=== PATIENT | male | born 1945 | race Caucasian/White ===

== ENCOUNTER → 2023-07-19 09:00 | Outpatient (CLI) | payer MEDICARE, SELFPAY ==
[2023-07-19 21:21] LABS: Alanine Aminotransferase 25 U/L (12-78); Albumin Level 3.9 g/dl (3.5-5.0); Albumin/Globulin Ratio 1.6 (1.1-1.8); Alkaline Phosphatase 101 U/L (38-126); Anion Gap 9.8 mEq/L (5-15); Aspartate Amino Transferase 43 U/L (17-59); Bilirubin,Total 0.5 mg/dl (0.2-1.3); Blood Urea Nitrogen 11 mg/dl (9-20); Calcium 9.1 mg/dl (8.4-10.2); Carbon Dioxide 30 mmol/L (22.0-30.0); Chloride 100 mmol/L (98-107); Chol/HDL Ratio 1.6 (1-3.5); Cholesterol 148 mg/dl (140-200); Estimated Glomerular Filt Rate 94 ml/min (>60); GFR (African American) 114 ML/MIN (>60); Globulin 2.5 g/dL (1.3-3.2); Glucose 100 mg/dl (74-100); HDL Cholesterol 90 mg/dl (40-60); Potassium 3.8 mmoL/L (3.5-5.1); Sodium 136 mmol/L (136-145); Total Protein,Serum 6.4 g/dl (6.3-8.2); Triglycerides 67 mg/dl (30-150); VLDL Cholesterol 13 mg/dL (0-40)
[2023-07-19 21:34] LABS: 25-OH Vitamin D, Total 55.3 ng/mL (30-100)
[2023-07-19 21:35] LABS: Basophils % 0.7 % (0.1-2.0); Eosinophils # 0.2 K/mm3 (0.0-0.4); Eosinophils % 3.3 % (0.1-12.0); Hematocrit 40.5 % (42.0-52.0); Hemoglobin 13.6 g/dL (14.1-18.0); Lymphocytes # 1.6 K/mm3 (0.7-4.5); Lymphocytes % 26.8 % (10-50); Mean Corpuscular HGB Conc 33.6 g/dL (31.8-35.4); Mean Corpuscular Hemoglobin 32.8 pg (27.0-31.2); Mean Corpuscular Volume 97.8 fl (80-94); Mean Platelet Volume 9.4 fl (7.4-10.4); Monocytes # 0.5 K/mm3 (0.1-1.0); Monocytes % 8.4 % (1.7-9.3); Neutrophils # 3.7 K/mm3 (1.8-7.8); Neutrophils % 60.8 % (37.0-80.0); Platelet Count 256 K/mm3 (142-424); Red Blood Count 4.14 M/mm3 (4.60-6.20)
[2023-07-19 21:40] LABS: Direct LDL Cholesterol 54.68 mg/dL (100-129)
[2023-07-19 21:54] LABS: Prostate Specific Ag Screen 2.3 ng/ml (0.0-4.0); Thyroid Stimulating Hormone 0.37 uIU/mL (0.465-4.68)
[2023-07-19 22:06] LABS: Hemoglobin A1C 5.2 % (4.0-6.0)
[2023-07-19 22:41] LABS: Microalbumin/Creatinine Ratio 12.4
[2023-07-19 22:42] LABS: Creatinine,Urine Random 108 mg/dL (Not Estab.)
== END ==
LOC: LAB.DROPOF 07-20 10:51
PROVIDERS: PCP Internal Medicine; Visit Provider Internal Medicine
DX: I10 Essential (primary) hypertension (principal); M96.1 Postlaminectomy syndrome, not elsewhere classified; R01.1 Cardiac murmur, unspecified; K59.00 Constipation, unspecified; M17.0 Bilateral primary osteoarthritis of knee; R09.81 Nasal congestion; J30.89 Other allergic rhinitis; Z79.899 Other long term (current) drug therapy; Z72.0 Tobacco use; Z12.5 Encounter for screening for malignant neoplasm of prostate; E66.9 Obesity, unspecified; Z68.30 Body mass index [BMI] 30.0-30.9, adult
CPT/HCPCS: 80053; 80061; 82043; 82306; 82570; 83036; 84443; 85025; G0103

== ENCOUNTER → 2023-08-10 08:13 | Outpatient (CLI) | payer MEDICARE, SELFPAY ==
[2023-08-10 20:20] LABS: Iron 109 ug/dL (49-181)
[2023-08-10 20:49] LABS: T4 (Thyroxine) 9.5 ug/dl (5.53-11.0)
[2023-08-12 08:17] LABS: Triiodothyronine (T3) Total 125 ng/dL (71-180)
[2023-08-12 09:12] LABS: Transferrin 270 mg/dL (177-329)
== END ==
PROVIDERS: PCP Internal Medicine; Visit Provider Internal Medicine
DX: D64.9 Anemia, unspecified (principal); E07.9 Disorder of thyroid, unspecified
CPT/HCPCS: 83540; 84436; 84439; 84466; 84480

== ENCOUNTER 2023-09-23 10:30 | Outpatient (CLI) | payer MEDICARE, SELFPAY ==
[2023-09-23 21:21] LABS: Amphetamine/Metha Screen,Urine Negative ng/ml (<1000)
[2023-09-23 22:57] LABS: Barbiturates Screen,Urine Negative ng/ml (<200); Benzodiazepines Screen,Urine Negative ng/ml (<200); Cannabinoid Screen,Urine Negative ng/ml (<50); Cocaine Screen,Urine Negative ng/ml (<300); Methadone Screen,Urine Negative ng/ml (<300); Opiate Screen,Urine Positive ng/ml (<300); Phencyclidine Screen,Urine Negative ng/ml (<25)
== END 2023-09-23 23:59 ==
PROVIDERS: PCP Nurse Practitioner Family; Visit Provider Nurse Practitioner Family
DX: Z79.899 Other long term (current) drug therapy (principal)
CPT/HCPCS: 80307

== ENCOUNTER 2023-10-28 19:24 | Outpatient (CLI) | payer MEDICARE, SELFPAY ==
[2023-10-28 18:55] LABS: Basophils % 0.2 % (0.1-2.0); Eosinophils # 0.3 K/mm3 (0.0-0.4); Eosinophils % 4.1 % (0.1-12.0); Hematocrit 44.2 % (42.0-52.0); Hemoglobin 14.8 g/dL (14.1-18.0); Lymphocytes # 2.1 K/mm3 (0.7-4.5); Lymphocytes % 33.8 % (10-50); Mean Corpuscular HGB Conc 33.4 g/dL (31.8-35.4); Mean Corpuscular Hemoglobin 32.8 pg (27.0-31.2); Mean Corpuscular Volume 98.1 fl (80-94); Mean Platelet Volume 9.8 fl (7.4-10.4); Monocytes # 0.6 K/mm3 (0.1-1.0); Monocytes % 9.2 % (1.7-9.3); Neutrophils # 3.2 K/mm3 (1.8-7.8); Neutrophils % 52.7 % (37.0-80.0); Platelet Count 268 K/mm3 (142-424); Red Cell Distribution Width 13.6 % (11.5-17.5); White Blood Count 6.1 K/mm3 (4.8-10.8)
[2023-10-28 19:38] LABS: Thyroid Stimulating Hormone 0.43 uIU/mL (0.465-4.68)
[2023-10-28 19:42] LABS: Ferritin 42.5 ng/ml (17.9-464)
== END 2023-10-28 23:59 ==
LOC: LAB.DROPOF 19:26
PROVIDERS: PCP Internal Medicine; Visit Provider Internal Medicine
DX: E05.90 Thyrotoxicosis, unspecified without thyrotoxic crisis or storm (principal); R53.83 Other fatigue; D64.9 Anemia, unspecified
CPT/HCPCS: 82728; 84443; 85025

== ENCOUNTER 2024-03-20 11:00 | Outpatient (CLI) | payer MEDICARE, SELFPAY ==
[2024-03-20 20:32] LABS: Alanine Aminotransferase 30 U/L (12-78); Albumin Level 4.4 g/dl (3.5-5.0); Albumin/Globulin Ratio 1.7 (1.1-1.8); Alkaline Phosphatase 93 U/L (38-126); Anion Gap 11.6 mEq/L (5-15); Aspartate Amino Transferase 53 U/L (17-59); Bilirubin,Total 0.7 mg/dl (0.2-1.3); Blood Urea Nitrogen 8 mg/dl (9-20); Calcium 9.6 mg/dl (8.4-10.2); Carbon Dioxide 35 mmol/L (22.0-30.0); Chloride 97 mmol/L (98-107); Estimated Glomerular Filt Rate 110 ml/min (>60); GFR (African American) 133 ML/MIN (>60); Globulin 2.6 g/dL (1.3-3.2); Glucose 100 mg/dl (74-100); Potassium 3.6 mmoL/L (3.5-5.1); Sodium 140 mmol/L (136-145)
[2024-03-20 21:03] LABS: Thyroid Stimulating Hormone 0.56 uIU/mL (0.465-4.68)
== END 2024-03-20 23:59 | disposition home or self-care (01) ==
LOC: LAB.DROPOF 03-21 11:00
PROVIDERS: PCP Internal Medicine; Visit Provider Internal Medicine
DX: I10 Essential (primary) hypertension (principal)
CPT/HCPCS: 80053; 84443

== ENCOUNTER 2024-05-18 14:05 | Outpatient (CLI) | payer MEDICARE, SELFPAY ==
[2024-05-18 20:14] LABS: Creatinine,Urine Random 30 mg/dL (Not Estab.)
== END 2024-05-18 23:59 | disposition home or self-care (01) ==
LOC: LAB.DROPOF 05-19 11:15
PROVIDERS: PCP Internal Medicine; Visit Provider Internal Medicine
DX: R73.03 Prediabetes (principal)
CPT/HCPCS: 82043; 82570

== ENCOUNTER 2024-09-05 14:40 | Outpatient (CLI) | payer MEDICARE, SELFPAY | END 2024-09-05 23:59 | disposition home or self-care (01) | LOC: LAB.DROPOF 09-06 10:55 | PROVIDERS: PCP Internal Medicine; Visit Provider Internal Medicine | DX: Z12.5 Encounter for screening for malignant neoplasm of prostate (principal) | CPT/HCPCS: G0103 ==

== ENCOUNTER 2024-11-02 12:21 | Outpatient (CLI) | payer MEDICARE, SELFPAY ==
[2024-11-01 19:29] LABS: Microalbumin/Creatinine Ratio 219.6
[2024-11-01 19:31] LABS: Creatinine,Urine Random 26 mg/dL (Not Estab.)
== END 2024-11-02 23:59 | disposition home or self-care (01) ==
LOC: LAB.DROPOF 12:22
PROVIDERS: PCP Internal Medicine; Visit Provider Internal Medicine
DX: R80.9 Proteinuria, unspecified (principal)
CPT/HCPCS: 82043; 82570

== ENCOUNTER 2025-04-05 13:30 | Outpatient (CLI) | payer MEDICARE, SELFPAY ==
--- OUTSIDE RECORDS SUMMARY | 2025-02-14 10:45 | XMS_ITS | Encounter Summary ---
Author [place] [address] Care Team Providers Care Consulting Technical Manager Name Role Phone Zenaida Cruz Ud, MD Unavailable [phone] Dillon Cadena APRN Primary Care Provider [phone] Reason for Referral * Ultrasound (Routine) - Pending Review Specialty Diagnoses / Procedures Referred By Ernie lou Referred To Contact Radiology Diagnoses Mass of muscle of right upper extremity Procedures US UPPER EXTREMITY NONVASCULAR LIMITED Dillon Cadena APRN [address] [place] [address] Phone: tel: fax: Referral ID Status Reason Start Date Expiration Date V isits Requested Visits Authorized [id number] Pending Review 02/14/2025 02/14/2026 1 1 Reason for Visit * Reason Comments Congestion x4 days Fatigue x4 days Encounter Details Date Type Department Care Team (Late st Contact Info) Description 02/14/2025 10:45 AM EDT Office Visit [facility] [address] [place] [address] Dillon Cadena APRN [address] [place] [address] Acute bacterial sinusitis (Primary Dx); B12 deficiency; Mass of muscle of right upper extremity Social History Tobacco Use Types Packs/Day Years Used Date Smoking Tobacco: Never Smokeless Tobacco: Current Chew Tobacco Cessation:Ready to Q uit: No Alcohol Use Standard Drinks/Week Comments No 0 (1 standard drink = 0.6 oz pur e alcohol) PHQ-2 Answer Date Recorded PHQ-2 Total Score 0 12/11/2024 Sex and Gender Information Value Date Recorded Sex Assigned at Not on file Legal Sex Male 11:16 PM EDT Gender Identity Not on file Sexual Orientation Not on file documented as of this encounter Last Filed Vital Signs Vital Sign Reading Time Taken Comments Blood Pressure 136/74 02/14/2025 10:45 AM EDT Pulse - - Temperature 36.5 C (97.7 F) 02/14/2025 10:45 AM EDT Respiratory Rate - - Oxygen Saturation - - Inhaled Oxygen Concentration - - Weight 87.1 kg (192 lb 2 oz) 02/14/2025 10:45 AM EDT Height 165.1 cm (5' 5 ) 02/14/2025 10:45 AM EDT Body Mass Index 31.97 02/14/2025 10:45 AM EDT documented in this encounter Functional Status * Is the person deaf or does he/she have serious difficulty hearing? Answer Date of Assessment Author No 12/11/2024 11:23 AM EDT Pam Eng MA * Is the person blind or does he/she have serious difficulty seeing even when wearing glasses? Answer Date of Assessment Author No 12/11/2024 11:23 AM RANDIT Pam Eng MA * Does this person have serious difficulty walking or climbing stairs? Answer Date of Assessment Author No 12/11/2024 11:23 AM RANDIT Pam Eng MA * Does this person have difficulty dressing or bathing? Answer Date of Assessment Author No 12/11/2024 11:23 AM RANDIT Pam Eng MA * Because of a physical, mental or emotional condition, does this person have difficulty doing errands alone such as visiting a doctor's office or shopping? Answer Date of Assessment Author No 12/11/2024 11:23 AM Pam Jackson MA documented as of this encounter Mental Status * Because of a physical, mental or emotional condition, does this person have serious difficulty concentrating, remembering or making decisions? Answer Entry Date Author No 12/11/2024 11:23 AM Pam Jackson MA documented in this encounter Ordered Prescriptions Prescription Sig Dispense Quantity Refills Last Filled Start Date End Date amoxicillin (AMOXIL) 875 mg Oral TabletIndications: Acute bacterial sinusitis Take 1 Tablet by mouth 2 times daily for 7 days. 14 Tablet 02/14/2025 5 predniSONE (DELTASONE) 20 mg Oral TabletIndications: Acute bacterial sinusitis Take 2 Tablets by mouth daily for 5 days. 10 Tablet 02/14/2025 5 documented in this encounter Progress Notes * Dillon Cadena APRN - 02/14/2025 10:45 AM EDT Vitals: 02/14/25 1045 BP: (!) 136/74 BP Location: Left arm Patient Position: Sitting Temp: 97.7 ??F (36.5 ??C) TempSrc: Forehead Weight: 192 lb 2 oz (87.1 kg) Height: 5' 5 (1.651 m) Body mass index is 31.97 kg/m??. SUBJECTIVE: Chief Complaint Patient presents with Congestion x4 days Fatigue x4 days HPI: Congestion This is a new problem. The current episode started in the past 7 days. The problem has been unchanged. The problem occurs constantly. The cough is Non- productive. Associated symptoms include ear congestion, ear pain, nasal congestion, postnasal drip and rhinorrhea. Nothing aggravates the symptoms. He has tried OTC cough suppressant for the symptoms. The treatment provided mild relief. Fatigue This is a new problem. The current episode started in the past 7 days. The problem has been unchanged. Associated symptoms include congestion and fatigue. Nothing aggravates the symptoms. He has tried nothing for the symptoms. The treatment provided no relief. Presents with congestion, rhinorrhea, otalgia, sinus pressure/pain for the last several days. Also with right arm mass that has increased in size over the last several months. Review of Systems Constitutional: Positive for fatigue. HENT: Positive for congestion, ear pain, postnasal drip and rhinorrhea. OBJECTIVE: Physical Exam Constitutional: General: He is not in acute distress. Appearance: He is well-developed. He is not diaphoretic. HENT: Head: Normocephalic and atraumatic. Right Ear: External ear normal. Tympanic membrane is not injected or erythematous. Left Ear: External ear normal. Tympanic membrane is not injected or erythematous. Nose: Rhinorrhea present. Right Sinus: No maxillary sinus tenderness or frontal sinus tenderness. Left Sinus: No maxillary sinus tenderness or frontal sinus tenderness. Mouth/Throat: Pharynx: Posterior oropharyngeal erythema present. No oropharyngeal exudate. Tonsils: No tonsillar abscesses. Eyes: General: Right eye: No discharge. Left eye: No discharge. Neck: Vascular: No JVD. Cardiovascular: Rate and Rhythm: Normal rate and regular rhythm. Heart sounds: Normal heart sounds. No murmur heard. Pulmonary: Effort: Pulmonary effort is normal. No respiratory distress. Breath sounds: Normal breath sounds. No wheezing or rales. Musculoskeletal: General: Normal range of motion. Right upper arm: Deformity present. Cervical back: Normal range of motion and neck supple. Skin: General: Skin is warm and dry. Findings: No rash. Neurological: Mental Status: He is alert and oriented to person, place, and time. Psychiatric: Behavior: Behavior normal. Thought Content: Thought content normal. Judgment: Judgment normal. Assessment & Plan Acute bacterial sinusitis Orders: predniSONE (DELTASONE) 20 mg Oral Tablet; Take 2 Tablets by mouth daily for 5 days. amoxicillin (AMOXIL) 875 mg Oral Tablet; Take 1 Tablet by mouth 2 times daily for 7 days. B12 deficiency Orders: cyanocobalamin injection 1,000 mcg Mass of muscle of right upper extremity Orders: US UPPER EXTREMITY NONVASCULAR LIMITED; Future documented in this encounter Plan of Treatment Upcoming Encounters Date Type Department Care Team (Late st Contact Info) Description 07/16/2025 9:20 AM EDT Office Visit [facility] [address] [address] Raul Saucedo MD [address] [place] [address] [address] [facility] [address] documented as of this encounter Goals Goal Patient Goal Type Associated Problems Recent Progress Patient-Stated? Author Blood Pressure < 140/90 Blood Pressure 116/70(2024 8:59 AM EDT) No David aCdena MD Maintain a healthy diet, exercise regularly and maintain an ideal body weight General No Estrella Tariq Nesha HUEY Stay Tobacco Free Lifestyle No Estrella TariqHUEY documented as of this encounter Results * US UPPER EXTREMITY NONVASCULAR LIMITED (03/02/2025 4:25 PM EDT) Anatomical Region Laterality Modality Arm Ultrasound 03/02/2025 4:25 PM EDT Impressions 03/02/2025 5:13 PM EDT Lobulated mass in the right upper arm deep to the muscular fascia measuring 5.8 x 2.5 x 3.7 centimeters has sonographic characteristics of a lipoma. If the patient does not opt for resection, this can be observed clinically and repeat imaging can be performed in the future if there is continued growth and/or worsening pain. - Note: Radiology results need to be interpreted within a comprehensive clinical context. If you have questions about the radiology report, please contact the office of the ordering clinician. Narrative 03/02/2025 5:13 PM EDT US UPPER EXTREMITY NONVASCULAR LIMITED, 03/02/2025 4:25 PM CLINICAL HISTORY: M62.89-Other specified disorders of [id number]. COMPARISON: None PROCEDURE COMMENTS: Routine sonographic evaluation of the region of interest with branch service representative images sent to PACS along with cone classifier tender notes. FINDINGS: Targeted ultrasound performed in the right upper arm in the area of palpable abnormality. In this location, there is a lobulated mass deep to the muscular fascia which has well-defined margins measuring 5.8 x 2.5 x 3.7 cm. This is isoechoic to the subcutaneous fat and has uniform echogenicity. No other mass or fluid collection in this location. Procedure Note Ronit Johnson MD - 03/02/2025 US UPPER EXTREMITY NONVASCULAR LIMITED, 03/02/2025 4:25 PM CLINICAL HISTORY: M62.89-Other specified disorders of [id number]-CM. COMPARISON: None PROCEDURE COMMENTS: Routine sonographic evaluation of the region ofinterest with branch service representative images sent to PACS along with cone classifier tender notes. FINDINGS: Targeted ultrasound performed in the right upper arm in the area ofpalpable abnormality. In this location, there is a lobulated mass deep to themuscular fascia which has well-defined margins measuring 5.8 x 2.5 x 3.7 cm. Thisis isoechoic to the subcutaneous fat and has uniform echogenicity. No othermass or fluid collection in this location. IMPRESSION: Lobulated mass in the right upper arm deep to the muscular fasciameasuring 5.8 x 2.5 x 3.7 centimeters has sonographic characteristics of a lipoma. Ifthe patient does not opt for resection, this can be observed clinically andrepeat imaging can be performed in the future if there is continued growthand/or worsening pain. - Note: Radiology results need to be interpreted within a comprehensiveclinical context. If you have questions about the radiology report, please contactthe office of the ordering clinician. Dillon Cadena APRN [facility] US ORDERABLES Final Resu lt documented in this encounter Visit Diagnoses Diagnosis Acute bacterial sinusitis- Primary Acute sinusitis, unspecified B12 deficiency Other B-complex deficiencies Mass of muscle of right upper extremity Mass of muscle of right upper extremity documented in this encounter Administered Medications Inactive Administered Medications - up to 1 most recent administrations Medication Order MAR Action Action Date Dose Rate Site cyanocobalamin injection 1,000 mcg 1,000 mcg, Intramuscular, ONCE, 1 dose, On Wed02/14/25 at 1115, Dx: 1. B12 deficiencyIndications:B12 deficiency Given 02/14/2025 11:45 AM EDT 1,000 mcg Left Deltoid documented in this encounter Discontinued Medications Medication Sig Discontinue Reason Start Date End Da te chlorhexidine (HIBICLENS) 4 % Top Liquid Apply topically as needed for Wound Care. Cancelled by Midlevel 02/14/2025 gabapentin (NEURONTIN) 100 mg Oral CapsuleIndications:Hist ory of degenerative disc disease TAKE 1 CAPSULE BY MOUTH 4 TIMES DAILY Cancelled by Midlevel 05/02/2018 02/14/2025 meloxicam (MOBIC) 7.5 mg Oral TabletIndications:Numbn ess and tingling of both legs below knees,DDD (degenerative disc disease), lumbar Take 1 Tablet by mouth daily. Cancelled by Midlevel 11/12/2021 02/14/2025 documented as of this encounter Additional Health Concerns Assessment Noted Time A fall risk assessment has been complete d for the patient 04/26/2024 2:47 PM EDT documented as of this encounter Care Teams Consulting Technical Manager Relationship Specialty Start Date End Date Dillon Cadena APRN [address] [place] [address] PCP - General Nurse Practitioner 08/31/23 Zenaida Cruz Ud, MD [address] [place] [address] Internal Medicine-Nephrology 04/06/16 documented as of this encounter
--- OUTSIDE RECORDS SUMMARY | 2025-02-23 09:00 | XMS_ITS | Encounter Summary ---
Author Organization [place] [address] Care Team Providers Care Roof Cement And Paint Maker Helper Name Role Phone Zenaida Cruz Ud, MD Unavailable [phone] Dillon Cadena APRN Primary Care Provider [phone] Reason for Referral * Consultation (Emergency) - Authorization Not Needed Specialty Diagnoses / Procedures Referred By Ernie t Referred To Contact Diagnoses Left eye injury, initial encounter Kassie Beasley MD [address] [place] [address] Phone: tel: fax: Ingrid Calvert, OD [address] [place] [address] Phone: tel: fax: Referral ID Status Reason Start Date Expiration Date Visits Requested Visits Authorized [id number] Authorization Not Needed Specialty Services Required 02/23/2025 02/23/2026 99 99 Reason for Visit * Reason Comments Fatigue Weakness Cough Congestion Encounter Details Date Type Department Care Team (Late st Contact Info) Description 02/23/2025 9:00 AM EDT Office Visit [facility] [address] [place] [address] Kassie Beasley MD [address] [place] [address] Left eye injury, initial encounter (Primary Dx); Costochondritis; PUD (peptic ulcer disease) Social History Tobacco Use Types Packs/Day Years Used Date Smoking Tobacco: Never Smokeless Tobacco: Current Chew Tobacco Cessation:Ready to Q uit: Not Asked; Counseling Given: Not Answered Alcohol Use Standard Drinks/Week Comments No 0 [...] Sign Reading Time Taken Comments Blood Pressure 98/56 02/23/2025 8:44 AM EDT Pulse - - Temperature 36.8 C (98.2 F) 02/23/2025 8:44 AM EDT Respiratory Rate - - Oxygen Saturation - - Inhaled Oxygen Concentration - - Weight 86.2 kg (190 lb) 02/23/2025 8:44 AM EDT Height 165.1 cm (5' 5 ) 02/23/2025 8:44 AM EDT Body Mass Index 31.62 02/23/2025 8:44 AM EDT documented in this encounter Functional Status * Is the person deaf or does he/she have serious difficulty hearing? Answer Date of Assessment Author No 12/11/2024 11:23 AM EDT Pam Eng MA * Is the person blind or does he/she have serious difficulty seeing even when wearing glasses? Answer Date of Assessment Author No 12/11/2024 11:23 AM EDT Pam Eng MA * Does this person have serious difficulty walking or climbing stairs? Answer Date of Assessment Author No 12/11/2024 11:23 AM EDT Pam Eng MA * Does this person have difficulty dressing or bathing? Answer Date of Assessment Author No 12/11/2024 11:23 AM EDT Pam Eng MA * Because of a physical, mental or emotional condition, does this person have difficulty doing errands alone such as visiting a doctor's office or shopping? Answer Date of Assessment Author No 12/11/2024 11:23 AM EDT Pam Eng MA documented as of this encounter Mental Status * Because of a physical, mental or emotional condition, does this person have serious difficulty concentrating, remembering or making decisions? Answer Entry Date Author No 12/11/2024 11:23 AM EDT Pam Eng MA documented in this encounter Ordered Prescriptions Prescription Sig Dispense Quantity Refills Last Filled Start Date End Date pantoprazole (PROTONIX) 40 mg Oral Tablet, Delayed Release (E.C.)Indications: PUD (peptic ulcer disease) Take 1 Tablet by mouth daily. 90 Tablet 3 02/23/2025 azithromycin (ZITHROMAX) 250 mg Oral TabletIndications: Costochondritis Take 2 tablets (500 mg) on Day 1, followed by 1 tablet (250 mg) once daily on Days 2 through 5. 6 Tablet 02/23/2025 documented in this encounter Progress Notes * Kassie Beasley MD - 02/23/2025 9:00 AM EDT Assessment & Plan 1. Costochondritis. - Reports chest tenderness and soreness, consistent with costochondritis. - Physical exam reveals tenderness in the ribs. - Discussed that this condition can occur after a cold. - An injection will be administered to alleviate chest tenderness. A new antibiotic prescription will be sent to the pharmacy. 2. Eye injury. - Reports a foreign body sensation in the left eye since yesterday. - Examination revealed a possible ulcer lateral to the iris. - Discussed the need for urgent evaluation by an scruff worker. - An urgent referral to an scruff worker will be arranged for further evaluation and management. 3. Low blood pressure. - Blood pressure reading is 98/56, which is below the normal range. - Advised to hold off on taking amlodipine 5 mg today and for the next couple of days while feelingunwell. - Discussed the importance of monitoring blood pressure and symptoms. 4. Dehydration. - Appears slightly dehydrated despite efforts to maintain hydration. - Physical exam suggests dehydration. - Advised to continue drinking plenty of water. - Discussed the importance of maintaining adequate hydration. 5. Medication management. - Out of Prilosec 40 mg. - Discussed the need for a refill. - A refill will be sent to the pharmacy. Dx/Orders: Diagnoses and all orders for this visit: Left eye injury, initial encounter - AMB REFERRAL TO OPTOMETRY Costochondritis - azithromycin (ZITHROMAX) 250 mg Oral Tablet; Take 2 tablets (500 mg) on Day 1, followed by 1 tablet (250 mg) once daily on Days 2 through 5. Dispense: 6 Tablet; Refill: 0 - methylPREDNISolone acetate (DEPO-Medrol) injection 120 mg PUD (peptic ulcer disease) - pantoprazole (PROTONIX) 40 mg Oral Tablet, Delayed Release (E.C.); Take 1 Tablet by mouth daily. Dispense: 90 Tablet; Refill: 3 No follow-ups on file. Subjective Chente He is a 79 y.o. male Chief Complaint Patient presents with Fatigue Weakness Cough Congestion Fatigue This is a recurrent problem. The current episode started 1 to 4 weeks ago. The problem occurs constantly. The problem has been unchanged. Associated symptoms include arthralgias, coughing and fatigue. Cough This is a recurrent problem. The current episode started 1 to 4 weeks ago. The problem has been unchanged. The problem occurs constantly. Congestion This is a recurrent problem. The current episode started 1 to 4 weeks ago. The problem has been unchanged. The problem occurs constantly. History of Present Illness The patient presents for evaluation of chest pain, eye injury, and low blood pressure. She reports experiencing chest discomfort, which she describes as soreness. This discomfort has been present since her last visit to Dr. Almonte. She also mentions persistent aching and bone pain, along with back pain that started a few weeks ago. Despite taking the prescribed medications, amoxicillin and prednisone, she has not observed any improvement in her symptoms. She reports recent physical activity, specifically mowing the yard two days prior. She was informed that her blood pressure was low. She maintains adequate hydration but acknowledgesa decrease in her appetite. She takes her blood pressure medication at night. Additionally, she reports an incident where a foreign object entered her eye while she was lying onthe couch yesterday. She is uncertain about the nature of the object but believes it may have caused a scratch. She describes a sensation of something still being present in her eye, which is causingdiscomfort. She also notes a discoloration in her eye, which she attributes to the incident. The pain is localized within the eye. She also reports experiencing dry mouth, which she attributes to her blood pressure medication. She is out of her Prilosec 40 mg. Review of Systems Constitutional: Positive for fatigue. HENT: Negative. Respiratory: Positive for cough. Cardiovascular: Negative. Gastrointestinal: Negative. Genitourinary: Negative. Musculoskeletal: Positive for arthralgias. Psychiatric/Behavioral: Negative. Objective Blood pressure 98/56, temperature 98.2 ??F (36.8 ??C), height 5' 5 (1.651 m), weight 190 lb (86.2 kg). Body mass index is 31.62 kg/m??. Physical Exam Ears: Bubbles present behind the ears Eyes: Discoloration on the left eye, possibly an ulcer Respiratory: Clear to auscultation, no wheezing, rales or rhonchi Other: Tenderness in the chest, likely costochondritis Physical Exam Vitals and nursing note reviewed. HENT: Head: Normocephalic. Comments: ttp bilateral maxillary sinus. Cobblestoning of oropharynx Right Ear: Tympanic membrane normal. Left Ear: Tympanic membrane normal. Cardiovascular: Rate and Rhythm: Normal rate. Pulmonary: Effort: Pulmonary effort is normal. Breath sounds: No wheezing. Abdominal: Palpations: Abdomen is soft. Musculoskeletal: General: Tenderness present. Neurological: General: No focal deficit present. Mental Status: He is alert. Results The provider educated the patient (or legal claims representative) on the use of the ambient listening artificial intelligence tool, [employer]acanda. They were informed that this AI tool processes the conversation to generate a clinical note with the expected benefit of improved accuracy while achieving an improved encounter experience for the patient and provider.?The provider explained that the medical information captured by the AI tool including, but not limited to, diagnoses and treatment plan would be protected in accordance with applicable privacy laws and that all diagnoses and treatment decisions would be made by the provider. The provider explained that the note generated will be reviewed bythe provider for accuracy to minimize potential errors.? The patient was given an opportunity to ask questions and opt out of proceeding with the use of the AI tool. After being informed of such information, the patient (or legal claims representative), and each individual in attendance with the patient, verbally consented to the use of the AI tool. documented in this encounter Plan of Treatment Upcoming Encounters Date Type Department Care Team (Late st Contact Info) Description 07/16/2025 9:20 AM EDT Office Visit [facility] [address] [place] [address] Raul Saucedo MD [facility] [place] [address] Scheduled Referrals Name Type Priority Associated Diagnoses Orde r Schedule AMB REFERRAL TO OPTOMETRY Outpatient Referral STAT Left eye injury, initial encounter Ordered: 02/23/2025 documented as of this encounter Goals Goal Patient Goal Type Associated Problems Recent Progress Patient-Stated? Author Blood Pressure < 140/90 Blood Pressure 116/70(2024 8:59 AM EDT) No David Cadena MD Maintain a healthy diet, exercise regularly and maintain an ideal body weight General No Estrella Tariq RMA Stay Tobacco Free Lifestyle No Estrella Tariq RMA documented as of this encounter Visit Diagnoses Diagnosis Left eye injury, initial encounter- Primary Costochondritis Tietze's disease PUD (peptic ulcer disease) Peptic ulcer, unspecified site, unspecified as acute or chronic, without mention of hemorrhage, perforation, or obstruction documented in this encounter Administered Medications Inactive Administered Medications - up to 1 most recent administrations Medication Order MAR Action Action Date Dose Rate Site methylPREDNISolone acetate (DEPO-Medrol) injection 120 mg 120 mg, Intramuscular, ONCE, 1 dose, On Wed02/23/25 at 0930, Dx: 1. CostochondritisIndicati ons:Costochondritis Given 02/23/2025 9:37 AM EDT 120 mg Right Upper Outer Quadrant documented in this encounter Discontinued Medications Medication Sig Discontinue Reason Start Date End Da te pantoprazole (PROTONIX) 40 mg Oral Tablet, Delayed Release (E.C.)Indications:PUD (peptic ulcer disease) Take 1 Tablet by mouth daily. Reorder 04/26/2024 02/23/2025 documented as of this encounter Additional Health Concerns Assessment Noted Time A fall risk assessment has been complete d for the patient 04/26/2024 2:47 PM EDT documented as of this encounter Care Teams Roof Cement And Paint Maker Helper Relationship Specialty Start Date End Date Dillon Cadena APRN [address] [place] [address] PCP - General Nurse Practitioner 08/31/23 Zenaida Cruz Ud, MD [address] [place] [address] Internal Medicine-Nephrology 04/06/16 documented as of this encounter
--- OUTSIDE RECORDS SUMMARY | 2025-03-02 10:15 | XMS_ITS | Encounter Summary ---
Author [place] [address] Care Team Providers Care Slat Basket Maker Machine Name Role Phone Zenaida Cruz Ud, MD Unavailable [phone] Dillon Cadena APRN Primary Care Provider [phone] Reason for Visit * Reason Comments Fatigue Encounter Details Date Type Department Care Team (Late Contact Info) Description 03/02/2025 10:15 AM EDT Office Visit [facility] [address] [place] [phone] Dillon Cadena APRN [address] [place] [address] Malaise and fatigue (Primary Dx); Spinal enthesopathy, cervicothoracic region; Peripheral neuropathy, idiopathic; Anemia, unspecified type; B12 deficiency; Screening for diabetes mellitus (DM); Vitamin D deficiency; Therapeutic drug monitoring Social History Tobacco Use Types Packs/Day Years Used Date Smoking Tobacco: Never Passive Smoke Exposure: Never Smokeless Tobacco: Current Chew Alcohol Use Standard Drinks/Week Comments No 0 (1 standard drink = 0.6 oz pur e alcohol) PHQ-2 Answer Date Recorded PHQ-2 Total Score 0 12/11/2024 Sexually Active Control Partners Comments Not Currently Female Sex and Gender Information Value Date Recorded Sex Assigned at Not on file Legal Sex Male 11:16 PM EDT Gender Identity Not on file Sexual Orientation Not on file documented as of this encounter Last Filed Vital Signs Vital Sign Reading Time Taken Comments Blood Pressure 112/64 03/02/2025 10:26 AM EDT Pulse - - Temperature 36.9 C (98.4 F) 03/02/2025 10:26 AM EDT Respiratory Rate - - Oxygen Saturation - - Inhaled Oxygen Concentration - - Weight 84.8 kg (187 lb) 03/02/2025 10:26 AM EDT Height 165.1 cm (5' 5 ) 03/02/2025 10:26 AM EDT Body Mass Index 31.12 03/02/2025 10:26 AM EDT documented in this encounter Functional [...] Assessment Author No 12/11/2024 11:23 AM EDT Pma Eng MA * Because of a physical, [...] Refills Last Filled Start Date End Date gabapentin (NEURONTIN) 600 mg Oral TabletIndications:Spi nal enthesopathy, cervicothoracic region,Peripheral neuropathy, idiopathic Take 1 Tablet by mouth 4 times daily. 120 Tablet 2 03/02/2025 documented in this encounter Progress Notes * Dillon Cadena APRN - 03/02/2025 10:15 AM EDTAssociated Problem(s): Spinal enthesopathy, cervicothoracic region Orders: gabapentin (NEURONTIN) 600 mg Oral Tablet; Take 1 Tablet by mouth 4 times daily. * Dillon Cadena APRN - 03/02/2025 10:15 AM EDT Vitals: 03/02/25 1026 BP: 112/64 Temp: 98.4 ??F (36.9 ??C) TempSrc: Temporal Weight: 187 lb (84.8 kg) Height: 5' 5 (1.651 m) Body mass index is 31.12 kg/m??. SUBJECTIVE: Chief Complaint Patient presents with Fatigue HPI: Fatigue This is a recurrent problem. The current episode started 1 to 4 weeks ago (1 month). The problem occurs constantly. The problem has been gradually worsening. Associated symptoms include congestion, fatigue, neck pain and weakness. Pertinent negatives include no sore throat. He has tried rest and sleep (antibiotics, oral steroid) for the symptoms. The treatment provided no relief. Presents with increased fatigue over the last month. Denies changes in diet, sleep. Controlled Substance Prescribing Management: As part of today's visit Chente is also being followed for controlled substance management for Degenerative Disc Disease and Peripheral Neuropathy. Detailsof the progress of the monitored condition are noted in that section of the HPI. The controlled substance flow sheet has been reviewed. Has been taking gabapentin 600 mg 4 times daily with improvement. History of chronic neck pain and neuropathy. Review of Systems Constitutional: Positive for fatigue. HENT: Positive for congestion. Negative for sore throat. Musculoskeletal: Positive for neck pain. Neurological: Positive for weakness. OBJECTIVE: Physical Exam Constitutional: General: He is not in acute distress. Appearance: He is well-developed. He is not diaphoretic. HENT: Head: Normocephalic and atraumatic. Eyes: General: Right eye: No discharge. Left eye: No discharge. Cardiovascular: Rate and Rhythm: Normal rate and regular rhythm. Heart sounds: Normal heart sounds. No murmur heard. Pulmonary: Effort: Pulmonary effort is normal. No respiratory distress. Breath sounds: Normal breath sounds. No wheezing or rales. Musculoskeletal: General: Normal range of motion. Cervical back: Normal range of motion and neck supple. Skin: General: Skin is warm and dry. Findings: No rash. Neurological: Mental Status: He is alert and oriented to person, place, and time. Psychiatric: Behavior: Behavior normal. Thought Content: Thought content normal. Judgment: Judgment normal. Assessment & Plan Malaise and fatigue Orders: CBC; Future THYROID STIMULATING HORMONE; Future Spinal enthesopathy, cervicothoracic region Orders: gabapentin (NEURONTIN) 600 mg Oral Tablet; Take 1 Tablet by mouth 4 times daily. Peripheral neuropathy, idiopathic Orders: gabapentin (NEURONTIN) 600 mg Oral Tablet; Take 1 Tablet by mouth 4 times daily. Anemia, unspecified type Orders: CBC; Future B12 deficiency Orders: VITAMIN B12/ FOLIC ACID; Future Screening for diabetes mellitus (DM) Orders: HEMOGLOBIN A1C; Future Vitamin D deficiency Orders: VITAMIN D 25 HYDROXY; Future Therapeutic drug monitoring Orders: COMPLIANCE PANEL, URINE; Future documented in this encounter Plan of Treatment Upcoming Encounters Date Type Department Care Team (Late st Contact Info) Description 07/16/2025 9:20 AM EDT Office Visit [facility] [address] [phone] Raul Saucedo MD [address] [place] [address] [place] [address] documented as of this encounter Goals Goal Patient Goal Type Associated Problems Recent Progress Patient-Stated? Author Blood Pressure < 140/90 Blood Pressure 116/70(2024 8:59 AM EDT) No David Cadena MD Maintain a healthy diet, exercise regularly and maintain an ideal body weight General No Estrella Tariq RMA Stay Tobacco Free Lifestyle No Estrella Tariq RMA documented as of this encounter Procedures Procedure Name Priority Date/Time Associated Diagnosis Comments COMPLIANCE PANEL, URINE Routine 03/02/2025 11:00 AM EDT Therapeutic drug monitoring VITAMIN B12/ FOLIC ACID Routine 03/02/2025 11:00 AM EDT B12 deficiency CBC Routine 03/02/2025 11:00 AM EDT Malaise and fatigue Anemia, unspecified type VITAMIN D 25 HYDROXY Routine 03/02/2025 11:00 AM EDT Vitamin D deficiency THYROID STIMULATING HORMONE Routine 03/02/2025 11:00 AM EDT Malaise and fatigue IRON LEVEL Routine 03/02/2025 11:00 AM EDT Anemia, unspecified type HEMOGLOBIN A1C Routine 03/02/2025 11:00 AM EDT Screening for diabetes mellitus (DM) documented in this encounter Results * IRON LEVEL (03/02/2025 11:00 AM EDT) Iron 141 50 - 170 mcg/dL 03/03/2025 7:46 PM EDT [facility] Blood VENOUS BLOOD / Unknown Venipuncture / Unknown 03/02/2025 11:00 AM EDT 03/02/2025 11:00 AM EDT us Dillon Cadena WEB CONTENT WRITER CHEMISTRY ORDERABLES Final R esult [facility] [address] [place] [address] , [place] [address] * (ABNORMAL) COMPLIANCE PANEL, URINE (03/02/2025 11:00 AM EDT) Medications Expected Gabapentin Percocet(TM) (oxycodone) 03/04/2025 9:05 AM EDT [facility] Barbiturates Absent Cutoff 200 ng/mL 03/04/2025 9:05 AM EDT [facility] THC <10 Cutoff 10 ng/mL ng/mL 03/04/2025 9:05 AM EDT [facility] [employer] Comment:5-norigtd-iibgrygzkz cannabinol; does not distinguish between prescribed and illicit forms THC Glucuronide <10 Cutoff 10 ng/mL ng/mL 03/04/2025 9:05 AM EDT [facility] Comment:Metabolite of THC Amphetamine <50 Cutoff 50 ng/mL ng/mL 03/04/2025 9:05 AM EDT [facility] Comment:e.g., Adderall, Vyva nse, Dexedrine, Obetrol MDA <50 Cutoff 50 ng/mL ng/mL 03/04/2025 9:05 AM EDT [facility] Comment:Metabolite of MDMA, and MDEA MDEA <50 Cutoff 50 ng/mL ng/mL 03/04/2025 9:05 AM EDT [facility] Comment:e.g., Eileen MDMA <50 Cutoff 50 ng/mL ng/mL 03/04/2025 9:05 AM EDT [facility] Comment:e.g., Ecstasy, Tracy Methamphetamine <50 Cutoff 50 ng/mL ng/mL 03/04/2025 9:05 AM EDT [facility] Comment:d- and l- isomers ar e not distinguished by this test; may reflect Srikanth's inhaler, Desoxyn, Selegiline, or illicit source Phentermine <50 Cutoff 50 ng/mL ng/mL 03/04/2025 9:05 AM EDT [facility] Comment:e.g., Adipex, Lomair a, Ionamin,Fastin,Zantryl Gabapentin >2,000(H) Cutoff 50 ng/mL ng/mL 03/04/2025 9:05 AM EDT [facility] Comment:e.g, Neurontin Pregabalin <50 Cutoff 50 ng/mL ng/mL 03/04/2025 9:05 AM EDT [facility] Comment:Lyrica Alprazolam <8 Cutoff 8 ng/mL ng/mL 03/04/2025 9:05 AM EDT [facility] Comment:e.g, Xanax, Niravam alpha-Hydroxyalprazolam <25 Cutoff 25 ng/mL ng/mL 03/04/2025 9:05 AM EDT [facility] Comment:Metabolite of Alpraz olam Clonazepam <10 Cutoff 10 ng/mL ng/mL 03/04/2025 9:05 AM EDT [facility] Comment:e.g., Klonopin, Clon opin 7-Aminoclonazepam <25 Cutoff 25 ng/mL ng/mL 03/04/2025 9:05 AM EDT [facility] Comment:Metabolite of Clonaz epam Diazepam <10 Cutoff 10 ng/mL ng/mL 03/04/2025 9:05 AM EDT [facility] Comment:e.g, Valium, Diastat Nordiazepam <25 Cutoff 25 ng/mL ng/mL 03/04/2025 9:05 AM EDT [facility] Comment:Metabolite of Chlord iazepoxide(Librium), Clorazepate(Tranxene), Diazepam, Halazepam, (Alapryl), Prazepam(Centrax) Flunitrazepam <50 Cutoff 50 ng/mL ng/mL 03/04/2025 9:05 AM EDT [facility] Comment:e.g.,Rohypnol, Narco zep 7-Aminoflunitrazepam <50 Cutoff 50 ng/mL ng/mL 03/04/2025 9:05 AM EDT [facility] Comment:Metabolite of Flunit razepam Flurazepam <50 Cutoff 50 ng/mL ng/mL 03/04/2025 9:05 AM EDT [facility] Comment:e.g., Dalmane Hydroxyethylflurazepam <50 Cutoff 50 ng/mL ng/mL 03/04/2025 9:05 AM EDT [facility] Comment:Metabolite of Fluraz epam Lorazepam <50 Cutoff 50 ng/mL ng/mL 03/04/2025 9:05 AM EDT [facility] Comment:e.g., Ativan Lorazepam Glucuronide <50 Cutoff 50 ng/mL ng/mL 03/04/2025 9:05 AM EDT [facility] Comment:Metabolite of Loraze lennie Midazolam <50 Cutoff 50 ng/mL ng/mL 03/04/2025 9:05 AM EDT [facility] Comment:e.g., Versed alpha-hydroxymidazolam <50 Cutoff 50 ng/mL ng/mL 03/04/2025 9:05 AM EDT [facility] Comment:Metabolite of Versed Oxazepam <50 Cutoff 50 ng/mL ng/mL 03/04/2025 9:05 AM EDT [facility] Comment:e.g., Serax; also Me tabolite of Temazepam, and Nordiazepam Oxazepam Glucuronide <50 Cutoff 50 ng/mL ng/mL 03/04/2025 9:05 AM EDT [facility] Comment:Metabolite of Oxazep am Temazepam <50 Cutoff 50 ng/mL ng/mL 03/04/2025 9:05 AM EDT [facility] Comment:e.g., Restoril; also Metabolite of Diazepam Temazepam Glucuronide <50 Cutoff 50 ng/mL ng/mL 03/04/2025 9:05 AM EDT [facility] Comment:Metabolite of Temaze lennie and Diazepam Triazolam <50 Cutoff 50 ng/mL ng/mL 03/04/2025 9:05 AM EDT [facility] Comment:e.g., Halcion alpha-hydroxytriazolam <50 Cutoff 50 ng/mL ng/mL 03/04/2025 9:05 AM EDT [facility] Comment:Metabolite of Triazo herrera Buprenorphine <5 Cutoff 5 ng/mL ng/mL 03/04/2025 9:05 AM EDT [facility] Comment:e.g., Suboxone, Subu sandrita,Sublocade, Buprenex Buprenorphine Glucuronide <10 Cutoff 10 ng/mL ng/mL 03/04/2025 9:05 AM EDT [facility] Comment:Buprenorphine Metabo lite Norbuprenorphine <5 Cutoff 5 ng/mL ng/mL 03/04/2025 9:05 AM EDT [facility] Comment:Buprenorphine Metabo lite Norbuprenorphine Glucuronide <10 Cutoff 10 ng/mL ng/mL 03/04/2025 9:05 AM EDT [facility] Comment:Buprenorphine Metabo lite Benzoylecgonine <50 Cutoff 50 ng/mL ng/mL 03/04/2025 9:05 AM EDT [facility] Comment:Cocaine Metabolite Fentanyl <1 Cutoff 1 ng/mL ng/mL 03/04/2025 9:05 AM EDT [facility] Comment:e.g.,Duragesic, Oral et, Actiq, Sublimaze, Innovar, Lazanda Norfentanyl <1 Cutoff 1 ng/mL ng/mL 03/04/2025 9:05 AM EDT [facility] Comment:Metabolite of Fentan yl 6-Monoacetylmorphine (6MAM) <10 Cutoff 10 ng/mL ng/mL 03/04/2025 9:05 AM EDT [facility] Comment:Metabolite of Heroin ; Morphine is expected Methadone <50 Cutoff 50 ng/mL ng/mL 03/04/2025 9:05 AM EDT [facility] Comment:e.g., Dolophine, Met hadose, Amidone EDDP <50 Cutoff 50 ng/mL ng/mL 03/04/2025 9:05 AM EDT [facility] Comment:Methadone Metabolite Carisoprodol <100 Cutoff 100 ng/mL ng/mL 03/04/2025 9:05 AM EDT [facility] Comment:e.g., Soma Meprobamate <100 Cutoff 100 ng/mL ng/mL 03/04/2025 9:05 AM EDT [facility] Comment:e.g., [place], Equa nil, Micrainin, Equagesic; Metabolite of Carisoprodol Codeine <50 Cutoff 50 ng/mL ng/mL 03/04/2025 9:05 AM EDT [facility] Comment:e.g., Acetaminophen w/Codeine, Tylenol3 w/ Codeine Codeine Glucuronide <50 Cutoff 50 ng/mL ng/mL 03/04/2025 9:05 AM EDT [facility] Comment:Metabolite of Codein e Meperidine <50 Cutoff 50 ng/mL ng/mL 03/04/2025 9:05 AM EDT [facility] Comment:e.g., Demerol, Pethi dine Normeperidine <50 Cutoff 50 ng/mL ng/mL 03/04/2025 9:05 AM EDT [facility] Comment:Metabolite of Meperi dine Morphine <50 Cutoff 50 ng/mL ng/mL 03/04/2025 9:05 AM EDT [facility] Comment:e.g., MS Contin, Yaa anol; Metabolite of Codeine and Heroin; may reflect poppy seed ingestion Wdmtamhh-5-Bhxqndkzzkd <25 Cutoff 25 ng/mL ng/mL 03/04/2025 9:05 AM EDT [facility] Comment:Metabolite of Morphi ne. Rpfpszvi-9-Eiyvivqewwa <25 Cutoff 25 ng/mL ng/mL 03/04/2025 9:05 AM EDT [facility] Comment:Metabolite of Morphi ne. Naloxone <25 Cutoff 25 ng/mL ng/mL 03/04/2025 9:05 AM EDT [facility] Comment:e.g., Narcan, Evzio Hydrocodone <50 Cutoff 50 ng/mL ng/mL 03/04/2025 9:05 AM EDT [facility] Comment:e.g., Lorcet, Lortab , Vicodin, Beckley; Minor Metabolite of Codeine Dihydrocodeine <50 Cutoff 50 ng/mL ng/mL 03/04/2025 9:05 AM EDT [facility] Comment:e.g., Didrate, Parzo ne, Parlor, Synalgos; Metabolite of Hydrocodone Norhydrocodone <50 Cutoff 50 ng/mL ng/mL 03/04/2025 9:05 AM EDT [facility] Comment:Metabolite of Hydroc odone Hydromorphone <50 Cutoff 50 ng/mL ng/mL 03/04/2025 9:05 AM EDT [facility] Comment:e.g., Dilaudid; also Metabolite of Hydrocodone and Minor Metabolite of Morphine Hydromorphone Glucuronide <50 Cutoff 50 ng/mL ng/mL 03/04/2025 9:05 AM EDT [facility] Comment:Metabolite of Hydrom orphone Oxycodone >2,000(H) Cutoff 50 ng/mL ng/mL 03/04/2025 9:05 AM EDT [facility] Comment:e.g., Oxycontin, Per cocet, Endocet, Percodan, Roxicet Noroxycodone >2,000(H) Cutoff 50 ng/mL ng/mL 03/04/2025 9:05 AM EDT [facility] Comment:Metabolite of Oxycod one Oxymorphone <50 Cutoff 50 ng/mL ng/mL 03/04/2025 9:05 AM EDT [facility] Comment:e.g., Opana; Metabol ite of Oxycodone Oxymorphone Glucuronide >2,000(H) Cutoff 50 ng/mL ng/mL 03/04/2025 9:05 AM EDT [facility] Comment:Metabolite of Oxycod one Noroxymorphone 331(H) Cutoff 50 ng/mL ng/mL 03/04/2025 9:05 AM EDT [facility] Comment:Metabolite of Oxycod one, and Oxymorphone, Noroxycodone Metabolite Tramadol <50 Cutoff 50 ng/mL ng/mL 03/04/2025 9:05 AM EDT [facility] Comment:e.g., Ultram, ConZip Y-Xjoqdviku-fcl-Tramadol <50 Cutoff 50 ng/mL ng/mL 03/04/2025 9:05 AM EDT [facility] Comment:Metabolite of Tramad ol Tapentadol <50 Cutoff 50 ng/mL ng/mL 03/04/2025 9:05 AM EDT [facility] Comment:Nucynta Tapentadol-Glucuronide <50 Cutoff 50 ng/mL ng/mL 03/04/2025 9:05 AM EDT [facility] Comment:Metabolite of Tapent adol Urine Creatinine 72.7 mg/dL 03/04/20 9:05 AM EDT [facility] Comment: Greater than 20: Consistent with valid sample Greater than 2 but less than 20: Possible dilution Less than 2: Questionable valid sample Urine STRUCTURE OF URINARY TRACT PROPER / Unknown 03/02/2025 11:00 AM EDT 03/02/2025 11:00 AM EDT Narrative [facility] - 03/04/2025 9:05 AM EDT The absence of expected drug(s), and/or drug metabolite(s), may indicate non-compliance, diluted or adulterated urine, poor drug absorption, concentration of drug below the cut-off, timing of specimen collection relative to administration of drug, or limitations of testing. Specimens are held for 7 days. This test was developed, and its performance characteristics determined by [facility] ([facility] It has not been cleared or approved by the FDA. This test is used for clinical purposes. It should not be regarded as investigational or for research. [facility] is certified under the Clinical Laboratory Improvement Amendments (CLIA) as qualified to perform high complexity clinical laboratory testing. Dillon Cadena APRN URINE ORDERABLES Final Resul t Performing Organization Address [facility] de Phone Number [facility] [employer] [address] , [place] [address] [facility] [address] [place], [place] [id number] * HEMOGLOBIN A1C (03/02/2025 11:00 AM EDT) Hgb A1C 5.5 4.2 - 5.6 % 03/02/2025 3:52 PM EDT [facility] [employer] [facility] Est. Avg Glucose 111 mg/dL 03/02/2025 3:52 PM EDT [facility] [employer] [facility] Blood VENOUS BLOOD / Unknown Venipuncture / Unknown 03/02/2025 11:00 AM EDT 03/02/2025 11:00 AM EDT Narrative [facility] [employer] [facility] - 03/02/2025 3:52 PM EDT REFERENCE RANGE: Normal: 4.0-5.6% Pre-diabetes: 5.7-6.4% Provisional diagnosis of diabetes: >6.4% Hgb F>10% and anything which shortens red cell survival, such as hemolytic anemia, or unstable hemoglobin variants such as HbSS, HbSC, or HbCC, will lower the HbA1c value associated with a given level of glycemic control. Dillon Cadena APRN CHEMISTRY ORDERABLES Final R esult Performing Organization Address [facility] Co de Phone Number [facility] [employer] [address] , [place] [address] * THYROID STIMULATING HORMONE (03/02/2025 11:00 AM EDT) TSH 0.496 0.270 - 4.200 mcIU/mL 03/02/2025 4:09 PM EDT [facility] [employer] Blood VENOUS BLOOD / Unknown Venipuncture / Unknown 03/02/2025 11:00 AM EDT 03/02/2025 11:00 AM EDT Narrative [facility] - 03/02/2025 4:09 PM EDT Ingestion of jefferson doses of biotin (>5 mg/day) taken within 8 hours of drawing blood sample can interfere with this immunoassay test. us Dillon Bartolo Cadena WEB CONTENT WRITER CHEMISTRY ORDERABLES Final R esult [facility] [address] [facility] , [place] [address] * (ABNORMAL) CBC (03/02/2025 11:00 AM EDT) WBC 7.9 3.7 - 10.3 x10(3)/mcL 03/02/2025 3:29 PM EDT [facility] RBC 4.17(L) 4.60 - 6.10 x10(6)/mcL 03/02/2025 3:29 PM EDT [facility] Hgb 13.4(L) 13.7 - 17.5 g/dL 03/02/2025 3:29 PM EDT [facility] Hct 40.9 40.0 - 51.0 % 03/02/2025 3:29 PM EDT [facility] MCV 98.1 80.0 - 100.0 fL 03/02/2025 3:29 PM EDT [facility] MCH 32.1 26.0 - 34.0 pg 03/02/2025 3:29 PM EDT [facility] MCHC 32.8 30.7 - 35.5 g/dL 03/02/2025 3:29 PM EDT [facility] RDW 13.2 <=14.9 % 03/02/2025 3:29 PM EDT [facility] Platelet 256 155 - 369 x10(3)/mcL 03/02/2025 3:29 PM EDT [facility] MPV 10.6 8.8 - 12.5 fL 03/02/2025 3:29 PM EDT [facility] Blood VENOUS BLOOD / Unknown Venipuncture / Unknown 03/02/2025 11:00 AM EDT 03/02/2025 11:00 AM EDT us Dillon Cadena WEB CONTENT WRITER HEMATOLOGY ORDERABLES Final Result Performing Organization Address City/[facility]/ZIP Co de Phone Number [facility] [employer] [facility] [address] [facility] , [place] [address] * VITAMIN B12/ FOLIC ACID (03/02/2025 11:00 AM EDT) Pathologist [facility] Vitamin B12 884 232 - 1,245 pg/mL 03/02/2025 3:49 PM EDT [facility] [employer] [employer] Folate >16.00 >=4.50 ng/mL 03/02/2025 3:49 PM EDT [facility] [employer] Blood VENOUS BLOOD / Unknown Venipuncture / Unknown 03/02/2025 11:00 AM EDT 03/02/2025 11:00 AM EDT Narrative [facility] [employer] - 03/02/2025 3:49 PM EDT Ingestion of jefferson doses of biotin (>5 mg/day) taken within 8 hours of drawing blood sample can interfere with this immunoassay test. us Dillon Cadena APRN CHEMISTRY ORDERABLES Final R esult Performing Organization Address City/[facility] Co de Phone Number [facility] [employer] [facility] [address] [facility] , [place] [address] * VITAMIN D 25 HYDROXY (03/02/2025 11:00 AM EDT) Pathologist [facility] Vit D 25 OH 42.9 30.0 - 150.0 ng/mL 03/02/2025 3:49 PM EDT [facility] [employer] Comment: Preferred: >= 30 ng/mL Insufficient: 21-29 ng/mL Deficient <= 20 ng/mL Possible Toxicity: >150 ng/mL Samples should not be taken from patients receiving therapy with high biotin doses (i.e. > 5 mg/day) until at least 8 hours following the last biotin administration. Blood VENOUS BLOOD / Unknown Venipuncture / Unknown 03/02/2025 11:00 AM EDT 03/02/2025 11:00 AM EDT Dillon Cadena APRN CHEMISTRY ORDERABLES Final R esult [employer] [address] [facility] , [place] [address] documented in this encounter Visit Diagnoses Diagnosis Malaise and fatigue- Primary Other malaise and fatigue Spinal enthesopathy, cervicothoracic region Peripheral neuropathy, idiopathic Unspecified hereditary and idiopathic peripheral neuropathy Anemia, unspecified type B12 deficiency Other B-complex deficiencies Screening for diabetes mellitus (DM) Screening for diabetes mellitus Vitamin D deficiency Unspecified vitamin D deficiency Therapeutic drug monitoring Encounter for therapeutic drug monitoring documented in this encounter Discontinued Medications Medication Sig Discontinue Reason Start Date End Da te azithromycin (ZITHROMAX) 250 mg Oral TabletIndications:Cost ochondritis Take 2 tablets (500 mg) on Day 1, followed by 1 tablet (250 mg) once daily on Days 2 through 5. DELETE-Therapy completed 02/23/2025 03/02/2025 gabapentin (NEURONTIN) 600 mg Oral Tablet Take 600 mg by mouth daily. Reorder 08/14/2023 03/02/2025 montelukast (SINGULAIR) 10 mg Oral TabletIndications:Acut e bacterial sinusitis Take 1 Tab by mouth nightly. Cancelled by Midlevel 06/07/2017 03/02/2025 loratadine (CLARITIN) 10 mg Oral Tablet Take 10 mg by mouth daily. Cancelled by Midlevel 03/02/2025 documented as of this encounter Historical Medications * This list may reflect changes made after this encounter. erythromycin (ROMYCIN) Opht Ointment APPLY 1/2 INCH STRIP INSIDE LOWER LEFT LID NEEDED FOR 2-3 DAYS THEN USE NIGHTLY FOR 10 DAYS 02/23/2025 added in this encounter Additional Health Concerns Assessment Noted Time A fall risk assessment has been complete d for the patient 04/26/2024 2:47 PM EDT documented as of this encounter Care Teams Slat Basket Maker Machine Relationship Specialty Start Date End Date Dillon Cadena APRN [address] [place] [id number] PCP - General Nurse Practitioner 08/31/23 Zenaida Cruz Ud, MD [address] [place] [address] Internal Medicine-Nephrology 04/06/16 documented as of this encounter
--- OUTSIDE RECORDS SUMMARY | 2025-03-02 15:18 | XMS_ITS | Encounter Summary ---
Author Organization [place] [address] Care Team Providers Care Steam Hammer Operator Name Role Phone Zenaida Cruz Ud, MD Unavailable [phone] Dillon Cadena APRN Primary Care Provider [phone] Reason for Referral * Ultrasound (Routine) - Pending Review Specialty Diagnoses / Procedures Referred By Ernie lou Referred To Contact Radiology Diagnoses Mass of muscle of right upper extremity Procedures US UPPER EXTREMITY NONVASCULAR LIMITED Dillon Cadena APRN [address] [place] [address] Phone: tel: fax: Referral ID Status Reason Start Date Expiration Date V isits Requested Visits Authorized [id number] Pending Review 02/14/2025 02/14/2026 1 1 Reason for Visit * Ultrasound (Routine) - Pending Review Specialty Diagnoses / Procedures Referred By Ernie lou Referred To Contact Radiology Diagnoses Mass of muscle of right upper extremity Procedures US UPPER EXTREMITY NONVASCULAR LIMITED Dillon Cadena APRN [address] [place] [address] Phone: tel: fax: Referral ID Status Reason Start Date Expiration Date V isits Requested Visits Authorized [id number] Pending Review 02/14/2025 02/14/2026 1 1 Encounter Details Date Type Department Care Team (Becca Contact Info) Description 03/02/2025 3:18 PM EDT - 03/02/2025 11:59 PM EDT Hospital Encounter [facility] Ultrasound [address] [place], [place] [id number] Dillon Cadena, COOK LARDER [address] [place], [place] [id number] Mass of muscle of right upper extremity Discharge Disposition: Home or Self Care Social History Tobacco Use Types Packs/Day Years [...] on file documented as of this encounter Functional Status * Is the person deaf or does he/she have serious difficulty hearing? Answer Date of Assessment Author No 12/11/2024 11:23 AM Pam Jackson MA * Is the person blind or does he/she have serious difficulty seeing even when wearing glasses? Answer Date of Assessment Author No 12/11/2024 11:23 AM Pam Jackson MA * Does this person have serious difficulty walking or climbing stairs? Answer Date of Assessment Author No 12/11/2024 11:23 AM Pam Jackson MA * Does this person have difficulty dressing or bathing? Answer Date of Assessment Author No 12/11/2024 11:23 AM Pam Jackson MA * Because of a physical, mental [...] Pam Jackson MA documented in this encounter Medications at Time of Discharge amitriptyline (ELAVIL) 25 mg Oral TabletIndications:In somnia, persistent TAKE 1 TABLET EVERY NIGHT 30 Tablet 02/15/2025 amLODIPine (NORVASC) 5 mg Oral TabletIndications:Co ronary artery disease involving [place] coronary artery of [place] heart without angina pectoris TAKE 1 TABLET BY MOUTH ONCE DAILY 90 Tab 1 05/09/2018 aspirin 81 mg Oral Tablet, Chewable Take by mouth daily. atorvastatin (LIPITOR) 10 mg Oral TabletIndications:Co ronary artery disease involving [place] coronary artery of [place] heart without angina pectoris TAKE ONE TABLET BY MOUTH NIGHTLY 90 Tab 2 08/09/2018 azelastine (ASTELIN) 137 mcg (0.1 %) Nasl Aerosol, SprayIndications:All ergic rhinitis USE TWO SPRAY(S) IN EACH NOSTRIL TWICE DAILY DIRECTED 30 mL 3 01/26/2018 busPIRone (BUSPAR) 10 mg Oral Tablet Take by mouth as needed. cetirizine (ZYRTEC) 10 mg Oral TabletIndications:Se asonal allergies Take 1 Tablet by mouth daily. 30 Tablet 2 06/01/2023 cholecalciferol, vitamin D3, 25 mcg (1,000 unit) Oral Tablet Take 1 Tablet by mouth 2 times daily. ciclopirox (LOPROX) 0.77 % Top Cream Apply topically 2 times daily. desvenlafaxine succinate (PRISTIQ) 50 mg Oral Tablet Sustained Release 24 hr Take 50 mg by mouth daily. 07/10/2024 doxazosin (CARDURA) 8 mg Oral Tablet Take 8 mg by mouth daily. erythromycin (ROMYCIN) Opht Ointment APPLY 1/2 INCH STRIP INSIDE LOWER LEFT LID NEEDED FOR 2-3 DAYS THEN USE NIGHTLY FOR 10 DAYS 02/23/2025 Fish Oil-DHA-EPA 1,200-144-216 mg Cap Take by mouth daily. fluticasone (FLONASE) 50 mcg/actuation Nasl [place], Suspension by Nasal route daily. fUROsemide (LASIX) 40 mg Oral TabletIndications:Co ronary artery disease involving [place] coronary artery of [place] heart without angina pectoris Take 1 Tab by mouth daily as needed. 30 Tab 3 06/07/2017 gabapentin (NEURONTIN) 600 mg Oral TabletIndications:Sp inal enthesopathy, cervicothoracic region,Peripheral neuropathy, idiopathic Take 1 Tablet by mouth 4 times daily. 120 Tablet 2 03/02/2025 GLUCOSAMINE/MSM/NINA DROIT SULF (GLUCOSAMINE [id number] ORAL) Take by mouth. MAGIC MOUTHWASH (LIDO/DIPHEN/NYSTAT) ORAL COMPOUNDIndications: Glossitis 5 ml swish and swallow qid PRN 450 mL 05/29/2020 meclizine (ANTIVERT) 12.5 mg Oral Tablet 01/11/2024 MULTIVITAMIN W-MINERALS/LUTEIN (CENTRUM SILVER ORAL) Take by mouth daily. oxyCODONE-acetaminop hen (PERCOCET) 7.5-325 mg Oral Tablet Take 1 Tablet by mouth every 4 hours as needed for Acute Pain (R52). 07/12/2024 pantoprazole (PROTONIX) 40 mg Oral Tablet, Delayed Release (E.C.)Indications:PU D (peptic ulcer disease) Take 1 Tablet by mouth daily. 90 Tablet 3 02/23/2025 Polyethylene Glycol 3350 Misc Powder by [facility].(Non-Drug ; Combo Route) route. triamcinolone acetonide (KENALOG) 0.1 % [place] Paste Take by mouth 4 times daily. urea (CARMOL) 20 % Top CreamIndications:Pru ritus Apply to affected area 75 g 1 06/02/2016 hydrOXYzine (ATARAX) 25 mg Oral TabletIndications:GA D (generalized anxiety disorder) Take 1 Tablet by mouth 3 times daily as needed. 90 Tablet 2 12/29/2024 documented as of this encounter Discharge Disposition Disposition Code Departure Means Destination Home or Self Care documented in this encounter Plan of Treatment Upcoming Encounters Date Type Department Care Team (Late st Contact Info) Description 07/16/2025 9:20 AM EDT Office Visit [facility] [address] [address] Raul Saucedo MD [address] [place] [address] [place] [address] documented as of this encounter Goals [...] Procedure Name Priority Date/Time Associated Diagnosis Comments US UPPER EXTREMITY NONVASCULAR LIMITED Routine 03/02/2025 4:25 PM EDT Mass of muscle of right upper extremity documented in this encounter Results * US UPPER EXTREMITY [...] PM CLINICAL HISTORY: M62.89-Other specified disorders of ovxrug-PWM-62-CM. COMPARISON: None PROCEDURE COMMENTS: Routine sonographic evaluation of the region of interest with personal service representative images sent to PACS along with horticulture/floriculture teacher notes. FINDINGS: Targeted ultrasound performed in the [...] PM CLINICAL HISTORY: M62.89-Other specified disorders of yxyduo-GNV-33-CM. COMPARISON: None PROCEDURE COMMENTS: Routine sonographic evaluation of the region ofinterest with personal service representative images sent to PACS along with horticulture/floriculture teacher notes. FINDINGS: Targeted ultrasound performed in the [...] please contactthe office of the ordering clinician. us Dillon Cadena APRN IMG US ORDERABLES Final Resu lt documented in this encounter Visit Diagnoses Diagnosis Mass of muscle of right upper extremity documented in this encounter Additional Health Concerns Assessment Noted Time A fall risk assessment has been complete d for the patient 04/26/2024 2:47 PM EDT documented as of this encounter Care Teams Steam Hammer Operator Relationship Specialty Start Date End Date Dillon Cadena APRN [address] [place] [address] PCP - General Nurse Practitioner 08/31/23 Zenaida Cruz Ud, MD [address] [place] [address] Internal Medicine-Nephrology 04/06/16 documented as of this encounter
--- OUTSIDE RECORDS SUMMARY | 2025-03-22 09:10 | XMS_ITS | Encounter Summary ---
Author Organization [place] [place] [address] Care Team Providers Care Talent Assistant Name Role Phone Zenaida Cruz Ud, MD Unavailable [phone] Dillon Cadena APRN Primary Care Provider [phone] Reason for Visit * Reason Comments New Patient growth on right arm; has been there for a couple years or longer Encounter Details Date Type Department Care Team (Late st Contact Info) Description 03/22/2025 9:10 AM EDT Office Visit [facility] [address] [address] Skylar Kasper MD [address] [place], [place] [id number] Arm mass, right (Primary Dx) Social History Tobacco Use Types Packs/Day Years Used Date Smoking Tobacco: Never Passive Smoke Exposure: Never Smokeless Tobacco: Current Chew Tobacco Cessation:Ready [...] Sign Reading Time Taken Comments Blood Pressure 116/70 03/22/2025 8:59 AM EDT Pulse 59 03/22/2025 8:59 AM EDT Temperature - - Respiratory Rate 18 03/22/2025 8:59 AM EDT Oxygen Saturation 98% 03/22/2025 8:59 AM EDT Inhaled Oxygen Concentration - - Weight 84.8 kg (187 lb) 03/22/2025 8:59 AM EDT Height 165.1 cm (5' 5 ) 03/22/2025 8:59 AM EDT Body Mass Index 31.12 03/22/2025 8:59 AM EDT documented in this encounter Functional [...] Pam Eng MA documented in this encounter Progress Notes * Skylar Kasper MD - 03/22/2025 9:10 AM EDTAssociated Problem(s): Arm mass, right * Skylar Kasper MD - 03/22/2025 9:10 AM EDT Subjective: Patient ID: [id number] He is a 79 y.o. male. Chief Complaint Patient presents with New Patient growth on right arm; has been there for a couple years or longer HPI Patients past medical, family and social histories were reviewed and updated. There were no changesexcept as noted. Asked to see this patient in consultation per Dillon Cadena APRN. 79-year-old male with right arm mass. Present for an unknown period of time. Unsure if trauma to the area. No constitutional symptoms. Allergies Allergen Reactions Adhesive Tape-Silicones Other (See Comments) Severe skin irritation Ciprofloxacin Hydrochlorothiazide Other (See Comments) hyponatremia Sulfa (Sulfonamide Antibiotics) Latex Rash Current Outpatient Medications: amitriptyline (ELAVIL) 25 mg Oral Tablet, TAKE 1 TABLET EVERY NIGHT, Disp: 30 Tablet, Rfl: 0 amLODIPine (NORVASC) 5 mg Oral Tablet, TAKE 1 TABLET BY MOUTH ONCE DAILY, Disp: 90 Tab, Rfl: 1 aspirin 81 mg Oral Tablet, Chewable, Take by mouth daily., Disp: , Rfl: atorvastatin (LIPITOR) 10 mg Oral Tablet, TAKE ONE TABLET BY MOUTH NIGHTLY, Disp: 90 Tab, Rfl: 2 azelastine (ASTELIN) 137 mcg (0.1 %) Nasl Aerosol, Eure, USE TWO SPRAY(S) IN EACH NOSTRIL TWICE DAILY DIRECTED, Disp: 30 mL, Rfl: 3 busPIRone (BUSPAR) 10 mg Oral Tablet, Take by mouth as needed., Disp: , Rfl: cetirizine (ZYRTEC) 10 mg Oral Tablet, Take 1 Tablet by mouth daily., Disp: 30 Tablet, Rfl: 2 cholecalciferol, vitamin D3, 25 mcg (1,000 unit) Oral Tablet, Take 1 Tablet by mouth 2 times daily., Disp: , Rfl: ciclopirox (LOPROX) 0.77 % Top Cream, Apply topically 2 times daily., Disp: , Rfl: desvenlafaxine succinate (PRISTIQ) 50 mg Oral Tablet Sustained Release 24 hr, Take 50 mg by mouth daily., Disp: , Rfl: doxazosin (CARDURA) 8 mg Oral Tablet, Take 8 mg by mouth daily., Disp: , Rfl: erythromycin (ROMYCIN) Opht Ointment, APPLY 1/2 INCH STRIP INSIDE LOWER LEFT LID NEEDED FOR 2-3 DAYS THEN USE NIGHTLY FOR 10 DAYS, Disp: , Rfl: Fish Oil-DHA-EPA 1,200-144-216 mg Cap, Take by mouth daily., Disp: , Rfl: fluticasone (FLONASE) 50 mcg/actuation Nasl Eure, Suspension, by Nasal route daily., Disp: , Rfl: fUROsemide (LASIX) 40 mg Oral Tablet, Take 1 Tab by mouth daily as needed., Disp: 30 Tab, Rfl: 3 gabapentin (NEURONTIN) 600 mg Oral Tablet, Take 1 Tablet by mouth 4 times daily., Disp: 120 Tablet,Rfl: 2 GLUCOSAMINE/MSM/CHONDROIT SULF (GLUCOSAMINE [id number] ORAL), Take by mouth., Disp: , Rfl: hydrOXYzine (ATARAX) 25 mg Oral Tablet, TAKE 1 TABLET THREE TIMES DAILY NEEDED, Disp: 90 Tablet,Rfl: 11 MAGIC MOUTHWASH (LIDO/DIPHEN/NYSTAT) ORAL COMPOUND, 5 ml swish and swallow qid PRN, Disp: 450 mL, Rfl: 0 meclizine (ANTIVERT) 12.5 mg Oral Tablet, , Disp: , Rfl: MULTIVITAMIN W-MINERALS/LUTEIN (CENTRUM SILVER ORAL), Take by mouth daily., Disp: , Rfl: oxyCODONE-acetaminophen (PERCOCET) 7.5-325 mg Oral Tablet, Take 1 Tablet by mouth every 4 hours as needed for Acute Pain (R52)., Disp: , Rfl: pantoprazole (PROTONIX) 40 mg Oral Tablet, Delayed Release (E.C.), Take 1 Tablet by mouth daily., Disp: 90 Tablet, Rfl: 3 Polyethylene Glycol 3350 Misc Powder, by Misc.(Non-Drug; Combo Route) route., Disp: , Rfl: triamcinolone acetonide (KENALOG) 0.1 % [place] Paste, Take by mouth 4 times daily., Disp: , Rfl: urea (CARMOL) 20 % Top Cream, Apply to affected area, Disp: 75 g, Rfl: 1 Patient Active Problem List Diagnosis Depressive disorder, not elsewhere classified Unspecified essential hypertension Hypertrophy of prostate without urinary obstruction and other lower urinary tract symptoms (LUTS) Esophageal reflux CAD (coronary artery disease) DDD (degenerative disc disease) Syncope Coronary artery disease involving [place] coronary artery of [place] heart Orthostatic hypotension Hyponatremia Coronary artery disease involving [place] coronary artery of [place] heart without angina pectoris Vasovagal syncope PUD (peptic ulcer disease) Bleeding ulcer STIVEN (generalized anxiety disorder) Lumbar stenosis Spondylosis Positive urine drug screen Acute bronchitis Allergic rhinitis Anxiety Chronic idiopathic constipation Chronic pain Esophageal stricture Gynecomastia Hypertensive heart disease with heart failure (HCC) Other specified disorders of arteries and arterioles Psoriasis Spinal enthesopathy, cervicothoracic region Tinnitus Atherosclerotic heart disease of [place]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 Coronary atherosclerosis Gastric ulcer Benign essential HTN Social History Socioeconomic History Marital status: Single Spouse name: Not on file Number of children: Not on file Years of education: Not on file Highest education level: Not on file Occupational History Not on file Tobacco Use Smoking status: Never Passive exposure: Never Smokeless tobacco: Current Types: Chew Vaping Use Vaping status: Never Used Substance and Sexual Activity Alcohol use: No Alcohol/week: 0.0 oz Drug use: No Sexual activity: Not Currently Partners: Female Other Topics Concern Not on file Social History Narrative Not on file Social Drivers of Health Financial Resource Strain: Low Risk (07/09/2023) Received from [facility] Overall Financial Resource Strain (CARDIA) Difficulty of Paying Living Expenses: Not hard at all Food Insecurity: No Food Insecurity (07/09/2023) Received from [facility] Hunger Vital Sign Worried About Running Out of Food in the Last Year: Never true Ran Out of Food in the Last Year: Never true Transportation Needs: No Transportation Needs (07/09/2023) Received from [facility] PRAPARE - Transportation Lack of Transportation (Medical): No Lack of Transportation (Non-Medical): No Physical Activity: Inactive (07/09/2023) Received from [facility] Exercise Vital Sign Days of Exercise per Week: 0 days Minutes of Exercise per Session: 0 min Stress: No Stress Concern Present (07/09/2023) Received from [facility] [place] [employer] - Occupational Stress Questionnaire Feeling of Stress : Not at all Social Connections: Moderately Isolated (07/09/2023) Received from [facility] Social Connection and Isolation Panel [NHANES] Frequency of Communication with Friends and Family: More than three times a week Frequency of Social Gatherings with Friends and Family: Once a week Attends Cheondoism Services: Never Active Member of Clubs or Organizations: No Attends Club or Organization Meetings: Never Marital Status: Living with partner Intimate Partner Violence: Not At Risk (07/09/2023) Received from [facility] Humiliation, Afraid, Rape, and Kick questionnaire Fear of Current or Ex-Partner: No Emotionally Abused: No Physically Abused: No Sexually Abused: No Housing Stability: Low Risk (07/09/2023) Received from [facility] Housing Stability Vital Sign Unable to Pay for Housing in the Last Year: No Number of Places Lived in the Last Year: 1 Unstable Housing in the Last Year: No Family History Problem Relation Age of Onset Unknown Mother Other Father brain aneurysm Review of Systems Constitutional: Negative for activity change, appetite change, chills, fatigue and fever. HENT: Negative for congestion and sore throat. Respiratory: Negative for cough, shortness of breath and wheezing. Cardiovascular: Negative for chest pain, palpitations and leg swelling. Gastrointestinal: Negative for abdominal distention, abdominal pain, constipation, diarrhea, nauseaand vomiting. Musculoskeletal: Negative for back pain and neck pain. Neurological: Negative for dizziness and light-headedness. Hematological: Does not bruise/bleed easily. Psychiatric/Behavioral: The patient is not nervous/anxious. Objective: Vitals: 03/22/25 0859 Resp: 18 Weight: 187 lb (84.8 kg) Height: 5' 5 (1.651 m) Body mass index is 31.12 kg/m??. Physical Exam Constitutional: Appearance: He is well-developed. HENT: Head: Normocephalic and atraumatic. Eyes: Conjunctiva/sclera: Conjunctivae normal. Pupils: Pupils are equal, round, and reactive to light. Cardiovascular: Rate and Rhythm: Normal rate and regular rhythm. Pulmonary: Effort: Pulmonary effort is normal. Breath sounds: Normal breath sounds. Abdominal: General: Bowel sounds are normal. Palpations: Abdomen is soft. Musculoskeletal: General: Normal range of motion. Cervical back: Normal range of motion. Comments: Right arm fullness over anterior triceps muscle, no discernible mass Skin: General: Skin is warm and dry. Neurological: Mental Status: He is alert and oriented to person, place, and time. Psychiatric: Behavior: Behavior normal. Thought Content: Thought content normal. Assessment & Plan Arm mass, right Impression: Hypertrophic muscle versus lipoma under muscle Plan: 1. Discussed pathophysiology. Discussed options 2. Hypertrophic muscle could be from overuse. An MRI would be required to examine for deeper lipoma. The patient wishes to hold off on this for now. I feel this is reasonable. I have asked him to contact me again should she experience any change in size or other symptoms. No follow-ups on file. documented in this encounter Plan of Treatment Upcoming Encounters Date Type Department Care Team (Late st Contact Info) Description 07/16/2025 9:20 AM EDT Office Visit [facility] [address] [address] Raul Saucedo MD [address] [place] [address] [place] [address] documented as of this encounter Goals [...] as of this encounter Visit Diagnoses Diagnosis Arm mass, right- Primary documented in this encounter Additional Health Concerns Assessment Noted Time A fall risk assessment has been complete d for the patient 04/26/2024 2:47 PM EDT documented as of this encounter Care Teams Talent Assistant Relationship Specialty Start Date End Date Dillon Cadena APRN [address] [place] [address] PCP - General Nurse Practitioner 08/31/23 Zenaida Cruz Ud, MD [address] [place] [address] Internal Medicine-Nephrology 04/06/16 documented as of this encounter
[2025-04-05 19:49] LABS: Hematocrit 43.4 % (42.0-52.0); Hemoglobin 14.5 g/dL (14.1-18.0); Immature Granulocytes % 0.2 %; Mean Corpuscular HGB Conc 33.4 g/dL (31.8-35.4); Mean Corpuscular Hemoglobin 32.2 pg (27.0-31.2); Mean Corpuscular Volume 96.2 fl (80-94); Nucleated Red Blood Cells % 0 %; Platelet Count 282 K/mm3 (142-424); Red Blood Count 4.51 M/mm3 (4.60-6.20); Red Cell Distribution Width-SD 45.9 fL; White Blood Count 6.4 K/mm3 (4.8-10.8)
[2025-04-05 20:12] LABS: Hemoglobin A1C 6.1 % (4.0-6.0)
[2025-04-05 20:34] LABS: Albumin Level 4.7 g/dl (3.5-5.0); Chloride 91 mmol/L (98-107)
[2025-04-05 20:35] LABS: Potassium 4.4 mmoL/L (3.5-5.1); Sodium 133 mmol/L (136-145)
[2025-04-05 20:37] LABS: Alanine Aminotransferase 31 U/L (12-78); Aspartate Amino Transferase 40 U/L (17-59); Blood Urea Nitrogen 14 mg/dl (9-20); Creatinine,Serum 0.60 mg/dl (0.66-1.25); Estimated Glomerular Filt Rate 131 ml/min (>60); GFR (African American) 158 ML/MIN (>60)
[2025-04-05 20:38] LABS: Albumin/Globulin Ratio 2.1 (1.1-1.8); Alkaline Phosphatase 91 U/L (38-126); Anion Gap 11.4 mEq/L (5-15); Bilirubin,Total 0.6 mg/dl (0.2-1.3); Calcium 9.7 mg/dl (8.4-10.2); Carbon Dioxide 35 mmol/L (22.0-30.0); Globulin 2.2 g/dL (1.3-3.2); Glucose 100 mg/dl (74-100); HDL Cholesterol 108 mg/dl (40-60); Total Protein,Serum 6.9 g/dl (6.3-8.2)
[2025-04-05 20:39] LABS: Cholesterol 161 mg/dl (140-200); Triglycerides 59 mg/dl (30-150)
[2025-04-05 21:10] LABS: Thyroid Stimulating Hormone 0.85 uIU/mL (0.465-4.68)
--- OUTSIDE RECORDS SUMMARY | 2025-04-06 10:08 | XMS_ITS | Clinical Summary ---
Author Organization [facility] Address [address], [address] [place] [address] Care Team Providers Care Lithographic Artist Name Role Phone Kassie Beasley MD Primary Care Provider [phone] Social History Tobacco Use Types Packs/Day Years Used Date Smoking Tobacco: Never Assessed Sex and Gender Information Value Date Recorded Sex Assigned at Not on file Legal Sex Male 10:03 AM EST Gender Identity Not on file Sexual Orientation Not on file Plan of Treatment Not on file Insurance MEDICARE [employer] LIFE [employer]UALTY Care Teams Lithographic Artist Relationship Specialty Start Date End Date Kassie Beasley MD PCP - General Family Medicine 09/16/16
--- OUTSIDE RECORDS SUMMARY | 2025-04-06 10:08 | XMS_ITS | Clinical Summary ---
Author Organization [facility] Address [address] [place] [address] Phone Care Team Providers Care Carpenter Supervisor Name Role Phone Becky CARCAMO, [facility] [phone] Conditions or Problems Problem Name Problem Code Onset Date Status Entry Date Provider Comment Standard Description Annotate OVERWEIGHT 213584310 (SNOMED CT) 03/16 Active 03/16 Aditi Gomez Overweight BODY MASS INDEX 30.0-30.9, ADULT 270965893 (SNOMED CT) 12/15 Active 12/15 Elif Rodriguez MA Finding of body mass index DDD LUMBAR 23360436 (SNOMED CT) 11/16 Active 10/02 Darlene Chettiar 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 910861737 (SNOMED CT) Active 10/02 Darlene Chettiar Kyphosis deformity of spine ARTHRODESIS STATUS 472231055 (SNOMED CT) 10/01 Active 10/01 Macho De La Cruz MD H/O: arthrodesis PSEUDARTHRO SIS M96.0 (ICD-10-CM ) Active Elif Rodriguez MA Pseudarthrosis after fusion or arthrodesis SCOLIOSIS, IDIOPATHIC LUMBAR M41.26 (ICD-10-CM ) Active Elif Rodriguez MA Other idiopathic scoliosis, lumbar region SPINAL STENOSIS, LUMBAR M48.06 (ICD-10-CM ) 10/26 Resolved 10/26 Elif Rodriguez MA Spinal stenosis, lumbar region SPINAL STENOSIS, LUMBAR M48.06 (ICD-10-CM ) 01/02 Resolved 01/02 Elif Rodriguez MA Spinal stenosis, lumbar region THORACIC/CLARISSE MBOSACRAL NEURITIS/RA DICULITIS UNSPEC 724.4 (ICD-9-CM) 01/08 Resolved 01/09 Elif Rodriguez MA Thoracic or lumbosacral neuritis or radiculitis, unspecified FOLLOW-UP EXAMINATION , AFTER SURGERY NEC Z09 (ICD-10-CM ) 11/10 Resolved 11/10 Elif Rodriguez MA Encounter for follow-up examination after completed treatment for conditions other than malignant neoplasm STATUS, ARTHRODESIS Z98.89 (ICD-10-CM ) 12/25 Resolved 12/25 Elifjoaquin Rodriguez MA Other specified postprocedural states SACROILIITI S 26906898 (SNOMED CT) 11/05 Resolved 11/05 Elif Vinsonff DEBBIE Inflammation of sacroiliac joint LUMBAR RADICULOPAT HY 235236120 (SNOMED CT) 11/05 Resolved 11/05 Elif Vinsonff DEBBIE Lumbar radiculopathy SYNOVIAL CYST 670574972 (SNOMED CT) Resolved Elifjoaquin Rodriguez MA Synovial cyst CARDIAC DISEASE I51.9 (ICD-10-CM ) 02/06 Resolved 02/06 Elifjoaquin Rodriguez MA Heart disease, unspecified LUMBAR RADICULOPAT HY 899754317 (SNOMED CT) 02/06 Resolved 02/06 Elif Michael LEWIS Lumbar radiculopathy LUMBAR SPONDYLOSIS W/RADIC, 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 (ICD-10-CM ) 11/18 Active 11/18 Elif Michael DEBBIE Other spondylosis with radiculopathy, lumbar region SACROILIITI S 40230601 (SNOMED CT) 11/06 Active 11/06 Elif Rodriguez MA Inflammation of sacroiliac joint LUMBAR RADICULOPAT HY, L1-L5 M54.16 (ICD-10-CM ) 11/06 Active 11/06 Elif Rodriguez MA Radiculopathy, lumbar region NECK PAIN 94518395 (SNOMED CT) 12/06 Active 12/06 Flaca Taylor MA Neck pain POST-OP STATUS, FUSION SPINE Z98.89 (ICD-10-CM ) 09/27 Active 09/27 Elif Rodriguez MA Other specified postprocedural states LUMBAR RADICULOPAT HY 965035419 (SNOMED CT) 02/06 Removed 02/06 Elif Rodriguez MA Lumbar radiculopathy CARDIAC DISEASE I51.9 (ICD-10-CM ) 02/06 Removed 02/06 Elif Rodriguez MA Heart disease, unspecified SYNOVIAL CYST 122324721 (SNOMED CT) Removed Joshua Devine MD Synovial cyst LUMBAR RADICULOPAT HY 425610400 (SNOMED CT) 11/05 Removed 11/05 Elif Rodriguez MA Lumbar radiculopathy SACROILIITI S 46602413 (SNOMED CT) 11/05 Removed 11/05 Elif Rodriguez MA Inflammation of sacroiliac joint STATUS, ARTHRODESIS Z98.89 (ICD-10-CM ) 12/25 Removed 12/25 Elif Rodriguez MA Other specified postprocedural states FOLLOW-UP EXAMINATION , AFTER SURGERY NEC Z09 (ICD-10-CM ) 11/10 Removed 11/10 Elif Rodriguez MA Encounter for follow-up examination after completed treatment for conditions other than malignant neoplasm THORACIC/CLARISSE MBOSACRAL NEURITIS/RA DICULITIS UNSPEC 724.4 (ICD-9-CM) 01/08 Removed 01/09 Tommy Hoang MD Thoracic or lumbosacral neuritis or radiculitis, unspecified SPINAL STENOSIS, LUMBAR M48.06 (ICD-10-CM ) 01/02 Removed 01/02 Elif Rodriguez MA Spinal stenosis, lumbar region SPINAL STENOSIS, LUMBAR M48.06 (ICD-10-CM ) 10/26 Removed 10/26 Judith Alejandro Spinal stenosis, lumbar region HYPERTENSIO N 74081241 (SNOMED CT) 10/26 Active 10/26 Judith Alejandro Hypertensive disorder FITTING/ADJ USTMENT, DENTAL PROSTHESIS 74889291 (SNOMED CT) 10/26 Active 10/26 Judith Alejandro Fitting of prosthesis HEARING LOSS 39660022 (SNOMED CT) 10/26 Active 10/26 Judith Alejandro Hearing loss Medications Medication Instructions Start Date Stop Date Generic Name NDC Provider DICLOFENAC SODIUM 75 MG TBEC Take 1 tablet bid DICLOFENAC SODIUM 39584268251 Devonte Pena MD NORCO 10-325 MG ORAL TABLET Take 1 tablet bid HYDROCODONE-ACETAMI NOPHEN 07320348985 Devonte Pena MD NORCO 10-325 MG ORAL TABLET Take 1 tablet tid 05/07 HYDROCODONE-ACETAMI NOPHEN 99814073312 Devonte Pena MD RESTORIL 30 MG CAPS 1 qhs TEMAZEPAM 55612393883 Devonte Pena MD NORCO 10-325 MG ORAL TABLET Take 1 tablet qid 03/16 HYDROCODONE-ACETAMI NOPHEN 18881227155 Devonte Pena MD NORCO 5-325 MG ORAL TABLET Take 1 tab q 6 hrs prn pain HYDROCODONE-ACETAMI NOPHEN 40900242173 Devonte Pena MD NORCO 5-325 MG ORAL TABLET Take 1 tab TID HYDROCODONE-ACETAMI NOPHEN 21530735070 Devonte Pena MD NORCO 5-325 MG ORAL TABLET Take 1 tab q 6 hrs prn pain 12/27 HYDROCODONE-ACETAMI NOPHEN 01579790318 Devonte Pena MD PERCOCET 5-325 MG TABS 1 tabs po q 6 h prn OXYCODONE-ACETAMINO PHEN 78516945957 Devonte Pena MD ROBAXIN-750 750 MG ORAL TABLET ONE TABLET PO QID METHOCARBAMOL 68297172266 Devonte Pena MD GABAPENTIN 600 MG TABS Take 1 tablet TID GABAPENTIN 63739328819 Devonte Pena MD PERCOCET 5-325 MG TABS 1-2 tabs po q 4-6 h prn 01/09 OXYCODONE-ACETAMINO PHEN 87560987394 Macho De La Cruz MD CYCLOBENZAPRINE HCL 10 MG TABS 1 po Q8h CYCLOBENZAPRINE HCL 97243720028 Doyle Westbrook MD CENTRUM SILVER TABS Non- MULTIPLE VITAMINS-MINERALS 70535609911 Joshua Devine MD FISH OIL CAPS Non- OMEGA-3 FATTY ACIDS CAPS 20017012337 Joshua Devine MD ASPIRIN 81 MG ORAL TABLET Non- ASPIRIN 51413646140 Joshua Devine MD GABAPENTIN 300 MG CAPS Non- GABAPENTIN 57449943585 Joshua Devine MD ZOLPIDEM TARTRATE 10 MG TABS Non- ZOLPIDEM TARTRATE 12357250493 Joshua Devine MD MELOXICAM 15 MG TABS - MELOXICAM 76866339903 Joshua Devine MD TAMSULOSIN HCL 0.4 MG CAPS - TAMSULOSIN HCL 91416072124 Joshua Devine MD LISINOPRIL-HYDROC HLOROTHIAZIDE 20-25 MG TABS - LISINOPRIL-HYDROCHL OROTHIAZIDE 58135326715 Joshua Devine MD LOVASTATIN 40 MG TABS - LOVASTATIN 92822713649 Joshua Devine MD ALPRAZOLAM 1 MG TABS ALPRAZOLAM 35571974023 Joshua Devine MD HYDROCODONE-ACETA MINOPHEN 10-325 MG TABS - HYDROCODONE-ACETAMI NOPHEN 95228821770 Joshua Devine MD ADULT ASPIRIN EC LOW STRENGTH 81 MG ORAL TABLET DELAYED RELEASE Non-06/28 ASPIRIN 60115962041 Joshua Devine MD CENTRUM SILVER TABS Non-Luis 06/28 MULTIPLE VITAMINS-MINERALS 74548228814 Joshua Devine MD FISH OIL CAPS Non-Luis 06/28 OMEGA-3 FATTY ACIDS CAPS 66798801039 Joshua Devine MD MELOXICAM TABS Non-Luis 06/28 MELOXICAM TABS 77109970874 Joshua Devine MD GABAPENTIN 300 MG TABS TAKE 1 TID 06/28 GABAPENTIN Joshua Devine MD PERCOCET 5-325 MG TABS 1- PO Q 6 hrs prn pain 06/28 OXYCODONE-ACETAMINO PHEN 50011353863 Joshua Devine MD ROBAXIN 500 MG ORAL TABLET 1 tablet QID 06/28 Methocarbamol 85603963470 Joshua Devine MD KEFLEX 500 MG ORAL CAPSULE 1 tab po QID 06/28 CEPHALEXIN 69208391742 Joshua Devine MD PERCOCET 5-325 MG TABS 1-2 tabs po q 4-6 h prn 06/28 OXYCODONE-ACETAMINO PHEN 72176740119 Joshua Devine MD ULTRAM 50 MG ORAL TABLET one tab po bid 06/28 TRAMADOL HCL 89541870776 Joshua Devine MD VICODIN 5-500 MG TABS 1q 6 hr prn pain 06/28 HYDROCODONE-ACETAMI NOPHEN 37356579434 Joshua Devine MD VOLTAREN 75 MG TBEC ONE TABLET PO BID 06/28 DICLOFENAC SODIUM 90259174531 Joshua Devine MD FLOMAX [id number]-BAW Non-Luis 06/28 TAMSULOSIN HCL AT44C-EBL 11970301923 Joshua Devine MD LORAZEPAM TABS Non-Lu[place] 06/28 LORAZEPAM TABS 10129113602 Joshua Devine MD VITAMINS Non-Luis 06/28 VITAMINS Joshua Devine MD NEURONTIN 300 MG CAPS Non-Luis 06/28 GABAPENTIN 89056429360 Joshua Devine MD HYDROCODONE-ACETA MINOPHEN 10-500 MG ORAL TABLET Non-Luis 06/28 HYDROCODONE-ACETAMI NOPHEN 25239934560 Joshua Devine MD OMEGA-3 CF CAPS Non-Luis 06/28 OMEGA-3 FATTY ACIDS CAPS 72977388133 Joshua Devine MD PRILOSEC PACK Non-West 06/28 OMEPRAZOLE MAGNESIUM PACK 29508585710 Joshua Devine MD LOVASTATIN 10 MG TABS Non-Luis 06/28 LOVASTATIN 74579663000 Joshua Devine MD LISINOPRIL 10 MG TABS Non-West 06/28 LISINOPRIL 26379975325 Joshua Devine MD PERCOCET 5-325 MG TABS one po QID 06/28 OXYCODONE-ACETAMINO PHEN 16546220326 Joshua Devine MD AMBIEN 5 MG TABS 1 QHS 06/28 ZOLPIDEM TARTRATE 98474441430 Joshua Devine MD MEDROL 4 MG TBPK Take as directed 06/28 METHYLPREDNISOLONE 34935043490 Joshua Devine MD VOLTAREN 75 MG TBEC 1-2 BID 06/28 DICLOFENAC SODIUM 25150613216 Joshua Devine MD ASPIRIN TABS Non-[place] 06/28 ASPIRIN TABS 76346454573 Joshua Devine MD ZOLOFT TABS [facility] 06/28 SERTRALINE HCL TABS 44219929686 Joshua Devine MD ADULT ASPIRIN EC LOW STRENGTH 81 MG ORAL TABLET DELAYED RELEASE -Luis 06/28 ASPIRIN 33040128627 Elif Rodriguez MA CENTRUM SILVER TABS [facility] 09/29 MULTIPLE VITAMINS-MINERALS 31544314404 Elif Rodriguez MA FISH OIL CAPS -[place] 07/10 OMEGA-3 FATTY ACIDS CAPS 19450260251 Elif Rodriguez MA MELOXICAM TABS Non-Lu[place] 06/28 MELOXICAM TABS 48719175863 Elif Rodriguez MA VICODIN 5-500 MG TABS 1q 6 hr prn pain 06/28 HYDROCODONE-ACETAMI NOPHEN 40490684731 Devonte Pena MD GABAPENTIN 300 MG TABS TAKE 1 TID 06/28 GABAPENTIN Devonte Pena MD PERCOCET 5-325 MG TABS 1- PO Q 6 hrs prn pain 01/09 OXYCODONE-ACETAMINO PHEN 51787807199 Devonte Pena MD ROBAXIN 500 MG ORAL TABLET 1 tablet QID 09/29 Methocarbamol 11085235640 Devonte Pena MD KEFLEX 500 MG ORAL CAPSULE 1 tab po QID 09/29 CEPHALEXIN 74756651057 Becca Abad NP PERCOCET 5-325 MG TABS 1-2 tabs po q 4-6 h prn 01/09 OXYCODONE-ACETAMINO PHEN 36043411922 Macho De La Cruz MD ULTRAM 50 MG ORAL TABLET one tab po bid 06/21 TRAMADOL HCL 09603588216 Devonte Pena MD VICODIN 5-500 MG TABS 1q 4 hr prn pain 03/09 HYDROCODONE-ACETAMI NOPHEN 64628109609 Devonte Pena MD VOLTAREN 75 MG TBEC ONE TABLET PO BID 06/28 DICLOFENAC SODIUM 54552617567 Devonte Pena MD FLOMAX NR43C-[facility] 06/28 TAMSULOSIN HCL XT62C-OBG 37122353904 Elif Rodriguez MA LORAZEPAM TABS [facility] 06/28 LORAZEPAM TABS 58159473794 Elif Rodriguez MA VITAMINS [facility] 06/28 VITAMINS Elif Rodriguez MA NEURONTIN 300 MG CAPS [facility] 06/28 GABAPENTIN 77938340304 Elif Rodriguez MA HYDROCODONE-ACETA MINOPHEN 10-500 MG ORAL TABLET -[place] 06/28 HYDROCODONE-ACETAMI NOPHEN 26366297743 Elif Rodriguez MA OMEGA-3 CF CAPS -[place] 06/28 OMEGA-3 FATTY ACIDS CAPS 60292958495 Elif Rodriguez MA PRILOSEC PACK -[place] 06/28 OMEPRAZOLE MAGNESIUM PACK 17961114844 Elif Rodriguez MA LOVASTATIN 10 MG TABS [facility] 11/27 LOVASTATIN 64808938302 Elif Rodriguez MA LISINOPRIL 10 MG TABS [facility] 06/28 LISINOPRIL 37395596508 Elif Rodriguez MA PERCOCET 5-325 MG TABS one po QID 01/09 OXYCODONE-ACETAMINO PHEN 47240739866 Devonte Pena MD AMBIEN 5 MG TABS 1 QHS 02/11 ZOLPIDEM TARTRATE 60627616771 Devonte Pena MD MEDROL 4 MG TBPK Take as directed 01/17 METHYLPREDNISOLONE 73683914692 Devonte Pena MD VOLTAREN 75 MG TBEC 1-2 BID 06/28 DICLOFENAC SODIUM 65760619064 [facility]IRIN TABS 70843364478 Judith [facility] SERTRALINE HCL TABS 07738878713 Judith Alejandro Medications Administered No information available. Allergies, Adverse Reactions, Alerts Allergy Name Reaction Description Start Date Severity Statu s Provider CIPRO Critical Becca stewart NP SULFA Moderate Elif sorensen MA Results Date Name Value Unit Range Flag Description Lab Report: aPTT MPV 9.1 fL 7.5-11.5 N Platelet leeroy n volume [Entitic volume] in Blood by Salma PLATELET CNT 209 10*3/uL 140-400 N platelet count RDW 15.6 % 11.0-15.0 H Erythrocyte distribution width [Ratio] by Automated count MCHC RBC 32.3 g/dL 32.0-36.0 N mean corpu scular hemoglobin concentration, RBC MCH 28.2 pg 27.0-33.0 N MCH [Entiti c mass] by Automated count MCV 87.3 fL 80.0-100.0 N MCV [Entit ic volume] by Automated count HCT 38.9 % 38.5-50.0 N Hematocrit [Volume Fraction] of Blood by Automated count HGB 12.6 g/dL 13.2-17.1 L Hemoglobin [Mass/volume] in Blood RBC 4.45 10*6/mm3 4.20-5.80 N Erythrocyt es [#/volume] in Blood by Automated count WBC 5.7 10*3/mm3 3.8-10.8 N Leukocytes [#/volume] in Blood by Automated count INR 1.1 0.9-1.1 N INR in Platel et poor plasma by Coagulation assay PT PATIENT 11.8 s 9.4-12.6 N Prothromb in time (PT) PTT PATIENT 38.1 s 23.1-37.6 H PTT pat ient Lab Report: URINALYSIS WBC ESTERASE Negative Negative N leukoc yte (WBC) esterase, urine NITRITE UA Negative Negative N Nitrite Urine UROBILINOGEN <2.0 <2.0 N Urobilin ogen [Presence] in Urine by Test strip PROTEIN, URN Negative Negative N protei n, urine, semiquantitative (dipstick) PH U QN 6.0 5.0-8.0 N ph, urine, quantitative BLOOD UR Negative Negative N BLOOD, URI NE (hematuria) SPEC GR URIN 1.014 1.005-1.035 N Spec ific gravity of Urine by Test strip KETONES UR Negative Negative N KETONES, URINE BILIRUBIN UR Negative Negative N Biliru bin.total [Presence] in Urine by Test strip GLUCOSE, URN Negative Negative N Glucos e [Mass/volume] in Urine by Test strip CLARITY UR Clear Clear N clarity, u rine, point UA COLOR Yellow Yellow,Straw N Color o f Urine Lab Report: ABO GROUP & RH T YPE ANTIBODY SCR Negative antibod y screen, serum RH TYPE Positive Rh antigen ABO BLD GRP A ABO blood group Plan of Care Type Date Detail Pending order X-Ray Scoliosis - Standing Pending order X-Ray Scoliosis - Series Pending order Radiologic exami nation, spine; thoracolumbar, 2 views Pending order X-Ray Lumbar AP- Lat and Flex/Extension Pending order X-Ray Scoliosis - Standing Pending order Radiologic exami nation, spine; thoracolumbar, 2 views Pending Order exclud ed from report: Pending order Radiologic exami nation, spine; thoracolumbar, 2 views Pending order X-Ray Scoliosis - Standing Pending order MRI Lumbar witho ut gadolinium Pending order MRI Lumbar witho ut gadolinium Pending order X-Ray Scoliosis - Standing Pending order SI Joint Injecti on with Provocative Maneuvers Pending order SI Joint Injecti on Pending Order exclud ed from report: Pending order SI Joint Injecti on Pending order Facet Injection Pending order Facet Injection Pending order CT Pelvis; witho ut contrast *SI Protocol* Pending order CT Lumbar withou t contrast Pending order CT Lumbar withou t contrast Pending order CT Pelvis; witho ut contrast *SI Protocol* Pending order X-Ray Lumbar AP & Lateral Pending order X-ray Cervical A P & Lateral Pending order X-Ray Lumbar AP & Lateral Pending order X-Ray Lumbar AP & Lateral Pending order X-Ray Lumbar Fle xion/Extension Pending order MRI Lumbar witho ut gadolinium Pending order CT Lumbar withou t contrast Pending order CT Lumbar withou t contrast Pending order MRI Lumbar witho ut gadolinium Pending order CARINA with Fluoros copy Pending order CARINA with Fluoros copy Pending order CARINA Series = 1.3 Injections Pending order CARINA Series = 1.3 Injections Pending order CARINA Series = 1.3 Injections Pending order CARINA Series = 1.3 Injections Pending order CARINA Series = 1.3 Injections Pending order CARINA Series = 1.3 Injections Pending order X-Ray Lumbar AP & Lateral Pending order X-Ray Lumbar Fle xion/Extension Pending order X-Ray Lumbar AP & Lateral Pending order X-Ray Lumbar Fle xion/Extension Pending order X-Ray Lumbar AP & Lateral Pending order CARINA Series=1.3 I njections Pending order X-Ray Lumbar AP & Lateral Pending order X-Ray Lumbar Fle xion/Extension Pending order MRI Lumbar w/o & w/contrast Pending order MRI Lumbar w/o & w/contrast Pending order X-Ray Lumbar Fle xion/Extension Pending order X-Ray Lumbar AP & Lateral Pending order MRI Lumbar w/o & w/contrast Pending order MRI Lumbar w/o & w/contrast Patient education weight%20manag ement Patient education osteoarthritis Patient education lumbar radicul opathy Procedures Code Procedure Name Date Entry Date [facility]-[id number] Pneumonia Vaccine Previously Received 20 05/01/10 [id number] Pneumonia Vaccine Previously Received 20 06/06/28 [id number] Flu Shot Previously Received 41513 X-Ray Scoliosis - Series 201 03/25/27 [id number] Pneumonia Vaccine Previously Received 20 06/03/27 [facility]-[id number] Medications Documented [id number] Flu Shot Declined 8 32347 X-Ray Lumbar AP-Lat and Flex/Extension 20 05/12/27 19251 Radiologic examinati on, spine; thoracolumbar, 2 views 09166 Radiologic examinati on, spine; thoracolumbar, 2 views 37150 X-Ray Scoliosis - Standing 2 13685 Evaluation - Low 45007 X-Ray Scoliosis - Standing 2 G8979 Mobility: Status at 10th visit or 30 days G8978 Mobility: Current status at time of eval G8539 Patient assessed, Fu nctional deficiencies noted and POC established G8417 BMI above normal, f/u plan documented 201 03/20/12 G8427 Medication Reconciliation Completed CPT-G 8427 G8730 Pain Assessment positive with follow up p miguel 1124F No ACP/POA documented but discussed 07/09 G8427 Medication Reconciliation Completed CPT-G 8427 G8730 Pain Assessment positive with follow up p miguel G8417 BMI above normal, f/u plan documented 201 02/28/20 1036F No tobacco use currently 201 02/28/20 4040F Pneumococcal vaccine received G8482 Flu shot received 1124F No ACP/POA documented but discussed 05/07 G8427 Medication Reconciliation Completed CPT-G 8427 G8730 Pain Assessment positive with follow up p miguel G8417 BMI above normal, f/u plan documented 201 02/25/18 1036F No tobacco use currently 201 02/25/18 4040F Pneumococcal vaccine received G8482 Flu shot received 1124F No ACP/POA documented but discussed 01/01 G8427 Medication Reconciliation Completed CPT-G 8427 G8730 Pain Assessment positive with follow up p miguel G8417 BMI above normal, f/u plan documented 201 02/21/14 1036F No tobacco use currently 201 02/21/14 4040F Pneumococcal vaccine received G8482 Flu shot received 1124F No ACP/POA documented but discussed 11/18 74216 X-Ray Scoliosis - Standing 2 81028 SI Joint Injection 1 G8427 Medication Reconciliation Completed CPT-G 8427 G8730 Pain Assessment positive with follow up p miguel G8417 BMI above normal, f/u plan documented 201 02/20/01 1036F No tobacco use currently 201 02/20/01 4040F Pneumococcal vaccine received G8482 Flu shot received 1123F ACP/POA documented 7 G8427 Medication Reconciliation Completed CPT-G 8427 G8730 Pain Assessment positive with follow up p miguel G8417 BMI above normal, f/u plan documented 201 01/29/17 1036F No tobacco use currently 201 01/29/17 4040F Pneumococcal vaccine received G8482 Flu shot received 3005D0C ACP/POA not documented; no reason. 03/14 [facility]-C-65407 X-Ray Lumbar AP & Lateral 20 04/03/25 G8427 Medication Reconciliation Completed CPT-G 8427 G8730 Pain Assessment positive with follow up p miguel G8417 BMI above normal, f/u plan documented 201 01/23/25 1036F No tobacco use currently 201 01/23/25 3797O0W No pneumococcal vaccine received; no reas on G8483 No flu shot received; allergy etc. 03/14 MC-C-46247 X-ray Cervical AP & Lateral MC-C-08031 X-Ray Lumbar AP & Lateral 20 02/12/18 MC-C-87135 X-Ray Lumbar AP & Lateral 20 03/12/03 MC-C-68531 X-Ray Lumbar Flexion/Extension [id number] Lumbar or Sacral CPT-64592 2 J0702 Betamethasone (Celestone) 6mg [id number] Additional Level, Lumbar or Sacral CPT-64 484 84751 Lumbar or Sacral CPT-31356 2 J1040 Depo Medrol 80MG 77781 Fluroscopic Guidance CPT-27024 G8427 Medication Reconciliation Completed CPT-G 8427 43028 Lumbar or Sacral CPT-20236 2 J1040 Depo Medrol 80MG 60150 Fluroscopic Guidance CPT-04517 MC-C-17650 X-Ray Lumbar AP & Lateral 07/24/07 MC-C-40447 X-Ray Lumbar Flexion/Extension MC-C-35468 X-Ray Lumbar AP & Lateral 07/24/07 MC-C-26727 X-Ray Lumbar Flexion/Extension MC-C-65305 X-Ray Lumbar AP & Lateral 07/01/21 MC-C-48069 CARINA Series=1.3 Injections 20 06/23/15 MC-C-75812 MRI Lumbar w/o & w/contrast MC-C-96158 X-Ray Lumbar AP & Lateral 02/23/04 MC-C-22468 X-Ray Lumbar Flexion/Extension Vital Signs Date Name Value Unit Description BMI (Body Mass Index) 31.45 kg/m2 Bod y Mass Index (Ratio) BP Diastolic 76 mm[Hg] blood pressu re, diastolic BP Systolic 110 mm[Hg] blood pressur e, systolic Heart Rate 72 /min pulse rate Height 69 [in_us] height E&M Weight Measured 213 [lb_av] weight E& M Weight Measured 213 [lb_av] weight E& M Body Temperature 97.9 [degF] temperat ure E&M Immunizations No information available. Advance Directives No information available.
--- OUTSIDE RECORDS SUMMARY | 2025-04-06 10:09 | XMS_ITS | Clinical Summary ---
Author Organization [facility] Address [address] [place], [place] [address] Care Team Providers Care Relief Mate Name Role Phone Kassie Beasley MD Primary Care Provider [phone] Devonte Pena MD Unavailable [phone] Allergies Active Allergy Reactions Criticality Noted Date Comments Adhesive Other (See Comments) 09/05/2014 Causes skin tear Ciprofloxacin 07/09/2010 Tingling sensation Sulfa (Sulfonamide Antibiotics) 07/09/2010 Tingling sensation Medications alprazolam (XANAX) 1 mg PO tablet Take 0.5 mg by mouth 3 times daily as needed. Active atorvastatin (LIPITOR) 10 mg Tablet Take 10 mg by mouth nightly at bedtime. Active senna-docusate (SENOKOT-S) 8.6-50 mg Tablet Take 1 Tab by mouth 2 times daily. 30 Tab 0 4 Active Additional Information Patient taking differently:1 Tablet Oral2 TIMES DAILY PRN, Reported on 09/08/2016 amLODIPine (NORVASC) 5 mg tablet Take 5 mg by mouth nightly at bedtime. Active cetirizine (ZYRTEC) 10 mg Tablet Take 10 mg by mouth daily as needed for Allergies. Active doxazosin (CARDURA) 8 mg tablet Take 8 mg by mouth nightly at bedtime. Active furosemide (LASIX) 20 mg tablet Take 20 mg by mouth daily. Active gabapentin (NEURONTIN) 600 mg tablet Take 300 mg by mouth 3 times daily. Active hydrocortisone (CORTEF) 10 mg tablet Take 20 mg by mouth daily as needed. take if body is stressed Active hydrocortisone (CORTEF) 10 mg tablet Take 10 mg by mouth give at bedtime as needed. take if body is stressed Active metaxalone (SKELAXIN) 800 mg Tablet Take 800 mg by mouth 3 times daily. Active pantoprazole (PROTONIX) 40 mg Tablet, Delayed Release (E.C.) Take 40 mg by mouth 2 times daily. Active tadalafil (CIALIS) 5 mg Tablet Take 5 mg by mouth daily. Active triamcinolone (KENALOG) 0.1 % cream Apply topically 2 times daily as needed. Active amoxicillin (AMOXIL) 875 mg tablet Take 875 mg by mouth 2 times daily. Active fluticasone (FLONASE) 50 mcg/actuation nasal spray Belzon[place] 1 Bel[place] into nose daily. Active methocarbamol (ROBAXIN) 750 mg tablet Take 1-2 Tabs by mouth every 6 hours as needed. 90 Tab 0 7 Active tamsulosin (FLOMAX) 0.4 mg sustained release capsule Take 1 Cap by mouth 2 times daily as needed (Urinary retention). 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 Family History Medical History Relation Name Comments Heart Problems Maternal Grandmother Heart Problems Mother Anesthesia Complications Neg Hx Relation Name Status Comments Maternal Grandmother Mother Social History Tobacco Use Types Packs/Day Years Used Date Smoking Tobacco: Never Smokeless Tobacco: Current Chew Comments:1 twists evry coupl e of days Alcohol Use Standard Drinks/Week Comments Yes 0 (1 standard drink = 0.6 oz pur e alcohol) occ Sex and Gender Information Value Date Recorded Sex Assigned at Not on file Legal Sex Male 3:51 PM EST Gender Identity Not on file Sexual Orientation Not on file Last Filed Vital Signs Vital Sign Reading Time Taken Comments Blood Pressure 144/78 09/23/2016 8:02 AM EST Pulse 91 09/23/2016 11:44 AM EST Temperature 36.8 C (98.3 F) 09/23/2016 8:02 AM EST Respiratory Rate 15 09/23/2016 11:4 4 AM EST Oxygen Saturation 99% 09/23/2016 11: 44 AM EST Inhaled Oxygen Concentration - - Weight 97.5 kg (214 lb 15.2 oz) 09/15/2016 9:49 PM EST Height 165.1 cm (5' 5 ) 09/15/2016 9:49 PM EST Body Mass Index 35.77 09/15/2016 9:49 PM EST Plan of Treatment Not on file Medical Devices Implanted Type Area Electrical Engineering Technician Device Identifier Shelf Expiration Date Model / Serial / Lot Scr Si Polyaxl 9 X 50mm Implanted:Qty: 2 on 09/17/2016 by Devonte Pena MD at [facility] Screw Spine Lumbar * MEDTRONIC [id number] / / Single-Inner Setscr Implanted:Qty: 25 on 09/17/2016 by Devonte Pena MD at [facility] Screw Spine Lumbar * J \T\ Naida DEPUY SPINE [id number] / / Graft Chip Bone Canc 30ml - S1 Implanted:Qty: 1 on 07/18/2010 at [facility] N/A: Spine Lumbar * [employer]OURCE [id number] / / [id number] Graft Chip Bone Canc 30ml - S1 Implanted:Qty: 1 on 07/18/2010 at [facility] N/A: Spine Lumbar * [employer]OURCE [id number] / / [id number] Graft Chip Bone Canc 30ml - S1 Implanted:Qty: 1 on 07/18/2010 at [facility] N/A: Spine Lumbar * [employer]OURCE [id number] / / [id number] Graft Bone Kt Infuse Lg - S1 Implanted:Qty: 1 on 07/18/2010 at [facility] N/A: Spine Lumbar * MEDTRONIC 09/20/2012 [id number] / / [id number] Mis Brody Poly Scw 7x50mm,Ti - S1 Implanted:Qty: 6 on 07/18/2010 at [facility] N/A: Spine Lumbar * DIANE CONTRERAS [id number] / / Mayra Lx Spinal Cage 10mm Implanted:Qty: 2 on 07/18/2010 at [facility] N/A: Spine Lumbar * USE JJ DEPU [id number] / / Viper2 Lordotic Mitchel-70mm - S1 Implanted:Qty: 2 on 07/18/2010 at [facility] N/A: Spine Lumbar * DIANE CONTRERAS [id number] / / Mis Single Inner Setscw - S1 Implanted:Qty: 6 on 07/18/2010 at [facility] N/A: Spine Lumbar * DIANE CONTRERAS [id number] / / Viper2 Lordotic Mitchel-100mm Implanted:Qty: 2 on 09/11/2014 by Devonte Pena MD at [facility] Spine Lumbar * J \T\ J DEPUY SPINE [id number] / / Mis Single Inner Setscw Implanted:Qty: 2 on 09/11/2014 by Devonte Pena MD at [facility] Spine Lumbar * J \T\ J DEPUY SPINE [id number] / / Scr Poly Mis Brody 3s14vebt Implanted:Qty: 2 on 09/11/2014 by Devonte Pena MD at [facility] Spine Lumbar * J \T\ J DEPUY SPINE [id number] / / Graft Putty Bone Dbx 10cc - [id number] Implanted:Qty: 1 on 09/11/2014 by Devonte Pena MD at [facility] Spine Lumbar * MUSCULOSKELETAL TRANSPLAN 02/23/2016 [id number] / [id number] / Bone Cube Cancellous 15ml Implanted:Qty: 1 on 09/11/2014 by Devonte Pena MD at [facility] Spine Lumbar 08/02/2019 CANCUBE 15 SP / / [id number] Concorde Spinal Cage Curv,9mm Implanted:Qty: 1 on 09/11/2014 by Devonte Pena MD at [facility] Spine Lumbar * USE JJ DEPU [id number] / / Graft Putty Bone Dbx 10cc Implanted:Qty: 1 on 09/15/2016 by Devonte Pena MD at [facility] Spine Lumbar * MUSCULOSKELETAL TRANSPLAN 04/22/2018 [id number] / [id number] / Graft Bone Kt Infuse Lg Implanted:Qty: 1 on 09/15/2016 by Devonte Pena MD at [facility] Spine Lumbar * [employer]IC SOFAMOR DANEK 07/20/2017 [id number] / / [id number] Charanjit Casillas Md 14mm 20deg Implanted:Qty: 1 on 09/15/2016 by Devonte Pena MD at [facility] Spine Lumbar * J \T\ J DEPUY [id number] / / Cage [place] Impl Sm 14mm 10deg Implanted:Qty: 1 on 09/15/2016 by Devonte Pena MD at [facility] Spine Lumbar * J \T\ J DEPUY SPINE [id number] / / Scr Si Polyaxl 7 X 50mm Implanted:Qty: 2 on 09/17/2016 by Devonte Pena MD at [facility] Spine Lumbar * J \T\ J DEPUY SPINE [id number] / / Scr Si Polyaxl 6 X 50mm Implanted:Qty: 7 on 09/17/2016 by Devonte Pena MD at [facility] Spine Lumbar * J \T\ J DEPUY SPINE [id number] / / Scr Si Polyaxl 6 X 45mm Implanted:Qty: 1 on 09/17/2016 by Devonte Pena MD at [facility] Spine Lumbar * J \T\ J DEPUY SPINE [id number] / / Graft Bone Posterolateral 5cm Implanted:Qty: 1 on 09/17/2016 by Devonte Pena MD at [facility] Spine Lumbar * [employer]OTECH INC 04/02/2018 [id number] / [id number] / Graft Bone Posterolateral 5cm Implanted:Qty: 1 on 09/17/2016 by Devonte Pena MD at [facility] Spine Lumbar * [employer] 01/01/2018 [id number] / [id number] / Graft Bone Posterolateral 10cm Implanted:Qty: 1 on 09/17/2016 by Devonte Pena MD at [facility] Spine Lumbar * [employer] INC 12/08/2017 [id number] / [id number] / Scr Exp Ti Poly [id number] Implanted:Qty: 2 on 09/17/2016 by Devonte Pena MD at [facility] Spine Lumbar * J \T\ J DEPUY SPINE [id number] / / Mitchel Spinal Hex Ti [id number] Implanted:Qty: 2 on 09/17/2016 by Devonte Pena MD at [facility] Spine Lumbar * J \T\ J DEPUY SPINE [id number] / / 5.5 Ti Opn Iliac Cn 20mm Implanted:Qty: 1 on 09/17/2016 by Devonte Pena MD at [facility] Spine Lumbar * J \T\ J DEPUY SPINE [id number] / / [id number] Med Size A5 Implanted:Qty: 1 on 09/17/2016 by Devonte Pena MD at [facility] Spine Lumbar * J \T\ J DEPUY SPINE [id number] / / Insurance MEDICARE [employer] [facility] MEDICARE Advance Directives For more information, please contact: [phone] Documents on File Type Date Recorded Patient Project Hire Expl anation Advance Directives and Livin g Will 09/15/2016 11:32 AM * Full Code (Latest Code Status on File) Date Activated Date Inactivated Comments 09/15/2016 10:16 PM 09/23/2016 6:25 PM * Full Code Date Activated Date Inactivated Comments 09/11/2014 9:55 PM 09/14/2014 3:50 PM * Full Code Date Activated Date Inactivated Comments 07/18/2010 10:34 PM 07/20/2010 4:30 PM Care Teams Relief Mate Relationship Specialty Start Date End Date Kassie Beasley MD [address] [place] [address] PCP - General Family Medicine 09/07/16 Devonte Pena MD [address] [place] [address]. [address] [place] [address] Neurological Surgery 09/27/22
--- OUTSIDE RECORDS SUMMARY | 2025-04-06 10:10 | XMS_ITS | Encounter Summary ---
Author Organization Healthcare Address [address] [id number] Care Team Providers Care Mail Distribution Clerk Name Role Phone Christi Vasquez MD Primary Care Provider [phone] Emi Ledezma BACKGROUND CHECK COORDINATOR Unavailable Unavailab Catrina Qureshi BACKGROUND CHECK COORDINATOR Unavailable Unavail able Reason for Visit * Reason Comments Med Refill Encounter Details Date Type Department Care Team (Late st Contact Info) Description 10/27/2021 Refill [facility] [address] [place] [address] Christi Vasquez MD [address] [place] [address] Social History Tobacco Use Types Packs/Day Years Used Date Smoking Tobacco: Never Smokeless Tobacco: Current Chew Alcohol Use Standard Drinks/Week Comments No 0 (1 standard drink = 0.6 oz pur e alcohol) PHQ-2 Answer Date Recorded Patient Health Questionnaire-2 Score 0 09/09/2021 Sex and Gender Information Value Date Recorded Sex Assigned at Not on file Legal Sex Male 8:24 PM EDT Gender Identity Not on file Sexual Orientation Not on file documented as of this encounter Miscellaneous Notes * Telephone Encounter - Romelia Brizuela MA - 10/31/2021 10:59 AM EST Left message for patient to return call. documented in this encounter Plan of Treatment Not on file documented as of this encounter Visit Diagnoses Not on filedocumented in this encounter Additional Health Concerns Assessment Noted Time A fall risk assessment has been complete d for the patient 09/09/2021 2:54 PM EST documented as of this encounter Care Teams Mail Distribution Clerk Relationship Specialty Start Date End Date Christi Vasquez MD [address] [place] [address] PCP - General 01/31/21 10/28/23 Emi Ledezma LPN VALUE-BASED TRANSFORMATION PROGRAM Licensed Practical Nurse 07/06/23 3 Catrina Valdovinos LPN VALUE-BASED [place] [address] TCM Nurse 07/09/23 07/09/23 documented as of this encounter
--- OUTSIDE RECORDS SUMMARY | 2025-04-06 10:10 | XMS_ITS | Encounter Summary ---
Author Organization Healthcare Address [address] [id number] Care Team Providers Care Telephone Repairer Name Role Phone Unavailable Primary Care Provider Unavailabl e Reason for Visit * Reason Comments Med Refill Encounter Details Date Type Department Care Team (Late st Contact Info) Description 01/02/2024 Refill [facility] [address] [place] [address] Christi Vasquez MD [address] [place] [address] Benign essential HTN; Chronic pain syndrome Social History Tobacco Use Types Packs/Day Years Used Date Smoking Tobacco: Never Passive Smoke Exposure: Never Smokeless Tobacco: Current Chew Alcohol Use Standard Drinks/Week Comments No 0 (1 standard drink = 0.6 oz pur e alcohol) Humiliation, Afraid, Rape, and Kick questionnair e Answer Date Recorded Within the last year, have y ou been afraid of your partner or ex-partner? No 07/09/2023 Within the last year, have y ou been humiliated or emotionally abused in other ways by your partner or ex-partner? No Within the last year, have y ou been kicked, hit, slapped, or otherwise physically hurt by your partner or ex-partner? No 07/09/2023 Within the last year, have y ou been raped or forced to have any kind of sexual activity by your partner or ex-partner? No 07/09/2023 Social Connection and Isolation Panel Answer Date Recorded In a typical week, how many times do you talk on the phone with family, friends, or neighbors? More than three times a week 07/09/2023 How often do you get togethe r with friends or relatives? Once a week 07/09/2023 How often do you attend chur ch or sabianism services? Never 07/09/2023 Do you belong to any clubs o r organizations such as mormon groups, unions, fraternal or athletic groups, or school groups? No 07/09/2023 How often do you attend meet ings of the clubs or organizations you belong to? Never 07/09/2023 Are you , , di vorced, , never , or living with a partner? Living with partner 07/09/2023 AUDIT-C Answer Date Recorded Q1: How often do you have a drink containing alc ohol? 2-4 times a month 07/09/2023 Q2: How many drinks containi ng alcohol do you have on a typical day when you are drinking? 1 or 2 07/09/2023 Q3: How often do you have si x or more drinks on one occasion? Never 07/09/2023 Overall Financial Resource Strain (CARDIA) Answe r Date Recorded How hard is it for you to pa y for the very basics like food, housing, medical care, and heating? Not hard at all 07/09/2023 PHQ-2 Answer Date Recorded Patient Health Questionnaire-2 Score 1 01/21/2023 [facility] - Occupational Stress Questionnaire Answer Date Recorded Do you feel stress - tense, restless, nervous, or anxious, or unable to sleep at night because your mind is troubled all the time - these days? Not at all 07/09/2023 Exercise Vital Sign Answer Date Recorde d On average, how many days pe r week do you engage in moderate to strenuous exercise (like a brisk walk)? 0 days 07/09/2023 On average, how many minutes do you engage in exercise at this level? 0 min 07/09/2023 Hunger Vital Sign Answer Date Recorded Within the past 12 months, y ou worried that your food would run out before you got the money to buy more. Never true 07/09/20 23 Within the past 12 months, t he food you bought just didn't last and you didn't have money to get more. Never true 07/09/2023 PRAPARE - Transportation Answer Date Re corded In the past 12 months, has l ack of transportation kept you from medical appointments or from getting medications? No 06/21 In the past 12 months, has l ack of transportation kept you from meetings, work, or from getting things needed for daily living? No 07/09/2023 Housing Stability Vital Sign Answer Matty e Recorded In the last 12 months, was t here a time when you were not able to pay the mortgage or rent on time? No 07/09/2023 In the last 12 months, how many places have you lived? 1 07/09/2023 In the last 12 months, was t here a time when you did not have a steady place to sleep or slept in a long-term (including now)? No 07/09/2023 PHQ-2A Answer Date Recorded Patient Health Questionnaire-2 Score 1 01/21/2023 Sex and Gender Information Value Date Recorded Sex Assigned at Not on file Legal Sex Male 8:24 PM EDT Gender Identity Not on file Sexual Orientation Not on file documented as of this encounter Miscellaneous Notes * Telephone Encounter - Husam Pang - 01/04/2024 2:39 PM EDT Pt called back to say disregard since he has a new PCP close to home * Telephone Encounter - Berenice Canada - 01/04/2024 2:20 PM EDT Left message documented in this encounter Plan of Treatment Not on file documented as of this encounter Visit Diagnoses Diagnosis Benign essential HTN Chronic pain syndrome documented in this encounter Additional Health Concerns Assessment Noted Time A fall risk assessment has been complete d for the patient 07/22/2023 1:04 PM EDT A Body Mass Index follow-up plan has been documented for the patient 07/22/2023 1:26 PM EDT documented as of this encounter
--- OUTSIDE RECORDS SUMMARY | 2025-04-06 10:10 | XMS_ITS | Encounter Summary ---
Author Organization Healthcare Address [address] [place] [address] Care Team Providers Care Movie Operator Name Role Phone Unavailable Primary Care Provider Unavailabl e Reason for Visit * Reason Comments Med Refill Encounter Details Date Type Department Care Team (Late st Contact Info) Description 05/17/2024 Refill [facility] [place] [address] Christi Vasquez MD [address] [place] [address] Chronic pain syndrome Social History Tobacco Use [...] often do you attend chur ch or restorationist services? Never 07/09/2023 Do you belong to any clubs o r organizations such as episcopalian groups, unions, fraternal or athletic groups, or [...] [facility] - Occupational Stress Questionnaire Answer Date Recorded [...] place to sleep or slept in a correction (including now)? No 07/09/2023 PHQ-2A Answer Date Recorded Patient Health Questionnaire-2 Score 1 01/21/2023 Sex and Gender Information Value Date Recorded Sex Assigned at Not on file Legal Sex Male 8:24 PM EDT Gender Identity Not on file Sexual Orientation Not on file documented as of this encounter Plan of Treatment Not on file documented as of this encounter Visit Diagnoses Diagnosis Chronic pain syndrome documented in this encounter Additional Health Concerns Assessment Noted Time A fall risk assessment has been complete d for the patient 07/22/2023 1:04 PM EDT A Body Mass Index follow-up plan has been documented for the patient 07/22/2023 1:26 PM EDT documented as of this encounter
--- OUTSIDE RECORDS SUMMARY | 2025-04-06 10:10 | XMS_ITS | Encounter Summary ---
Author Organization [place] [address] Care Team Providers Care Renewable Energy Engineer Name Role Phone Zenaida Cruz Ud, MD Unavailable [phone] Dillon Cadena APRN Primary Care Provider [phone] Reason for Visit * Reason Onset Date Comments Refill 02/20/2025 Gabapentin Encounter Details Date Type Department Care Team (Late Contact Info) Description 02/20/2025 Telephone [facility] [address] [place] [address] Dillon Cadena APRN [address] [place] [address] Refill (Gabapentin ) Social History Tobacco Use Types Packs/Day Years [...] Assessment Author No 12/11/2024 11:23 AM EDT Clay EngDEBBIE balbuena * Does this person have difficulty dressing [...] No 12/11/2024 11:23 AM EDT Pam Eng DEBBIE documented in this encounter Miscellaneous Notes * Telephone Encounter - Bettina Das RMA - 03/05/2025 11:44 AM EDT Spoke with pt and he was informed med was sent at appt. * Telephone Encounter - Tana Cheng - 03/05/2025 10:33 AM EDT Select the most appropriate reason for this telephone message: Follow Up Follow Up Who is Calling:Patient What is the caller following up on (make sure to reference any prior documentation/encounter):Pt called to follow up on refill for gabapentin Further follow-up needed?:Yes Return Method of Communication:Phone call Additional Information:Please advise pt, thank you * Telephone Encounter - Christofer John RMA - 02/27/2025 8:11 AM EDT Left message instructing Pt to schedule an appt to document for gabapentin and sign CS agreement. * Telephone Encounter - Gabino Carrillo DO - 02/26/2025 5:34 PM EDT He will need to complete narcotic agreement * Telephone Encounter - Pam Eng MA - 02/26/2025 1:26 PM EDT Pt was seen on 02/23. He was previously prescribed gabapentin by another DrPatti and is wanting to know if we will refill it since he has now been seen by Dr. Beasley. * Telephone Encounter - Carmen Rodriguez - 02/26/2025 9:30 AM EDT Select the most appropriate reason for this telephone message: Other Who is calling (name & relationship to patient if not the patient): Patient What is needed OR why are they calling: pt was seen on 02/23 he would like to know if this could be called in now Return Method of Communication: Phone Call Additional information:N/A * Telephone Encounter - Dillon Cadena APRN - 02/21/2025 4:38 PM EDT Needs appointment * Telephone Encounter - Christofer John RMA - 02/20/2025 4:57 PM EDT Not prescribed by our office. Please advise. Last seen: 02/14/25 * Telephone Encounter - Neha Hernández - 02/20/2025 11:50 AM EDT Select the most appropriate reason for this telephone message: Medication Refill Who is requesting the refill: Patient Medication(s)Name/Dosage/Frequency: gabapentin (NEURONTIN) 600 mg Oral Tablet -- -- 08/14/2023 -- Sig - Route: Take 600 mg by mouth daily. - Did patient contact the pharmacy first: No How many days left on hand: 3-4 Future appt date w/ prescribing provider: None Pharmacy & Location: [facility] [place] [address] [facility] [phone] Return Method of Communication: Phone Call Additional Information: N/A documented in this encounter Plan of Treatment Upcoming Encounters Date Type Department Care Team (Late st Contact Info) Description 07/16/2025 9:20 AM EDT Office Visit [facility] [address] [address] Raul Saucedo MD [address] [place] [address] [place] [address] documented as of this encounter [...] as of this encounter Visit Diagnoses Diagnosis History of degenerative disc disease- Primary Personal history of other musculoskeletal disorders documented in this encounter Additional Health Concerns Assessment Noted Time A fall risk assessment has been complete d for the patient 04/26/2024 2:47 PM EDT documented as of this encounter Care Teams Renewable Energy Engineer Relationship Specialty Start Date End Date Dillon Cadena APRN [address] [place] [address] PCP - General Nurse Practitioner 08/31/23 Zenaida Cruz Ud, MD [address] [place] [address] Internal Medicine-Nephrology 04/06/16 documented as of this encounter
--- OUTSIDE RECORDS SUMMARY | 2025-04-06 10:10 | XMS_ITS | Encounter Summary ---
Author Organization Healthcare Address [address] [id number] Care Team Providers Care Nuclear Unit Operator Name Role Phone Christi Vasquez MD Primary Care Provider [phone] Emi Ledezma LPN Unavailable Unavailab Catrina Qureshi LPN Unavailable Unavail able Reason for Visit * Reason Onset Date Comments Med Refill Med Refill 02/28/2021 Encounter Details Date Type Department Care Team (Late st Contact Info) Description 02/24/2021 Refill [facility] [address] [place] [address] Christi Vasquez MD [address] [place] [address] Social History Tobacco Use Types Packs/Day Years Used Date Smoking Tobacco: Never Alcohol Use Standard Drinks/Week Comments No 0 (1 standard drink = 0.6 oz pur e alcohol) Sex and Gender Information Value Date Recorded Sex Assigned at Not on file Legal Sex Male 8:24 PM EDT Gender Identity Not on file Sexual Orientation Not on file documented as of this encounter Plan of Treatment Not on file documented as of this encounter Visit Diagnoses Not on filedocumented in this encounter Care Teams Nuclear Unit Operator Relationship Specialty Start Date End Date Christi Vasquez MD [address] [place] [address] PCP - General 01/31/21 10/28/23 Emi Ledezma LPN VALUE-BASED TRANSFORMATION PROGRAM Licensed Practical Nurse 07/06/23 3 Catrina Valdovinos LPN VALUE-BASED TRANSFORMATION PROGRAM [address] Nurse 07/09/23 07/09/23 documented as of this encounter
--- OUTSIDE RECORDS SUMMARY | 2025-04-06 10:11 | XMS_ITS | Encounter Summary ---
Author Organization [place] [address] Care Team Providers Care Showroom Sales Assistant Name Role Phone Zenaida Cruz Ud, MD Unavailable [phone] Dillon Cadena APRN Primary Care Provider [phone] Reason for Visit * Reason Onset Date Comments Results 03/03/2025 US from Follow Up 03/03/2025 calling [employer] about this- Has additional questions Encounter Details Date Type Department Care Team (Late st Contact Info) Description 03/03/2025 Results Follow-Up [facility] [address] [place] [phone] Dillon Cadena APRN [address] [place] [address] UPPER EXTREMITY NONVASCULAR LIMITED Social History Tobacco Use Types Packs/Day Years [...] Entry Date Author No 12/11/2024 11:23 AM RANDIT Pam Eng MA documented in this encounter Miscellaneous Notes * Telephone Encounter - Christofer Gallo MA - 03/05/2025 12:31 PM EDT Select the most appropriate reason for this telephone message: Follow Up Follow Up Who is Calling:Other - Laura, (on ICF) What is the caller following up on (make sure to reference any prior documentation/encounter): calling back to hear these results as well. Aware of PCP interpretation. She is unsure if he wants to proceed with referral, will call back if they want to do this. Wondering what could have caused this to form? Dillon Cadena, PHYSIOLOGY TEACHER 03/03/2025 7:15 PM EDT US shows likely lipoma. Recommend evaluation by general surgery (Dr. Kasper) for possible removal. Further follow-up needed?:Yes- see above Return Method of Communication:Phone call Additional Information:Thank you! * Telephone Encounter - Cherri Gannon MA - 03/05/2025 12:05 PM EDT Select the most appropriate reason for this telephone message: Patient Calling for Results Patient called for results on Imaging US upper extremity Which Provider ordered the test? Dillon Cadena APRN Date of test: 03/02/2025 Advised patient of: abnormal result. Patient Instructions/ Questions: wants to know what caused this? Medications Ordered/Pended (if yes, list medication): No Medications/Orders Needed (if yes, list orders): No Pharmacy Location Verified: No Other: Results given to patient US shows likely lipoma. Recommend evaluation by general surgery (Dr. Kasper) for possible removal. US UPPER EXTREMITY NONVASCULAR LIMITED documented in this encounter Plan of Treatment Upcoming Encounters Date Type Department Care Team (Late st Contact Info) Description 07/16/2025 9:20 AM EDT Office Visit [facility] [address] [phone] Raul Saucedo MD [address] [place] [address] [place] [address] documented as of this encounter [...] documented as of this encounter Care Teams Showroom Sales Assistant Relationship Specialty Start Date End Date Dillon Cadena APRN [address] [place] [address] PCP - General Nurse Practitioner 08/31/23 Zenaida Cruz Ud, MD [address] [place] [address] Internal Medicine-Nephrology 04/06/16 documented as of this encounter
--- OUTSIDE RECORDS SUMMARY | 2025-04-06 10:11 | XMS_ITS | Encounter Summary ---
Author Organization [place] [address] Care Team Providers Care Machine Design Checker Name Role Phone Zenaida Cruz Ud, MD Unavailable [phone] Dillon Cadena APRN Primary Care Provider [phone] Reason for Visit * Reason Onset Date Comments Results 03/03/2025 Labs 03/02/25 Follow Up 03/03/2025 calling [facility] to hear results as well Encounter Details Date Type Department Care Team (Late st Contact Info) Description 03/03/2025 Results Follow-Up [facility] [address] [place] [phone] Dillon Cadena APRN [address] [place] [address] VITAMIN D 25 HYDROXY, VITAMIN B12/ FOLIC ACID, CBC, Additional followed-up results: 4 Social History Tobacco Use Types Packs/Day Years [...] results as well. Aware of PCP interpretation. Dillon Cadena APRN 03/05/2025 7:22 AM EDT Urine drug screen as expected. Slight anemia, same as prior, monitor for signs of bleeding. All other labs normal. Further follow-up needed?:No Return Method of Communication:N/A Additional Information:FYI, aware of results as well * Telephone Encounter - Aaron Bonilla RMA - 03/05/2025 10:34 AM EDT Images from the original note were not included. Select the most appropriate reason for this telephone message: Patient Calling for Results Patient called for results on Lab Which Provider ordered the test? Dillon Cadena APRN Date of test: 03/02/25 Advised patient of: see below result. Patient Instructions/ Questions: Patient voices understanding. Medications Ordered/Pended (if yes, list medication): N/A Medications/Orders Needed (if yes, list orders): N/A Pharmacy Location Verified: No Other: Please put in the patient results note that patient is aware of the following results Dillon Cadena APRN 03/05/2025 7:22 AM EDT Urine drug screen as expected. Slight anemia, same as prior, monitor for signs of bleeding. All other labs normal. documented in this encounter Plan of Treatment Upcoming Encounters Date Type Department Care Team (Late st Contact Info) Description 07/16/2025 9:20 AM EDT Office Visit [facility] [address] [phone] Raul Saucedo MD [address] [place] [address] [address] [facility] [place] [address] documented as of this encounter Goals Goal Patient Goal Type Associated Problems Recent Progress Patient-Stated? Author Blood Pressure < 140/90 Blood Pressure 116/70(2024 8:59 AM EDT) No David Cadena MD Maintain a healthy diet, exercise regularly and maintain an ideal body weight General No Estrella Tariq RMA Stay Tobacco Free Lifestyle No Estrella Tariq RMA documented as of this encounter Results * IRON LEVEL (03/02/2025 11:00 AM EDT) Iron 141 50 - 170 mcg/dL 03/03/2025 7:46 PM EDT [facility] [address], [place] Blood VENOUS BLOOD / Unknown Venipuncture / Unknown 03/02/2025 11:00 AM EDT 03/02/2025 11:00 AM EDT us Dillon Cadena APRN CHEMISTRY ORDERABLES Final R esult [facility], [place] [address] [facility] [address] [facility] , [address] [place], [place] [id number] documented in this encounter Visit Diagnoses Diagnosis Anemia, unspecified type- Primary documented in this encounter Additional Health Concerns Assessment Noted Time A fall risk assessment has been complete d for the patient 04/26/2024 2:47 PM EDT documented as of this encounter Care Teams Machine Design Checker Relationship Specialty Start Date End Date Dillon Cadena APRN [address] [place] [address] PCP - General Nurse Practitioner 08/31/23 Zenaida Cruz Ud, MD [address] [place] [address] Internal Medicine-Nephrology 04/06/16 documented as of this encounter
--- OUTSIDE RECORDS SUMMARY | 2025-04-06 10:11 | XMS_ITS | Encounter Summary ---
Author Organization [place] [address] Care Team Providers Care Product Assembler Name Role Phone Zenaida Cruz Ud, MD Unavailable [phone] Dillon Cadena APRN Primary Care Provider [phone] Reason for Visit * Reason Comments Medication Refill Encounter Details Date Type Department Care Team (Late Contact Info) Description 03/10/2025 Refill [facility] [address] [place] [phone] Dillon Cadena APRN [address] [place] [address] Medication Refill Social History Tobacco Use Types Packs/Day Years [...] Refills Last Filled Start Date End Date hydrOXYzine (ATARAX) 25 mg Oral TabletIndications:G AD (generalized anxiety disorder) TAKE 1 TABLET THREE TIMES DAILY NEEDED 90 Tablet 11 03/12/2025 documented in this encounter Plan of Treatment Upcoming Encounters Date Type Department Care Team (Late st Contact Info) Description 07/16/2025 9:20 AM EDT Office Visit [facility] [address] [phone] Raul Saucedo MD [address] [place] [address] [place] [address] documented as of this encounter [...] as of this encounter Visit Diagnoses Diagnosis STIVEN (generalized anxiety disorder) Generalized anxiety disorder documented in this encounter Discontinued Medications Medication Sig Discontinue Reason Start Date End Da te hydrOXYzine (ATARAX) 25 mg Oral TabletIndications:STIVEN (generalized anxiety disorder) Take 1 Tablet by mouth 3 times daily as needed. 12/29/2024 03/12/2025 documented as of this encounter Additional Health Concerns Assessment Noted Time A fall risk assessment has been complete d for the patient 04/26/2024 2:47 PM EDT documented as of this encounter Care Teams Product Assembler Relationship Specialty Start Date End Date Dillon Cadena APRN [address] [place] [address] PCP - General Nurse Practitioner 08/31/23 Zenaida Cruz Ud, MD [address] [place] [address] Internal Medicine-Nephrology 04/06/16 documented as of this encounter
--- OUTSIDE RECORDS SUMMARY | 2025-04-06 10:11 | XMS_ITS | Encounter Summary ---
Author Organization [place] [address] Care Team Providers Care Gate Supervisor Name Role Phone Zenaida Cruz Ud, MD Unavailable [phone] Dillon Cadena APRN Primary Care Provider [phone] Reason for Visit * Reason Comments Medication Refill Encounter Details Date Type Department Care Team (Late Contact Info) Description 03/13/2025 Refill [facility] [address] [place] [phone] Dillon Cadena APRN [address] [place] [address] Medication Refill Social History Tobacco Use Types [...] Assessment Author No 12/11/2024 11:23 AM EDT Albertina, PamDEBBIE balbuena * Does this person have difficulty [...] Date Author No 12/11/2024 11:23 AM EDT Albertina Pam DEBBIE documented in this encounter Miscellaneous Notes * Telephone Encounter - Marti Lugo CPhT - 03/15/2025 12:10 PM EDT amitriptyline (ELAVIL) 25 mg Oral Tablet Future Visit: n/a Last Assessed Visit: 04/26/24 Follow-Up Date: 10/27/24 Appointment protocol failed. No laureen supply sent to pharmacy. Routed to Office. Laureen supply previously given on 02/15/25 pantoprazole (PROTONIX) 40 mg Oral Tablet, Delayed Release (E.C.) Refill requested too soon. Refill denied. Last sent on 02/23/25 for a 90 day supply with 3 refills. Pt notified via [email or web address] if active. documented in this encounter Plan of Treatment Upcoming Encounters Date Type Department Care Team (Late st Contact Info) Description 07/16/2025 9:20 AM EDT Office Visit [facility] [address] [phone] Raul Saucedo MD [address] [place] [address] [place] [facility] [address] documented as of this encounter Goals [...] as of this encounter Visit Diagnoses Diagnosis PUD (peptic ulcer disease) Peptic ulcer, unspecified site, unspecified as acute or chronic, without mention of hemorrhage, perforation, or obstruction Insomnia, persistent Persistent disorder of initiating or maintaining sleep documented in this encounter Additional Health Concerns Assessment Noted Time A fall risk assessment has been complete d for the patient 04/26/2024 2:47 PM EDT documented as of this encounter Care Teams Gate Supervisor Relationship Specialty Start Date End Date Dillon Cadena APRN [address] [place] [address] PCP - General Nurse Practitioner 08/31/23 Zenaida Cruz Ud, MD [address] [place] [address] Internal Medicine-Nephrology 04/06/16 documented as of this encounter
--- OUTSIDE RECORDS SUMMARY | 2025-04-06 10:13 | XMS_ITS | Clinical Summary ---
Author Organization [facility] Address [address] [place] [address] Care Team Providers Care Casing Operator Name Role Phone Unavailable Primary Care Provider Unavailabl e Allergies Active Allergy Reactions Criticality Noted Date Comments Ciprofloxacin Unknown - Patient st ates they do not know rxn details Low 06/14/2018 Sulfa Drugs Unknown - Patient st ates they do not know rxn details Low 06/14/2018 Medications polyethylene glycol (Miralax) 17 GM/SCOOP powder Take 17 g by mouth if needed. 11/25/2020 Active diphenhydrAMINE 12.5 MG/5ML elixir 50 mg, aluminum-magnesi um hydroxide-simeth icone 400-400-40 MG/5ML suspension 20 mL, lidocaine 2 % solution 20 mL Swish and spit 20 mL every 4 (four) hours if needed for mucositis. 200 mL 1 09/30/2022 Active guaiFENesin (Mucinex) 600 MG 12 hr tabletIndication s:Acute non-recurrent sinusitis, unspecified location Take 1 tablet (600 mg total) by mouth 2 (two) times a day if needed for cough or congestion. Do not crush, chew, or split. 20 tablet 12/11/2022 Active amitriptyline (Elavil) 25 MG tabletIndication s:Chronic pain syndrome TAKE 1 TABLET EVERY NIGHT 90 tablet 3 01/05/2023 Active hydrOXYzine HCl (Atarax) 25 MG tabletIndication s:Anxiety Take 1 tablet (25 mg) by mouth every 8 (eight) hours if needed for anxiety. 270 tablet 2 05/13/2023 Active fluticasone (Flonase) 50 MCG/ACT nasal sprayIndications :Allergic rhinitis, unspecified seasonality, unspecified trigger USE 2 SPRAYS IN EACH NOSTRIL 1 TIME EACH DAY. SHAKE GENTLY. BEFORE 1ST USE, PRIME PUMP. AFTER USE, CLEAN TIP AND REPLACE CAP 48 g 3 06/01/2023 Active loratadine (Claritin) 10 MG tabletIndication s:Recurrent productive cough TAKE 1 TABLET ONE TIME DAILY 90 tablet 3 06/01/2023 Active amLODIPine (Norvasc) 5 MG tabletIndication s:Benign essential HTN TAKE 1 TABLET EVERY DAY 90 tablet 1 06/01/2023 Active cetirizine (ZyrTEC) 10 MG tablet Take 1 tablet (10 mg) by mouth 1 (one) time each day. 06/01/2023 Active HYDROcodone-acet aminophen (Meredith) 5-325 MG tablet 07/22/2023 Active HYDROcodone-acet aminophen (Vicodin) 5-300 MG tablet 07/19/2023 Active gabapentin (Neurontin) 600 MG tabletIndication s:Chronic pain syndrome Take 1 tablet (600 mg) by mouth every 6 (six) hours. 360 tablet 1 07/22/2023 Active furosemide (Lasix) 40 MG tablet Take 1 tablet (40 mg) by mouth 1 (one) time each day. 90 tablet 1 07/22/2023 Active pantoprazole (Protonix) 40 MG EC tabletIndication s:Esophageal stricture Take 1 tablet (40 mg) by mouth 1 (one) time each day. Do not crush, chew, or split. 90 tablet 3 07/22/2023 Active aspirin (Aspirin Low Dose) 81 MG EC tablet Take 1 tablet (81 mg) by mouth 1 (one) time each day. 90 tablet 3 07/22/2023 Active doxazosin (Cardura) 8 MG tabletIndication s:Benign essential HTN Take 1 tablet (8 mg) by mouth every night. 90 tablet 1 07/22/2023 Active atorvastatin (Lipitor) 10 MG tabletIndication s:Benign essential HTN,Coronary artery disease involving [place] heart with other form of angina pectoris, unspecified vessel or lesion type (CMS/HCC) Take 1 tablet (10 mg) by mouth every night. 90 tablet 3 07/22/2023 Active Active Problems Problem Noted Date Diagnosed Date Gynecomastia 09/23/2022 COPD exacerbation 09/23/2022 Chronic idiopathic constipation 09/09/2021 Acute bronchitis 05/27/2021 Allergic rhinitis 11/25/2020 Chronic pain 02/15/2019 Esophageal stricture 02/15/2019 Anxiety 12/02/2018 Psoriasis 08/01/2018 Tinnitus 08/01/2018 Benign essential HTN 06/14/2018 CAD (coronary artery disease) 06/14/2018 Gastric ulcer 06/14/2018 Immunizations Immunization Administration Dates Next Due Hep A, Adult 04/21/2019,10/16/2018 Influenza, Unspecified 06/13/2012,2010,06/12/2010,07/03,06/28/2007 Influenza, high-dose, quadrivalent 06/01,07/23/2022,07/10/2021,06/07,05/29/2020,06/16/2019,06/16/2019 ,10/16/2018,10/16/2018,09/24/2017,01/2018,06/03/2016,06/03/2015, 4,06/02/2013 Moderna COVID-19 Vaccine (Re d Cap) 12+ years 12/16/2020,11/18/2020 Moderna COVID-19 Vaccine Biv alent 6months+ 07/23/2022 Pneumococcal Conjugate PCV 13 04/02/2017 Pneumococcal Polysaccharide PPV23 07/19/2014,,07/16/2003 Td (adult), unspecified 12/10/2006 Tdap 04/02/2017 Family History Medical History Relation Name Comments Coronary artery disease Mother Relation Name Status Comments Mother Social History Tobacco Use Types Packs/Day Years Used Date Smoking Tobacco: Never Passive Smoke Exposure: Never Smokeless Tobacco: Current Chew Tobacco Cessation:Ready to Q uit: No; Counseling Given: Yes Alcohol Use Standard Drinks/Week Comments No 0 [...] 07/09/2023 How often do you attend chur or sabianist services? Never 07/09/2023 Do you belong to any clubs o r organizations such as anabaptist groups, unions, fraternal or athletic groups, or [...] Recorded Patient Health Questionnaire-2 Score 1 01/21/2023 [facility] - Occupational Stress Questionnaire Answer Date Recorded [...] money to buy more. Never true 07/09/20 Within the past 12 months, t he [...] place to sleep or slept in a half-way (including now)? No 07/09/2023 PHQ-2A Answer Date Recorded Patient Health Questionnaire-2 Score 1 01/21/2023 Sex and Gender Information Value Date Recorded Sex Assigned at Not on file Legal Sex Male 8:24 PM EDT Gender Identity Not on file Sexual Orientation Not on file Last Filed Vital Signs Vital Sign Reading Time Taken Comments Blood Pressure 130/80 07/22/2023 1:00 PM EDT Pulse 70 07/22/2023 1:00 PM EDT Temperature 36.7 C (98 F) 07/22/2023 1:00 PM EDT Respiratory Rate 18 04/16/2022 11:01 AM EDT Oxygen Saturation 95% 07/22/2023 1:00 PM EDT Inhaled Oxygen Concentration - - Weight 91 kg (200 lb 9.9 oz) 07/22/2023 1:00 PM EDT Height 172.7 cm (5' 8 ) 07/22/2023 1:00 PM EDT Body Mass Index 30.5 07/22/2023 1:00 PM EDT Plan of Treatment Health Maintenance Due Date Last Done Comments [facility]-Infant/Child/Adol SDOH Screenings 1945 [facility]- SDOH Screenings 12/05/1965 [facility]-Adult SDOH Screenings 12/05/1965 [facility]-Zoster Vaccines (1 of 2) 12/05/1997 [facility]-RSV Vaccine: 60+ Years or (1 - 1-dose 75+ series) 12/05/2022 [facility]-Depression Screening 01/22/2024 01/21/2023 [id number] Vaccine ( - season) 2024 07/23/2022, 02/02/2022, 07/17/2021, Additional history exists [facility]-Medicare Annual Wellness (AWV) 07/22/2024 07/22/2023, 04/21/2023, 07/10/2021, Additional history exists [facility]-Influenza Vaccine (#1) 05/21/202506/01, 07/23/2022, 07/10/2021, Additional history exists [facility]-DTaP,Tdap,and Td Vaccines (2 - Td or Tdap) 04/02/2027 04/02/2017, 12/10/2006 [facility]-Pneumococcal Vaccine: 50+ Years Completed 04/02/2017, 07/19/2014, 03/16/2007, Additional history exists [facility]-Hepatitis C Screening Completed 05/06/2017 [facility]-Hepatitis A Vaccines Aged Out 04/21/2019, 09/21 No longer eligible based on patient's age to complete this topic Colonoscopy Discontinued 08/08/2020 [facility]-Colorectal Cancer Screening Discontinued [facility]-Diabetes: Hemoglobin A1C Discontinued 04/16/2022, 06/06/2021, 07/09/2020, Additional history exists [facility]-Obesity Intervention Completed 023, 07/22/2023, 03/18/2023, Additional history exists CT Colonography Discontinued FIT-DNA Discontinued FIT Discontinued FOBT Discontinued HPV Vaccines Aged Out No longer eligi ble based on patient's age to complete this topic Sigmoidoscopy Discontinued [facility]-HIB Vaccines Aged Out No longer e ligible based on patient's age to complete this topic [facility]-IPV Vaccines Aged Out No longer e ligible based on patient's age to complete this topic [facility]-Rotavirus Vaccines Aged Out No lo nger eligible based on patient's age to complete this topic Procedures Procedure Name Priority Date/Time Associated Diagnosis Comments HEMOGLOBIN A1C Routine 04/16/2022 11:27 AM EDT Benign essential HTN Coronary artery disease involving [place] coronary artery of [place] heart without angina pectoris COLONOSCOPY EXTERNAL RESULT 08/08/2020 from Last 3 Months or Most Recently Relevant to Health Maintenance Results * Hemoglobin A1c (04/16/2022 11:27 AM EDT) Hemoglobin A1c 5.3 <5.7 % 04/16/2022 2:17 PM EDT [facility] Blood Venous blood specimen / Unknown Venipuncture / Unknown 04/16/2022 11:27 AM EDT 04/16/2022 11:27 AM EDT Narrative [facility] - 04/16/2022 2:17 PM EDT HA1C Interpretive Data: Diagnosis of Diabetes: Diabetic > or = 6.5% Pre-diabetic 5.7 to 6.4% Non-diabetic < or = 5.6% Glycemic Targets for Type I and Type II Diabetics: Non- Adults <7.0% Adults <6.0% Children and Adolescents <7.5% Source: Citizen Of [place] Diabetes Association. Standards of medical care in diabetes,2017. Diabetes Care.2017:40 (suppl 1):S1-S135. HbA1c assay performed by an ion-exchange chromatography method that is certified traceable to the DCCT. us Christi Vasquez MD LAB BLOOD ORDERABLES Final Res ult [facility] [address] [place] [id number] * COLONOSCOPY EXTERNAL RESULT (08/08/2020) Anatomical Region Laterality Modality Endoscopy Narrative 08/08/2020 Ordered by an unspecified provider. us External Provider GI PROCEDURE ORDERABLES Final Result from Last 3 Months or Most Recently Relevant to Health Maintenance Insurance [employer] MEDICARE
--- OUTSIDE RECORDS SUMMARY | 2025-04-06 10:13 | XMS_ITS | Continuity of Care Document ---
Author Organization 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 Name Role Phone Zenaida Cruz Ud, MD Unavailable [phone] Dillon Ibrahim APRN Primary Care Provider [phone] Encounters Date Type Department Care Team Description 03/22/2025 9:10 AM EDT Office Visit [facility] [address] [place] [address] Skylar Kasper MD Arm mass, right (Primary Dx) 03/13/2025 Refill [facility] [address] [place] [address] Dillon Ibrahim, WAREHOUSE STOCKER Medication Refill 03/10/2025 Refill [facility] [address] [place] [address] Dillon Ibrahim, WAREHOUSE STOCKER Medication Refill 03/03/2025 Results Follow-Up [facility] [address] [place] [address] Dillon Ibrahim APRN US UPPER EXTREMITY NONVASCULAR LIMITED 03/03/2025 Results Follow-Up [facility] [address] [place] [address] Dillon Ibrahim, WAREHOUSE STOCKER VITAMIN D 25 HYDROXY, VITAMIN B12/ FOLIC ACID, CBC, Additional followed-up results: 4 03/02/2025 3:18 PM EDT - 03/02/2025 11:59 PM EDT Hospital Encounter [facility] Ultrasound [address] [place] [address] Dillon Ibrahim APRN Mass of muscle of right upper extremity Discharge Disposition: Home or Self Care 03/02/2025 10:15 AM EDT Office Visit [facility] [address] [place] [address] Dillon Ibrahim APRN Malaise and fatigue (Primary Dx); Spinal enthesopathy, cervicothoracic region; Peripheral neuropathy, idiopathic; Anemia, unspecified type; B12 deficiency; Screening for diabetes mellitus (DM); Vitamin D deficiency; Therapeutic drug monitoring 02/23/2025 9:00 AM EDT Office Visit [facility] [address] [place] [address] Kassie Beasley MD Left eye injury, initial encounter (Primary Dx); Costochondritis; PUD (peptic ulcer disease) 02/20/2025 Telephone [facility] [address] [place] [address] Dillon Ibarhim APRN Refill (Gabapentin ) 02/14/2025 Refill [facility] [address] [place] [address] Dillon Ibrahim APRN Medication Refill 02/14/2025 10:45 AM EDT Office Visit [facility] [address] [place] [address] Dillon Ibrahim APRN Acute bacterial sinusitis (Primary Dx); B12 deficiency; Mass of muscle of right upper extremity 01/26/2025 Refill [facility] [address] [facility] [place] [address] Dillon Ibrahim APRN Medication Refill 12/29/2024 Telephone [facility] [address] [facility] [place] [address] Dillon Ibrahim APRN Medication Refill 12/11/2024 11:15 AM EDT Office Visit [facility] [address] [place] [address] Dillon Ibrahim APRN COPD with acute exacerbation (HCC) (Primary Dx) 10/16/2024 Travel 10/16/2024 9:20 AM EST Office Visit [facility]&[address] [address] Deepa Saucedo MD SOB (shortness of breath) on exertion (Primary Dx); Unspecified essential hypertension; 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; Hypertensive heart disease with heart failure (HCC); Atherosclerosis of [place] coronary artery of [place] heart without angina pectoris; Benign essential HTN; Atherosclerotic heart disease of [place]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 08/16/2024 Telephone [facility] [address] [place] [address] Deepa Saucedo MD Results 08/10/2024 10:16 AM EST - 08/10/2024 11:59 PM EST Hospital Encounter [facility] [address] [place] [address] Deepa Saucedo MD Unspecified essential hypertension; 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; Hypertensive heart disease with heart failure (HCC); Atherosclerosis of [place] coronary artery of [place] heart without angina pectoris; Benign essential HTN Discharge Disposition: Home or Self Care 08/08/2024 10:30 AM EST Office Visit [facility] [address] [place] [address] Dillon Ibrahim APRN Acute bacterial sinusitis (Primary Dx); Acute cough; Malaise and fatigue; Anemia, unspecified type; Bradycardia 06/19/2024 8:40 AM EDT Office Visit [facility]&[address] [address] Deepa Saucedo MD Unspecified essential hypertension (Primary Dx); 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; Hypertensive heart disease with heart failure (HCC); Atherosclerosis of [place] coronary artery of [place] heart without angina pectoris; Benign essential HTN 05/11/2024 Telephone [facility] [address] [address] Deepa Saucedo MD Patient Question; Fatigue 04/28/2024 Telephone [facility] [address] [place] [address] Dillon Ibrahim APRN Results 04/27/2024 Orders Only [facility] [address] [place] [address] Dillon Ibrahim APRN Anemia, unspecified type (Primary Dx) 04/26/2024 2:45 PM EDT Office Visit [facility] [address] [place] [address] Dillon Ibrahim APRN Annual physical exam (Primary Dx); COPD with acute exacerbation (HCC); Chronic pain of both knees; Insomnia, persistent; PUD (peptic ulcer disease); Acute bacterial sinusitis; Atherosclerotic heart disease of [place]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 03/14/2024 Telephone [facility] [address] [address] Deepa Saucedo MD Results (Labwork, SWP and he is aware of results and to increase potassium rich foods and recheck BMP in 2 weeks.) 03/13/2024 8:45 AM EDT - 03/13/2024 11:59 PM EDT Hospital Encounter [facility] [address] [place] [address] 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; Unspecified essential hypertension; Hypertensive heart disease with heart failure (HCC) Discharge Disposition: Home or Self Care 03/13/2024 Travel 03/13/2024 8:50 AM EDT Office Visit [facility] [place] [address] [place] [address] Deepa Saucedo MD 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 [address] Dillon Ibrahim APRN Pain of both breasts; Mass of lower outer quadrant of left breast Discharge Disposition: Home or Self Care 10/14/2023 9:50 AM EST Hospital Encounter [facility] Mammography [address] [place] [address] Dillon Ibrahim APRN Pain of both breasts; Mass of lower outer quadrant of left breast Discharge Disposition: Home or Self Care 09/21/2023 10:30 AM EST Office Visit [facility] [address] [place] [address] Dillon Ibrahim APRN Acute bacterial sinusitis (Primary Dx); Pain of both breasts; Mass of lower outer quadrant of left breast 08/31/2023 1:30 PM EST Office Visit [facility] [address] [place] [address] Dillon Ibrahim APRN Acute bacterial sinusitis (Primary Dx) 08/04/2023 Telephone [facility] [address] [place] [address] Guy Monge MD Other (asking if Dr. Monge needs anything else from pt) 08/02/2023 Patient Outreach [facility] [address] [place] [address] Tad Triana LPN ED Follow-Up Call 07/30/2023 Travel 07/30/2023 5:20 PM EST - 07/30/2023 8:23 PM EST Emergency [facility] [address] [place] [address] Elder Parish MD Atypical chest pain (Primary Dx) Discharge Disposition: Home or Self Care 07/30/2023 Telephone [facility] [address] [place] [address] Michelle Curry, RN Results 07/30/2023 1:15 PM EST - 07/30/2023 5:19 PM EST Hospital Encounter [facility] [address] [place] [address] Fever, unspecified fever cause; Acute cough Discharge Disposition: Home or Self Care 07/30/2023 Telephone [facility] [address] [place] [address] Guy Monge MD Symptom Call 07/30/2023 Telephone [facility] [address] [place] [address] Guy Monge MD Results (Lab PSA, CBC, T4, TSH, CMP, Lipid, ) 07/29/2023 2:55 PM EST - 07/29/2023 11:59 PM EST Hospital Encounter [facility] [address] [facility] [place] [address] Medicare annual wellness visit, subsequent; Essential hypertension; Screening for prostate cancer Discharge Disposition: Home or Self Care 07/29/2023 1:55 PM EST Ancillary Procedure [facility] [address] [place] [address] Ilene Gambino PA-C Fever, unspecified fever cause; Acute cough Discharge Disposition: Home or Self Care 07/29/2023 1:15 PM EST Office Visit [facility] [address] [place] [address] Ilene Gambino PACatrachita Congestion of nasal sinus (Primary Dx); Fever, unspecified fever cause; Acute cough 06/01/2023 2:30 PM EDT Office Visit [facility] [address] [place] [address] Ruddy Londono MD Seasonal allergies (Primary Dx); Acute bacterial sinusitis; Flu vaccine need 04/21/2023 Telephone [facility] [address] [place] [address] Guy Monge MD Results 04/21/2023 11:00 AM EDT Ancillary Procedure [facility] [address] [place] [address] Acute cough 04/21/2023 10:40 AM EDT Office Visit [facility] [address] [place] [address] Guy Monge MD Medicare annual wellness visit, subsequent (Primary Dx); Unspecified essential hypertension; Sinobronchitis; Acute cough; Screening for prostate cancer 03/31/2023 1:40 PM EDT Office Visit [facility] [address] [place] [address] Guy Monge MD Sinobronchitis (Primary Dx); Seasonal allergies; Coronary artery disease involving [place] heart with other form of angina pectoris, unspecified vessel or lesion type 03/29/2023 Travel 03/29/2023 9:30 AM EDT Office Visit [facility] [place] [address] [place] [address] Deepa Saucedo MD 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 (Primary Dx); Unspecified essential hypertension 02/22/2023 12:41 PM EDT - 02/22/2023 11:59 PM EDT Hospital Encounter [facility] [address] [place] [address] Christi Vasquez MD Chronic cough Discharge Disposition: Home or Self Care 02/10/2023 Travel 02/10/2023 12:55 PM EDT - 02/10/2023 11:59 PM EDT Hospital Encounter [facility] [address] [place] [address] Discharge Disposition: Home or Self Care 12/10/2022 Telephone [facility] [address] [place] [address] Devonte Verdugo MD Appointment Needed (New pt requesting work in with Laura Robbins at 2:15 today ) 11/26/2022 Telephone [facility] [address] [place] [address] Deepa Saucedo MD Results 11/25/2022 Travel 11/25/2022 8:01 AM EST - 11/25/2022 9:15 AM EST Hospital Encounter [facility] [address] [place] [address] Deepa Saucedo MD Chest pressure; SOB (shortness of breath) on exertion; Unspecified essential hypertension; 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; Bruit of right carotid artery; Aortic root enlargement Discharge Disposition: Home or Self Care 11/25/2022 9:16 AM EST - 11/25/2022 11:59 PM EST Hospital Encounter [facility] [address] [place] [address] Deepa Saucedo MD Chest pressure; SOB (shortness of breath) on exertion; Unspecified essential hypertension; 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; Bruit of right carotid artery; Aortic root enlargement Discharge Disposition: Home or Self Care 11/25/2022 7:55 AM EST - 11/25/2022 8:00 AM EST Hospital Encounter [facility] [address] [place] [address] Deepa Saucedo MD Chest pressure; SOB (shortness of breath) on exertion; Unspecified essential hypertension; 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; Bruit of right carotid artery; Aortic root enlargement Discharge Disposition: Home or Self Care 11/04/2022 Telephone [facility] [address] [address] Deepa Saucedo MD Results 11/03/2022 Travel 11/03/2022 9:30 AM EST - 11/03/2022 11:59 PM EST Hospital Encounter [facility] [address] [place] [address] Deepa Saucedo MD Chest pressure; SOB (shortness of breath) on exertion; Unspecified essential hypertension; 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; Bruit of right carotid artery; Aortic root enlargement Discharge Disposition: Home or Self Care 09/28/2022 Travel 09/28/2022 9:30 AM EST Office Visit [facility] [place] [address] [place] [address] Deepa Saucedo MD Chest pressure (Primary Dx); SOB (shortness of breath) on exertion; Unspecified essential hypertension; 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; Bruit of right carotid artery; Aortic root enlargement 08/17/2022 Telephone [facility] [address] [place] [address] Deepa Saucedo MD Appointment Needed 02/02/2022 Travel 02/02/2022 9:20 AM EDT Office Visit [facility] [place] [address] [place] [address] Deepa Saucedo MD Unspecified essential hypertension (Primary Dx); 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 11/19/2021 Orders Only [facility] [address] [place] [address] Guy Monge MD Acute bacterial sinusitis 11/18/2021 Telephone [facility] [address] [place] [address] Guy Monge MD Medication Management 11/12/2021 1:50 PM EST Office Visit [facility] [address] [place] [address] Guy Monge MD Acute bacterial sinusitis (Primary Dx); Cough; Numbness and tingling of both legs below knees; Seasonal allergic rhinitis due to other allergic trigger; DDD (degenerative disc disease), lumbar 07/14/2021 Telephone [facility] [address] [place] [address] Ruddy Londono MD Other 07/10/2021 Travel 07/10/2021 8:50 AM EDT Office Visit [facility] [address] [place] [address] Ruddy Londono MD Flu vaccine need (Primary Dx); Acute bacterial sinusitis; Seasonal allergies; Medicare annual wellness visit, subsequent 05/12/2021 Travel 05/12/2021 8:30 AM EDT Office Visit [facility] [place] [address] [place] [address] Deepa Saucedo MD 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 (Primary Dx); Unspecified essential hypertension 12/23/2020 Travel 10/07/2020 Travel 10/07/2020 9:30 AM EST Office Visit [facility] [place] [address] [place] [address] Deepa Saucedo MD 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 (Primary Dx); Unspecified essential hypertension 06/06/2020 Travel 06/06/2020 Telephone [facility] [address] [place] [address] Ruddy Londono MD Symptom Call (yeast infection ) 05/29/2020 3:00 PM EDT Office Visit [facility] [address] [place] [address] Jillian Woo MD Acute bacterial sinusitis (Primary Dx); Need for influenza vaccination; Glossitis 05/29/2020 Travel 05/28/2020 Telephone [facility] [address] [place] [address] Ruddy Londono MD Appointment Needed (acute- congestion, fatigue, cough x 3 days ) 05/28/2020 Travel 04/05/2020 12:30 PM EDT Ancillary Procedure [facility] [address] [facility] [place] [address] Acute bronchitis, unspecified organism 04/05/2020 Travel 04/05/2020 11:30 AM EDT Office Visit [facility] [address] [place] [address] Ruddy Londono MD Acute bronchitis, unspecified organism (Primary Dx) 04/04/2020 Telephone [facility] [address] [place] [address] Ruddy Londono MD Appointment Needed (pain in the back of his shoulders in his lungs, feels sore all over / x2 days) 04/04/2020 Travel 03/27/2020 Telephone [facility] [address] [facility] [address] [place] [address] Deepa Saucedo MD Results 03/25/2020 Travel 03/25/2020 11:55 AM EDT - 03/25/2020 11:59 PM EDT Hospital Encounter [facility] [address] [place] [address] Deepa Saucedo MD Unspecified essential hypertension; Vasovagal syncope; 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; SOB (shortness of breath) on exertion; Chest pressure Discharge Disposition: Home or Self Care 03/25/2020 10:00 AM EDT - 03/25/2020 11:54 AM EDT Hospital Encounter [facility] [address] [place] [address] Deepa Saucedo MD Unspecified essential hypertension; Vasovagal syncope; 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; SOB (shortness of breath) on exertion; Chest pressure Discharge Disposition: Home or Self Care 03/25/2020 10:00 AM EDT - 03/25/2020 11:54 AM EDT Hospital Encounter [facility] [address] [place] [address] Deepa Saucedo MD Unspecified essential hypertension; Vasovagal syncope; 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; SOB (shortness of breath) on exertion; Chest pressure Discharge Disposition: Home or Self Care 03/22/2020 Travel 03/22/2020 Telephone [facility] [address] [place] [address] Ruddy Londono MD Appointment Needed 03/04/2020 Travel 02/27/2020 Travel 02/27/2020 12:15 PM EDT Office Visit [facility] [address] [place] [address] Deepa Saucedo MD Unspecified essential hypertension (Primary Dx); Vasovagal syncope; 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; SOB (shortness of breath) on exertion; Chest pressure 02/09/2020 10:18 AM EDT - 02/09/2020 11:59 PM EDT Hospital Encounter [facility] [address] [place] [address] 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; Unspecified essential hypertension; Screening PSA (prostate specific antigen); Lethargy; Vitamin D deficiency; Osteoarthritis, unspecified osteoarthritis type, unspecified site Discharge Disposition: Home or Self Care 02/09/2020 Travel 02/09/2020 9:50 AM EDT Office Visit [address] [address] Cameron Prieto MD Lethargy (Primary Dx); Osteoarthritis, unspecified osteoarthritis type, unspecified site; Vitamin D deficiency; Cellulitis of other specified site 02/08/2020 Travel 06/16/2019 1:20 PM EDT Office Visit [facility] [address] [address] Ruddy Londono MD Flu vaccine need (Primary Dx); Screening PSA (prostate specific antigen); Unspecified essential hypertension; 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; Acute bacterial sinusitis; Seasonal allergies 04/06/2019 Telephone [facility] [address] [place] [address] Ruddy Londono MD Appointment Needed (Medicare wellness ) 11/26/2018 Refill [facility] [address] [place] [address] Ruddy Londono MD Medication Refill 11/03/2018 Refill [facility] [address] [place] [address] Kassie Beasley MD Medication Refill 10/10/2018 11:00 AM EST Office Visit [facility] [place] [address] [place] [address] Deepa Saucedo MD 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 (Primary Dx); SIADH (syndrome of inappropriate ADH production); Unspecified essential hypertension 09/28/2018 Refill [facility] [address] [place] [address] Ruddy Londono MD Medication Refill 09/26/2018 Refill [facility] [address] [place] [address] Ruddy Londono MD Medication Refill 08/09/2018 Refill [facility] [address] [place] [address] Ruddy Londono MD Medication Refill 07/30/2018 Refill [facility] [address] [place] [address] Kassie Beasley MD Medication Refill 06/05/2018 Refill [facility] [address] [place] [address] Ruddy Londono MD Medication Refill 05/07/2018 Refill [facility] [address] [place] [address] Ruddy Londono MD Medication Refill 05/02/2018 Refill [facility] [address] [place] [address] Ruddy Londono MD Medication Refill 03/14/2018 12:30 PM EDT Office Visit [facility] [place] [address] [place] [address] Deepa Saucedo MD Unspecified essential hypertension (Primary Dx); 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 02/10/2018 Telephone [facility] [address] [facility] [address] [place] [address] Deepa Saucedo MD Bradycardia 02/07/2018 11:11 PM EDT - 02/07/2018 11:59 PM EDT Hospital Encounter [facility] [place] [id number] Encounter for medication management Discharge Disposition: Home or Self Care 02/07/2018 10:40 AM EDT Office Visit [facility] [address] [place] [address] Ruddy Londono MD Encounter for medication management (Primary Dx); Acute rhinosinusitis; Seasonal allergic rhinitis due to other allergic trigger; History of degenerative disc disease 02/04/2018 Refill [facility] [address] [place] [address] Kassie Beasley MD Medication Refill 01/31/2018 Telephone [facility] [address] [place] [address] Lara Conley, Bartolo Results 01/26/2018 Refill [facility] [place] [address] [facility] [address] [place] [address] Bebo Cook MD Medication Refill 01/08/2018 Refill [facility] [address] [place] [address] Ruddy Londono MD Medication Refill 01/06/2018 11:20 AM EDT Office Visit [facility] [address] [place] [address] Ruddy Londono MD 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, sciatica laterality unspecified (Primary Dx); Bug bite, subsequent encounter; 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; History of degenerative disc disease; Acute bacterial sinusitis 01/05/2018 Telephone [facility] [address] [facility] [address] [place] [address] Deepa Saucedo MD Other 01/03/2018 7:26 AM EDT Hospital Encounter [facility] [address] [place] [address] Deepa Saucedo MD 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; Coronary artery disease involving [place] heart, angina presence unspecified, unspecified vessel or lesion type; Unspecified essential hypertension; Racing heart beat; Dizziness; SOB (shortness of breath) on exertion; Chest tightness or pressure Discharge Disposition: Home or Self Care 01/03/2018 8:23 AM EDT - 01/03/2018 11:59 PM EDT Hospital Encounter [facility] [address] [place] [address] Deepa Saucedo MD 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; Coronary artery disease involving [place] heart, angina presence unspecified, unspecified vessel or lesion type; Unspecified essential hypertension; Racing heart beat; Dizziness; SOB (shortness of breath) on exertion; Chest tightness or pressure Discharge Disposition: Home or Self Care 01/03/2018 7:48 AM EDT - 01/03/2018 8:22 AM EDT Hospital Encounter [facility] [address] [place] [address] Deepa Saucedo MD 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; Coronary artery disease involving [place] heart, angina presence unspecified, unspecified vessel or lesion type; Unspecified essential hypertension; Racing heart beat; Dizziness; SOB (shortness of breath) on exertion; Chest tightness or pressure Discharge Disposition: Home or Self Care 01/03/2018 7:27 AM EDT - 01/03/2018 7:47 AM EDT Hospital Encounter [facility] [address] [place] [address] Deepa Saucedo MD 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; Coronary artery disease involving [place] mills heart, angina presence unspecified, unspecified vessel or lesion type; Unspecified essential hypertension; Racing heart beat; Dizziness; SOB (shortness of breath) on exertion; Chest tightness or pressure Discharge Disposition: Home or Self Care 12/24/2017 Refill [facility] [address] [place] [address] Kassie Beasley MD Medication Refill 12/13/2017 11:00 AM EDT Office Visit [facility] [address] [address] Deepa Saucedo MD 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 (Primary Dx); Coronary artery disease involving [place] mills heart, angina presence unspecified, unspecified vessel or lesion type; Unspecified essential hypertension; Racing heart beat; Dizziness; SOB (shortness of breath) on exertion; Chest tightness or pressure 12/10/2017 Refill [facility] [address] [place] [address] Ruddy Londono MD Medication Refill 10/15/2017 11:30 AM EST Office Visit [address] [address] Ruddy Londono MD Acute rhinosinusitis (Primary Dx); History of degenerative disc disease 10/13/2017 Refill [facility] [address] Ruddy Londono MD Medication Refill 10/13/2017 Refill [facility] [address] [place] [address] Kassie Beasley MD Medication Refill 09/24/2017 7:17 PM EST - 09/24/2017 11:59 PM EST Hospital Encounter [facility] [place] [id number] Drug therapy Discharge Disposition: Home or Self Care 09/24/2017 12:45 PM EST Ancillary Procedure [facility] [address] Acute rhinosinusitis 09/24/2017 11:20 AM EST [facility] [address] Ruddy Londono MD Need for influenza vaccination (Primary Dx); Drug therapy; Acute rhinosinusitis; Unspecified essential hypertension 09/03/2017 Refill [facility] [address] [place] [address] Kassie Beasley MD Medication Refill 09/03/2017 [facility]ill [facility] [address] [place] [address] Kassie Beasley MD Medication Refill 07/30/2017 Telephone [facility] [address] [place] [address] Lara Conleyye, RMA Other 07/30/2017 11:45 AM EST - 07/30/2017 11:59 PM EST Hospital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 Telephone [facility] [address] [place] [address] Rita Hood RMA Medication Refill 06/12/2015 3:10 PM EDT Office Visit [facility] [address] [place] [address] Ruddy Londono MD Acute bronchitis, unspecified organism (Primary Dx); Balanitis; DDD (degenerative disc disease), lumbar 06/11/2015 Abstract [facility] 40 [facility] 101 [place] [address] Pedro Calle MA 06/09/2015 Refill [facility] 405 [place] [address] Ruddy Londono MD Medication Refill 06/06/2015 Telephone [facility] [address] [place] [address] Deepa Saucedo MD Medication Refill 06/03/2015 2:00 PM EDT Office Visit [facility] 405 [place] [address] Ruddy Londono MD Seasonal allergies (Primary Dx); Acute frontal sinusitis, recurrence not specified; Need for prophylactic vaccination and inoculation against influenza 05/20/2015 Refill [facility] [address] [place] [address] Deepa Saucedo MD Medication Refill (atorvastatin-Denial) 05/11/2015 Refill [facility] [address] [place] [address] Ruddy Londono MD Medication Refill 05/11/2015 Refill [facility] [address] [place] [address] Deepa Saucedo MD Medication Refill 05/06/2015 Refill [facility] [address] [place] [address] Kwadwo Ibrahim MD Medication Refill 04/12/2015 Refill [facility] [address] [place] [address] Deepa Saucedo MD Medication Refill (Atorvastatin) 04/12/2015 Refill [facility] [address] [place] [address] Kwadwo Ibrahim MD Medication Refill 03/19/2015 10:50 AM EDT Office Visit [address] [address] Kwadwo Ibrahim MD Acute recurrent frontal sinusitis (Primary Dx); 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 pectoris; Depressive disorder, not elsewhere classified; Unspecified essential hypertension; Seasonal allergies 03/15/2015 Refill [facility] [address] [place] [address] Ruddy Londono MD Medication Refill 03/11/2015 11:35 AM EDT - 03/11/2015 11:59 PM EDT Hospital Encounter [facility] [address] [place] [address] Arthrodesis status Discharge Disposition: Home or Self Care 03/08/[address] [address] Jina Camarena LPN Other 03/07/[address] [address] Jina Camarena LPN Other 03/07/2015 9:40 AM EDT Office Visit [facility] [address] [place] [address] Kwadwo Ibrahim MD Depressive disorder, not elsewhere classified (Primary Dx); DDD (degenerative disc disease), lumbar; Unspecified essential hypertension; BPH w/o urinary obs/LUTS; Gastroesophageal reflux disease with esophagitis; Midline low back pain, with sciatica presence unspecified; 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 pectoris; DDD (degenerative disc disease); Other seasonal allergic rhinitis 02/13/[address] [address] Ruddy Londono MD Medication Refill 01/24/2015 2:20 PM EDT Office Visit [address] [address] Kwadwo Ibrahim MD Acute bronchitis (Primary Dx); Acute sinusitis with symptoms > 10 days; Seasonal allergies; CAD (coronary artery disease); Depressive disorder, not elsewhere classified; Unspecified essential hypertension; BPH w/o urinary obs/LUTS; Esophageal reflux; DDD (degenerative disc disease) 12/07/2014 12:13 PM EDT - 12/07/2014 11:59 PM EDT Hospital Encounter [facility] [address] [place] [address] Cervicalgia Discharge Disposition: Home or Self Care 12/07/2014 2:20 PM EDT Office Visit [address] [address] Kwadwo Ibrahim MD Depressive disorder, not elsewhere classified (Primary Dx); CAD (coronary artery disease); Esophageal reflux; DDD (degenerative disc disease), cervical; Unspecified essential hypertension; BPH w/o urinary obs/LUTS; Acute sinusitis; Psoriasiform eczema; DDD (degenerative disc disease) 09/03/2014 Telephone [facility] [address] Madelin Da Silva LPN Other 08/31/2014 Telephone [facility] [address] [facility] [address] [place] [address] Deepa Saucedo MD Results 08/29/2014 9:44 AM EST - 08/29/2014 11:59 PM EST Hospital Encounter [facility] [address] [place] [address] Deepa Saucedo MD Chest pain; CAD (coronary artery disease); Unspecified essential hypertension; Hypercholesteremia; SOB (shortness of breath) on exertion Discharge Disposition: Home or Self Care 08/29/2014 8:59 AM EST - 08/29/2014 9:43 AM EST Hospital Encounter [facility] [address] [place] [address] Deepa Saucedo MD Chest pain; CAD (coronary artery disease); Unspecified essential hypertension; Hypercholesteremia; SOB (shortness of breath) on exertion Discharge Disposition: Home or Self Care 08/28/2014 8:24 AM EST - 08/28/2014 11:59 PM EST Hospital Encounter [facility] ATTN: Appointments in this department are performed at various locations in the community on our Cardiovascular mobile health unit. You can look online to verify your site or call [phone] [place] [facility] Dillon Acevedo APRN Screening for other and unspecified cardiovascular conditions Discharge Disposition: Home or Self Care 08/24/2014 Refill [facility] [address] [place] [address] Jina Camarena LPN Medication Refill 08/23/2014 Refill [facility] [address] [place] [address] Deepa Saucedo MD Medication Refill 08/20/2014 Telephone [facility] [address] [place] [address] Deepa Saucedo MD Cardiology Clearance 08/15/2014 8:33 PM EST - 08/15/2014 11:59 PM EST Hospital Encounter [facility] PROCESSING [facility] [place] [address] Preop examination Discharge Disposition: Home or Self Care 08/15/2014 2:00 PM EST Office Visit [facility] [address] [place] [address] Kwadwo Ibrahim MD Preop examination (Primary Dx); Depressive disorder, not elsewhere classified; DDD (degenerative disc disease); Encounter for smoking cessation counseling 07/19/2014 8:40 AM EDT Office Visit [address] [address] Ruddy Londono MD Environmental allergies (Primary Dx); CAD (coronary artery disease); BPH w/o urinary obs/LUTS; Depressive disorder, not elsewhere classified; Esophageal reflux; DDD (degenerative disc disease); Need for pneumococcal vaccination 07/17/[address] [address] Kwadwo Ibrahim MD Medication Refill 07/17/2014 8:55 AM EDT - 07/17/2014 11:59 PM EDT Hospital Encounter [facility] [address] [facility] [place] [address] Devonte Pena Thoracic or lumbosacral neuritis or radiculitis, unspecified Discharge Disposition: Home or Self Care 07/17/2014 8:55 AM EDT - 07/17/2014 11:59 PM EDT Hospital Encounter [address] [place] [address] Devonte Pena Thoracic or lumbosacral neuritis or radiculitis, unspecified Discharge Disposition: Home or Self Care 06/07/2014 8:40 AM EDT Office Visit [address] [address] Kwadwo Ibrahim MD Flu vaccine need (Primary Dx); Depressive disorder, not elsewhere classified; Unspecified essential hypertension; BPH w/o urinary obs/LUTS; Esophageal reflux; CAD (coronary artery disease); Seasonal allergies; Atrophy of skin 05/10/2014 3:30 PM EDT Office Visit [address] [address] Kwadwo Ibrahim MD Anxiety (Primary Dx); Acute sinusitis; Environmental allergies; Encounter for long-term (current) use of other medications; Seasonal allergies; Depressive disorder, not elsewhere classified; Unspecified essential hypertension; BPH w/o urinary obs/LUTS; Esophageal reflux; CAD (coronary artery disease); Rash 04/18/2014 Refill [facility] [address] [place] [address] Dottie Tejeda RMA Medication Change 04/16/2014 Telephone [facility] [address] [place] [address] Kwadwo Ibrahim MD Prior Authorization 04/11/2014 Refill [facility] [address] [place] [address] Kwadwo Ibrahim MD Medication Refill 03/16/2014 Refill [facility] [address] [place] [address] Deepa Saucedo MD Medication Refill 03/16/2014 Telephone [facility] [address] [place] [address] Deepa Saucedo MD Other 03/15/2014 Telephone [facility] [place] [address] [place] [address] Deepa Saucedo MD Results 03/12/2014 10:40 AM EDT - 03/12/2014 11:59 PM EDT Hospital Encounter [facility] [address] [place] [address] CAD (coronary artery disease) (Primary Dx); Unspecified essential hypertension; Hypercholesteremia; Chest pain; SOB (shortness of breath) on exertion Discharge Disposition: Home or Self Care 03/12/2014 2:20 PM EDT Office Visit [facility] [address] [place] [address] Kwadwo Ibrahim MD Anxiety (Primary Dx); Acute sinusitis; Environmental allergies; Depressive disorder, not elsewhere classified; Unspecified essential hypertension; BPH w/o urinary obs/LUTS; Esophageal reflux; CAD (coronary artery disease); Acute bronchitis 03/12/2014 10:00 AM EDT Office Visit [facility] [place] [address] [place] [address] Deepa Saucedo MD CAD (coronary artery disease) (Primary Dx); Chest pain; Unspecified essential hypertension; Hypercholesteremia; SOB (shortness of breath) on exertion 02/14/[address] [address] Kwadwo Ibrahim MD Medication Refill 01/15/2014 2:40 PM EDT - 01/15/2014 11:59 PM EDT Hospital Encounter [facility] [address] [place] [id number] LBP (low back pain) Discharge Disposition: Home or Self Care 12/28/2013 3:10 PM EDT Office Visit [address] [address] Kwadwo Ibrahim MD Anxiety (Primary Dx); Acute sinusitis; Environmental allergies; Depressive disorder, not elsewhere classified; Unspecified essential hypertension; BPH w/o urinary obs/LUTS; Esophageal reflux; CAD (coronary artery disease); Decreased urination 12/25/2013 1:15 PM EDT Office Visit [facility] [place] [address] [place] [address] Deepa Saucedo MD Unspecified essential hypertension (Primary Dx); CAD (coronary artery disease) 12/17/[address] [address] Kwadwo Ibrahim MD Medication Refill 11/15/[address] [address] Kwadwo Ibrahim MD Medication Refill 11/09/[address] [address] Dottie Liu Bartolo Visit Follow Up 11/08/2013 7:24 PM EST - 11/08/2013 11:59 PM EST Hospital Encounter [facility] [place] [address] Routine adult health maintenance Discharge Disposition: Home or Self Care 11/08/2013 2:50 PM EST Office Visit [address] [address] Kwadwo Ibrahim MD Acute sinusitis (Primary Dx); Environmental allergies; Unspecified essential hypertension; BPH w/o urinary obs/LUTS; Depressive disorder, not elsewhere classified; Esophageal reflux; CAD (coronary artery disease); Hyperlipidemia LDL goal < 100; Osteoarthritis; Routine adult health maintenance; Anxiety 11/06/[address] [address] Kwadwo Ibrahim MD Medication Refill 10/30/2013 11:00 AM EST Office Visit [facility] [address] [address] Deepa Saucedo MD Unspecified essential hypertension (Primary Dx); CAD (coronary artery disease) 10/26/[address] [address] Kwadwo Ibrahim MD Medication Refill 10/17/2013 Telephone [facility] [address] [facility] [address] [place] [address] Deepa Saucedo MD Other 10/15/[address] [address] Kwadwo Ibrahim MD Medication Refill 09/12/[address] [address] Kwadwo Ibrahim MD Medication Refill 09/07/2013 8:43 PM EST - 09/07/2013 11:59 PM EST Hospital Encounter [facility] PROCESSING [address] [facility] [place] [address] Unspecified essential hypertension; Osteoarthritis; Knee pain, right Discharge Disposition: Home or Self Care 09/07/2013 2:50 PM EST Office Visit [facility] [address] [place] [address] Kwadwo Ibrahim MD Pre-operative general physical examination (Primary Dx); Unspecified essential hypertension; Osteoarthritis; Knee pain, right 09/07/2013 Telephone [facility] [address] [place] [address] Deepa Saucedo MD Cardiology Clearance 09/06/2013 Refill [facility] [address] [place] [address] Kwadwo Ibrahim MD Medication Refill 08/02/2013 10:20 AM EST Office Visit [address] [address] Kwadwo Ibrahim MD Depressive disorder, not elsewhere classified (Primary Dx); Unspecified essential hypertension; BPH w/o urinary obs/LUTS; Esophageal reflux; CAD (coronary artery disease); Acute sinusitis; Acute bronchitis; Seasonal allergies; Yeast infection of the skin; DDD (degenerative disc disease), lumbar 08/02/2013 1:45 PM EST - 08/02/2013 11:59 PM EST Hospital Encounter [address] [place] [address] Duane Rowley MD Pain in joint, lower leg Discharge Disposition: Home or Self Care 08/02/2013 1:45 PM EST - 08/02/2013 11:59 PM EST Hospital Encounter [address] [place] [address] Duane Rowley MD Thoracic or lumbosacral neuritis or radiculitis, unspecified Discharge Disposition: Home or Self Care 07/31/2013 Refill [facility] [address] [place] [address] Kwadwo Ibrahim MD Medication Refill 07/17/2013 Refill [facility] [address] [place] [address] Kwadwo Ibrahim MD Medication Refill 07/07/[address] [address] Ruddy Londono MD 07/06/2013 10:22 AM EDT - 07/06/2013 11:59 PM EDT Hospital Encounter [facility] [address] [place] [address] Duane Rowley MD Thoracic or lumbosacral neuritis or radiculitis, unspecified Discharge Disposition: Home or Self Care 07/06/2013 10:21 AM EDT Hospital Encounter [facility] [address] [place] [address] Duane Rowley MD Brachial neuritis or radiculitis NOS Discharge Disposition: Home or Self Care 07/06/2013 10:21 AM EDT Hospital Encounter [facility] [address] [place] [address] Duane Rowley MD Thoracic or lumbosacral neuritis or radiculitis, unspecified Discharge Disposition: Home or Self Care 06/12/2013 10:00 AM EDT Office Visit [facility] [address] [address] Deepa Saucedo MD CAD (coronary artery disease) (Primary Dx); Unspecified essential hypertension 06/02/[address] [address] Jina Camarena LPN Other 06/02/2013 2:30 PM EDT [facility] [address] [place] [address] Kwadwo Ibrahim MD Mouth sore (Primary Dx); Depressive disorder, not elsewhere classified; Encounter for long-term (current) use of other medications; Need for influenza vaccination; DDD (degenerative disc disease), lumbar; Unspecified essential hypertension; BPH w/o urinary obs/LUTS; Esophageal reflux; CAD (coronary artery disease); Rash; Seasonal allergies 05/31/[address] [facility] [address] [place] [address] ClaudioShira youssef, HUEY Other 05/19/2013 [facility] [address] Kwadwo Ibrahim MD Medication Refill 05/09/2013 10:30 AM EDT Office Visit [address] [address] Cameron Prieto MD Allergic rhinitis (Primary Dx); Unspecified essential hypertension; DDD (degenerative disc disease), lumbar; Skin infection; Acute sinusitis 04/17/2013 Telephone [facility] [address] [place] [address] Deepa Saucedo MD Medication Refill 04/17/[address] [address] Kwadwo Ibrahim MD Medication Refill 04/06/[address] [address] Kwadwo Ibrahim MD Other (referral-Dr Fall ) 04/03/2013 10:10 AM EDT - 04/03/2013 11:59 PM EDT Hospital Encounter [facility] [address] [place] [address] Unspecified essential hypertension (Primary Dx) Discharge Disposition: Home or Self Care 03/22/2013 Orders Only [facility] [address] [place] [address] Deepa Saucedo MD Unspecified essential hypertension (Primary Dx) 03/21/2013 Telephone [facility] [address] [place] [address] Deepa Saucedo MD Hypertension 03/13/2013 Orders Only [facility] [place] [address] [place] [address] Andreas Hood APRN HTN (hypertension) (Primary Dx) 03/13/2013 10:15 AM EDT Office Visit [facility] [place] [address] [place] [id number] Deepa Saucedo MD Unspecified essential hypertension (Primary Dx); CAD (coronary artery disease) 03/10/2013 4:49 PM EDT - 03/10/2013 11:59 PM EDT Hospital Encounter [facility] [place] [address] BPH w/o urinary obs/LUTS Discharge Disposition: Home or Self Care 03/10/2013 9:30 AM EDT Office Visit [facility] [address] [place] [address] Kwadwo Ibrahim MD HTN (hypertension) (Primary Dx); Fatigue; Skin infection; Depressive disorder, not elsewhere classified; CAD (coronary artery disease); Unspecified essential hypertension; BPH w/o urinary obs/LUTS; Esophageal reflux; DDD (degenerative disc disease), cervical; ED (erectile dysfunction); Acute sinusitis; Rash; Edema 01/27/2013 9:10 AM EDT Office Visit [facility] [address] [place] [address] Duane Johnson V, DO Acute sinusitis (Primary Dx); Nausea; Acute bronchitis; Unspecified essential hypertension 01/26/2013 Orders Only [facility] [address] [place] [address] Deepa Saucedo MD Unspecified essential hypertension (Primary Dx); CAD (coronary artery disease); Edema 01/26/2013 Orders Only [facility] [address] [place] [address] Andreas Hood APRN CAD (coronary artery disease) (Primary Dx); Unspecified essential hypertension; Edema 01/25/2013 Telephone [facility] [address] [place] [address] Deepa Saucedo MD Medication Problem 01/18/2013 7:59 PM EDT - 01/18/2013 11:59 PM EDT Hospital Encounter [facility] [place] [address] Abdominal pain; BPH w/o urinary obs/LUTS Discharge Disposition: Home or Self Care 01/18/2013 10:20 AM EDT Office Visit [address] [address] Kwadwo Ibrahim MD GERD (gastroesophageal reflux disease) (Primary Dx); Abdominal pain; Depressive disorder, not elsewhere classified; Unspecified essential hypertension; BPH w/o urinary obs/LUTS; Anxiety; Impaired vision; Sinusitis 01/17/2013 3:51 PM EDT - 01/17/2013 7:45 PM EDT Emergency [facility] [address] [place] [address] Gabino Gao MD Nausea (Primary Dx); Abdominal pain; Hyponatremia; Pancreatitis Discharge Disposition: Home or Self Care 01/17/[address] [address] Madelin Da Silva LPN Other 01/16/2013 2:50 PM EDT - 01/16/2013 11:59 PM EDT Hospital Encounter [facility] [address] [place] [address] Hyponatremia (Primary Dx); HTN (hypertension); CAD (coronary artery disease); Unspecified essential hypertension Discharge Disposition: Home or Self Care 01/16/2013 1:15 PM EDT Office Visit [facility] [address] [phone] Deepa Saucedo MD Hyponatremia (Primary Dx); HTN (hypertension); CAD (coronary artery disease); Unspecified essential hypertension; Dizziness; Fatigue 01/13/2013 12:47 PM EDT - 01/13/2013 3:15 PM EDT [facility] [address] [place] [address] Katelyn Wilson MD Fatigue (Primary Dx); Acute sinusitis; Hyponatremia; Orthostasis Discharge Disposition: Home or Self Care 01/10/2013 7:59 PM EDT - 01/10/2013 11:59 PM EDT Hospital Encounter [facility] [place] [address] Unspecified essential hypertension; Hypercholesteremia; CAD (coronary artery disease) Discharge Disposition: Home or Self Care 01/10/2013 11:30 AM EDT Office Visit [address] [address] Kwadwo Ibrahim MD Sinusitis (Primary Dx); Acute asthmatic bronchitis; Rash; Depressive disorder, not elsewhere classified; DDD (degenerative disc disease), lumbar; CAD (coronary artery disease); Unspecified essential hypertension; Hypercholesteremia; Esophageal reflux; Chest pain; Vertigo; CAD (coronary artery disease); CAD (coronary artery disease); CAD (coronary artery disease) 12/23/[address] [address] Kwadwo Ibrahim MD Medication Refill 12/09/2012 Refill [facility] [address] [address] Deepa Saucedo MD Medication Refill 11/17/[address] [address] Dottie Liu [facility] Medication Management 11/11/[address] [address] Kwadwo Ibrahim MD Medication Refill 11/11/2012 Refill [facility] [address] [address] Deepa Saucedo MD Medication Refill 11/09/[address] [address] aCmeron Prieto MD Other (possible reaction to med) 11/08/2012 10:50 AM EST Office Visit [address] [address] Cameron Prieto MD Sinusitis (Primary Dx); Vertigo; Unspecified essential hypertension; Shingles 10/28/2012 9:30 AM EST Office Visit [address] [address] Kwadwo Ibrahim MD Acute asthmatic bronchitis (Primary Dx); Paresthesia; Depressive disorder, not elsewhere classified; Unspecified essential hypertension; BPH w/o urinary obs/LUTS; Acute sinusitis; Environmental allergies; Rash; Anxiety 10/07/[address] [address] Kwadwo Ibrahim MD Medication Refill 10/06/2012 2:40 PM EST Office Visit [address] [address] Kwadwo Ibrahim MD Vertigo (Primary Dx); Acute sinusitis; Seasonal allergies; Acute bronchitis; DDD (degenerative disc disease), lumbar; Fatigue; Depressive disorder, not elsewhere classified 08/30/2012 Telephone [facility] [address] [place] [address] Deepa Saucedo MD Results 08/22/2012 10:14 AM EST - 08/22/2012 11:59 PM EST Hospital Encounter [facility] Ultrasound [address] [place] [address] Deepa Saucedo MD CAD (coronary artery disease); Unspecified essential hypertension; Carotid bruit; Abnormal EKG Discharge Disposition: Home or Self Care 08/08/2012 1:30 PM EST Office Visit [address] [address] Kwadwo Ibrahim MD Depressive disorder, not elsewhere classified (Primary Dx); DDD (degenerative disc disease), lumbar; Rash; Abdominal pain; GERD (gastroesophageal reflux disease); Right groin pain; Unspecified essential hypertension; Sinusitis 08/08/2012 11:00 AM EST Office Visit [facility] [place] [address] [place] [address] Deepa Saucedo MD CAD (coronary artery disease); Unspecified essential hypertension; Carotid bruit; Abnormal EKG 08/01/2012 Refill [facility] [address] [place] [address] Kwadwo Ibrahim MD Medication Refill 07/25/2012 8:08 AM EST - 07/25/2012 8:11 AM EST Hospital Encounter [facility] [address] [place] [address] Deepa Saucedo MD CAD (coronary artery disease); Unspecified essential hypertension; Hypercholesteremia; SOB (shortness of breath) Discharge Disposition: Home or Self Care 07/25/2012 8:32 AM EST - 07/25/2012 11:59 PM EST Hospital Encounter [facility] STR[facility] [address] [place] [address] Deepa Saucedo MD CAD (coronary artery disease); Unspecified essential hypertension; Hypercholesteremia; SOB (shortness of breath) Discharge Disposition: Home or Self Care 07/25/2012 8:12 AM EST - 07/25/2012 8:31 AM EST Hospital Encounter [facility] [address] [place] [address] Deepa Saucedo MD CAD (coronary artery disease); Unspecified essential hypertension; Hypercholesteremia; SOB (shortness of breath) Discharge Disposition: Home or Self Care 07/20/2012 Refill [facility] [address] [place] [address] Kwadwo Ibrahim MD Medication Refill 07/20/2012 Refill [facility] [address] [place] [address] Ruddy Londono MD Medication Refill 06/17/2012 10:41 AM EDT - 06/17/2012 11:59 PM EDT Hospital Encounter [facility] [address] [place] [address] LBP (low back pain); Lumbar radicular pain Discharge Disposition: Home or Self Care 06/13/2012 4:10 PM EDT Office Visit [facility] [address] [place] [address] Kwadwo Ibrahim MD Need for influenza vaccination (Primary Dx); Low back pain; Sciatica 06/13/2012 Refill [facility] [address] [place] [address] Kwadwo Ibrahim MD Medication Refill 05/26/2012 Orders Only [facility] [address] [place] [address] Ruddy Londono MD 05/26/2012 2:40 PM EDT Office Visit [facility] [address] [place] [address] Ruddy Londono MD Poison alexey (Primary Dx) 04/27/2012 11:10 AM EDT Office Visit [facility] [address] [place] [address] Kwadwo Ibrahim MD Neck pain, chronic; Unspecified essential hypertension; Depressive disorder, not elsewhere classified; BPH w/o urinary obs/LUTS; Low back pain; DDD (degenerative disc disease), lumbar; DDD (degenerative disc disease), cervical; Sinusitis 04/19/2012 10:12 AM EDT Hospital Encounter [facility] [address] [place] [address] Kwadwo Ibrahim MD URI (upper respiratory infection); Acute sinusitis Discharge Disposition: Home or Self Care 04/19/2012 10:13 AM EDT - 04/19/2012 11:59 PM EDT Hospital Encounter [facility] [address] [place] [address] Kwadwo Ibrahim MD URI (upper respiratory infection); Acute sinusitis Discharge Disposition: Home or Self Care 04/15/2012 Telephone [facility] [address] [place] [address] Kwadwo Ibrahim MD Other 04/04/2012 3:50 PM EDT [facility] [address] [place] [address] Kwadwo Ibrahim MD Myalgia; Depressive disorder, not elsewhere classified; Unspecified essential hypertension; BPH w/o urinary obs/LUTS; URI (upper respiratory infection); Acute sinusitis 03/21/2012 3:57 PM EDT - 03/21/2012 11:59 PM EDT Hospital Encounter [facility] PROC[facility] [place] [address] Hyponatremia Discharge Disposition: Home or Self Care 03/21/2012 10:20 AM EDT Office Visit [facility] [address] [place] [address] Kwadwo Ibrahim MD Conjunctivitis, allergic; ED (erectile dysfunction); Unspecified essential hypertension; BPH w/o urinary obs/LUTS; Acute sinusitis; Anxiety; Hyponatremia 03/08/2012 Refill [facility] [address] [place] [address] Kwadwo Ibrahim MD Medication Refill 02/27/2012 Refill [facility] [address] [place] [address] Nicol JinaCHANTELLE Other 02/26/2012 4:16 PM EDT - 02/26/2012 11:59 PM EDT Hospital Encounter [facility] [place] [address] Hyponatremia Discharge Disposition: Home or Self Care 02/26/2012 10:30 AM EDT [facility] [address] [place] [address] Kwadwo Ibrahim MD Dermatitis of face; BPH w/o urinary obs/LUTS; ED (erectile dysfunction); Hyponatremia; CAD (coronary artery disease); Unspecified essential hypertension; Hypercholesteremia 02/18/2012 Telephone [facility] [address] [place] [address] Kwadwo Ibrahim MD Visit Follow Up 02/17/2012 8:14 PM EDT - 02/17/2012 11:59 PM EDT Hospital Encounter [facility] [place] [address] Vertigo; Esophageal reflux; CAD (coronary artery disease); ED (erectile dysfunction) Discharge Disposition: Home or Self Care 02/17/2012 1:50 PM EDT Office Visit [address] [address] Kwadwo Ibrahim MD Vertigo; Lower back pain; DDD (degenerative disc disease), lumbar; Depressive disorder, not elsewhere classified; Unspecified essential hypertension; BPH w/o urinary obs/LUTS; Esophageal reflux; CAD (coronary artery disease); ED (erectile dysfunction); Sinusitis acute 02/16/[address] [address] Kwadwo Ibrahim MD Medication Refill 01/19/[address] [address] Kwadwo Ibrahim MD Medication Refill 12/28/[address] [address] Kwadwo Ibrahim MD Other 12/24/[address] [address] Kwadwo Ibrahim MD Referral 12/23/2011 4:37 PM EDT - 12/23/2011 11:59 PM EDT Hospital Encounter [facility] [place] [address] Hyponatremia Discharge Disposition: Home or Self Care 12/23/2011 9:30 AM EDT Office Visit [address] [address] Kwadwo Ibrahim MD Seasonal allergies; Unspecified essential hypertension; Hypertrophy of prostate without urinary obstruction and other lower urinary tract symptoms (LUTS); Depressive disorder, not elsewhere classified; Esophageal reflux; Arthritis; Acute sinusitis; Hyponatremia 12/17/2011 Refill [facility] [address] [place] [address] Kwadwo Ibrahim MD Medication Refill 12/10/2011 2:31 PM EDT - 12/10/2011 11:59 PM EDT Hospital Encounter [facility] [place] [address] Fatigue Discharge Disposition: Home or Self Care 12/10/2011 8:50 AM EDT Office Visit [facility] [address] [place] [address] Kwadwo Ibrahim MD Neck pain; DDD (degenerative disc disease), cervical; DDD (degenerative disc disease), lumbar; Unspecified essential hypertension; Depressive disorder, not elsewhere classified; Hypertrophy of prostate without urinary obstruction and other lower urinary tract symptoms (LUTS); ED (erectile dysfunction); Fatigue; Toenail fungus; Prostatitis, acute 12/08/2011 Telephone [facility] [address] [place] [address] Kwadwo Ibrahim MD Other 12/07/2011 11:00 AM EDT Office Visit [facility] [place] [address] [place] [address] Deepa Saucedo MD CAD (coronary artery disease); Unspecified essential hypertension; Hypercholesteremia; SOB (shortness of breath) 12/03/2011 [facility] [address] [place] [address] Deepa Saucedo MD CAD (coronary artery disease) 12/02/2011 3:10 PM EDT - 12/02/2011 11:59 PM EDT Hospital Encounter [facility] [address] [place] [address] Unspecified essential hypertension Discharge Disposition: Home or Self Care 12/02/2011 Orders Only [facility] [address] [place] [address] Deepa Saucedo MD Unspecified essential hypertension (Primary Dx) 12/01/2011 Telephone [facility] [place] [address] [place] [address] Deepa Saucedo MD Other 11/24/2011 [facility] [address] [place] [address] Deepa Saucedo MD Medication Problem 11/19/[address] [address] Kwadwo Ibrahim MD Medication Refill 11/16/2011 9:18 AM EST - 11/16/2011 11:59 PM EST Hospital Encounter [facility] [address] [place] [address] Hyperkalemia; Unspecified essential hypertension; Depressive disorder, not elsewhere classified; Hypertrophy of prostate without urinary obstruction and other lower urinary tract symptoms (LUTS); Esophageal reflux Discharge Disposition: Home or Self Care 10/31/2011 10:13 AM EST - 10/31/2011 11:59 PM EST Hospital Encounter [facility] [address] [facility] [place] [address] Synovial cyst Discharge Disposition: Home or Self Care 10/29/2011 10:00 AM EST Office Visit [address] [address] Kwadwo Ibrahim MD Prostatitis, acute; Hypertrophy of prostate without urinary obstruction and other lower urinary tract symptoms (LUTS); Unspecified essential hypertension; Depressive disorder, not elsewhere classified; Esophageal reflux; Hyponatremia; DDD (degenerative disc disease), lumbar; Cyst 10/28/2011 Telephone [facility] [address] [place] [address] Deepa Saucedo MD Results 10/21/2011 8:35 AM EST - 10/21/2011 11:59 PM EST Hospital Encounter [facility] [address] [facility] [address] Nonspecific abnormal electrocardiogram (ECG) (EKG); Coronary atherosclerosis of [place] coronary artery; Essential hypertension, benign; Shortness of breath; Pure hypercholesterolemia; Depressive disorder, not elsewhere classified; Unspecified essential hypertension; Hypertrophy of prostate without urinary obstruction and other lower urinary tract symptoms (LUTS); Esophageal reflux Discharge Disposition: Home or Self Care 10/06/2011 3:00 PM EST Office Visit [address] [address] Kwadwo Ibrahim MD Dysuria (Primary Dx); Toenail fungus; Depressive disorder, not elsewhere classified; Unspecified essential hypertension; Hypertrophy of prostate without urinary obstruction and other lower urinary tract symptoms (LUTS); Esophageal reflux; DDD (degenerative disc disease), lumbar; Balanitis; Fatigue; Acute sinusitis; STIVEN (generalized anxiety disorder); Anxiety 09/21/2011 11:00 AM EST Office Visit [address] [address] Kwadwo Ibrahim MD Acute bronchitis; Acute sinusitis; Seasonal allergies; Depressive disorder, not elsewhere classified; Unspecified essential hypertension; Hypertrophy of prostate without urinary obstruction and other lower urinary tract symptoms (LUTS); Cerumen impaction; DDD (degenerative disc disease), lumbar 08/31/2011 11:20 AM EST Office Visit [address] [address] Kwadwo Ibrahim MD Leg pain (Primary Dx); Anxiety and depression; Hypertrophy of prostate without urinary obstruction and other lower urinary tract symptoms (LUTS); Unspecified essential hypertension; Esophageal reflux; Insomnia; Acute bronchitis 08/24/[address] [address] Kwadwo Ibrahim MD Medication Refill 08/05/[address] [address] Kwadwo Ibrahim MD Medication Refill 06/25/2011 2:30 PM EDT Office Visit [address] [address] Kwadwo Ibrahim MD Chest pain; Acute sinusitis; Seasonal allergies; Depressive disorder, not elsewhere classified; Unspecified essential hypertension; Acute bronchitis; Herpes simplex 06/19/[address] [address] Kwadwo Ibrahim MD Medication Refill 06/08/2011 9:05 PM EDT - 06/08/2011 11:59 PM EDT Hospital Encounter [facility] [place] [address] Unspecified essential hypertension; Neuropathy Discharge Disposition: Home or Self Care 06/08/2011 2:50 PM EDT Office Visit [address] [address] Kwadwo Ibrahim MD STIVEN (generalized anxiety disorder); DDD (degenerative disc disease), lumbar; Rash; Flu shot; Leukoplakia; BPH w/o urinary obs/LUTS; Unspecified essential hypertension; Depressive disorder, not elsewhere classified; ED (erectile dysfunction); Neuropathy 05/23/[address] [address] Tracy Rubalcava RN Medication Refill 04/27/2011 4:40 PM EDT Office Visit [address] [address] Guy Monge MD Fatigue; Weakness generalized; Acute sinusitis; DDD (degenerative disc disease), lumbar; Encounter for long-term opiate analgesic use; Dysuria; Depressive disorder, not elsewhere classified 03/30/2011 9:30 AM EDT - 03/30/2011 11:59 PM EDT Hospital Encounter [facility] [address] [place] [address] Deepa Saucedo MD ASHD (arteriosclerotic heart disease) Discharge Disposition: Home or Self Care 03/30/2011 8:22 AM EDT - 03/30/2011 9:29 AM EDT Hospital Encounter [facility] [address] [place] [address] Deepa Saucedo MD Discharge Disposition: Home or Self Care 03/17/2011 2:00 PM EDT [facility] [address] Kwadwo Ibrahim MD Acute sinusitis (Primary Dx); STIVEN (generalized anxiety disorder); Low back pain; Depressive disorder, not elsewhere classified; Seasonal allergies; Esophageal reflux; Acute bronchitis 03/09/2011 7:55 AM EDT Hospital Encounter [facility] [address] [place] [address] Nonspecific abnormal electrocardiogram (ECG) (EKG); Essential hypertension, benign; Coronary atherosclerosis of [place] coronary artery; Shortness of breath; Precordial pain; Pure hypercholesterolemia Discharge Disposition: Home or Self Care 03/09/2011 7:57 AM EDT - 03/09/2011 11:59 PM EDT Hospital Encounter [facility] [address] [place] [address] Deepa Saucedo MD ASHD (arteriosclerotic heart disease) Discharge Disposition: Home or Self Care 02/13/2011 3:30 PM EDT Office Visit [address] [address] Ruddy Londono MD STIVEN (generalized anxiety disorder) (Primary Dx); URI (upper respiratory infection); Seasonal allergies 02/11/[address] [address] Kwadwo Ibrahim MD Medication Refill 12/17/2010 9:30 AM EDT [facility] [address] [place] [address] Kwadwo Ibrahim MD HTN (hypertension); DDD (degenerative disc disease), lumbar; STIVEN (generalized anxiety disorder); BPH w/o urinary obs/LUTS; Esophageal reflux; Hyperlipemia 12/15/2010 [facility] [address] [place] [address] Kwadwo Ibrahim MD Medication Refill 12/15/2010 Refill [facility] [address] Kwadwo Ibrahim MD Medication Refill 12/09/2010 Refill [facility] [address] Kwadwo Ibrahim MD Medication Refill 11/25/2010 1:30 PM EST - 11/25/2010 11:59 PM EST Hospital Encounter [facility] [address] [place] [address] Hypopotassemia; Essential hypertension, benign Discharge Disposition: Home or Self Care 11/17/[address] [address] Kwadwo Ibrahim MD Medication Refill 11/04/[address] [address] Maria EstherKristy mckeona Medication Refill 10/23/2010 3:15 PM EST - 10/23/2010 11:59 PM EST Hospital Encounter [facility] [address] [facility] [place] [address] Other nonspecific findings on examination of blood Discharge Disposition: Home or Self Care 10/20/[address] [address] Kwadwo Ibrahim MD Medication Refill 10/17/[address] [address] Kwadwo Ibrahim MD Medication Refill 10/15/2010 Refill [facility] [address] [address] Kwadwo Ibrahim MD Medication Refill 10/01/2010 10:35 AM EST - 10/01/2010 11:59 PM EST Hospital Encounter [facility] [address] [facility] [place] [address] Shortness of breath; Pure hypercholesterolemia; Essential hypertension, benign; Coronary atherosclerosis of [place] coronary artery; Precordial pain Discharge Disposition: Home or Self Care 08/21/[address] [address] Tracy Rubalcava, electrolysis engineer Refill 08/21/[address] [place] [address] Tracy Rubalcava RN Medication Refill 08/21/2010 9:40 AM EST Office Visit [address] [address] Kwadwo Ibrahim MD Acute sinusitis; Seasonal allergies; Depressive disorder, not elsewhere classified; Unspecified essential hypertension; BPH w/o urinary obs/LUTS; Esophageal reflux 08/18/[address] [address] Kwadwo Ibrahim MD Medication Refill 07/15/[address] [address] Kwadwo Ibrahim MD Medication Refill 07/15/[address] [address] Kwadwo Ibrahim MD Medication Refill 06/18/[address] [address] Kwadwo Ibrahim MD Medication Refill 06/13/[address] [address] Jina Camarena LPN Results (lab) 06/12/2010 12:04 PM EDT - 06/12/2010 11:59 PM EDT Hospital Encounter [facility] [address] [place] [address] Unspecified pre-operative examination Discharge Disposition: Home or Self Care 06/12/[address] [address] Janine Spear MA Rash 06/12/2010 9:30 AM EDT Office Visit [address] [place] [address] Kwadwo Ibrahim MD Pre-operative exam (Primary Dx); Flu shot; ED (erectile dysfunction); Need for influenza vaccine; HTN (hypertension); DDD (degenerative disc disease), lumbar; Seasonal allergies 05/23/[address] [place] [address] Kwadwo Ibrahim MD Medication Refill 05/23/[address] [place] [address] Kwadwo Ibrahim MD Depressive disorder, not elsewhere classified; Unspecified essential hypertension; BPH w/o urinary obs/LUTS; Esophageal reflux 05/23/2010 1:50 PM EDT Office Visit [address] [address] Cameron Prieto MD Sinusitis; Depressive disorder, not elsewhere classified; Unspecified essential hypertension 02/24/2010 12:01 AM EDT - 02/25/2010 2:03 PM EDT Hospital Encounter [facility] Deepa Allen MD 01/15/2010 10:41 AM EDT - 01/15/2010 11:59 PM EDT Hospital Encounter [facility] Deepa Allen MD 12/10/2009 12:20 PM EDT - 12/10/2009 11:59 PM EDT Hospital Encounter [facility] RADIOLOGY Devonte Sutherland 11/20/2009 8:25 AM EST - 11/20/2009 11:59 PM EST Hospital Encounter [facility] SE[facility] JACQUELINET Jason Luz MD 11/11/2009 12:01 AM EST - 11/11/2009 11:59 PM EST Hospital Encounter [facility] EPIC CON UNK Jason Renee MD 10/21/2009 4:23 PM EST - 10/21/2009 11:59 PM EST Hospital Encounter HST EPIC CON UNK RANDIG Jermaine Aly MD 09/23/2009 11:06 PM EST - 09/23/2009 11:59 PM EST Hospital Encounter HST EPIC CON UNK EDG Kwadwo Ibrahim MD 08/19/2009 10:23 AM EST - 08/19/2009 11:59 PM EST Hospital Encounter HST EPIC CON UNK GRT Willie Guevara MD 08/13/2009 5:18 PM EST - 08/13/2009 11:59 PM EST Hospital Encounter HST EPIC CON UNK GRT Willie Guevara MD 06/17/2009 9:22 PM EDT - 06/17/2009 11:38 PM EDT Emergency HST EPIC CON UNK GRT Jennifer Mackey MD 04/22/2009 10:06 AM EDT - 04/22/2009 11:59 PM EDT Hospital Encounter HST EPIC CON UNK GRT Deepa Saucedo MD 04/08/2009 10:18 PM EDT - 04/09/2009 3:40 PM EDT Hospital Encounter HST GC Duane Johnson V, DO Kwadwo Ibrahim MD 04/03/2009 8:18 PM EDT - 04/03/2009 9:30 PM EDT Emergency HST EPIC CON UNK GRT Iliana Cuello MD 04/02/2009 3:42 PM EDT - 04/02/2009 11:59 PM EDT Hospital Encounter HST LAB EDG Kwadwo Ibrahim MD 11/19/2008 8:37 AM EST - 01/31/2009 11:59 PM EDT Hospital Encounter HST GC SPEC SVC Deepa Allen MD 12/13/2008 7:37 AM EDT - 12/13/2008 2:00 PM EDT Hospital Encounter HST CCR Deepa Saucedo MD 12/03/2008 12:00 PM EDT - 12/03/2008 11:59 PM EDT Hospital Encounter HST GC SPEC SVC Deepa Allen MD 11/26/2008 7:45 AM EDT - 11/26/2008 12:06 PM EDT Hospital Encounter HST 4C1 Willie Guevara MD 11/23/2008 12:01 AM EST - 11/23/2008 11:59 PM EST Hospital Encounter HST RADIOLOGY GRT Willie Guevara MD 08/27/2008 10:18 AM EST - 10/25/2008 11:59 PM EST Hospital Encounter HST GC SPEC SVC Deepa Allen MD 09/18/2008 1:36 PM EST - 09/18/2008 11:59 PM EST Hospital Encounter HST LAB Deepa Allen MD 06/04/2008 10:54 AM EDT - 06/04/2008 11:56 AM EDT Emergency HST EPIC CON UNK JACQUELINET Rusty Traylor MD 04/27/2008 1:41 AM EDT - 04/28/2008 10:29 AM EDT Hospital Encounter HST TCA Deepa Saucedo MD 04/23/2008 1:36 PM EDT - 04/23/2008 11:59 PM EDT Hospital Encounter [facility]ST GC SPEC [facility] [place]a Allen MD 01/16/2008 8:01 AM EDT - 01/16/2008 11:59 PM EDT Hospital Encounter HST RADIOLOGY GRT Willie Guevara MD 01/12/2008 12:00 PM EDT - 01/12/2008 4:20 PM EDT Hospital Encounter HST 4C SHT STY UN EDG Willie Guevara MD 11/23/2007 11:56 AM EST - 01/07/2008 11:59 PM EDT Hospital Encounter HST WORKFORCE MANAGEMENT COORDINATOR Deepa Allen MD 12/19/2007 12:36 PM EDT - 12/19/2007 11:59 PM EDT Hospital Encounter HST GC SPEC SV Deepa Allen MD 11/28/2007 7:53 AM EDT - 11/28/2007 11:59 PM EDT Hospital Encounter [facility]ST GC SPEC [facility] [place] Deepa Allen MD 11/21/2007 4:11 PM EST - 11/21/2007 11:59 PM EST Hospital Encounter HST LAB EDG Kwadwo Ibrahim MD 09/28/2007 10:53 AM EST - 09/28/2007 11:59 PM EST Hospital Encounter HST LAB RANDIG Kwadwo Ibrahim MD 03/16/2007 12:43 PM EDT - 03/16/2007 11:59 PM EDT Hospital Encounter HST LAB EDG Kwadwo Ibrahim MD 09/06/2006 2:38 PM EST - 09/06/2006 11:59 PM EST Hospital Encounter HST LAB EDG Kwadwo Ibrahim MD 03/12/2006 11:11 AM EDT - 03/12/2006 11:59 PM EDT Hospital Encounter HST LAB EDG Kwadwo Ibrahim MD 10/21/2005 7:33 AM EST - 10/21/2005 12:15 PM EST Hospital Encounter HST SAS Evangelist Smith MD 10/05/2005 4:27 PM EST - 10/05/2005 11:59 PM EST Hospital Encounter HST LAB EDG Kwadwo Ibrahim MD 08/19/2005 Hospital Encounter HST MEDICIN KATY Generic, Historical Provider 06/01/2005 1:00 PM EDT - 06/01/2005 2:15 PM EDT Hospital Encounter HST ESDS FTT Generic, Historical Provider 05/19/2005 12:09 PM EDT - 05/19/2005 1:00 PM EDT Hospital Encounter HST ESDS FTT Generic, Historical Provider 01/15/2005 7:31 AM EDT - 01/15/2005 10:35 AM EDT Hospital Encounter HST SAS Manjeet Chang MD 10/02/2004 7:47 AM EST - 10/02/2004 11:00 AM EST Hospital Encounter HST SAS Manjeet Chang MD 09/10/2004 12:01 AM EST - 09/10/2004 11:59 PM EST Hospital Encounter HST SURGERY EDG Manjeet Chang MD 09/17/2003 3:25 PM EST - 09/17/2003 4:20 PM EST Emergency HST EPIC CON UNK GRT Arben Day MD 09/06/2003 7:08 AM EST - 09/06/2003 11:59 PM EST Hospital Encounter HST GC SPEC SVC Willie Ho MD 06/20/2003 10:59 AM EDT - 06/20/2003 11:59 PM EDT Hospital Encounter HST GC SPEC SVC GRRaji Hollis MD 06/20/2003 9:40 AM EDT - 06/20/2003 11:59 PM EDT Hospital Encounter HST RADIOLOGY GRT Cameron Prieto MD 06/05/2003 2:38 PM EDT - 06/05/2003 11:59 PM EDT Hospital Encounter HST CARDIOLOGY JACQUELINET Cameron Prieto MD 06/02/2003 12:29 PM EDT - 06/02/2003 11:59 PM EDT Hospital Encounter HST LAB EDG Cameron Prieto MD 06/02/2003 9:11 AM EDT - 06/02/2003 11:59 PM EDT Hospital Encounter HST RADIOLOGY GRT Cameron Prieto MD 11/24/2002 7:16 PM EST - 11/24/2002 11:59 PM EST Hospital Encounter HST LAB EDG Kwadwo Ibrahim MD 01/23/2002 2:54 PM EDT - 01/23/2002 11:59 PM EDT Hospital Encounter HST GC SPEC SVC Deepa Allen MD 07/25/2001 5:19 PM EST - 07/25/2001 11:59 PM EST Hospital Encounter HST LAB EDG Kwadwo Ibrahim MD 01/17/2001 8:38 AM EDT - 01/17/2001 11:59 PM EDT Hospital Encounter HST GC SPEC SVC Deepa Allen MD 01/03/2001 8:39 AM EDT - 01/03/2001 11:59 PM EDT Hospital Encounter HST GC SPEC SVC Deepa Allen MD 12/28/2000 12:42 PM EDT - 12/28/2000 11:59 PM EDT Hospital Encounter HST RADIOLOGY GRT Kwadwo Ibrahim MD 12/22/2000 6:56 AM EDT - 12/22/2000 7:40 AM EDT Emergency HST EPIC CON UNK JACQUEILNET Darshan Jansen MD 08/23/2000 5:50 AM EST - 08/23/2000 11:59 PM EST Hospital Encounter HST EMG EDG Claudette Duenas MD 07/24/2000 Hospital Encounter HST UNKNFLO Generic, Historical Provider 04/19/2000 1:18 PM EDT - 05/23/2000 11:59 PM EDT Hospital Encounter HST HAND EDG Claudette Duenas MD 04/06/1999 11:19 PM EDT - 04/06/1999 11:45 PM EDT Emergency HST EPIC CON UNK GRT Andrea Ramirez III, MD 11/10/1998 11:50 AM EST - 11/10/1998 12:20 PM EST Emergency HST EPIC CON UNK GRT Coy Parikh MD 07/09/1998 5:34 AM EDT - 07/09/1998 11:59 PM EDT Hospital Encounter HST EK4 EDG Cameron Prieto MD 03/18/1996 10:33 AM EDT - 03/18/1996 11:59 PM EDT Hospital Encounter HST EPIC CON UNK EDG Daniel Imer Miguel 01/28/1994 8:57 AM EDT - 01/28/1994 11:59 PM EDT Hospital Encounter HST EPIC CON UNK EDG Cameron Prieto MD 05/12/1991 6:47 PM EDT - 05/16/1991 10:53 AM EDT Hospital Encounter HST 2BS Cameron Prieto MD Allergies Active Allergy Reactions Criticality Noted Date Comments Sulfa (Sulfonamide Antibiotics) Ciprofloxacin Adhesive Tape-Silicones Other (See Comments) High 11/09/2013 Severe skin irritation Hydrochlorothiazide Other (See Comments) 01/02/2016 hyponatremia Latex Rash Low 01/02/2016 Medications Fish Oil-DHA-EPA 1,200-144-216 mg Cap Take by mouth daily. Active MULTIVITAMIN W-MINERALS/LUTEIN (CENTRUM SILVER ORAL) Take by mouth daily. Active urea (CARMOL) 20 % Top CreamIndications:P ruritus Apply to affected area 75 g 1 06/02/20 16 Active GLUCOSAMINE/MSM/CH ONDROIT SULF (GLUCOSAMINE [id number] ORAL) Take by mouth. Active cholecalciferol, vitamin D3, 25 mcg (1,000 unit) Oral Tablet Take 1 Tablet by mouth 2 times daily. Active doxazosin (CARDURA) 8 mg Oral Tablet Take 8 mg by mouth daily. Active fUROsemide (LASIX) 40 mg Oral TabletIndications: 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 Take 1 Tab by mouth daily as needed. 30 Tab 3 06/07/20 17 Active aspirin 81 mg Oral Tablet, Chewable Take by mouth daily. Active azelastine (ASTELIN) 137 mcg (0.1 %) Nasl Aerosol, SprayIndications:A llergic rhinitis USE TWO SPRAY(S) IN EACH NOSTRIL TWICE DAILY DIRECTED 30 mL 3 01/27/20 18 Active amLODIPine (NORVASC) 5 mg Oral TabletIndications: 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 TAKE 1 TABLET BY MOUTH ONCE DAILY 90 Tab 1 05/09/20 18 Active atorvastatin (LIPITOR) 10 mg Oral TabletIndications: 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 TAKE ONE TABLET BY MOUTH NIGHTLY 90 Tab 2 08/09/20 18 Active busPIRone (BUSPAR) 10 mg Oral Tablet Take by mouth as needed. Active fluticasone (FLONASE) 50 mcg/actuation Nasl [place], Suspension by Nasal route daily. Active triamcinolone acetonide (KENALOG) 0.1 % [place] Paste Take by mouth 4 times daily. Active MAGIC MOUTHWASH (LIDO/DIPHEN/NYSTA T) ORAL COMPOUNDIndication s:Glossitis 5 ml swish and swallow qid PRN 450 mL 05/29/20 20 Active ciclopirox (LOPROX) 0.77 % Top Cream Apply topically 2 times daily. Active Polyethylene Glycol 3350 Misc Powder by Familytic.(Non-Dr ug; Combo Route) route. Active cetirizine (ZYRTEC) 10 mg Oral TabletIndications: Seasonal allergies Take 1 Tablet by mouth daily. 30 Tablet 2 06/01/20 23 Active meclizine (ANTIVERT) 12.5 mg Oral Tablet 01/11/20 24 Active oxyCODONE-acetamin ophen (PERCOCET) 7.5-325 mg Oral Tablet Take 1 Tablet by mouth every 4 hours as needed for Acute Pain (R52). 07/12/20 24 Active desvenlafaxine succinate (PRISTIQ) 50 mg Oral Tablet Sustained Release 24 hr Take 50 mg by mouth daily. 07/10/20 24 Active amitriptyline (ELAVIL) 25 mg Oral TabletIndications: Insomnia, persistent TAKE 1 TABLET EVERY NIGHT 30 Tablet 02/16/20 25 Active pantoprazole (PROTONIX) 40 mg Oral Tablet, Delayed Release (E.C.)Indications: PUD (peptic ulcer disease) Take 1 Tablet by mouth daily. 90 Tablet 3 02/24/20 25 Active erythromycin (ROMYCIN) Opht Ointment APPLY 1/2 INCH STRIP INSIDE LOWER LEFT LID NEEDED FOR 2-3 DAYS THEN USE NIGHTLY FOR 10 DAYS 02/24/20 25 Active gabapentin (NEURONTIN) 600 mg Oral TabletIndications: Spinal enthesopathy, cervicothoracic region,Peripheral neuropathy, idiopathic Take 1 Tablet by mouth 4 times daily. 120 Tablet 2 03/02/20 25 Active hydrOXYzine (ATARAX) 25 mg Oral TabletIndications: STIVEN (generalized anxiety disorder) TAKE 1 TABLET THREE TIMES DAILY NEEDED 90 Tablet 11 03/12/20 25 Active hydrOXYzine (ATARAX) 25 mg Oral TabletIndications: STIVEN (generalized anxiety disorder) Take 1 Tablet by mouth 3 times daily as needed. 90 Tablet 2 12/30/19 25 2024 Discontinued Active Problems Patient Care Coordination No te Formatting of this note migh t be different from the original. FAILED TOX SCREEN ctsa 02/07/18 uds 02/07/18 [place] 08/27/16,06/07/17([id number]),05/19/18([id number]),03/02/22([id number]),06/01/23([id number]) As expected Gets Hydrocodone from Dr. Pena [facility] audit completed by Estrella Osman RN on 12/03/2021. Problem Noted Date Diagnosed Date Arm mass, right 03/22/2025 Assessment & Plan (03/22/2025 10:39 AM EDT): Hypertensive heart disease with heart failure Overview (09/21/2023): Noted by MARKELL Steel DO last documented on [id number] Other specified disorders of arteries and arteri oles 09/21/2023 Overview (09/21/2023): Noted by MEAGAN Pascal MD last documented on [id number] Spinal enthesopathy, cervicothoracic region 10/2023 Overview (09/21/2023): Noted by JAUN Barnhart MD last documented on [id number] Assessment & Plan (03/02/2025 12:33 PM EDT): Orders: gabapentin (NEURONTIN) 600 mg Oral Tablet; Take 1 Tablet by mouth 4 times daily. Atherosclerotic heart diseas e of [place]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 09/21/2023 Overview (09/21/2023): Noted by TAMMIE Barnhart MD last documented on [id number] Gynecomastia 09/23/2022 Chronic idiopathic constipation 09/09/2021 Acute bronchitis 05/27/2021 Allergic rhinitis 11/25/2020 Chronic pain 02/15/2019 Esophageal stricture 02/15/2019 Anxiety 12/02/2018 Psoriasis 08/01/2018 Tinnitus 08/01/2018 Coronary atherosclerosis 06/14/2018 Gastric ulcer 06/14/2018 Benign essential HTN 06/14/2018 Positive urine drug screen 06/07/2017 Overview (06/07/2017): + Marijuana Lumbar stenosis 09/15/2016 PUD (peptic ulcer disease) 03/31/2016 Bleeding ulcer 03/31/2016 SITVEN (generalized anxiety disorder) 03/31/2016 Syncope 12/28/2015 Coronary artery disease invo lving [place] coronary artery of [place] heart 12/28/2015 Orthostatic hypotension 12/28/2015 Hyponatremia 12/28/2015 Spondylosis 09/11/2014 DDD (degenerative disc disease) 07/19/2014 Depressive disorder, not elsewhere classified Unspecified essential hypertension Overview (12/25/2013): 1. Echo 07-25-12 Mild concentric hypertrophy. Left ventricular ejection fraction estimated at 55-60%. Abnormal left ventricular diastolic filling pattern for age. Feeling much better. No Cp, heaviness. No palpitations, dizziness. ]Chronic back pain that limits his ADL's Reports BP 120's/70's at home Better on 1/2 tab of Lipitor. BW reviewed at looks better, recheck in 6 months Pt needs to be compliant w home medications. Remain active BW in 6 months w appt soon after. Sooner if needed Hypertrophy of prostate with out urinary obstruction and other lower urinary tract symptoms (LUTS) Esophageal reflux CAD (coronary artery disease) Overview (12/25/2013): 1. Single vessel coronary disease with prior PCI and stenting of the LAD with a 2.5 x 8 drug-eluting Cypher stent, April 2008. 2. Left heart catheterization, 12/13/08, previous stent to the LAD to be well preserved. Minor disease throughout the circ and RCA. 3. Lexiscan Myoview, 03/30/11, consistent with a small area of apical wall ischemia. Normal wall motion. No ischemic EKG changes. EF 66%. unchanged from previous stress tests. 4. Stress test 07-24-12 There are no significant reversible defects EF 71% 5. Echo : 07-24-12 Mild concentric hypertrophy. Left ventricular ejection fraction estimated at 55-60%. Abnormal left ventricular diastolic filling pattern for age. Normal valves. Feeling much better. No Cp, heaviness. No palpitations, dizziness. ]Chronic back pain that limits his ADL's Reports BP 120's/70's at home Better on 1/2 tab of Lipitor. BW reviewed at looks better, recheck in 6 months Pt needs to be compliant w home medications. Remain active BW in 4 months w appt soon after. Sooner if needed Stress test in the fall Coronary artery disease invo lving [place] coronary artery of [place] heart without angina pectoris Vasovagal syncope Resolved Problems Problem Noted Date Diagnosed Date Resolved Date Chronic obstructive pulmonar y disease with acute exacerbation 09/21/2023 04/26/2024 Overview (09/21/2023): Noted by TAMMIE Barnhart MD last documented on [id number] Morbid (severe) obesity due to excess calories 09/21/2023 04/26/2024 Overview (09/21/2023): Noted by MARKELL Steel DO last documented on [id number] Opioid abuse, uncomplicated 09/21/2023 04/26/2024 Overview (09/21/2023): Noted by JAUN Barnhart MD last documented on [id number] COPD exacerbation 09/23/2022 04/26/2024 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) 07/10/2021 Immunizations Immunization Administration Dates Next Due Hepatitis A, Adult 04/21/2019,10/16/2018 Influenza High Dose 05/29/2024,,06/16/2019,10/16,09/24/2017,06/03/2016,06/03/2015 ,06/07/2014,06/02/2013 Influenza Patient Reported 07/03/2008,06/28/2007 Influenza Vaccine, Unspecifi ed Formulation 06/13/2012,06/08/2011,06/12/2010,07/03,06/28/2007 Moderna SARS-CoV-2 Vaccine 1 2+ Yrs (Light blue border) 02/02/2022,07/17/2021 Moderna SARS-CoV-2 Vaccine 1 2+ Yrs Spikevax 05/29/2024 Pneumococcal Conjugate Vacci ne 13 Valent 04/02/2017 Pneumococcal Polysaccharide 23 Valent 07/19/2014 ,03/16/2007,07/16/2003 Quadrivalent Influenza High Dose 023,07/23/2022,07/10/2021,06/07,05/29/2020,06/16/2019,10/16/2018 ,09/24/2017,06/03/2016,06/03/2015,05/21,06/02/2013 Td, Unspecified Formulation 12/10/2006 Tdap 04/02/2017 Family History Medical History Relation Name Comments Other Father brain aneurysm Unknown Mother Relation Name Status Comments Father Mother Social History Smoking Status as of 04/06/2025 Tobacco Use Types Packs/Day Years Used Date Smoking Tobacco: Never Assessed PHQ-2 Answer Date Recorded PHQ-2 Total Score 0 12/11/2024 Sex and Gender Information Value Date Recorded Sex Assigned at Not on file Legal Sex Male 11:16 PM EDT Gender Identity Not on file Sexual Orientation Not on file Last Filed Vital Signs Vital Sign Reading Time Taken Comments Blood Pressure 116/70 03/22/2025 8:59 AM EDT Pulse 59 03/22/2025 8:59 AM EDT Temperature 36.9 C (98.4 F) 03/02/2025 10:26 AM EDT Respiratory Rate 18 03/22/2025 8:59 AM EDT Oxygen Saturation 98% 03/22/2025 8:59 AM EDT Inhaled Oxygen Concentration - - Weight 84.8 kg (187 lb) 03/22/2025 8:59 AM EDT Height 165.1 cm (5' 5 ) 03/22/2025 8:59 AM EDT Body Mass Index 31.12 03/22/2025 8:59 AM EDT Plan of Treatment Upcoming Encounters Date Type Department Care Team (Late st Contact Info) Description 07/16/2025 9:20 AM EDT Office Visit [facility] [address] [phone] Deepa Saucedo MD [address] [place] [address] [place] [address] Procedures Procedure Name Priority Date/Time Associated Diagnosis Comments US UPPER EXTREMITY NONVASCULAR LIMITED Routine 03/02/2025 4:25 PM EDT Mass of muscle of right upper extremity IRON LEVEL Routine 03/02/2025 11:00 AM EDT Anemia, unspecified type COMPLIANCE PANEL, URINE Routine 03/02/2025 11:00 AM EDT Therapeutic drug monitoring HEMOGLOBIN A1C Routine 03/02/2025 11:00 AM EDT Screening for diabetes mellitus (DM) THYROID STIMULATING HORMONE Routine 03/02/2025 11:00 AM EDT Malaise and fatigue CBC Routine 03/02/2025 11:00 AM EDT Malaise and fatigue Anemia, unspecified type VITAMIN B12/ FOLIC ACID Routine 03/02/2025 11:00 AM EDT B12 deficiency VITAMIN D 25 HYDROXY Routine 03/02/2025 11:00 AM EDT Vitamin D deficiency HM HOLTER MONITOR RECORDING AND ANALYSIS Routine 08/10/2024 10:46 AM EST Unspecified essential hypertension 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 Hypertensive heart disease with heart failure (HCC) Atherosclerosis of [place] coronary artery of [place] heart without angina pectoris Benign essential HTN COMPREHENSIVE METABOLIC PANEL Routine 08/08/2024 10:53 AM EST Malaise and fatigue IRON LEVEL Routine 08/08/2024 10:53 AM EST Anemia, unspecified type CBC Routine 08/08/2024 10:53 AM EST Anemia, unspecified type THYROID STIMULATING HORMONE Routine 04/26/2024 3:24 PM EDT Annual physical exam HEMOGLOBIN A1C Routine 04/26/2024 3:24 PM EDT Annual physical exam COMPREHENSIVE METABOLIC PANEL Routine 04/26/2024 3:24 PM EDT Annual physical exam CBC Routine 04/26/2024 3:24 PM EDT Annual physical exam LIPID SCREEN Routine 03/13/2024 8:50 AM EDT 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 Unspecified essential hypertension Hypertensive heart disease with heart failure (HCC) HEPATIC FUNCTION PANEL Routine 03/13/2024 8:50 AM EDT 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 Unspecified essential hypertension Hypertensive heart disease with heart failure (HCC) BASIC METABOLIC PANEL Routine 03/13/2024 8:50 AM EDT 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 Unspecified essential hypertension Hypertensive heart disease with heart failure (HCC) MM US BREAST LIMITED BILATERAL Routine 10/14/2023 10:43 AM EST Pain of both breasts Mass of lower outer quadrant of left breast MM MAMMO DIGITAL FREDI DIAGN BILAT Routine 10/14/2023 10:16 AM EST Pain of both breasts Mass of lower outer quadrant of left breast SCANNED EKG 08/09/2023 11:43 AM EST TROPONIN-T HIGH SENSITIVITY 2HR Timed 07/30/2023 7:[address] ANGIOGRAM PULMONARY W CONTRAST STAT 07/30/2023 6:05 PM EST TROPONIN-T HIGH SENSITIVITY BASELINE W/ REFLEX STAT 07/30/2023 5:56 PM EST BASIC METABOLIC PANEL STAT 07/30/2023 5:56 PM EST CBC WITH DIFF STAT 07/30/2023 5:56 PM EST EK EKG 12 LEAD STAT 07/30/2023 5:22 PM EST SALINE LOCK IV STAT 07/30/2023 5:22 PM EST D-DIMER STAT 07/30/2023 1:27 PM EST Fever, unspecified fever cause Acute cough PROSTATE SPECIFIC ANTIGEN (SCREENING) Routine 07/29/2023 2:55 PM EST Screening for prostate cancer CBC WITH DIFF Routine 07/29/2023 2:55 PM EST Medicare annual wellness visit, subsequent T4, FREE (THYROXINE) Routine 07/29/2023 2:55 PM EST Medicare annual wellness visit, subsequent TSH REFLEX TO FT4 Routine 07/29/2023 2:55 PM EST Medicare annual wellness visit, subsequent COMPREHENSIVE METABOLIC PANEL Routine 07/29/2023 2:55 PM EST Essential hypertension Medicare annual wellness visit, subsequent LIPID SCREEN Routine 07/29/2023 2:55 PM EST Medicare annual wellness visit, subsequent XR CHEST PA AND LATERAL STAT 07/29/2023 2:00 PM EST Fever, unspecified fever cause Acute cough POCT CEPHEID SARS COV-2 RNA + FLU A/B + RSV Routine 07/29/2023 1:41 PM EST Fever, unspecified fever cause XR CHEST PA AND LATERAL Routine 04/21/2023 11:24 AM EDT Acute cough CT CHEST W CONTRAST Routine 02/22/2023 1:21 PM EDT Chronic cough CREATININE ISTAT Routine 02/22/2023 1:16 PM EDT PULMONARY FUNCTION TEST Routine 02/10/2023 1:46 PM EDT SCANNED RADIOLOGY REPORT 11/27/2022 5:13 PM EST VA US CAROTID DUPLEX BILATERAL Routine 11/25/2022 11:02 AM EST Chest pressure SOB (shortness of breath) on exertion Unspecified essential hypertension 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 Bruit of right carotid artery Aortic root enlargement NM MYOCARDIAL PERFUSION SPECT STRESS AND REST Routine 11/25/2022 10:30 AM EST Chest pressure SOB (shortness of breath) on exertion Unspecified essential hypertension 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 Bruit of right carotid artery Aortic root enlargement ST STRESS TEST LEXISCAN Routine 11/25/2022 9:59 AM EST Chest pressure SOB (shortness of breath) on exertion Unspecified essential hypertension 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 Bruit of right carotid artery Aortic root enlargement EC ECHOCARDIOGRAM COMPLETE W DOPPLER AND COLOR FLOW MAPPING Routine 11/03/2022 11:14 AM EST Chest pressure SOB (shortness of breath) on exertion Unspecified essential hypertension 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 Bruit of right carotid artery Aortic root enlargement POCT JACKI SARS ANTIGEN Routine 11/12/2021 2:13 PM EST Cough POCT JACKI INFLUENZA A/B Routine 11/12/2021 2:05 PM EST Cough XR CHEST PA AND LATERAL Routine 04/05/2020 12:40 PM EDT Acute bronchitis, unspecified organism SCANNED RADIOLOGY REPORT 03/25/2020 1:57 PM EDT NM MYOCARDIAL PERFUSION SPECT STRESS AND REST Routine 03/25/2020 12:47 PM EDT Unspecified essential hypertension Vasovagal syncope 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 SOB (shortness of breath) on exertion Chest pressure ST STRESS TEST LEXISCAN Routine 03/25/2020 12:34 PM EDT Unspecified essential hypertension Vasovagal syncope 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 SOB (shortness of breath) on exertion Chest pressure EC ECHOCARDIOGRAM COMPLETE W DOPPLER AND COLOR FLOW MAPPING Routine 03/25/2020 11:03 AM EDT Unspecified essential hypertension Vasovagal syncope 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 SOB (shortness of breath) on exertion Chest pressure POCT EKG Routine 02/27/2020 12:11 PM EDT Unspecified essential hypertension Vasovagal syncope 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 SEDIMENTATION RATE AUTOMATED Routine 02/09/2020 10:19 AM EDT Osteoarthritis, unspecified osteoarthritis type, unspecified site VITAMIN D 25 HYDROXY Routine 02/09/2020 10:19 AM EDT Lethargy Vitamin D deficiency THYROID STIMULATING HORMONE Routine 02/09/2020 10:19 AM EDT Lethargy T4, FREE (THYROXINE) Routine 02/09/2020 10:19 AM EDT Lethargy PROSTATE SPECIFIC ANTIGEN (SCREENING) Routine 02/09/2020 10:19 AM EDT Screening PSA (prostate specific antigen) COMPREHENSIVE METABOLIC PANEL Routine 02/09/2020 10:19 AM EDT Unspecified essential hypertension CBC WITH DIFF Routine 02/09/2020 10:19 AM EDT Unspecified essential hypertension LIPID PANEL REFLEX Routine 02/09/2020 10:19 AM EDT 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 SCANNED LABS 10/13/2018 1:00 PM EST HB-1 CUSTOM UDS PANEL-QUEST Routine 02/07/2018 11:12 PM EDT Encounter for medication management SCANNED RADIOLOGY REPORT 01/04/2018 11:21 AM EDT HM HOLTER MONITOR RECORDING AND ANALYSIS Routine 01/03/2018 11:22 AM EDT 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 Coronary artery disease involving [place] heart, angina presence unspecified, unspecified vessel or lesion type Unspecified essential hypertension Racing heart beat Dizziness SOB (shortness of breath) on exertion Chest tightness or pressure NM MYOCARDIAL PERFUSION SPECT STRESS AND REST Routine 01/03/2018 10:11 AM EDT 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 Coronary artery disease involving [place] heart, angina presence unspecified, unspecified vessel or lesion type Unspecified essential hypertension Racing heart beat Dizziness SOB (shortness of breath) on exertion Chest tightness or pressure ST STRESS TEST LEXISCAN Routine 01/03/2018 9:41 AM EDT 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 Coronary artery disease involving [place] heart, angina presence unspecified, unspecified vessel or lesion type Unspecified essential hypertension Racing heart beat Dizziness SOB (shortness of breath) on exertion Chest tightness or pressure EC ECHOCARDIOGRAM COMPLETE W DOPPLER AND COLOR FLOW MAPPING Routine 01/03/2018 8:19 AM EDT 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 Coronary artery disease involving [place] heart, angina presence unspecified, unspecified vessel or lesion type Unspecified essential hypertension Racing heart beat Dizziness SOB (shortness of breath) on exertion Chest tightness or pressure HB-1 CUSTOM UDS PANEL-QUEST Routine 09/24/2017 7:17 PM EST Drug therapy XR CHEST PA AND LATERAL Routine 09/24/2017 12:51 PM EST Acute rhinosinusitis XR CHEST PA AND LATERAL Routine 07/30/2017 11:57 AM EST Acute bronchitis, unspecified organism HEMOGLOBIN A1C Routine 07/30/2017 11:45 AM EST Hyperglycemia LIPID PANEL REFLEX Routine 07/30/2017 11:45 AM EST 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 COMPREHENSIVE METABOLIC PANEL Routine 07/30/2017 11:45 AM EST Unspecified essential hypertension CBC WITH DIFF Routine 07/30/2017 11:45 AM EST Acute bronchitis, unspecified organism LIPID SCREEN Routine 07/30/2017 11:45 AM EST 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 Unspecified essential hypertension HEPATIC FUNCTION PANEL Routine 07/30/2017 11:45 AM EST 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 Unspecified essential hypertension POCT EKG Routine 06/28/2017 10:48 AM EDT Chest pain, unspecified type CT LIMITED SINUSES WO Routine 05/10/2017 12:18 PM EDT Acute bacterial sinusitis XR FINGER LEFT MINIMUM 2 VW Routine 05/06/2017 12:09 PM EDT Finger pain, left XR CHEST PA AND LATERAL Routine 05/06/2017 12:09 PM EDT Chest discomfort DIFFERENTIAL Routine 05/06/2017 11:01 AM EDT HCV ANTIBODY SCREEN W/ REFLEX Routine 05/06/2017 11:01 AM EDT Need for hepatitis C screening test COMPREHENSIVE METABOLIC PANEL Routine 05/06/2017 11:01 AM EDT Acute bacterial sinusitis Chest discomfort CBC WITH DIFF Routine 05/06/2017 11:01 AM EDT Acute bacterial sinusitis Chest discomfort POCT EKG Routine 05/06/2017 10:50 AM EDT Chest discomfort HB-1 CUSTOM UDS PANEL-QUEST Routine 04/02/2017 6:28 PM EDT STIVEN (generalized anxiety disorder) Encounter for long-term (current) drug use VITAMIN D 25 HYDROXY Routine 12/24/2016 10:30 AM EDT Essential hypertension Vitamin D deficiency URINALYSIS Routine 12/24/2016 10:30 AM EDT Essential hypertension Vitamin D deficiency URIC ACID Routine 12/24/2016 10:30 AM EDT Essential hypertension Vitamin D deficiency RENAL FUNCTION PANEL Routine 12/24/2016 10:30 AM EDT Essential hypertension Vitamin D deficiency PROTEIN LEVEL URINE Routine 12/24/2016 10:30 AM EDT Essential hypertension Vitamin D deficiency PARATHYROID HORMONE INTACT Routine 12/24/2016 10:30 AM EDT Essential hypertension Vitamin D deficiency CREATININE LEVEL URINE Routine 12/24/2016 10:30 AM EDT Essential hypertension Vitamin D deficiency CBC Routine 12/24/2016 10:30 AM EDT Essential hypertension Vitamin D deficiency HB-1 CUSTOM UDS PANEL-QUEST Routine 09/26/2016 4:22 PM EST Encounter for therapeutic drug monitoring SCANNED RADIOLOGY REPORT 09/14/2016 2:03 PM EST NM MYOCARDIAL PERFUSION SPECT STRESS AND REST Routine 09/10/2016 11:04 AM EST Coronary artery disease involving [place] coronary artery of [place] heart, angina presence unspecified Unspecified essential hypertension Preop cardiovascular exam ST STRESS TEST LEXISCAN Routine 09/10/2016 10:15 AM EST Coronary artery disease involving [place] coronary artery of [place] heart, angina presence unspecified Unspecified essential hypertension Preop cardiovascular exam DIFFERENTIAL Routine 08/27/2016 10:41 AM EST COMPREHENSIVE METABOLIC PANEL Routine 08/27/2016 10:41 AM EST Preop cardiovascular exam Unspecified essential hypertension CBC WITH DIFF Routine 08/27/2016 10:41 AM EST Preop cardiovascular exam Unspecified essential hypertension LIPID SCREEN Routine 08/27/2016 10:41 AM EST Preop cardiovascular exam Unspecified essential hypertension THYROID STIMULATING HORMONE Routine 08/27/2016 10:41 AM EST Preop cardiovascular exam Unspecified essential hypertension POCT EKG Routine 08/27/2016 10:28 AM EST Preop cardiovascular exam MRI LUMBAR SPINE WO CONTRAST Routine 07/15/2016 4:21 PM EDT Pseudarthrosis after fusion or arthrodesis ADRENOCORTICOTROPIC HORMONE -REF LAB Routine 06/16/2016 8:50 AM EDT Low serum cortisol level (HCC) CORTISOL 60 MINUTES Timed 06/15/2016 9:55 AM EDT CORTISOL 30 MINUTES Timed 06/15/2016 9:25 AM EDT CORTISOL BASELINE Timed 06/15/2016 8:50 AM EDT CORTISOL Routine 06/06/2016 10:10 AM EDT Unspecified essential hypertension Orthostatic hypotension Hyponatremia 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 SIADH (syndrome of inappropriate ADH production) Vasovagal syncope PUD (peptic ulcer disease) Bleeding ulcer STIVEN (generalized anxiety disorder) CORTISOL Routine 06/03/2016 12:14 PM EDT Unspecified essential hypertension Screening PSA (prostate specific antigen) PROSTATE SPECIFIC ANTIGEN (SCREENING) Routine 06/03/2016 12:14 PM EDT Screening PSA (prostate specific antigen) LIPID SCREEN Routine 06/03/2016 12:14 PM EDT Unspecified essential hypertension ADRENOCORTICOTROPIC HORMONE -REF LAB Routine 06/03/2016 9:59 AM EDT Iatrogenic adrenal insufficiency SCANNED LABS 04/01/2016 2:14 PM EDT DIFFERENTIAL Routine 03/31/2016 11:12 AM EDT CBC WITH DIFF Routine 03/31/2016 11:12 AM EDT PUD (peptic ulcer disease) Bleeding ulcer COMPREHENSIVE METABOLIC PANEL Routine 03/31/2016 11:12 AM EDT PUD (peptic ulcer disease) Bleeding ulcer URINALYSIS Routine 02/14/2016 3:26 PM EDT SIADH (syndrome of inappropriate ADH production) SODIUM LEVEL URINE Routine 02/14/2016 3:26 PM EDT SIADH (syndrome of inappropriate ADH production) TSH REFLEX TO FT4 Routine 02/14/2016 3:26 PM EDT SIADH (syndrome of inappropriate ADH production) Hypothyroidism, unspecified hypothyroidism type RENAL FUNCTION PANEL Routine 02/14/2016 3:26 PM EDT SIADH (syndrome of inappropriate ADH production) OSMOLALITY Routine 02/14/2016 3:26 PM EDT SIADH (syndrome of inappropriate ADH production) OSMOLALITY URINE Routine 02/14/2016 3:26 PM EDT SIADH (syndrome of inappropriate ADH production) URINE CULTURE (NO STAIN) Routine 02/14/2016 3:26 PM EDT Acute cystitis without hematuria SCANNED EKG 01/05/2016 9:02 PM EDT SCANNED RHYTHM STRIPS 01/05/2016 9:02 PM EDT COMPREHENSIVE METABOLIC PANEL Routine 01/02/2016 10:59 AM EDT Hyponatremia CBC Early AM 12/31/2015 6:08 AM EDT BASIC METABOLIC PANEL Early AM 12/31/2015 6:08 AM EDT IP CONSULT TO WOUND CARE Routine 12/31/2015 4:48 AM EDT CORTISOL 120 MINUTE Timed 12/30/2015 12:06 PM EDT CORTISOL 90 MINUTE Timed 12/30/2015 11:38 AM EDT CORTISOL 60 MINUTES Timed 12/30/2015 11:07 AM EDT CORTISOL 30 MINUTES Timed 12/30/2015 10:40 AM EDT CORTISOL BASELINE Timed 12/30/2015 10:02 AM EDT SCANNED EKG 12/30/2015 9:05 AM EDT CORTISOL BASELINE Timed 12/30/2015 5:01 AM EDT CBC Early AM 12/30/2015 5:01 AM EDT BASIC METABOLIC PANEL Early AM 12/30/2015 5:01 AM EDT EC ECHOCARDIOGRAM COMPLETE W DOPPLER AND COLOR FLOW MAPPING Routine 12/29/2015 9:24 AM EDT CORTISOL Routine 12/29/2015 6:03 AM EDT CBC Early AM 12/29/2015 6:03 AM EDT BASIC METABOLIC PANEL Early AM 12/29/2015 6:03 AM EDT CHLORIDE, URINE - REF LAB STAT 12/28/2015 3:45 PM EDT POTASSIUM LEVEL URINE STAT 12/28/2015 3:45 PM EDT SODIUM LEVEL URINE STAT 12/28/2015 3:45 PM EDT OSMOLALITY URINE STAT 12/28/2015 3:45 PM EDT IP CONSULT TO CARDIOLOGY Routine 12/28/2015 3:17 PM EDT Procedure Note - Yariel Watson MD - 12/28/2015 4:48 PM EDTThis note is in progress. Cardiology Consult Name: Jermaine He : 1945 Chief Complaint: No chief complaint on file. HPI Asked by Zenaida Joiner MD to evaluate and assess this patient nearsyncope 70 yo male presented to ED with CC of dizziness and near syncopeapproximately one week and worsening today. Pt states that he has feltthis in the past when it is very hot out. When he nearly fainted today hedecided to come into the ED. Denies any associated cardiac symptomsincluding cp, sob, palps, orthopnea, PND, edema. Pt denies recentillness although there is a note that he recently had an URI and was onzpack. Has chronic back pain and some constipation. Was not on toiletwhen near syncope occurred. States he is feeling much better now and hasbeen up without dizziness. Hx of CAD with LIBBY to LAD in 2007, HTN. Found to be hyponatremic, low osmo serum. Admits to excessive waterintake 4+ 32 oz bottles/night. Denies nausea and vomiting. He is on adiuretic. Past Medical History Diagnosis Date Depressive disorder, not elsewhere classified Unspecified essential hypertension Hypertrophy of prostate without urinary obstruction and other lowerurinary tract symptoms (LUTS) Esophageal reflux CAD (coronary artery disease) Allergic rhinitis HOME MEDICATIONS: Prior to Admission medications Medication Sig Start Date End Date Taking? Authorizing Provider doxazosin (CARDURA) 8 mg Oral Tablet Take 1 Tab by mouth daily. Atnighttime for BPH 12/20/15 Yes Kassie Beasley MD Fish Oil-DHA-EPA 1,200-144-216 mg Cap Take by mouth daily. YesProvider, Historical gabapentin (NEURONTIN) 600 mg Oral Tablet Take 1 Tab by mouth 3 timesdaily. 10/25/15 Yes Kassie Beasley MD HYDROcodone-acetaminophen (NORCO) 10-325 mg Oral Tablet Take 1 Tab bymouth every 8 hours as needed for Pain. 11/27/15 Yes Kassie Beasley MD lisinopril-hydrochlorothiazide (PRINZIDE;ZESTORETIC) 20-25 mg Oral TabletTake 0.5 Tabs by mouth 2 times daily. 11/12/15 Yes Deepa Saucedo MD meloxicam (MOBIC) 15 mg Oral Tablet Take 1 Tab by mouth daily. 09/07/15Yes Kassie Beasley MD mometasone (NASONEX) 50 mcg/actuation Nasl Watson, Non-Aerosol 2 Sprays byNasal route daily. 11/27/15 Yes Kassie Beasley MD MULTIVITAMIN W-MINERALS/LUTEIN (CENTRUM SILVER ORAL) Take by mouth daily.Yes Provider, Historical omeprazole (PRILOSEC) 20 mg Oral Capsule, Delayed Release(E.C.) TAKE ONECAPSULE BY MOUTH TWICE DAILY BEFORE MEAL(S) 07/09/15 Yes Ruddy Londono MD triamcinolone (KENALOG) 0.1 % Top Cream APPLY CREAM TOPICALLY TWICE DAILYFOR 10 DAYS 10/25/15 Yes Kassie Beasley MD ALPRAZolam (XANAX) 1 mg Oral Tablet TAKE ONE TABLET BY MOUTH THREE TIMESDAILY NEEDED 12/04/15 Kassie Beasley MD atorvastatin (LIPITOR) 10 mg Oral Tablet Take 1 Tab by mouth nightly.08/12/15 Deepa Saucedo MD fluticasone (CUTIVATE) 0.05 % Top Cream APPLY TOPICALLY TWICE DAILY07/03/15 Kassie Beasley MD fluticasone (FLONASE) 50 mcg/actuation Nasl Watson, Suspension 1 Watson byNasal route daily. 07/03/15 Kassie Beasley MD fUROsemide (LASIX) 20 mg Oral Tablet Take 1 Tab by mouth daily. As neededfor fluid 12/06/15 Gabino Carrillo DO loratadine (CLARITIN) 10 mg Oral Tablet Take 1 Tab by mouth daily asneeded. 01/24/15 Kwadwo Ibrahim MD omeprazole (PRILOSEC) 20 mg Oral Capsule, Delayed Release(E.C.) Take 1 Capby mouth 2 times daily (before meals). 08/09/15 Kassie Beasley MD tadalafil (CIALIS) 5 mg Oral Tablet Take 1 Tab by mouth daily. 12/20/15Kassie Beasley MD triamcinolone acetonide (KENALOG) 0.1 % [place] Paste APPLY TO MUCASMEMBRANES 3 TIMES DAILY FOR 2 WEEKS 07/03/15 Kassie Beasley MD No current outpatient prescriptions on file. HOSPITAL MEDICATIONS: Scheduled Meds: doxazosin 4 mg Oral Nightly enoxaparin 40 mg Subcutaneous Daily fish oil omega 3-dha-epa 1 Cap Oral Daily fluticasone 2 Watson Each Nare Daily gabapentin 600 mg Oral TID meloxicam 15 mg Oral Daily multivitamin 1 Tab Oral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 Routine 01/15/2010 10:47 AM EDT LIPID PANEL REFLEX Routine 01/15/2010 10:47 AM EDT BASIC METABOLIC PANEL Routine 01/15/2010 10:47 AM EDT DIFFERENTIAL Routine 01/15/2010 10:47 AM EDT CBC WITH DIFF Routine 01/15/2010 10:47 AM EDT GC XX LUMBOSACRAL SP W/FLEX&EXT Routine 12/10/2009 12:24 PM EDT GC XX KNEE (3 VIEWS) Routine 11/20/2009 2:47 PM EST GC XX PELVIS Routine 11/20/2009 2:46 PM EST GC XX LUMBOSACRAL SPINE Routine 11/20/2009 2:44 PM EST GC MR LUMBAR WITH & W/O CONT Routine 11/11/2009 2:10 PM EST PATHOLOGY TISSUE REPORT Routine 10/21/2009 4:55 PM EST PATHOLOGY TISSUE REPORT Routine 09/24/2009 7:34 AM EST GC EK EKG REG Routine 06/17/2009 10:02 PM EDT GC XX CHEST PORTABLE Routine 06/17/2009 9:55 PM EDT GC EK EKG REG Routine 04/09/2009 6:54 AM EDT GC EK EKG REG Routine 04/08/2009 9:21 PM EDT GC XX CHEST PORTABLE Routine 04/08/2009 8:56 PM EDT GC EK EKG REG Routine 04/03/2009 8:29 PM EDT CC CARDIAC PROCEDURE Routine 12/13/2008 10:33 AM EDT GC US GALL BLADDER SONO Routine 11/23/2008 8:[address] PHARM STRESS Routine 11/19/2008 11:10 AM EST GC 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 Routine 11/19/2008 9:18 AM EST CC CARDIAC PROCEDURE Routine 04/27/2008 11:[address] ABD/PELVIS SCREW MACHINE ADJUSTER AUTOMATIC Routine 01/16/2008 8:[address] PHARM STRESS Routine 11/28/2007 8:50 AM EDT GC 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 Routine 11/28/2007 8:50 AM EDT VA CAROTID W/DUPLEX COMPLETE Routine 11/28/2007 8:10 AM EDT HM HOLTER MONITOR PANEL Routine 11/23/2007 1:00 PM EST EK EKG REG Routine 10/20/2005 4:25 PM EST DIAG MYELO INJ NOT C1-C2 Routine 08/21/2005 12:[address]/MRI MULTIPLANAR, 3D RECON Routine 08/19/2005 12:00 AM EST DIAG MYELOGRAM L SPINE S&I Routine 08/19/2005 12:[address] L SPINE W/O CONTRAST Routine 08/19/2005 12:00 AM EST FLUORO GUIDE NDL INJ SPINE/PARASPINE Routine 06/01/2005 12:00 AM EDT FLUORO GUIDE NDL INJ SPINE/PARASPINE Routine 05/20/2005 12:00 AM EDT Results * US UPPER EXTREMITY NONVASCULAR LIMITED [...] PM CLINICAL HISTORY: M62.89-Other specified disorders of [id number]. COMPARISON: None PROCEDURE COMMENTS: Routine sonographic evaluation of the region of interest with support representative images sent to PACS along with foundry operator notes. FINDINGS: Targeted ultrasound performed in the [...] PM CLINICAL HISTORY: M62.89-Other specified disorders of [id number]. COMPARISON: None PROCEDURE COMMENTS: Routine sonographic evaluation of the region ofinterest with support representative images sent to PACS along with foundry operator notes. FINDINGS: Targeted ultrasound performed in the [...] office of the ordering clinician. us Dillon Ibrahim WAREHOUSE STOCKER IMG US ORDERABLES Final Resu lt * (ABNORMAL) COMPLIANCE PANEL, URINE (03/02/2025 11:00 AM EDT) Medications Expected Gabapentin Percocet(TM) (oxycodone) 03/04/2025 9:05 AM EDT [facility] Barbiturates Absent Cutoff 200 ng/mL 03/04/2025 9:05 AM EDT [facility] THC <10 Cutoff 10 ng/mL ng/mL 03/04/2025 9:05 AM EDT [facility] Comment:5-wlcmzbe-abtmukmeqj cannabinol; does not distinguish between prescribed and [...] 03/04/2025 9:05 AM EDT [facility] Comment:e.g., Adipex, Lomair a, Ionamin,Fastin,Zantryl Gabapentin >2,000(H) Cutoff 50 ng/mL ng/mL 03/04/2025 9:05 AM EDT [facility] Comment:e.g, Neurontin Pregabalin <50 Cutoff 50 ng/mL ng/mL 03/04/2025 9:05 AM EDT [facility] Comment:Lyrica Alprazolam <8 Cutoff 8 ng/mL ng/mL 03/04/2025 9:05 AM EDT [facility] Comment:e.g, Xanax, Niravam alpha-Hydroxyalprazolam <25 Cutoff 25 ng/mL ng/mL 03/04/2025 9:05 AM EDT [facility] Comment:Metabolite of Alpraz olam Clonazepam <10 Cutoff 10 ng/mL ng/mL 03/04/2025 9:05 AM EDT [facility] Comment:e.g., Klonopin, Clon opin 7-Aminoclonazepam <25 Cutoff 25 ng/mL ng/mL 03/04/2025 9:05 AM EDT [facility] Comment:Metabolite of Clonaz epam Diazepam <10 Cutoff 10 ng/mL ng/mL 03/04/2025 9:05 AM EDT [facility] Comment:e.g, Valium, Diastat Nordiazepam <25 Cutoff 25 ng/mL ng/mL 03/04/2025 9:05 AM EDT [facility] Comment:Metabolite of Chlord iazepoxide(Librium), Clorazepate(Tranxene), Diazepam, Halazepam, (Alapryl), Prazepam(Centrax) Flunitrazepam <50 Cutoff 50 ng/mL ng/mL 03/04/2025 9:05 AM EDT [facility] Comment:e.g.,Rohypnol, [place] zep 7-Aminoflunitrazepam <50 Cutoff 50 ng/mL ng/mL 03/04/2025 9:05 AM EDT [facility] Comment:Metabolite of Flunit razepam Flurazepam <50 Cutoff 50 ng/mL ng/mL 03/04/2025 9:05 AM EDT [facility] Comment:e.g., [place] Hydroxyethylflurazepam <50 Cutoff 50 ng/mL ng/mL 03/04/2025 9:05 AM EDT [facility] Comment:Metabolite of Fluraz epam Lorazepam <50 Cutoff 50 ng/mL ng/mL 03/04/2025 9:05 AM EDT [facility] Comment:e.g., Ativan Lorazepam Glucuronide <50 Cutoff 50 ng/mL ng/mL 03/04/2025 9:05 AM EDT [facility] Comment:Metabolite of Loraze lennie Midazolam <50 Cutoff 50 ng/mL ng/mL 03/04/2025 9:05 AM EDT [facility] Comment:e.g., Versed alpha-hydroxymidazolam <50 Cutoff 50 ng/mL ng/mL 03/04/2025 9:05 AM EDT [facility] Comment:Metabolite of Versed Oxazepam <50 Cutoff 50 ng/mL ng/mL 03/04/2025 9:05 AM EDT [facility] Comment:e.g., Serax; also Me tabolite of Temazepam, and Nordiazepam Oxazepam Glucuronide <50 Cutoff 50 ng/mL ng/mL 03/04/2025 9:05 AM EDT [facility] Comment:Metabolite of Oxazep am Temazepam <50 Cutoff 50 ng/mL ng/mL 03/04/2025 9:05 AM EDT [facility] Comment:e.g., Restoril; also Metabolite of Diazepam Temazepam Glucuronide <50 Cutoff 50 ng/mL ng/mL 03/04/2025 9:05 AM EDT [facility] Comment:Metabolite of Temaze lennie and Diazepam Triazolam <50 Cutoff 50 ng/mL ng/mL 03/04/2025 9:05 AM EDT [facility] Comment:e.g., Halcion alpha-hydroxytriazolam <50 Cutoff 50 ng/mL ng/mL 03/04/2025 9:05 AM EDT [facility] Comment:Metabolite of Triazo herrera Buprenorphine <5 Cutoff 5 ng/mL ng/mL 03/04/2025 9:05 AM EDT [facility] Comment:e.g., Suboxone, Subu sandrita,Sublocade, Buprenex Buprenorphine Glucuronide <10 Cutoff 10 ng/mL ng/mL 03/04/2025 9:05 AM EDT [facility] Comment:Buprenorphine Metabo lite Norbuprenorphine <5 Cutoff 5 ng/mL ng/mL 03/04/2025 9:05 AM EDT [facility] Comment:Buprenorphine Metabo lite Norbuprenorphine Glucuronide <10 Cutoff 10 ng/mL ng/mL 03/04/2025 9:05 AM EDT [facility] Comment:Buprenorphine Metabo lite Benzoylecgonine <50 Cutoff 50 ng/mL ng/mL 03/04/2025 9:05 AM EDT [facility] Comment:Cocaine Metabolite Fentanyl <1 Cutoff 1 ng/mL ng/mL 03/04/2025 9:05 AM EDT [facility] Comment:e.g.,Duragesic, Oral et, Actiq, Sublimaze, Innovar, Lazanda Norfentanyl <1 Cutoff 1 ng/mL ng/mL 03/04/2025 9:05 AM EDT [facility] Comment:Metabolite of Fentan yl 6-Monoacetylmorphine (6MAM) <10 Cutoff 10 ng/mL ng/mL 03/04/2025 9:05 AM EDT [facility] Comment:Metabolite of Heroin ; Morphine is expected Methadone <50 Cutoff 50 ng/mL ng/mL 03/04/2025 9:05 AM EDT [facility] Comment:e.g., Dolophine, Met hadose, Amidone EDDP <50 Cutoff 50 ng/mL ng/mL 03/04/2025 9:05 AM EDT [facility] Comment:Methadone Metabolite Carisoprodol <100 Cutoff 100 ng/mL ng/mL 03/04/2025 9:05 AM EDT [facility] Comment:e.g., Soma Meprobamate <100 Cutoff 100 ng/mL ng/mL 03/04/2025 9:05 AM EDT [facility] Comment:e.g., [place], Equa nil, Micrainin, Equagesic; Metabolite of Carisoprodol Codeine <50 Cutoff 50 ng/mL ng/mL 03/04/2025 9:05 AM EDT [facility] Comment:e.g., Acetaminophen w/Codeine, Tylenol3 w/ Codeine Codeine Glucuronide <50 Cutoff 50 ng/mL ng/mL 03/04/2025 9:05 AM EDT [facility] Comment:Metabolite of Codein e Meperidine <50 Cutoff 50 ng/mL ng/mL 03/04/2025 9:05 AM EDT [facility] Comment:e.g., Demerol, Pethi dine Normeperidine <50 Cutoff 50 ng/mL ng/mL 03/04/2025 9:05 AM EDT [facility] Comment:Metabolite of Meperi dine Morphine <50 Cutoff 50 ng/mL ng/mL 03/04/2025 9:05 AM EDT [facility] Comment:e.g., MS Contin, Yaa anol; Metabolite of Codeine and Heroin; may reflect poppy seed ingestion Ticzunvw-7-Tqapusohdtj <25 Cutoff 25 ng/mL ng/mL 03/04/2025 9:05 AM EDT [facility] Comment:Metabolite of [place] ne. Gnjccmjo-9-Djanhjersbd <25 Cutoff 25 ng/mL ng/mL 03/04/2025 9:05 AM EDT [facility] Comment:Metabolite of [place] ne. Naloxone <25 Cutoff 25 ng/mL ng/mL 03/04/2025 9:05 AM EDT [facility] Comment:e.g., Narcan, Evzio Hydrocodone <50 Cutoff 50 ng/mL ng/mL 03/04/2025 9:05 AM EDT [facility] Comment:e.g., Lorcet, Lortab , Vicodin, [place]; Minor Metabolite of Codeine Dihydrocodeine <50 Cutoff 50 ng/mL ng/mL 03/04/2025 9:05 AM EDT [facility] Comment:e.g., Didrate, Parzo ne, Parlor, Synalgos; Metabolite of Hydrocodone Norhydrocodone <50 Cutoff 50 ng/mL ng/mL 03/04/2025 9:05 AM EDT [facility] Comment:Metabolite of Hydroc odone Hydromorphone <50 Cutoff 50 ng/mL ng/mL 03/04/2025 9:05 AM EDT [facility] Comment:e.g., Dilaudid; also Metabolite of Hydrocodone and Minor Metabolite of Morphine Hydromorphone Glucuronide <50 Cutoff 50 ng/mL ng/mL 03/04/2025 9:05 AM EDT [facility] Comment:Metabolite of Hydrom orphone Oxycodone >2,000(H) Cutoff 50 ng/mL ng/mL 03/04/2025 9:05 AM EDT [facility] Comment:e.g., Oxycontin, Per cocet, Endocet, Percodan, Roxicet Noroxycodone >2,000(H) Cutoff 50 ng/mL ng/mL 03/04/2025 9:05 AM EDT [facility] Comment:Metabolite of Oxycod one Oxymorphone <50 Cutoff 50 ng/mL ng/mL 03/04/2025 9:05 AM EDT [facility] Comment:e.g., Opana; Metabol ite of Oxycodone Oxymorphone Glucuronide >2,000(H) Cutoff 50 ng/mL ng/mL 03/04/2025 9:05 AM EDT [facility] Comment:Metabolite of Oxycod one Noroxymorphone 331(H) Cutoff 50 ng/mL ng/mL 03/04/2025 9:05 AM EDT [facility] Comment:Metabolite of Oxycod one, and Oxymorphone, Noroxycodone Metabolite Tramadol <50 Cutoff 50 ng/mL ng/mL 03/04/2025 9:05 AM EDT [facility] Comment:e.g., Ultram, ConZip A-[id number]-Tramadol <50 Cutoff 50 ng/mL ng/mL 03/04/2025 9:05 AM EDT [facility] Comment:Metabolite of Tramad ol Tapentadol <50 Cutoff 50 ng/mL ng/mL 03/04/2025 9:05 AM EDT [facility] Comment:Nucynta Tapentadol-Glucuronide <50 Cutoff 50 ng/mL ng/mL 03/04/2025 9:05 AM EDT [facility] Comment:Metabolite of Tapent adol Urine Creatinine 72.7 mg/dL 03/04/20 9:05 AM EDT [facility] Comment: Greater than 20: Consistent with valid sample Greater than 2 but less than 20: Possible dilution Less than 2: Questionable valid sample Urine STRUCTURE OF URINARY TRACT PROPER / Unknown 03/02/2025 11:00 AM EDT 03/02/2025 11:00 AM EDT Narrative [facility] - 03/04/2025 9:05 AM EDT The absence of expected drug(s), and/or drug metabolite(s), may indicate non-compliance, diluted or adulterated urine, poor drug absorption, concentration of drug below the cut-off, timing of specimen collection relative to administration of drug, or limitations of testing. Specimens are held for 7 days. This test was developed, and its performance characteristics determined by [facility] ([facility]). It has not been cleared or approved by the FDA. This test is used for clinical purposes. It should not be regarded as investigational or for research. [facility] is certified under the Clinical Laboratory Improvement Amendments (CLIA) as qualified to perform high complexity clinical laboratory testing. Dillon Ibrahim APRN URINE ORDERABLES Final Resul t [facility] Interventional Imaging[address], [address] [place] [id number] [facility] [address] [place], [place] [id number] * VITAMIN B12/ FOLIC ACID (03/02/2025 11:00 AM EDT) Only the most recent of2 resultswithin the time period is included. Vitamin B12 884 232 - 1,245 pg/mL 03/02/2025 3:49 PM EDT [facility] Folate >16.00 >=4.50 ng/mL 03/02/2025 3:49 PM EDT [facility] Blood VENOUS BLOOD / Unknown Venipuncture / Unknown 03/02/2025 11:00 AM EDT 03/02/2025 11:00 AM EDT Narrative [facility] [employer] [employer] - 03/02/2025 3:49 PM EDT Ingestion of jefferson doses of biotin (>5 mg/day) taken within 8 hours of drawing blood sample can interfere with this immunoassay test. us Dillon Bartolo Ibrahim WAREHOUSE STOCKER CHEMISTRY ORDERABLES Final R esult [facility] [address] [facility] , [address] [place] [id number] * (ABNORMAL) CBC (03/02/2025 11:00 AM EDT) Only the most recent of13 resultswithin the time period is included. WBC 7.9 3.7 - 10.3 x10(3)/mcL 03/02/2025 [...] AM EDT 03/02/2025 11:00 AM EDT Dillon Ibrahim APRN HEMATOLOGY ORDERABLES Final Result Performing Organization Address [facility] Phone Number [facility] [employer] [address] , [place] [address] * VITAMIN D 25 HYDROXY (03/02/2025 11:00 AM EDT) Only the most recent of3 resultswithin the time period is included. Vit D 25 OH 42.9 30.0 - 150.0 ng/mL 03/02/2025 3:49 PM EDT [facility] [employer] [facility] Comment: Preferred: >= 30 ng/mL Insufficient: 21-29 ng/mL Deficient <= 20 ng/mL Possible Toxicity: >150 ng/mL Samples should not be taken from patients receiving therapy with high biotin doses (i.e. > 5 mg/day) until at least 8 hours following the last biotin administration. Blood VENOUS BLOOD / Unknown Venipuncture / Unknown 03/02/2025 11:00 AM EDT 03/02/2025 11:00 AM EDT Dillon Ibrahim APRN CHEMISTRY ORDERABLES Final R esult Performing Organization Address [facility] Phone Number [facility] Interventional Imaging[address] , [place] [address] * THYROID STIMULATING HORMONE (03/02/2025 11:00 AM EDT) Only the most recent of7 resultswithin the time period is included. TSH 0.496 0.270 - 4.200 mcIU/mL 03/02/2025 4:09 PM EDT [facility] [employer] [facility] Blood VENOUS BLOOD / Unknown Venipuncture / Unknown 03/02/2025 11:00 AM EDT 03/02/2025 11:00 AM EDT Narrative [facility]REF[facility]ED [employer] [facility] - 03/02/2025 4:09 PM EDT Ingestion of jefferson doses of biotin (>5 mg/day) taken within 8 hours of drawing blood sample can interfere with this immunoassay test. Dillon Ibrahim APRN CHEMISTRY ORDERABLES Final R esult Performing Organization Address City/[facility] Co de Phone Number [facility] [employer] [address] , [place] [address] * IRON LEVEL (03/02/2025 11:00 AM EDT) Only the most recent of2 resultswithin the time period is included. Pathologist [facility] Iron 141 50 - 170 mcg/dL 03/03/2025 7:46 PM EDT [facility] Blood VENOUS BLOOD / Unknown Venipuncture / Unknown 03/02/2025 11:00 AM EDT 03/02/2025 11:00 AM EDT Dillon Ibrahim APRN CHEMISTRY ORDERABLES Final R esult Performing Organization Address [facility] Co de Phone Number [facility] [employer] [address] , [place] [address] * HEMOGLOBIN A1C (03/02/2025 11:00 AM EDT) Only the most recent of5 resultswithin the time period is included. [facility] Hgb A1C 5.5 4.2 - 5.6 % 03/02/2025 3:52 PM EDT [facility] [employer] Est. Avg Glucose 111 mg/dL 03/02/2025 3:52 PM EDT [facility] [employer] Blood VENOUS BLOOD / Unknown Venipuncture / Unknown 03/02/2025 11:00 AM EDT 03/02/2025 11:00 AM EDT Narrative [facility] - 03/02/2025 3:52 PM EDT REFERENCE RANGE: Normal: 4.0-5.6% Pre-diabetes: 5.7-6.4% Provisional diagnosis of diabetes: >6.4% Hgb F>10% and anything which shortens red cell survival, such as hemolytic anemia, or unstable hemoglobin variants such as HbSS, HbSC, or HbCC, will lower the HbA1c value associated with a given level of glycemic control. us Dillon Bartolo Ibrahim WAREHOUSE STOCKER CHEMISTRY ORDERABLES Final R esult [facility] [employer] [address] [place] [address] , [address] [place] [id number] * HOLTER MONITOR RECORDING AND ANALYSIS (08/10/2024 10:46 AM EST) Only the most recent of2 resultswithin the time period is included. Anatomical Region Laterality Modality Holter/Event Mon itoring 08/15/2024 12:4 9 PM EST Impressions 08/15/2024 12:34 PM EST AlohaKarla Elias Dc Test Date: 2024-08-15 Pat Name: JERMAINE HE Department: DEPID Room: Gender: Male Sap Manager: : 1945 Requested By: DEEPA Pascal Order Number: [id number] Barbara MD: Deepa Saucedo MD Interpretive Statements Child Support Investigator Date: 08/10/2024 Referring Provider: Dr. Deepa Saucedo MD Patient was monitored for 24 hours. INDICATIONS: Essential (primary) hypertension CONCLUSION: Patient monitored for 1d 21h, analyzable time was 1d 21h starting on 08/10/2024 10:39 am. Primary rhythm was Sinus bradycardia. Average heart rate was 57 bpm, Minimum heart rate was 36 bpm on Day 3 / :41:00 am, Max heart rate was 102 bpm on Day :09:03 pm PVC(s): [place] was 0.04 %, 58 total PVC(s), 2 disparate morphologies Electronically Signed On 08-15-2024 12:34:42 EST by Deepa Saucedo MD Narrative Procedure Note Deepa Saucedo MD - 08/15/2024 IMPRESSION Aloha Grant Dc Test Date: 2024-08-15 Pat Name: JERMAINE HE Department: DEPID Room: Gender: Male Sap Manager: : 1945 Requested By: DEEPA POST Order Number: [id number] Barbara MD: Deepa Saucedo MD Interpretive Statements Child Support Investigator Date: 08/10/2024 Referring Provider: Dr. Deepa Saucedo MD Patient was monitored for 24 hours. INDICATIONS: Essential (primary) hypertension CONCLUSION: Patient monitored for 1d 21h, analyzable time was 1d 21h starting on 08/10/2024 10:39 am. Primary rhythm was Sinus bradycardia. Average heart rate was 57 bpm,Minimum heart rate was 36 bpm on Day :41:00 am, Max heart rate was 102 bpmon :09:03 pm PVC(s): [place] was 0.04 %, 58 total PVC(s), 2 disparate morphologies Electronically Signed On 08-15-2024 12:34:42 EST by Deepa Saucedo MD us Deepa Saucedo MD IMG HOLTER MONITOR ORDER WILL Final Result * (ABNORMAL) COMPREHENSIVE METABOLIC PANEL (08/08/2024 10:53 AM EST) Only the most recent of17 resultswithin the time period is included. Sodium 137 136 - 145 mmol/L 08/08/2024 5:42 PM EST [facility] Potassium 4.4 3.5 - 5.0 mmol/L 08/08/2024 5:42 PM EST [facility] Chloride 98 98 - 107 mmol/L 08/08/2024 5:42 PM EST [facility] Total CO2 30(H) 22 - 29 mmol/L 08/08/2024 5:42 PM EST [facility] Anion Gap 9 7 - 16 mmol/L 08/08/2024 5:42 PM EST [facility] Calcium 9.6 8.8 - 10.4 mg/dL 08/08/2024 5:42 PM EST [facility] Glucose Lvl 100(H) 70 - 99 mg/dL 08/08/2024 5:42 PM EST [facility] BUN 10 8 - 23 mg/dL 08/08/2024 5:42 PM EST [facility] Creatinine 0.89 0.67 - 1.30 mg/dL 08/08/2024 5:42 PM EST [facility] Albumin 4.1 3.2 - 4.6 gm/dL 08/08/2024 5:42 PM EST [facility] Total Protein 6.7 6.4 - 8.3 gm/dL 08/08/2024 5:42 PM EST [facility] Bili Total 0.5 0.2 - 1.4 mg/dL 08/08/2024 5:42 PM EST [facility] ALT 23 <=41 U/L 08/08/2024 5:42 PM EST [facility] AST 32 <=40 U/L 08/08/2024 5:42 PM EST [facility] Alk Phos 102 40 - 129 U/L 08/08/2024 5:42 PM EST [facility] eGFR (CKD-EPIcr 2020) 89 >=60 mL/min/1.7 3 m2 08/08/2024 5:42 PM EST [facility] Comment:Estimated GFR was ca lculated using the CKD-EPIcr (2020) equation refit without race. The equation is recommended by the National Kidney Foundation - [employer]ph[employer] Task Force. Blood VENOUS BLOOD / Unknown Venipuncture / Unknown 08/08/2024 10:53 AM EST 08/08/2024 10:53 AM EST Dillon Ibrahim APRN CHEMISTRY ORDERABLES Final R esult [facility], [address], [address] [place] [phone] [facility] [address] [place], [place] [id number] * HEPATIC FUNCTION PANEL (03/13/2024 8:50 AM EDT) Only the most recent of7 resultswithin the time period is included. Total Protein 6.8 6.4 - 8.3 gm/dL 03/13/2024 5:05 PM EDT [facility] Albumin 4.4 3.2 - 4.6 gm/dL 03/13/2024 5:05 PM EDT [facility] Bili Direct 0.2 0.0 - 0.3 mg/dL 03/13/2024 5:05 PM EDT [facility] Bili Total 0.7 0.2 - 1.4 mg/dL 03/13/2024 5:05 PM EDT [facility] [employer], [facility] AST 28 <=40 U/L 03/13/2024 5:05 PM EDT [facility], [facility] ALT 7 <=41 U/L 03/13/2024 5:05 PM EDT [facility] [employer], [facility] Alk Phos 92 40 - 129 U/L 03/13/2024 5:05 PM EDT [facility] [employer], [facility] Blood VENOUS BLOOD / Unknown Venipuncture / Unknown 03/13/2024 8:50 AM EDT 03/13/2024 8:50 AM EDT us Deepa Saucedo MD CHEMISTRY ORDERABLES Fin al Result [facility], [facility] [address] [facility] , [place] [address] * LIPID SCREEN (03/13/2024 8:50 AM EDT) Only the most recent of6 resultswithin the time period is included. Cholesterol 164 <200 mg/dL 03/13/2024 5:05 PM EDT [facility], [facility] Comment: < 200 Desirable 200 - 239 Borderline High >= 240 High Triglyceride 55 <150 mg/dL 03/13/2024 5:05 PM EDT [facility] [employer], [facility] Comment: < 150 Normal 150 - 199 Borderline High 200 - 499 High >= 500 Very High HDL 92 >=40 mg/dL 03/13/2024 5:05 PM EDT [facility], [facility] Comment: > 60 Optimal 40 - 60 Acceptable < 40 Low LDL Calculated 61 <100 mg/dL 03/13/2024 5:05 PM EDT [facility] [employer], [facility] Comment: < 100 Optimal 100 - 129 Near or above optimal 130 - 159 Borderline High 160 - 189 High >= 190 Very High Non-HDL-C Calculated 72 <=129 mg/dL 03/13/2024 5:05 PM EDT [facility] [employer], [facility] Comment: <130 Desirable 130-159 Above Desirable 160-189 Borderline High 190-219 High >= 220 Very High Fasting Specimen? Yes None 024 5:05 PM EDT [facility] Blood VENOUS BLOOD / Unknown Venipuncture / Unknown 03/13/2024 8:50 AM EDT 03/13/2024 8:50 AM EDT us Deepa Saucedo MD CHEMISTRY ORDERABLES Fin al Result [facility] [address] [facility], [address] [place] [id number] [facility] [address] [place] [address] * (ABNORMAL) BASIC METABOLIC PANEL (03/13/2024 8:50 AM EDT) Only the most recent of25 resultswithin the time period is included. Sodium 139 136 - 145 mmol/L 03/13/2024 5:05 PM EDT [facility] Potassium 3.4(L) 3.5 - 5.0 mmol/L 03/13/2024 5:05 PM EDT [facility] Chloride 99 98 - 107 mmol/L 03/13/2024 5:05 PM EDT [facility] Total CO2 30(H) 22 - 29 mmol/L 03/13/2024 5:05 PM EDT [facility] Anion Gap 10 7 - 16 mmol/L 03/13/2024 5:05 PM EDT [facility] Calcium 9.8 8.8 - 10.4 mg/dL 03/13/2024 5:05 PM EDT [facility] Glucose Lvl 93 70 - 99 mg/dL 03/13/2024 5:05 PM EDT [facility] BUN 7(L) 8 - 23 mg/dL 03/13/2024 5:05 PM EDT [facility] Creatinine 0.84 0.67 - 1.30 mg/dL 03/13/2024 5:05 PM EDT [facility] eGFR (CKD-EPIcr 2020) 90 >=60 mL/min/1.7 3 m2 03/13/2024 5:05 PM EDT [facility] Comment:Estimated GFR was ca lculated using the CKD-EPIcr (2020) equation refit without race. The equation is recommended by the National Kidney Foundation - [employer] Neph[employer] Task Force. Blood VENOUS BLOOD / Unknown Venipuncture / Unknown 03/13/2024 8:50 AM EDT 03/13/2024 8:50 AM EDT us Deepa Saucedo MD CHEMISTRY ORDERABLES Fin al Result [facility] [address], [address] [place] [id number] [facility] [address] [place], [place] [id number] * MM US BREAST LIMITED BILATERAL (10/14/2023 10:43 AM EST) Anatomical Region Laterality Modality Breast Bilateral Ultrasound 10/14/2023 11:3 9 AM EST Impressions 10/14/2023 11:39 AM EST Negative (RJJ-Xqgpverz-0) ~ RECOMMENDATION: Manage patient on clinical basis. ~ DISCLAIMER * Any patient with a palpable abnormality, unexplained by breast imaging, should be managed on clinical basis by the attending physician. * Breast imaging has a false negative rate of 15%. * The patient was notified by mail of the results of this examination. *The patient's information was entered into a reminder system with a target due date for the next mammogram, in accordance with the [employer] and the Society of Breast Imaging recommendations. Narrative 10/14/2023 11:39 AM EST Procedure:MM US BREAST LIMITED BILATERAL ~ N64.5-Hnknmpkbva-ZRW-10-CM N63.23-Unspecified lump in the left breast, lower outer dtyulchy-MXU-67-CM ~ MM US BREAST LIMITED BILATERAL Standard views. ~ Prior study comparison: Compared with prior studies the most recent being baseline mammogram dated 10/14/2023. No comparison breast ultrasound imaging studies. Left breast: Targeted ultrasound imaging performed at 3:00 and 9:00 in region of palpable findings. Unremarkable sonographic appearance of visualized breast tissue. No characteristic abnormality. ~ Right breast: Targeted ultrasound imaging performed at 10:00 in region of palpable findings. Unremarkable sonographic appearance of visualized breast tissue. No characteristic abnormality. ~ Procedure Note Darshan Woo DO - 10/14/2023 Procedure:MM US BREAST LIMITED BILATERAL ~ N64.5-Dxaawmrobr-RFK-10-CM N63.23-Unspecified lump in the left breast, lower tquvcyrgzeneq-TOV-84-CM ~ MM US BREAST LIMITED BILATERAL Standard views. ~ Prior study comparison: Compared with prior studies the most recentbeing baseline mammogram dated 10/14/2023. No comparison breast ultrasoundimaging studies. Left breast: Targeted ultrasound imaging performed at 3:00 and 9:00 in region of palpable findings. Unremarkable sonographic appearance of visualized breast tissue. No characteristic abnormality. ~ Right breast: Targeted ultrasound imaging performed at 10:00 in regionof palpable findings. Unremarkable sonographic appearance of visualizedbreast tissue. No characteristic abnormality. ~ IMPRESSION: Negative (GZL-Pdrwgith-7) ~ RECOMMENDATION: Manage patient on clinical basis. ~ DISCLAIMER * Any patient with a palpable abnormality, unexplained by breast imaging, should be managed on clinical basis by the attending physician. * Breast imaging has a false negative rate of 15%. * The patient was notified by mail of the results of this examination. *The patient's information was entered into a reminder system with atarget due date for the next mammogram, in accordance with the [employer] and the Society of Breast Imaging recommendations. Dillon Ibrahim APRN IMG MAMMOGRAPHY ORDERABLES F inal Result * MM MAMMO DIGITAL FREDI DIAGN BILAT (10/14/2023 10:16 AM EST) Anatomical Region Laterality Modality Breast Bilateral Mammography 10/14/2023 11:1 2 AM EST Impressions 10/14/2023 11:12 AM EST Incomplete-need additional imaging evaluation (VEU-Faketkuc-8) ~ RECOMMENDATION: Ultrasound of both breasts. This ultrasound examination will be performed on the same date and reported separately. ~ DISCLAIMER * Any patient with a palpable abnormality, unexplained by breast imaging, should be managed on clinical basis by the attending physician. * Breast imaging has a false negative rate of 15%. * The patient was notified by mail of the results of this examination. *The patient's information was entered into a reminder system with a target due date for the next mammogram, in accordance with the [employer] and the Society of Breast Imaging recommendations. Narrative 10/14/2023 11:12 AM EST Procedure:MM MAMMO DIGITAL FREDI DIAGN BILAT ~ Reason for exam: clinical finding. N64.9-Xbhfswixxv-WKN-10-CM N63.23-Unspecified lump in the left breast, lower outer fvognakl-FHY-86-CM N64.7-Xyowixejeb-BEN-10-CM N63.23-Unspecified lump in the left breast, lower outer ttnxhrqn-YEK-57-CM ~ MM MAMMO DIGITAL FREDI DIAGN BILAT Bilateral CC and MLO view(s) were taken. The breast tissue is almost entirely fat. The patient presents with bilateral mastodynia and clinically palpable findings. Recent significant progressive weight loss. ~ The breasts are symmetric in size. No focal mass/architectural distortion. No subareolar changes characteristic of gynecomastia. No suspicious calcifications. No axillary adenopathy. ~ Bilateral targeted breast ultrasound imaging requested. ~ Procedure Note Darshan Woo DO - 10/14/2023 Procedure:MM MAMMO DIGITAL FREDI DIAGN BILAT ~ Reason for exam: clinical finding. N64.0-Txugkkedlc-BXL-10-CM N63.23-Unspecified lump in the left breast, lower aconiavdsbhgx-OPU-59-CM N64.2-Qixngzvdzc-HZK-10-CM N63.23-Unspecified lump in the left breast, lower fhaeekbrbsdbo-KFV-14-CM ~ MM MAMMO DIGITAL FREDI DIAGN BILAT Bilateral CC and MLO view(s) were taken. The breast tissue is almost entirely fat. The patient presents with bilateral mastodynia and clinically palpable findings. Recentsignificant progressive weight loss. ~ The breasts are symmetric in size. No focal mass/architecturaldistortion. No subareolar changes characteristic of gynecomastia. No suspicious calcifications. No axillary adenopathy. ~ Bilateral targeted breast ultrasound imaging requested. ~ IMPRESSION: Incomplete-need additional imaging evaluation (XLJ-Putncnwp-0) ~ RECOMMENDATION: Ultrasound of both breasts. This ultrasound examination will be performed on the same date andreported separately. ~ DISCLAIMER * Any patient with a palpable abnormality, unexplained by breast imaging, should be managed on clinical basis by the attending physician. * Breast imaging has a false negative rate of 15%. * The patient was notified by mail of the results of this examination. *The patient's information was entered into a reminder system with atarget due date for the next mammogram, in accordance with the [employer] and the Society of Breast Imaging recommendations. us Dillon Ibrahim WAREHOUSE STOCKER IMG MAMMOGRAPHY ORDERABLES F inal Result * SCANNED EKG (08/09/2023 11:43 AM EST) Only the most recent of4 resultswithin the time period is included. Anatomical Region Laterality Modality Other 08/09/2023 11:4 3 AM EST us Unknown Provider IMG ECG ORDERABLES Final Result * (ABNORMAL) TROPONIN-T HIGH SENSITIVITY 2HR (07/30/2023 7:49 PM EST) gx-uWdjoekvg-O 2HR 23(H) <22 ng/L 07/30/2023 8:11 PM EST [facility] Comment:See the website Figure 8 Surgical for rule out CT care pathway, conditions other than AMI that can cause elevated hs cTnT, and comparison of values from the 4th and 5th generation Gloria tests. [email or web address] hs-cTnT 2Hr Delta from Baseline -3 <4 ng/L 07/30/2023 8:11 PM EST [facility] Blood VENOUS BLOOD / Unknown Venipuncture / Unknown 07/30/2023 7:49 PM EST 07/30/2023 7:51 PM EST Narrative [facility] - 07/30/2023 8:11 PM EST Ingestion of jefferson doses of biotin (>5 mg/day) taken within 8 hours of drawing blood sample can interfere with this immunoassay test. us Elder Parish MD CHEMISTRY ORDERABLES Final Res ult [facility] [address] [place] [address] * CT ANGIOGRAM PULMONARY W CONTRAST (07/30/2023 6:05 PM EST) Anatomical Region Laterality Modality Chest Computed Tomogra phy 07/30/2023 6:05 PM EST Impressions 07/30/2023 6:23 PM EST No acute pulmonary embolism or other acute finding. - Note: Radiology results need to be interpreted within a comprehensive clinical context. If you have questions about the radiology report, please contact the office of the ordering clinician. Narrative 07/30/2023 6:[address] PULMONARY ANGIOGRAM, 07/30/2023 6:05 PM CLINICAL HISTORY: -Chest Pain. COMPARISON: February 22, 2023. TECHNIQUE: PE protocol CT angiogram of the chest using Isovue 370 IV contrast as recorded in [facility]. 2-D multiplanar reconstructions and 3-D MIP reconstructions reviewed. Dose 1 : CT DLP Total : 423.6 mGycm DLP Spiral Max : 403.7 mGycm Maximum CTDI Vol : 54.3 mGy SSDE : 61.359 mGy SSDE Diameter : 32.3 cm SSDE Source : [employer] FINDINGS: No acute pulmonary embolism. No aortic aneurysm. Basilar atelectasis again noted. No interval pneumonia, mass, effusion or pneumothorax. No suspicious pulmonary nodule or mediastinal mass lesion. Coronary artery calcification: Severe. Procedure Note Simeon Castaneda MD - 07/30/2023 CT PULMONARY ANGIOGRAM, 07/30/2023 6:05 PM CLINICAL HISTORY: -Chest Pain. COMPARISON: February 22, 2023. TECHNIQUE: PE protocol CT angiogram of the chest using Isovue 370 IVcontrast as recorded in [facility]asha. 2-D multiplanar reconstructions and 3-D MIP reconstructions reviewed. Dose 1 : CT DLP Total : 423.6 mGycm DLP Spiral Max : 403.7 mGycm Maximum CTDI Vol : 54.3 mGy SSDE : 61.359 mGy SSDE Diameter : 32.3 cm SSDE Source : [employer] FINDINGS: No acute pulmonary embolism. No aortic aneurysm. Basilar atelectasis again noted. No interval pneumonia, mass, effusionor pneumothorax. No suspicious pulmonary nodule or mediastinal mass lesion. Coronary artery calcification: Severe. IMPRESSION: No acute pulmonary embolism or other acute finding. - Note: Radiology results need to be interpreted within a comprehensiveclinical context. If you have questions about the radiology report, please contactthe office of the ordering clinician. us Elder Parish MD IMG CT ORDERABLES Final Result * (ABNORMAL) TROPONIN-T HIGH SENSITIVITY BASELINE W/ REFLEX (07/30/2023 5:56 PM EST) [facility] hh-vHwkuvbii-S 26(H) <22 ng/L 07/30/2023 6:19 PM EST [facility] Comment:See the website cris matias for rule out CT care pathway, conditions other than AMI that can cause elevated hs cTnT, and comparison of values from the 4th and 5th generation Gloria tests. [email or web address] Blood VENOUS BLOOD / Unknown Venipuncture / Unknown 07/30/2023 5:56 PM EST 07/30/2023 5:59 PM EST Narrative [facility] - 07/30/2023 6:19 PM EST Ingestion of jefferson doses of biotin (>5 mg/day) taken within 8 hours of drawing blood sample can interfere with this immunoassay test. us Elder Parish MD CHEMISTRY ORDERABLES Final Res ult [facility] [address] [place] [address] * (ABNORMAL) CBC WITH DIFF (07/30/2023 5:56 PM EST) Only the most recent of12 resultswithin the time period is included. [facility] WBC 5.8 3.7 - 10.3 x10(3)/mcL 07/30/2023 6:02 PM EST [facility] RBC 4.40(L) 4.60 - 6.10 x10(6)/mcL 07/30/2023 6:02 PM EST [facility] Hgb 14.1 13.7 - 17.5 g/dL 07/30/2023 6:02 PM [facility] Hct 42.5 40.0 - 51.0 % 07/30/2023 6:02 PM [facility] MCV 96.6 80.0 - 100.0 fL 07/30/2023 6:02 PM [facility] MCH 32.0 26.0 - 34.0 pg 07/30/2023 6:02 PM [facility] MCHC 33.2 30.7 - 35.5 g/dL 07/30/2023 6:02 PM [facility] RDW 13.2 <=14.9 % 07/30/2023 6:02 PM [facility] Platelet 261 155 - 369 x10(3)/mcL 07/30/2023 6:02 PM [facility] MPV 9.6 8.8 - 12.5 fL 07/30/2023 6:02 PM [facility] Neut Percent 64.5 % 07/30/2023 6:02 PM [facility] Comment:Neutrophils equals s egs plus bands Imm Gran% 0.2 % 07/30/2023 6:02 PM [facility] Comment:Automated count of m etamyelocytes, myelocytes and promyelocytes. Lymph Percent 19.3 % 07/30/2023 6:02 PM [facility] Owen Percent 10.8 % 07/30/2023 6:02 PM [facility] Eos Percent 4.9 % 07/30/2023 6:02 PM [facility] Baso Percent 0.3 % 07/30/2023 6:02 PM [facility] Neut # 3.7 1.6 - 6.1 x10(3)/mcL 07/30/2023 6:02 PM [facility] Comment:Neutrophils equals s egs plus bands IMMGRAN# 0.0 0.0 - 0.1 x10(3)/mcL 07/30/2023 6:02 PM [facility] Comment:Automated count of m etamyelocytes, myelocytes and promyelocytes. An absolute IG <0.1 is reported as 0.0. Lymph # 1.1(L) 1.2 - 3.9 x10(3)/mcL 07/30/2023 6:02 PM EST [facility] Owen # 0.6 0.3 - 0.9 x10(3)/mcL 07/30/2023 6:02 PM EST [facility] Eos# 0.3 0.0 - 0.5 x10(3)/mcL 07/30/2023 6:02 PM EST [facility] Baso # 0.0 0.0 - 0.1 x10(3)/[facility] 07/30/2023 6:02 PM EST [facility] Blood VENOUS BLOOD / Unknown Venipuncture / Unknown 07/30/2023 5:56 PM EST 07/30/2023 5:59 PM EST us Elder Parish MD HEMATOLOGY ORDERABLES Final Re sult [facility] [address] [place] [address] * EK EKG 12 LEAD (07/30/2023 5:22 PM EST) Only the most recent of4 resultswithin the time period is included. Anatomical Region Laterality Modality Electrocardiogra phy 07/30/2023 5:31 PM EST Impressions 07/31/2023 12:43 PM EST AlohaPatti Elias Dc Test Date: 2023-07-30 Pat Name: JERMAINE HE Department: DEPID Room: Gender: Male Sap Manager: Em : 1945 Requested By: ELDER Barnhart Order Number: [id number] Reading MD: Tito Jha MD Measurements Intervals [place] Rate: 74 P: 44 GA: 212 QRS: -38 QRSD: 105 T: 52 QT: 372 QTc: 413 Interpretive Statements SINUS RHYTHM WITH FIRST DEGREE AV BLOCK Electronically Signed On 07-31-2023 12:43:29 EST by Tito Jha MD Narrative Procedure Note Tito Jha MD - 07/31/2023 IMPRESSION AlohaKarla Elias Dc Test Date: 2023-07-30 Pat Name: JERMAINE HE Department: DEPID Room: Gender: Male Sap Manager: Haley : 1945 Requested By: ELDER Barnhart Order Number: [id number] Reading MD: Tito Jha MD Measurements Intervals [place] Rate: 74 P: 44 GA: 212 QRS: -38 QRSD: 105 T: 52 QT: 372 QTc: 413 Interpretive Statements SINUS RHYTHM WITH FIRST DEGREE AV BLOCK Electronically Signed On 07-31-2023 12:43:29 EST by Tito Jha MD Elder Parish MD IMG ECG ORDERABLES Final Resul t * (ABNORMAL) D-DIMER (07/30/2023 1:27 PM EST) D-Dimer 1,058(H) <=500 ng/mL FEU 07/30/2023 1:40 PM EST [facility] Comment:This is an automated latex enhanced immunoassay for the quantitative determination of D-Dimer that may be used, in conjunction with a clinical pretest probability assessment, to exclude venous thromboembolism in patients suspected of deep venous thrombosis (DVT) and pulmonary embolism (PE). The cutoff for exclusion of DVT and PE is 500 ng/mL Fibrinogen Equivalent Units (FEU). Elevated D-Dimer levels may be associated with PE, DVT, disseminated intravascular coagulation, recent surgery, recent bleeding, , malignancy, and inflammation. Blood VENOUS BLOOD / Unknown Venipuncture / Unknown 07/30/2023 1:27 PM EST 07/30/2023 1:27 PM EST Narrative [facility] - 07/30/2023 1:40 PM EST For patients between the ages of 50 - 75, an age-adjusted D-Dimer cut-off in combination with non-high clinical probability may be considered for the exclusion of venous thromboembolism (calculation = age x 10). POLLY Easley, et al. [facility]. 2017;166(5):361-363 SEAN Darling et al. [employer]. 2015;(163):701-711. Natasha M, et al. LLUVIA. 2014;(11):2726-0537. Ilene Gambino PA-C HEMATOLOGY ORDERABLES Fi nal Result [facility] [address] [place] [address] * TSH REFLEX (07/29/2023 2:55 PM EST) Only the most recent of2 resultswithin the time period is included. TSH Reflex 0.467 0.270 - 4.200 mcIU/mL 07/30/2023 5:48 AM EST PREFERRED [facility] Blood VENOUS BLOOD / Unknown Venipuncture / Unknown 07/29/2023 2:55 PM EST 07/29/2023 2:58 PM EST Narrative [facility] - 07/30/2023 5:48 AM EST Ingestion of jefferson doses of biotin (>5 mg/day) taken within 8 hours of drawing blood sample can interfere with this immunoassay test. Guy Monge MD CHEMISTRY ORDERABLES Fin al Result [facility], [place] [address] * PROSTATE SPECIFIC ANTIGEN (SCREENING) (07/29/2023 2:55 PM EST) Only the most recent of5 resultswithin the time period is included. Total Psa 2.08 <=4.00 ng/mL 07/29/2023 10:52 PM EST [facility] Blood VENOUS BLOOD / Unknown Venipuncture / Unknown 07/29/2023 2:55 PM EST 07/29/2023 2:58 PM EST Narrative [facility] - 07/29/2023 10:52 PM EST The Luis [employer] total PSA electrochemiluminescence (ECLIA) immunoassay is used. Results obtained with different test methods or kits cannot be used interchangeably. The Luis method is approved for use as an aid in the detection of prostate cancer when used in conjunction with a digital rectal exam in individuals with a prostate aged 50 years or older. The assay is also indicated for the serial measurement of PSA to aid in the prognosis and management of prostate cancer patients. Elevated tPSA concentrations can only suggest the presence of prostate cancer until biopsy is performed. Levels may also be elevated in benign prostatic hyperplasia or inflammatory conditions of the prostate. Guy Monge MD CHEMISTRY ORDERABLES Fin al Result Performing Organization Address [facility] de Phone Number [facility] Relevant [employer] [address] , [place] [address] * T4, FREE (THYROXINE) (07/29/2023 2:55 PM EST) Only the most recent of4 resultswithin the time period is included. Pathologist [facility] Free T4 1.23 0.80 - 1.80 ng/dL 07/30/2023 5:48 AM EST [facility] Blood VENOUS BLOOD / Unknown Venipuncture / Unknown 07/29/2023 2:55 PM EST 07/29/2023 2:58 PM EST Narrative [facility] - 07/30/2023 5:48 AM EST Ingestion of jefferson doses of biotin (>5 mg/day) taken within 8 hours of drawing blood sample can interfere with this immunoassay test. Guy Monge MD CHEMISTRY ORDERABLES Catracho lomeli Result Performing Organization Address [facility] de Phone Number [facility] [employer] [address] [place] [address] , [address] [place] [id number] * XR CHEST PA AND LATERAL (07/29/2023 2:00 PM EST) Only the most recent of10 resultswithin the time period is included. Anatomical Region Laterality Modality Chest Radiographic Tracy ging 07/29/2023 2:00 PM EST Impressions 07/29/2023 2:05 PM EST No acute finding. - Note: Radiology results need to be interpreted within a comprehensive clinical context. If you have questions about the radiology report, please contact the office of the ordering clinician. Narrative 07/29/2023 2:05 PM EST PA AND LATERAL CHEST X-RAY, 07/29/2023 2:00 PM CLINICAL HISTORY: R50.9-Fever, [id number]-ZID-26-CM R05.1-Acute gmzqo-ODD-59-CM COMPARISON: 04/21/2023 PROCEDURE COMMENTS: Frontal and lateral views of the chest. FINDINGS: Elevation left hemidiaphragm is unchanged. Bibasilar linear scar. No focal consolidation. Fixation hardware involving the inferior thoracic spine is partially imaged. Heart size is within normal limits. Procedure Note Kwadwo Martino MD - 07/29/2023 PA AND LATERAL CHEST X-RAY, 07/29/2023 2:00 PM CLINICAL HISTORY: R50.9-Fever, [id number]-DAR-76-CM R05.1-Acute [id number]-EZP-24-CM COMPARISON: 04/21/2023 PROCEDURE COMMENTS: Frontal and lateral views of the chest. FINDINGS: Elevation left hemidiaphragm is unchanged. Bibasilar linearscar. No focal consolidation. Fixation hardware involving the inferior thoracicspine is partially imaged. Heart size is within normal limits. IMPRESSION: No acute finding. - Note: Radiology results need to be interpreted within a comprehensiveclinical context. If you have questions about the radiology report, please contactthe office of the ordering clinician. Ilene Gambino PA-C IMG DIAGNOSTIC IMAGING O RDERABLES Final Result * POCT CEPHEID SARS COV-2 RNA + FLU A/B + RSV (07/29/2023 1:41 PM EST) SARS COV-2 RNA Negative Negative, Invalid SEP OFFICE INFLUENZA A Negative Negative, Invalid SEP OFFICE INFLUENZA B Negative Negative, Invalid SEP OFFICE RSV Negative Negative, Invalid SEP OFFICE Lot Number [id number] SEP OFFICE Expiration Date 05/14/2025 SEP OFFICE SeriAl # SEP OFFICE Control Line Yes YES/NO SEP OFFICE 07/29/2023 1:41 PM EST Ilene Gambino PA-C POINT OF CARE TEST ORDER WILL Final Result SEP OFFICE * CT CHEST W CONTRAST (02/22/2023 1:21 PM EDT) Only the most recent of2 resultswithin the time period is included. Anatomical Region Laterality Modality Chest Computed Tomogra phy 02/22/2023 1:21 PM EDT Impressions 02/22/2023 1:36 PM EDT 1. Retained linear secretions within the trachea. 2. Mild bibasilar linear atelectasis. 3. No other acute intrathoracic process. 4. No suspicious pulmonary nodule. No lymphadenopathy within the chest. - Note: Radiology results need to be interpreted within a comprehensive clinical context. If you have questions about the radiology report, please contact the office of the ordering clinician. Narrative 02/22/2023 1:[address] CHEST WITH CONTRAST, 02/22/2023 1:21 PM CLINICAL HISTORY: R05.3-Chronic xeccf-VSP-91-CM. COMPARISON: CT chest with IV contrast 08/26/2015 and 2 view chest x-ray 04/05/2020 PROCEDURE COMMENTS: Multi detector CT scanning of the chest. Multiplanar reconstructions per protocol. Isovue 370 IV contrast given as recorded in EPIC. Dose 1 : CT DLP Total : 440.7 mGycm DLP Spiral Max : 440.7 mGycm Maximum CTDI Vol : 12.1 mGy FINDINGS: SUPPORT DEVICES: None. LOWER CERVICAL REGION: The visualized portion of the lower cervical region is unremarkable. LYMPH NODES: There is no axillary, mediastinal, or hilar lymphadenopathy. PLEURAL SPACES/DIAPHRAGM: No pleural effusion or pneumothorax. HEART AND GREAT VESSELS: Cardiac size is normal. No pericardial effusion. Thoracic aorta is normal in caliber with minimal atherosclerotic changes. Pulmonary arteries are unremarkable. Moderate coronary arterial calcifications. LUNGS: There are some retained linear mucus secretions within the trachea. No evidence of endobronchial lesion. Proximal airways are otherwise patent. Mild bibasilar linear/band like opacities are most compatible with atelectasis. Otherwise, no acute pulmonary process. No suspicious pulmonary nodule. UPPER GI TRACT: The esophagus is grossly unremarkable. BODY WALL: No aggressive osseous lesion. There are postoperative changes of thoracolumbar posterior pedicle devante and screw fusion, incompletely imaged. UPPER ABDOMEN: Unremarkable. Procedure Note Ruddy Cueto MD - 02/22/2023 CT CHEST WITH CONTRAST, 02/22/2023 1:21 PM CLINICAL HISTORY: R05.3-Chronic yastq-BVF-42-CM. COMPARISON: CT chest with IV contrast 08/26/2015 and 2 view chest x-ray 04/05/2020 PROCEDURE COMMENTS: Multi detector CT scanning of the chest. Multiplanar reconstructions per protocol. Isovue 370 IV contrast given as recorded inEPIC. Dose 1 : CT DLP Total : 440.7 mGycm DLP Spiral Max : 440.7 mGycm Maximum CTDI Vol : 12.1 mGy FINDINGS: SUPPORT DEVICES: None. LOWER CERVICAL REGION: The visualized portion of the lower cervical regionis unremarkable. LYMPH NODES: There is no axillary, mediastinal, or hilarlymphadenopathy. PLEURAL SPACES/DIAPHRAGM: No pleural effusion or pneumothorax. HEART AND GREAT VESSELS: Cardiac size is normal. No pericardialeffusion. Thoracic aorta is normal in caliber with minimal atheroscleroticchanges. Pulmonary arteries are unremarkable. Moderate coronary arterialcalcifications. LUNGS: There are some retained linear mucus secretions within the trachea.No evidence of endobronchial lesion. Proximal airways are otherwise patent.Mild bibasilar linear/band like opacities are most compatible withatelectasis. Otherwise, no acute pulmonary process. No suspicious pulmonary nodule. UPPER GI TRACT: The esophagus is grossly unremarkable. BODY WALL: No aggressive osseous lesion. There are postoperative changesof thoracolumbar posterior pedicle devante and screw fusion, incompletelyimaged. UPPER ABDOMEN: Unremarkable. IMPRESSION: 1. Retained linear secretions within the trachea. 2. Mild bibasilar linear atelectasis. 3. No other acute intrathoracic process. 4. No suspicious pulmonary nodule. No lymphadenopathy within the chest. - Note: Radiology results need to be interpreted within a comprehensiveclinical context. If you have questions about the radiology report, please contactthe office of the ordering clinician. Christi Vasquez MD [facility] ORDERABLES Final Result * CREATININE ISTAT (02/22/2023 1:16 PM EDT) Only the most recent of2 resultswithin the time period is included. Creatinine-iST AT 0.9 0.6 - 1.3 mg/dL 02/22/2023 1:23 PM EDT [facility] Blood BLOOD SPECIMEN / Unknown 02/22/2023 1:16 PM EDT 02/22/2023 1:23 PM EDT us Christi Vasquez MD POINT OF CARE TEST ORDERABLES Final Result [facility] [address] [place] [id number] * (ABNORMAL) PULMONARY FUNCTION TEST (02/10/2023 1:46 PM EDT) [facility] FVC_PRE 3.10 2.48 - 4.32 L 02/10/2023 4:19 PM EDT [facility] FVC_REF 3.39 02/10/2023 4:19 PM EDT [facility] FVC_LLN 2.48 02/10/2023 4:19 PM EDT [facility] FVC_Pre%REF 91 % 02/10/2023 4:19 PM EDT [facility] FEV1_PRE 2.29 1.82 - 3.27 L 02/10/2023 4:19 PM EDT [facility] FEV1_REF 2.57 02/10/2023 4:19 PM EDT [facility] FEV1_LLN 1.82 02/10/2023 4:19 PM EDT [facility] FEV1_Pre%REF 89 % 02/10/2023 4:19 PM EDT [facility] FEV1/FVC_PRE 73.87 61.88 - 88.93 % 02/10/2023 4:19 PM EDT [facility] FEV1/FVC_REF 76 02/10/2023 4:19 PM EDT [facility] FEV1/FVC_LLN 62 02/10/2023 4:19 PM EDT [facility] FEV1/FVC_Pre%R EF 97 % 02/10/2023 4:19 PM EDT [facility] FHX20-37%_REF 1.95 02/10/2023 4:19 PM EDT [facility] TRA46-14%_LLN 0.79 02/10/2023 4:19 PM EDT [facility] CMR34-64%_Pre% REF 89 % 02/10/2023 4:19 PM EDT [facility] PEF_PRE 4.85 4.75 - 8.74 L/s 02/10/2023 4:19 PM EDT [facility] PEF_REF 6.74 02/10/2023 4:19 PM EDT [facility] PEF_LLN 4.75 02/10/2023 4:19 PM EDT [facility] PEF_Pre%REF 72 % 02/10/2023 4:19 PM EDT [facility] DLCO_SB_PRE 7.04 5.24 - 9.49 mmol/(min* kPa) 02/10/2023 4:19 PM EDT [facility] DLCOSingleBrea th_REF 21.4 02/10/2023 4:19 PM EDT [facility] DLCOSingleBrea th_LLN 15.6 02/10/2023 4:19 PM EDT [facility] DLCOSingleBrea th_Pre%REF 98 % 02/10/2023 4:19 PM EDT [facility] VA_SB_PRE 4.78 4.22 - 6.42 L 02/10/2023 4:19 PM EDT [facility] VASingleBreath _REF 5.29 02/10/2023 4:19 PM EDT [facility] VASingleBreath _LLN 4.22 02/10/2023 4:19 PM EDT [facility] VASingleBreath _Pre%REF 90 % 02/10/2023 4:19 PM EDT [facility] DLCO/VA_REF 4.08 02/10/2023 4:19 PM EDT [facility] DLCO/VA_LLN 3.00 02/10/2023 4:19 PM EDT [facility] DLCO/VA_Pre%RE F 108 % 02/10/2023 4:19 PM EDT [facility] Hb_PRE 14.40 g(Hb)/dL 02/10/2023 4:19 PM EDT [facility] IC_PRE 2.74(H) 2.46 - 2.46 L 02/10/2023 4:19 PM EDT [facility] IC_REF 2.46 02/10/2023 4:19 PM EDT [facility] IC_LLN 2.46 02/10/2023 4:19 PM EDT [facility] IC_Pre%REF 112 % 02/10/2023 4:19 PM EDT [facility] ERV_PRE 0.35(L) 0.87 - 0.87 L 02/10/2023 4:19 PM EDT [facility] ERV_REF 0.87 02/10/2023 4:19 PM EDT [facility] ERV_LLN 0.87 02/10/2023 4:19 PM EDT [facility] ERV_Pre%REF 41 % 02/10/2023 4:19 PM EDT [facility] RV_PRE 2.90 1.91 - 3.26 L 02/10/2023 4:19 PM EDT [facility] RV_REF 2.58 02/10/2023 4:19 PM EDT [facility] RV_LLN 1.91 02/10/2023 4:19 PM EDT [facility] RV_Pre%REF 112 % 02/10/2023 4:19 PM EDT [facility] RV%TLC_PRE 48.36 34.23 - 52.19 % 02/10/2023 4:19 PM EDT [facility] RV%TLC_REF 43 02/10/2023 4:19 PM EDT [facility] RV%TLC_LLN 34 02/10/2023 4:19 PM EDT [facility] RV%TLC_Pre%REF 112 % 02/10/2023 4:19 PM EDT [facility] FRCpl_PRE 3.25 2.46 - 4.44 L 02/10/2023 4:19 PM EDT [facility] FRCpleth_REF 3.45 02/10/2023 4:19 PM EDT [facility] FRCpleth_LLN 2.46 02/10/2023 4:19 PM EDT [facility] FRCpleth_Pre%R EF 94 % 02/10/2023 4:19 PM EDT [facility] TLC_PRE 6.00 4.96 - 7.26 L 02/10/2023 4:19 PM EDT [facility] TLC_REF 6.11 02/10/2023 4:19 PM EDT [facility] TLC_LLN 4.96 02/10/2023 4:19 PM EDT [facility] TLC_Pre%REF 98 % 02/10/2023 4:19 PM EDT [facility] 02/10/2023 1:46 PM EDT Impressions [facility] - 02/10/2023 4:19 PM EDT Normal lung function us Christi Vasquez MD PFT ORDERABLES Final Result [facility] [address] [place] [address] * SCANNED RADIOLOGY REPORT (11/27/2022 5:13 PM EST) Only the most recent of13 resultswithin the time period is included. Anatomical Region Laterality Modality Cardiac Stress T esting 11/27/2022 5:13 PM EST us Unknown Provider IMG DIAGNOSTIC IMAGING ORDERABL ES Final Result * VA US CAROTID DUPLEX BILATERAL (11/25/2022 11:02 AM EST) Only the most recent of2 resultswithin the time period is included. Anatomical Region Laterality Modality Vascular, Head, Neck Electrocard iography 11/25/2022 10:3 3 AM EST Impressions 11/26/2022 6:01 AM EST Conclusions * Right: * 1-39 % stenosis of the right internal carotid artery. Antegrade vertebral flow. * Left: * 1-39 % stenosis of the left internal carotid artery. Intimal thickening of the common carotid artery. Antegrade vertebral flow. Narrative Procedure Note Sherwin Aguilera MD - 11/26/2022 IMPRESSION Conclusions * Right: * 1-39 % stenosis of the right internal carotid artery. Antegradevertebral flow. * Left: * 1-39 % stenosis of the left internal carotid artery. Intimalthickening of the common carotid artery. Antegrade vertebral flow. us Deepa Saucedo MD IMG VASCULAR ORDERABLES Final Result * NM MYOCARDIAL PERFUSION SPECT STRESS AND REST (11/25/2022 10:30 AM EST) Only the most recent of7 resultswithin the time period is included. Anatomical Region Laterality Modality Nuclear Medicine 11/25/2022 8:29 AM EST Impressions 11/25/2022 2:05 PM EST Conclusions * A medium sized, mild to moderate perfusion defect in the inferolateral, and lateral garcia is non reversible. * No evidence of ischemia. * No definite reversible perfusion defect. * Ejection fraction is 52%. * The rest/stress volume ratio (Transient Ischemic Dilation) is normal. (Normal with exercise is <1.23 and with vasodilator is <1.37). Narrative Procedure Note Deepa Saucedo MD - 11/25/2022 IMPRESSION Conclusions * A medium sized, mild to moderate perfusion defect in theinferolateral, and lateral garcia is non reversible. * No evidence of ischemia. * No definite reversible perfusion defect. * Ejection fraction is 52%. * The rest/stress volume ratio (Transient Ischemic Dilation) isnormal. (Normal with exercise is <1.23 and with vasodilator is <1.37). us Deepa Saucedo MD [facility] CARDIAC ORDERABLE S Final Result * ST STRESS TEST LEXISCAN (11/25/2022 9:59 AM EST) Only the most recent of7 resultswithin the time period is included. Anatomical Region Laterality Modality Cardiac Stress T esting 11/25/2022 9:26 AM EST Impressions 11/25/2022 12:30 PM EST [facility] Test Date: 2022-11-25 Pat Name: JERMAINE HE Department: DEPID Room: Gender: Male Sap Manager: Dora Haney : 1945 Requested By: DEEPA Pascal Order Number: [id number] Reading MD: Tito Jha MD Interpretive Statements Stress Test Lexiscan Ordering Diagnosis: Chest pressure Resting HR: 64 Peak HR: 77 Resting B/P: 142/88 Peak B/P: 126/85 1. Lexiscan 0.4 mg was given IV push at 30 seconds into protocol. 2. Lexiscan injection was done____with_x___without low level exercise. 3. Termination of test due to protocol completion. 4. Symptoms: SOB, LANZA 5. Aminophylline given___x_no____yes:____mg IVP 6. Nuclear Imaging reported separately. Physician Interpretation Conclusion: NSR No ekg changes with Lexiscan protocol Nuclear images pending Electronically Signed On 11-25-2022 12:30:34 EST by Tito Jha MD Narrative Procedure Note Tito Jha MD - 11/25/[address] [facility] Test Date: 2022-11-25 Pat Name: JERMAINE HE Department: DEPID Room: Gender: Male Sap Manager: Dora Haney : 1945 Requested By: DEEPA POST Order Number: [id number] Reading MD: Tito Jha MD Interpretive Statements Stress Test Lexiscan Ordering Diagnosis: Chest pressure Resting HR: 64 Peak HR: 77 Resting B/P: 142/88 Peak B/P: 126/85 1. Lexiscan 0.4 mg was given IV push at 30 seconds into protocol. 2. Lexiscan injection was done____with_x___without low level exercise. 3. Termination of test due to protocol completion. 4. Symptoms: SOB, LANZA 5. Aminophylline given___x_no____yes:____mg IVP 6. Nuclear Imaging reported separately. PhysicianInterpretation Conclusion: NSR No ekg changes with Lexiscan protocol Nuclear images pending Electronically Signed On 11-25-2022 12:30:34 EST by Tito Jha MD us Deepa Saucedo MD IMG STRESS ORDERABLES Fi nal Result * EC ECHOCARDIOGRAM COMPLETE W DOPPLER AND COLOR FLOW MAPPING (11/03/2022 11:14 AM EST) Only the most recent of6 resultswithin the time period is included. Ejection Fraction 55-60% PYRAMIS MITRAL REGURGITATION trace PYRAMIS AORTIC STENOSIS no PYRAMIS LV DIASTOLIC PLAX 3.7 cm PYRAMIS Anatomical Region Laterality Modality Electrocardiogra phy 11/03/2022 10:1 4 AM EST Impressions 11/03/2022 1:02 PM EST Conclusions * Left ventricular function is normal with an estimated ejection fraction of 55-60%. 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 Narrative Procedure Note Deepa Saucedo MD - 11/03/2022 IMPRESSION Conclusions * Left ventricular function is normal with an estimated ejectionfraction of 55-60%. 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 Deepa Saucedo MD IMG ECHO ORDERABLES Tania l Result * POCT JACKI SARS ANTIGEN (11/12/2021 2:13 PM EST) SARS Antigen Negative Negative SEP OFFICE Lot Number SEP OFFICE Expiration Date SEP OFFICE SeriAl # SEP OFFICE Control Line Yes YES/NO SEP OFFICE 11/12/2021 2:13 PM EST Guy Monge MD POINT OF CARE TEST ORDER WILL Final Result SEP OFFICE * POCT JACKI INFLUENZA A/B (11/12/2021 2:05 PM EST) Influenza A Antigen Negative Negative 11/12/2021 2:13 PM EST SEP FLAKO Influenza B Antigen Negative Negative 11/12/2021 2:13 PM EST SEP FLAKO Swab SPECIMEN FROM NASOPHARYNGEAL STRUCTURE / Unknown 11/12/2021 2:05 PM EST 11/12/2021 2:13 PM EST Guy Monge MD POINT OF CARE TEST ORDER WILL Final Result Performing Organization Address City/State/[facility] de Phone Number [facility] FLAKO [address] [place] [address] * POCT EKG (02/27/2020 12:11 PM EDT) Only the most recent of9 resultswithin the time period is included. 02/27/2020 12:1 1 PM EDT Impressions SEP OFFICE - 02/27/2020 12:15 PM EDT Sinus Rhythm 66 nsivcd us Deepa Saucedo MD POINT OF CARE CARDIOLOGY Final Result Performing Organization Address [facility] de Phone Number SEP OFFICE * LIPID PANEL REFLEX (02/09/2020 10:19 AM EDT) Only the most recent of9 resultswithin the time period is included. Cholesterol 153 <200 mg/dL 02/09/2020 2:23 PM EDT PREFERRED [facility] Comment: < 200 Desirable 200 - 239 Borderline High >= 240 High Triglyceride 49 <150 mg/dL 02/09/2020 2:23 PM EDT [facility] Comment: < 150 Normal 150 - 199 Borderline High 200 - 499 High >= 500 Very High HDL 90 >=40 mg/dL 02/09/2020 2:23 PM EDT [facility] Comment: > 60 Optimal 40 - 60 Acceptable < 40 Low LDL Calculated 53 <100 mg/dL 02/09/2020 2:23 PM EDT [facility] Non-HDL-C Calculated 63 <=129 mg/dL 02/09/2020 2:23 PM EDT [facility] Comment: <130 Desirable 130-159 Above Desirable 160-189 Borderline High 190-219 High >= 220 Very High Fasting Specimen? Yes None 020 2:23 PM EDT [facility] Blood Venipuncture / Unknown 02/09/2020 10:19 AM EDT 02/09/2020 10:19 AM EDT us Ruddy Londono MD CHEMISTRY ORDERABLES Final Resu lt Performing Organization Address [facility]/ZIP Co de Phone Number PREFERRED LAB [facility] [address] [place] [address] * SEDIMENTATION RATE AUTOMATED (02/09/2020 10:19 AM EDT) Sed Rate 7 0 - 20 mm/hr 02/09/2020 3:10 PM EDT [facility] Blood Venipuncture / Unknown 02/09/2020 10:19 AM EDT 02/09/2020 10:19 AM EDT us Cameron Prieto MD HEMATOLOGY ORDERABLES Fin al Result [facility] [address] [place], [place] [id number] * SCANNED LABS (10/13/2018 1:00 PM EST) Only the most recent of5 resultswithin the time period is included. 10/13/2018 1:00 PM EST us Unknown Unknown HEMATOLOGY ORDERABLES Final Resu lt * HB-1 CUSTOM UDS PANEL-QUEST (02/07/2018 11:12 PM EDT) Only the most recent of5 resultswithin the time period is included. Pathologist [facility] Prescribed Drug 1 Gabapentin Q [facility] 6-Acetylmorphine,GC /MS NEGATIVE <10 ng/mL [facility] 6 Acetylmorphine CONSISTENT [facility] Comments [facility] Comment: This drug testing is for medical treatment only. Analysis was performed as non-forensic testing and these results should be used only by healthcare providers to render diagnosis or treatment, or to monitor progress of medical conditions. medMATCH comments are: - present when drug test results may be the result of metabolism of one or more drugs or when results are inconsistent with prescribed medication(s) listed. - may be blank when drug results are consistent with prescribed medication(s) listed. For assistance with interpreting these drug results, please contact a [facility] T[facility] Specialist: [phone] ( ), M-F, 8am-6pm EST. Prescribed Drug 1 Gabapentin Q [facility] Creatinine, Urine 166.4 > or = 20.0 mg/dL [facility] UA pH 6.7 4.5 - 9.0 [facility] Oxidant NEGATIVE <200 mcg/mL [facility] Amphetamines NEGATIVE <500 ng/mL [facility] Amphetamines CONSISTENT [facility] Barbiturates NEGATIVE <300 ng/mL [facility] Barbiturates CONSISTENT [facility] Benzodiazepines NEGATIVE <100 ng/mL [facility] Benzodiazepines CONSISTENT [facility] Marijuana Metabolite NEGATIVE <20 ng/mL [facility] Marijuana Metab CONSISTENT [facility] Cocaine Metabolite NEGATIVE <150 ng/mL [facility] Cocaine Metab CONSISTENT [facility] Methadone NEGATIVE <100 ng/mL [facility] Methadone CONSISTENT [facility] Opiates NEGATIVE <100 ng/mL [facility] Opiates CONSISTENT [facility] Oxycodone NEGATIVE <100 ng/mL [facility] Oxycodone CONSISTENT [facility] Comments [facility] Comment: This drug testing is for medical treatment only. Analysis was performed as non-forensic testing and these results should be used only by healthcare providers to render diagnosis or treatment, or to monitor progress of medical conditions. [facility] comments are: - present when drug test results may be the result of metabolism of one or more drugs or when results are inconsistent with prescribed medication(s) listed. - may be blank when drug results are consistent with prescribed medication(s) listed. For assistance with interpreting these drug results, please contact a [facility] Toxicology Specialist: [phone] ( ), M-F, 8am-6pm EST. Prescribed Drug 1 Gabapentin Q [facility] [employer] Ritalinic Acid NEGATIVE <100 ng/mL [facility] Ritalinic Acid CONSISTENT [facility] Comments [facility] Comment: This drug testing is for medical treatment only. Analysis was performed as non-forensic testing and these results should be used only by healthcare providers to render diagnosis or treatment, or to monitor progress of medical conditions. [facility] comments are: - present when drug test results may be the result of metabolism of one or more drugs or when results are inconsistent with prescribed medication(s) listed. - may be blank when drug results are consistent with prescribed medication(s) listed. For assistance with interpreting these drug results, please contact a [facility] Toxicology Specialist: [phone] ( ), M-F, 8am-6pm EST. 02/07/2018 11:1 2 PM EDT 02/08/2018 4:57 PM EDT Narrative Resulting Agency Comment Performing Organization Information: Site ID: [id number] Name: [facility] Address: [address] [place] [address], Floor [address] [place] [address] Director: Brionna Vines Ph.D. Site ID: [id number] Name: [facility] Address: [address] [place] [id number] Director: Arben Pritchard M.D. Ruddy Londono MD [facility] (NON-[facility]) F inal Result Performing Organization Address City/State/[facility] Co de Phone Number [facility] [phone] [facility] [address] [place] [address] [address] [place] [address] * CT LIMITED SINUSES WO (05/10/2017 12:18 PM EDT) Only the most recent of2 resultswithin the time period is included. Anatomical Region Laterality Modality Head Computed Tomogra phy 05/10/2017 12:1 8 PM EDT Impressions 05/10/2017 2:01 PM EDT Impression: 1. Mild chronic appearing maxillary sinus disease, as detailed above. 2. No evidence of sinus air-fluid level to suggest acute sinusitis. Narrative 05/10/2017 2:01 PM EDT Limited sinus CT without contrast dated 05/10/2017 Comparison: 04/19/2012 History: Sinusitis, head pressure Technical factors: [address] images were performed through the paranasal sinuses without contrast. Findings: There is minimal mucosal thickening in the included maxillary sinuses bilaterally. In the medial aspect of the included left maxillary sinus, there is a nondependent density measuring 1.3 x 0.5 cm, compatible with a mucous retention cyst, polyp, and/or focus of chronic inflammatory change. No sinus air-fluid level is identified. The frontal sinuses appear to be small and underdeveloped on a congenital/development basis. The included right sphenoid sinus is also asymmetrically smaller in size than the left. No focal osseous destruction is identified on limited noncontiguous imaging. Procedure Note Rodger Murillo MD - 05/10/[address] without contrast dated 05/10/2017 Comparison: 04/19/2012 History: Sinusitis, head pressure Technical factors: [address] images were performedthrough the paranasal sinuses without contrast. Findings: There is minimal mucosal thickening in the included maxillary sinuses bilaterally. In the medial aspect of the included left maxillary sinus,there is a nondependent density measuring 1.3 x 0.5 cm, compatible with a mucous retention cyst, polyp, and/or focus of chronic inflammatory change. Nosinus air-fluid level is identified. The frontal sinuses appear to be smalland underdeveloped on a congenital/development basis. The included rightsphenoid sinus is also asymmetrically smaller in size than the left. No focalosseous destruction is identified on limited noncontiguous imaging. IMPRESSION: Impression: 1. Mild chronic appearing maxillary sinus disease, as detailed above. 2. No evidence of sinus air-fluid level to suggest acute sinusitis. us Kassie Beasley MD IMG CT ORDERABLES Final Result * XR FINGER LEFT MINIMUM 2 VW (05/06/2017 12:09 PM EDT) Anatomical Region Laterality Modality Hand Radiographic Tracy ging 05/06/2017 12:0 9 PM EDT Impressions 05/06/2017 4:08 PM EDT 1. 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 Narrative 05/06/2017 4:08 PM EDT XR FINGER LEFT MINIMUM 2 VW 05/06/2017 12:09 PM HISTORY: 3rd digit pain M79.645-Pain in left finger(s)-ICD-10-CM TECHNIQUE: 3 views COMPARISON: None FINDINGS: No acute fracture or dislocation. There is moderate polyarticular osteoarthritis including the 1st CMC, 1st IP joint, 2nd through 5th DIP articulations and 2nd MCP. No periostitis. No definite soft tissue swelling. Procedure Note Miguel Ayon MD - 05/06/2017 XR FINGER LEFT MINIMUM 2 VW 05/06/2017 12:09 PM HISTORY: 3rd digit pain M79.645-Pain in left finger(s)-ICD-10-CM TECHNIQUE: 3 views COMPARISON: None FINDINGS: No acute fracture or dislocation. There is moderate polyarticularosteoarthritis including the 1st CMC, 1st IP joint, 2nd through 5th DIP articulations and2nd MCP. No periostitis. No definite soft tissue swelling. IMPRESSION: 1. 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 Kassie Beasley MD IMG DIAGNOSTIC IMAGING ORDERAB LES Final Result * HEPATITIS C ANTIBODY - SCREENING (05/06/2017 11:01 AM EDT) Pathologist [facility] Hep C Ab Negative Negative [facility] Blood specimen (specimen) UPPER LIMB STRUCTURE / Unknown 05/06/2017 11:01 AM EDT 05/06/2017 3:52 PM EDT Kassie Beasley MD HEMATOLOGY ORDERABLES Final Re sult [facility] [address] [place] [id number] * DIFFERENTIAL (05/06/2017 11:01 AM EDT) Only the most recent of8 resultswithin the time period is included. Neut Percent 58.5 % [facility] Lymph Percent 25.6 % [facility] Owen Percent 11.4 % [facility] Eos Percent 2.8 % [facility] Baso Percent 1.7 % [facility] Neut# 3.4 1.8 - 7.7 x10(3)/[facility] Lymph# 1.5 0.6 - 4.8 x10(3)/[facility] Owen# 0.7 0.0 - 1.3 x10(3)/[facility] Eos# 0.2 0.0 - 0.5 x10(3)/[facility] Baso# 0.1 0.0 - 0.2 x10(3)/[facility] Blood specimen (specimen) 05/06/2017 11:01 AM EDT 05/06/2017 3:52 PM EDT us Kassie Beasley MD HEMATOLOGY ORDERABLES Final Re sult Performing Organization Address [facility] [place] [address] * PROTEIN LEVEL URINE (12/24/2016 10:30 AM EDT) Urine Protein 10.9 mg/dL [facility] Urine specimen (specimen) 12/24/2016 10:30 AM EDT 12/24/2016 3:01 PM EDT us Zenaida Spann MD URINE ORDERABLES Final R esult Performing Organization Address [facility] [place] [address] * CREATININE LEVEL URINE (12/24/2016 10:30 AM EDT) Urine Creatinine 131.7 mg/dL [facility] Urine specimen (specimen) 12/24/2016 10:30 AM EDT 12/24/2016 3:01 PM EDT us Zenaida Spann MD URINE ORDERABLES Final R esult Performing Organization Address [facility] [place] [address] * URINALYSIS (12/24/2016 10:30 AM EDT) Only the most recent of2 resultswithin the time period is included. UA Color Yellow [facility] UA Appear Clear Clear [facility] UA Glucose Negative Negative [facility] UA Ketones Negative Negative [facility] UA Blood Negative Negative [facility] UA pH 6.5 5.0 - 8.0 [facility] Comment:Reference range zain d for random specimens only. UA Protein Negative Negative [facility] UA Urobilinogen 0.2 E.U./dL <=1 E.U./dL [facility] UA Nitrite Negative Negative [facility] UA Leuk Est Negative Negative [facility] UA Spec Grav 1.020 1.001 - 1.035 [facility] Comment:Reference range zain d for random specimens only. Urine specimen (specimen) STRUCTURE OF URINARY TRACT PROPER / Unknown 12/24/2016 10:30 AM EDT 12/24/2016 10:31 AM EDT Zenaida Spann MD URINE ORDERABLES Final R esult Performing Organization Address City/[facility]/ZIP Co de Phone Number [facility] [address] [place] [address] * URIC ACID (12/24/2016 10:30 AM EDT) Uric Acid 5.3 3.4 - 7.0 mg/dL [facility] Blood specimen (specimen) UPPER LIMB STRUCTURE / Unknown 12/24/2016 10:30 AM EDT 12/24/2016 10:31 AM EDT Zenaida Spann MD CHEMISTRY ORDERABLES Fin al Result Performing Organization Address City/[facility]/ZIP Co de Phone Number [facility] [address] [place] [address] * PARATHYROID HORMONE INTACT (12/24/2016 10:30 AM EDT) PTH Intact 42.74 15.00 - 65.00 pg/mL [facility] Comment: Intact PTH Calcium Interpretation ------- 15 - 65 8.6 - 10.2 Normal > 65 > 10.2 Primary Hyperparathyroidism < 20 > 10.2 Non-Parathyroid hypercalcemia < 15 < 8.6 Hypoparathyroidism Consider the above as guidelines only. PTH results should be interpreted in conjunction with the total or ionized calcium level. The finding of a persistently high-normal calcium accompanied by a high-normal PTH (or a low-normal calcium accompanied by a low-normal PTH) warrants further investigation. Although the PTH may itself be within normal limits, it may be inappropriately high (or low) relative to the circulating calcium level. Blood specimen (specimen) UPPER LIMB STRUCTURE / Unknown 12/24/2016 10:30 AM EDT 12/24/2016 3:03 PM EDT Zenaida Spann MD CHEMISTRY ORDERABLES Fin al Result [facility] [address] [place] [address] * (ABNORMAL) RENAL FUNCTION PANEL (12/24/2016 10:30 AM EDT) Only the most recent of2 resultswithin the time period is included. Sodium 143 136 - 145 mmol/L [facility] Potassium 3.8 3.5 - 5.0 mmol/L [facility] Chloride 102 98 - 107 mmol/L [facility] Total CO2 28 22 - 29 mmol/L [facility] Anion Gap 13 7 - 16 mmol/L [facility] Calcium 9.8 8.8 - 10.2 mg/dL [facility] Glucose Lvl 101(H) 82 - 100 mg/dL [facility] BUN 6(L) 8 - 23 mg/dL [facility] Creatinine 0.82 0.67 - 1.30 mg/dL [facility] Albumin 4.2 3.2 - 4.6 gm/dL [facility] Phosphorus 3.6 2.5 - 4.5 mg/dL [facility] GFR Afr Am >60 [facility] GFR Non Afr Am >60 [facility] Blood specimen (specimen) UPPER LIMB STRUCTURE / Unknown 12/24/2016 10:30 AM EDT 12/24/2016 10:31 AM EDT Zenaida Spann MD CHEMISTRY ORDERABLES Shoaib ai Result - Final [facility] [address] [place] [address] * MRI LUMBAR SPINE WO CONTRAST (07/15/2016 4:21 PM EDT) Only the most recent of2 resultswithin the time period is included. Anatomical Region Laterality Modality L-spine Magnetic Resonan ce 07/15/2016 4:21 PM EDT Impressions 07/15/2016 5:28 PM EDT 1. Extensive postoperative alterations, grossly stable compared with the CT scan from September 16, 2015 when allowing for different modalities. No recurrent central canal stenosis. 2. L1/L2 is the level above the fusion. At this level there is diffuse disc bulging and facet arthropathy. At this level there is mild LEFT and moderate RIGHT lateral recess narrowing. The central canal is widely patent. 3. L5/S1 is the level below the fusion. At this level, there is also attention significant RIGHT lateral recess narrowing. LEFT lateral recess and central canal are patent. There is moderate bilateral foraminal stenosis. Narrative 07/15/2016 5:28 PM EDT MRI LUMBAR SPINE WO CONTRAST, 07/15/2016 4:21 PM Clinical information: Low back pain. Bilateral leg pain and weakness. Prior surgery June 2014. FINDINGS: Noncontrast MRI lumbar spine performed. COMPARISON: CT lumbar spine from September 16, 2015. No fracture or aggressive lesion. No malalignment. Conus signal and location is normal. There has been prior instrumented fusion with long segment laminectomies. The fusion extends from L1-2 through L5. Hardware positioning is stable compared with the CT scan from September 16, 2015. Unavoidable artifact related to hardware is present causing regional signal loss and geometric distortion. Level specific details: L5/S1: Diffuse disc bulging with peridiscal spurring. Advanced facet arthropathy. Patent central canal and LEFT lateral recess. [id number] RIGHT lateral recess narrowing. Moderate bilateral foraminal narrowing. L4/L5: Diffuse disc bulging. This level is fused. The central canal is patent. There is severe bilateral lateral recess stenosis which appears chronic. On T1 imaging, there is significant scar tissue surrounding the RIGHT side pedicle screws and connecting devante. The foramina are severely stenotic bilaterally. L3/L4: Diffuse disc bulging. Fused. No recurrent spinal stenosis. Severe bilateral lateral recess stenosis. Severe bilateral foraminal stenosis. L2/L3: Fused. No recurrent central canal stenosis. Severe RIGHT and moderate LEFT lateral recess stenosis. Patent RIGHT foramen. Moderately narrowed LEFT foramen. L1/L2: Diffuse disc bulging. Advanced facet arthropathy. Patent central canal. Mild LEFT and moderate RIGHT lateral recess stenosis. Narrowed but patent foramina. T12/L1: Diffuse disc bulging. Mild facet arthropathy. No neural impingement. Procedure Note Jermaine Bishop MD - 07/15/2016 MRI LUMBAR SPINE WO CONTRAST, 07/15/2016 4:21 PM Clinical information: Low back pain. Bilateral leg pain and weakness.Prior surgery June 2014. FINDINGS: Noncontrast MRI lumbar spine performed. COMPARISON: CT lumbar spine from September 16, 2015. No fracture or aggressive lesion. No malalignment. Conus signal andlocation is normal. There has been prior instrumented fusion with long segment laminectomies.The fusion extends from L1-2 through L5. Hardware positioning is stablecompared with the CT scan from September 16, 2015. Unavoidable artifact related to hardware is present causing regional signal loss and geometricdistortion. Level specific details: L5/S1: Diffuse disc bulging with peridiscal spurring. Advanced facet arthropathy. Patent central canal and LEFT lateral recess.[id number] RIGHT lateral recess narrowing. Moderate bilateral foraminal narrowing. L4/L5: Diffuse disc bulging. This level is fused. The central canal ispatent. There is severe bilateral lateral recess stenosis which appears chronic.On T1 imaging, there is significant scar tissue surrounding the RIGHT sidepedicle screws and connecting devante. The foramina are severely stenoticbilaterally. L3/L4: Diffuse disc bulging. Fused. No recurrent spinal stenosis. Severe bilateral lateral recess stenosis. Severe bilateral foraminal stenosis. L2/L3: Fused. No recurrent central canal stenosis. Severe RIGHT andmoderate LEFT lateral recess stenosis. Patent RIGHT foramen. Moderately narrowedLEFT foramen. L1/L2: Diffuse disc bulging. Advanced facet arthropathy. Patent centralcanal. Mild LEFT and moderate RIGHT lateral recess stenosis. Narrowed butpatent foramina. T12/L1: Diffuse disc bulging. Mild facet arthropathy. No neuralimpingement. IMPRESSION 1. Extensive postoperative alterations, grossly stable compared with theCT scan from September 16, 2015 when allowing for different modalities. Norecurrent central canal stenosis. 2. L1/L2 is the level above the fusion. At this level there is diffusedisc bulging and facet arthropathy. At this level there is mild LEFT andmoderate RIGHT lateral recess narrowing. The central canal is widely patent. 3. L5/S1 is the level below the fusion. At this level, there is alsoattention significant RIGHT lateral recess narrowing. LEFT lateral recess andcentral canal are patent. There is moderate bilateral foraminal stenosis. us Devonte Pena Jennifer MRI ORDERABLES Final Result * ADRENOCORTICOTROPIC HORMONE -REF LAB (06/16/2016 8:50 AM EDT) Only the most recent of2 resultswithin the time period is included. ACTH 25 7 - 69 pg/mL [employer] Comment: INTERPRETIVE INFORMATION: Adrenocorticotropic Hormone Some types of synthetic ACTH are not detected by this assay. Access complete set of age- and/or gender-specific reference intervals for this test in the [facility] Test Directory (Needium). Blood specimen (specimen) UPPER LIMB STRUCTURE / Unknown 06/16/2016 8:50 AM EDT 06/16/2016 3:00 PM EDT us Milly Castillo MD CHEMISTRY ORDERABLES Tania l Result [facility] [address] [place] [address] * CORTISOL 60 MINUTES (06/15/2016 9:55 AM EDT) Only the most recent of2 resultswithin the time period is included. Cortisol 60 Min 14.61 mcg/dL [facility] Comment:Normal Peak : > 20 u g/dl Blood specimen (specimen) 06/15/2016 9:55 AM EDT 06/15/2016 3:38 PM EDT Milly Castillo MD CHEMISTRY ORDERABLES Tanai l Result Performing Organization Address [facility] Co de Phone Number [facility] [address] [place] [address] * CORTISOL 30 MINUTES (06/15/2016 9:25 AM EDT) Only the most recent of2 resultswithin the time period is included. Cortisol 30 Min 12.08 mcg/dL [facility] Comment:Normal Peak : > 20 u g/dl Blood specimen (specimen) 06/15/2016 9:25 AM EDT 06/15/2016 3:38 PM EDT Milly Castillo MD CHEMISTRY ORDERABLES Tania l Result Performing Organization Address [facility] [place] [address] * CORTISOL BASELINE (06/15/2016 8:50 AM EDT) Only the most recent of3 resultswithin the time period is included. Cortisol Baseline 6.68 mcg/dL [facility] Blood specimen (specimen) 06/15/2016 8:50 AM EDT 06/15/2016 3:38 PM EDT Milly Castillo MD CHEMISTRY ORDERABLES Tania l Result Performing Organization Address [facility] de Phone Number [facility] [address] [place] [address] * CORTISOL (06/06/2016 10:10 AM EDT) Only the most recent of4 resultswithin the time period is included. Cortisol 4.12 mcg/dL [facility] Comment: Normals: Mornin.2 - 19.4 mcg/dL Evenin.3 - 11.9 mcg/dL Blood specimen (specimen) UPPER LIMB STRUCTURE / Unknown 06/06/2016 10:10 AM EDT 06/06/2016 2:38 PM EDT Milly Castillo MD CHEMISTRY ORDERABLES Tania l Result Performing Organization Address [facility] [place] [address] * SODIUM LEVEL URINE (02/14/2016 3:26 PM EDT) Only the most recent of2 resultswithin the time period is included. Urine Sodium 72 mmol/L [facility] Urine specimen (specimen) STRUCTURE OF URINARY TRACT PROPER / Unknown 02/14/2016 3:26 PM EDT 02/14/2016 7:17 PM EDT Cheri Gregory MD URINE ORDERABLES Final Result Performing Organization Address [facility] [place] [address] * OSMOLALITY URINE (02/14/2016 3:26 PM EDT) Only the most recent of2 resultswithin the time period is included. Urine Osmolality 321 50 - 1,400 mOsm/kg [facility] Comment: Normal Range: 50 mOSM/kg during maximum water diuresis to 1400 mOSM/kg during maximum urinary concentration Reference range valid for random specimens only. Urine specimen (specimen) STRUCTURE OF URINARY TRACT PROPER / Unknown 02/14/2016 3:26 PM EDT 02/14/2016 7:17 PM EDT Cheri Gregory MD URINE ORDERABLES Final Result Performing Organization Address [facility] de Phone Number [facility] [address] [place] [address] * URINE CULTURE (02/14/2016 3:26 PM EDT) Final No growth at 2 days. [facility] Urine specimen obtained by clean catch procedure (specimen) 02/14/2016 3:26 PM EDT 02/14/2016 7:39 PM EDT Cheri Gregory MD MICROBIOLOGY - GENERAL ORDERABLE S Final Result Performing Organization Address [facility] [place] [address] * OSMOLALITY (02/14/2016 3:26 PM EDT) Only the most recent of2 resultswithin the time period is included. Osmo-serum 289 275 - 295 mOsm/kg [facility] Blood specimen (specimen) UPPER LIMB STRUCTURE / Unknown 02/14/2016 3:26 PM EDT 02/14/2016 7:17 PM EDT Cheri Gregory MD CHEMISTRY ORDERABLES Final Resul t Performing Organization Address [facility] [place] [address] * SCANNED RHYTHM STRIPS (01/05/2016 9:02 PM EDT) Anatomical Region Laterality Modality Other 01/05/2016 9:02 PM EDT us Unknown Unknown IMG ECG ORDERABLES Final Result * CORTISOL 120 MINUTE (12/30/2015 12:06 PM EDT) Cortisol 120 Minutes 8.79 mcg/dL [facility] Blood specimen (specimen) 12/30/2015 12:06 PM EDT 12/30/2015 1:36 PM EDT us Jason Spears MD CHEMISTRY ORDERABLES Final R esult Performing Organization Address [facility] Co de Phone Number [facility] [address] [place] [address] * CORTISOL 90 MINUTE (12/30/2015 11:38 AM EDT) Cortisol 90 Min 10.19 mcg/dL [facility] Blood specimen (specimen) 12/30/2015 11:38 AM EDT 12/30/2015 1:36 PM EDT us Jason Spears MD CHEMISTRY ORDERABLES Final R esult Performing Organization Address [facility] Co de Phone Number [facility] [address] [place] [address] * POTASSIUM LEVEL URINE (12/28/2015 3:45 PM EDT) [facility] Urine Potassium 50.2 mmol/L [facility] Urine specimen (specimen) 12/28/2015 3:45 PM EDT 12/28/2015 5:55 PM EDT us Zenaida Spann MD URINE ORDERABLES Final R ult Performing Organization Address [facility] [place] [address] * CHLORIDE, URINE, RANDOM - REF LAB (12/28/2015 3:45 PM EDT) Pathologist [facility] Hrs Nabeel Random [facility] Total Volume Random [facility] U Creatinine 127 mg/dL [facility] U24 Creat Not Applicable 800 - 2100 mg/day [facility] U Chloride 47 mmol/L [facility] U24 Chloride Not Applicable 140 - 250 mmol/day [facility] Urine specimen (specimen) 12/28/2015 3:45 PM EDT 12/28/2015 7:30 PM EDT Zenaida Spann MD URINE ORDERABLES Final R esult Performing Organization Address City/[facility] Co de Phone Number [employer] [address] [place] [address] * TROPONIN-T (12/27/2015 10:56 PM EDT) Only the most recent of3 resultswithin the time period is included. Pathologist [facility] Troponin-T <0.01 <=0.00 ng/mL [facility] Comment: Values > or = 0.01 ng/mL have been shown to have prognostic value. Blood specimen (specimen) 12/27/2015 10:56 PM EDT 12/27/2015 10:59 PM EDT Gregorio Claros MD CHEMISTRY ORDERABLES Final Resul t Performing Organization Address [facility] de Phone Number [facility] [address] [place] [address] * NT PROBNP (12/27/2015 2:20 PM EDT) Only the most recent of2 resultswithin the time period is included. NT Pro-BNP 312 <=319 pg/mL [facility] Comment: An NT pro-BNP level less than 300 pg/mL in any patient, regardless of age, Effectively rules out acute CHF with a 99% negative predictive value. Blood specimen (specimen) UPPER LIMB STRUCTURE / Unknown 12/27/2015 2:20 PM EDT 12/27/2015 2:30 PM EDT us Gregorio Claros MD CHEMISTRY ORDERABLES Final Resul t Performing Organization Address [facility] de Phone Number [facility] [address] [place] [address] * CT LUMBAR SPINE WO CONTRAST (09/16/2015 9:21 AM EST) Only the most recent of3 resultswithin the time period is included. Anatomical Region Laterality Modality L-spine Computed Tomogra phy 09/16/2015 9:21 AM EST Impressions 09/16/2015 11:26 AM EST IMPRESSION: 1. Post surgical changes as above. The hardware appears intact. Fusion across the intervertebral disc spacers at L2-3 and L3-4. Minimal osseous fusion at L4-5. 2. Superimposed degenerative disc disease above and below the level of the fusion as above. Most notably there is moderate to severe bilateral foraminal stenosis at L5-S1. Narrative 09/16/2015 11:[address] LUMBAR SPINE WO CONTRAST 09/16/2015 9:21 AM HISTORY: Low back pain and right leg pain. TECHNIQUE: Routine CT lumbar spine without contrast. COMPARISON: X-ray September 02, 2015 FINDINGS: Post surgical changes parallel devante and pedicle screw fixation from L2 to L5 with intervertebral cages at these levels. Decompression laminectomies at these levels as well. Surgical hardware appears intact and appropriately positioned. There is robust osseous fusion at L2-3, intermediate fusion at L3-4, and minimal osseous fusion at L4-5. No fracture is identified. The paravertebral soft tissues appear unremarkable. T12-L1: Shallow disc bulge results in mild central canal stenosis. No significant foraminal narrowing. L1-2: Broad-based disc bulge eccentric to the right results in mild central canal stenosis. Mild right and left foraminal narrowing. L2-3: Central canal is patent. No discrete foraminal stenosis. L3-4: Central canal is patent. Residual facet hypertrophy results in moderate right and moderate left foraminal stenosis. L4-5: Moderate left and mild right foraminal stenosis. Central canal is patent. L5-S1: Facet hypertrophy and endplate hypertrophy results in moderate to severe bilateral foraminal stenosis. The central canal is patent. Procedure Note Miguel Ayon MD - 09/16/2015 CT LUMBAR SPINE WO CONTRAST 09/16/2015 9:21 AM HISTORY: Low back pain and right leg pain. TECHNIQUE: Routine CT lumbar spine without contrast. COMPARISON: X-ray September 02, 2015 FINDINGS: Post surgical changes parallel devante and pedicle screw fixation from L2 toL5 with intervertebral cages at these levels. Decompression laminectomies atthese levels as well. Surgical hardware appears intact and appropriatelypositioned. There is robust osseous fusion at L2-3, intermediate fusion at L3-4, andminimal osseous fusion at L4-5. No fracture is identified. The paravertebralsoft tissues appear unremarkable. T12-L1: Shallow disc bulge results in mild central canal stenosis. No significant foraminal narrowing. L1-2: Broad-based disc bulge eccentric to the right results in mildcentral canal stenosis. Mild right and left foraminal narrowing. L2-3: Central canal is patent. No discrete foraminal stenosis. L3-4: Central canal is patent. Residual facet hypertrophy results inmoderate right and moderate left foraminal stenosis. L4-5: Moderate left and mild right foraminal stenosis. Central canal ispatent. L5-S1: Facet hypertrophy and endplate hypertrophy results in moderate tosevere bilateral foraminal stenosis. The central canal is patent. IMPRESSION: 1. Post surgical changes as above. The hardware appears intact. Fusionacross the intervertebral disc spacers at L2-3 and L3-4. Minimal osseous fusionat L4-5. 2. Superimposed degenerative disc disease above and below the level ofthe fusion as above. Most notably there is moderate to severe bilateralforaminal stenosis at L5-S1. Devonte Shara Pena [facility] ORDERABLES Final Result * CT PELVIS WO CONTRAST (09/16/2015 9:20 AM EST) Anatomical Region Laterality Modality Pelvis Computed Tomogra phy 09/16/2015 9:20 AM EST Impressions 09/16/2015 11:34 AM EST IMPRESSION: 1. Moderate bilateral SI joint osteoarthritis. Narrative 09/16/2015 11:[address] PELVIS WO CONTRAST 09/16/2015 9:20 AM HISTORY: Pain M46.1-Sacroiliitis, not elsewhere [id number] TECHNIQUE: Routine CT pelvis without contrast. COMPARISON: CT January 17, 2013 FINDINGS: There are moderate degenerative changes involving the bilateral sacroiliac joint spaces. There is no joint space erosion, joint space widening, or ankylosis identified. There is no fracture. Pubic symphysis demonstrates moderate degenerative changes. 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 Evaluation of the visceral pelvis demonstrates a small fat-containing left inguinal hernia. Procedure Note Miguel Ayon MD - 09/16/2015 CT PELVIS WO CONTRAST 09/16/2015 9:20 AM HISTORY: Pain M46.1-Sacroiliitis, not elsewhere [id number] TECHNIQUE: Routine CT pelvis without contrast. COMPARISON: CT January 17, 2013 FINDINGS: There are moderate degenerative changes involving the bilateral sacroiliacjoint spaces. There is no joint space erosion, joint space widening, orankylosis identified. There is no fracture. Pubic symphysis demonstrates moderate degenerative changes. There is severe left and moderate to severe righthip osteoarthritis. Evaluation of the visceral pelvis demonstrates a small fat-containingleft inguinal hernia. IMPRESSION: 1. Moderate bilateral SI joint osteoarthritis. us Devonte Pena IMG CT ORDERABLES Final Result * XR LUMBAR SPINE AP AND LATERAL (09/02/2015 11:44 AM EST) Only the most recent of2 resultswithin the time period is included. Anatomical Region Laterality Modality L-spine Radiographic Tracy ging 09/02/2015 11:4 4 AM EST Impressions 09/02/2015 5:08 PM EST IMPRESSION: 1. Status post posterior spinal fusion at L2-L5 with mildly increased anterolisthesis of L4-L5. There is subjective intervertebral disc height loss at L4-L5 and may suggest underlying subsidence. Cross-sectional imaging could be helpful for further evaluation. 2. Advanced multilevel degenerative disc and joint changes, including L1-L2 with moderate 3. Advanced bilateral sacroiliac degenerative joint changes. Narrative 09/02/2015 5:08 PM EST EXAMINATION: XR LUMBAR SPINE AP AND LATERAL DATE: 09/02/2015 11:44 AM HISTORY: Low back pain and radiculopathy. COMPARISON: Lumbar spine radiographs 03/11/2015. TECHNIQUE: 3 views of the lumbosacral spine. FINDINGS: Postsurgical changes of posterior spinal fusion are noted at L2-L3, L3-L4, and L4-L5. There may be mild increased anterolisthesis of L4-L5 with subjectively loss of intervertebral disc height at L4-L5. Vertebral body heights are unchanged in height. Severe intervertebral disc height loss is again noted at L1-L2 with vacuum disc changes. Moderate to advanced bilateral sacroiliac degenerative joint changes are noted. Procedure Note Juanpablo Beauchamp MD - 09/02/2015 EXAMINATION: XR LUMBAR SPINE AP AND LATERAL DATE: 09/02/2015 11:44 AM HISTORY: Low back pain and radiculopathy. COMPARISON: Lumbar spine radiographs 03/11/2015. TECHNIQUE: 3 views of the lumbosacral spine. FINDINGS: Postsurgical changes of posterior spinal fusion are noted atL2-L3, L3-L4, and L4-L5. There may be mild increased anterolisthesis of L4-L5with subjectively loss of intervertebral disc height at L4-L5. Vertebral bodyheights are unchanged in height. Severe intervertebral disc height loss is againnoted at L1-L2 with vacuum disc changes. Moderate to advanced bilateralsacroiliac degenerative joint changes are noted. IMPRESSION: 1. Status post posterior spinal fusion at L2-L5 with mildly increased anterolisthesis of L4-L5. There is subjective intervertebral disc heightloss at L4-L5 and may suggest underlying subsidence. Cross-sectional imaging couldbe helpful for further evaluation. 2. Advanced multilevel degenerative disc and joint changes, includingL1-L2 with moderate 3. Advanced bilateral sacroiliac degenerative joint changes. Devonte Pena IM[facility]enn[facility] DIAGNOSTIC IMAGING ORDERABL ES Final Result * POCT INFLUENZA A/B (08/08/2015 3:04 PM EST) [facility] Influenza A Ag - SEP OFFICE Influenza B Ag - SEP OFFICE Lot Number SEP OFFICE Expiration Date SEP OFFICE 08/08/2015 3:04 PM EST Kassie Beasley MD POINT OF CARE TEST ORDERABLES Final Result SEP OFFICE * LDL, CALCULATED (06/28/2015 10:20 AM EDT) Only the most recent of7 resultswithin the time period is included. [facility] LDL Calculated 39 <=100 mg/dL [facility] Comment: < 100 Optimal 100 - 129 Near or above optimal 130 - 159 Borderline High 160 - 189 High >= 190 Very High Blood specimen (specimen) 06/28/2015 10:20 AM EDT 06/28/2015 1:50 PM EDT Deepa Saucedo MD CHEMISTRY ORDERABLES Fin al Result [facility] [address] [place] [address] * PROSTATE SPECIFIC ANTIGEN (TUMOR MARKER) (06/28/2015 10:20 AM EDT) [facility] Total PSA 1.55 ng/mL [facility] Comment: 2009 AUA Best Practice Statement Guidelines-Age Adjusted Reference Intervals: Age Range Whites Americans Americans 40-49 years 0-2.5 ng/mL 0-2.0 ng/mL 0-2.0 ng/mL 50-59 years 0-3.5 ng/mL 0-4.0 ng/mL 0-3.0 ng/mL 60-69 years 0-4.5 ng/mL 0-4.5 ng/mL 0-4.0 ng/mL 70-79 years 0-6.5 ng/mL 0-5.5 ng/mL 0-5.0 ng/mL [facility] uses the [employer] Total PSA assay, which is approved as an aid in detecting prostate cancer when used in conjunction with digital rectal exam in men 50 years or older and also as an adjunctive test to aid in the management of prostate cancer patients. Prostatic biopsy is required for the diagnosis of cancer. Values obtained with different assay methods should not be used interchangeably. Consider the above as guidelines only. The risk of prostate cancer is a continuum across a range of PSA levels, with increasing risk as the PSA increases. Blood specimen (specimen) UPPER LIMB STRUCTURE / Unknown 06/28/2015 10:20 AM EDT 06/28/2015 1:50 PM EDT us Ruddy Londono MD CHEMISTRY ORDERABLES Final Resu lt [facility] [address] [place] [address] * XR CERVICAL SPINE AP AND LATERAL (12/07/2014 12:27 PM EDT) Anatomical Region Laterality Modality C-spine Radiographic Tracy ging 12/07/2014 12:1 3 PM EDT Impressions 12/07/2014 2:19 PM EDT IMPRESSION: 1. No acute osseous abnormality. Narrative 12/07/2014 2:19 PM EDT XR CERVICAL SPINE AP AND LATERAL . Dec 07, 2014 12:28:06 PM CLINICAL HISTORY: 723.4-[id number]-9-CM COMPARISON: None No significant osseous abnormality. No acute fracture or dislocation. No destructive lesions. Soft tissue and fat planes preserved. Procedure Note Qasim Nicolas MD - 12/07/2014 XR CERVICAL SPINE AP AND LATERAL . Dec 07, 2014 12:28:06 PM CLINICAL HISTORY: 723.5-Ytaewzmcujt-ANV-9-CM COMPARISON: None No significant osseous abnormality. No acute fracture or dislocation. Nodestructive lesions. Soft tissue and fat planes preserved. IMPRESSION: 1. No acute osseous abnormality. Devonte Pena IM DIAGNOSTIC IMAGING ORDERABL ES Final Result * [facility] VASCULAR CVMHU SCREENING SINGLE EXAM (08/28/2014 12:15 PM EST) Anatomical Region Laterality Modality Vascular Electrocardiogra phy 08/28/2014 11:5 5 AM EST Impressions 08/29/2014 9:13 AM EST This is a limited screening exam. If there are abnormal findings you may be referred for a thorough diagnostic exam. Carotid Artery Screening Right Internal Carotid Velocities (cm/s):PSV:62 EDV: 28 Left Internal Carotid Velocities (cm/s):PSV:60 EDV: 29 Essentially no build-up of calcium or plaque seen in either the left or right carotid arteries. Abdominal Aortic Screening Aortic Diameter (cm): 1.8 x 1.8 Aortic Velocity (cm/s):84 No evidence of aneurysm, diameter < 3.0 cm, no significant plaque or thrombus seen. Peripheral Artery Screening RIGHT Systolic BPs (mmHg) LEFT 121 Brachial 116 161 Ankle 169 1.33 NAMRATA 1.40 Ankle-brachial index > 0.96. NAMRATA within normal limits. Findings & Recommendations Significant Findings:NO No plaque seen during carotid artery screening. No need for follow up. There is no dilation, plaque or thrombus seen. No need for immediate follow up. Normal peripheral artery screening. The blood pressure taken at this screening is within normal ranges described by the [place] [employer] guidelines. Narrative Procedure Note Willie Montoya MD - 08/29/2014 IMPRESSION This is a limited screening exam. If there are abnormal findings you maybe referred for a thorough diagnostic exam. Carotid Artery Screening Right Internal Carotid Velocities (cm/s):PSV:62 EDV: 28 Left Internal Carotid Velocities (cm/s):PSV:60 EDV: 29 Essentially no build-up of calcium or plaque seen in either the left orright carotid arteries. Abdominal Aortic Screening Aortic Diameter (cm): 1.8 x 1.8 Aortic Velocity (cm/s):84 No evidence of aneurysm, diameter < 3.0 cm, no significant plaque orthrombus seen. Peripheral Artery Screening RIGHT Systolic BPs (mmHg) LEFT 121 Brachial 116 161 Ankle 169 1.33 NAMRATA 1.40 Ankle-brachial index > 0.96. NAMRATA within normal limits. Findings & RecommendationsSignificant Findings:NO No plaque seen during carotid artery screening. No need for follow up. There is no dilation, plaque or thrombus seen. No need for immediatefollow up. Normal peripheral artery screening. The blood pressure taken at this screening is within normal rangesdescribed by the [place] [employer] guidelines. Dillon Acevedo APRN IM VASCULAR ORDER WILL Final Result * SPECIMEN VALIDITY TEST PANEL-QUEST (05/10/2014 3:29 PM EDT) Only the most recent of2 resultswithin the time period is included. Creatinine, Urine 57.8 > or = 20.0 mg/dL [facility] UA pH 6.91 4.5 - 9.0 [facility] Oxidant NEGATIVE <200 mcg/mL [facility] 05/10/2014 3:29 PM EDT 05/10/2014 11:01 PM EDT Narrative Resulting Agency Comment Performing Organization Information: Site ID: Name: [facility] Address: [address] [place] [address] Director: Brandy Stephenson PhD us Kwadwo Ibrahim MD [facility] ORDERABLE (NON-SEH) F inal Result [facility] [address] [place] [address], [facility] * PDM, HEROIN METAB,QN,W/MEDMATCH,U-QUEST (05/10/2014 3:29 PM EDT) Only the most recent of2 resultswithin the time period is included. Prescribed Drug 1 [place](TM) [facility] Prescribed Drug 2 Xanax(TM) [facility] 6 Acetylmorphine NEGATIVE <10 ng/mL [facility] medMATCH 6 Acetylmorph CONSISTENT [facility] medMatch Comments [facility] Comment: medMATCH comments are: - present when drug test results may be the result of metabolism of one or more drugs or when results are inconsistent with prescribed medication(s) listed. - may be blank when drug results are consistent with prescribed medication(s) listed. 05/10/2014 3:29 PM EDT 05/10/2014 11:01 PM EDT Narrative Resulting Agency Comment Performing Organization Information: Site ID: Name: [facility] Address: [address] [place] [address] [place] [address] Director: [employer] Seema PhD Kwadwo Ibrahim MD [facility] ORDERABLE (NON-[facility]H) F inal Result LISETTE WOLF [address] [facility] [place] [address], [facility] * PDM,METHYLPHENIDATE METAB,QN,W/MEDMATCH,U-QUEST (05/10/2014 3:29 PM EDT) Only the most recent of3 resultswithin the time period is included. Prescribed Drug 1 [place](TM) [facility] Prescribed Drug 2 Xanax(TM) [facility] Ritalinic Acid NEGATIVE <100 ng/mL [facility] medMATCH Ritalinic Acid CONSISTENT [facility] medMatch Comments [facility] Comment: medMATCH comments are: - present when drug test results may be the result of metabolism of one or more drugs or when results are inconsistent with prescribed medication(s) listed. - may be blank when drug results are consistent with prescribed medication(s) listed. 05/10/2014 3:29 PM EDT 05/10/2014 11:01 PM EDT Narrative Resulting Agency Comment Performing Organization Information: Site ID: Name: [facility] Address: [address] [facility] [place] [address] Director: Brandy Stephenson PhD Kwadwo Ibrahim MD [facility]PD[facility] ORDERABLE (NON-SE) F inal Result Performing Organization Address City/[facility]/ZIP Co de Phone Number [facility] [address] [facility] [place] [address], [facility] * PDM, COCAINE METAB, W/CONF,W/MEDMATCH,U-QUEST (05/10/2014 3:29 PM EDT) Only the most recent of2 resultswithin the time period is included. [facility] Prescribed Drug 1 [place](TM) [facility] Prescribed Drug 2 Xanax(TM) [facility] Cocaine Metabolite NEGATIVE <150 ng/mL [facility] medMATCH Cocaine Metab CONSISTENT [facility] medMatch Comments [facility] Comment: medMATCH comments are: - present when drug test results may be the result of metabolism of one or more drugs or when results are inconsistent with prescribed medication(s) listed. - may be blank when drug results are consistent with prescribed medication(s) listed. 05/10/2014 3:29 PM EDT 05/10/2014 11:01 PM EDT Narrative Resulting Agency Comment Performing Organization Information: Site ID: Name: [facility] Address: [address] [place] [address] Director: Brandy Stephenson PhD Kwadwo Ibrahim MD [facility] ORDERABLE (NON-SE) F inal Result BrowserlingHUNGANGELAAngella [address] [place], [place] [address], [facility] * (ABNORMAL) PDM,BENZODIAZEPINES W/CONF,W/MEDMATCH,U-QUEST (05/10/2014 3:29 PM EDT) Only the most recent of2 resultswithin the time period is included. Prescribed Drug 1 [place](TM) [facility] Prescribed Drug 2 Xanax(TM) [facility] Benzodiazepines POSITIVE(A) <100 ng/mL [facility] Alphahydroxyalprazolam 170(H) <50 ng/mL [facility] medMATCH aOH alprazolam CONSISTENT [facility] Alpha-hydroxytriazolam UR NEGATIVE <50 ng/mL [facility] medMATCH aOH triazolam CONSISTENT [facility] Lorazepam Urine Quant NEGATIVE <50 ng/mL [facility] medMATCH Lorazepam CONSISTENT [facility] Midazolam UR QT NEGATIVE <50 ng/mL [facility] medMATCH Midazolam CONSISTENT [facility] Nordiazepam Lvl NEGATIVE <50 ng/mL [facility] medMATCH Nordiazepam CONSISTENT [facility] Oxazepam UR QT NEGATIVE <50 ng/mL [facility] medMATCH Oxazepam CONSISTENT Q [facility] Temazepam UR QT NEGATIVE <50 ng/mL [facility] medMATCH Temazepam CONSISTENT [facility] medMatch Comments [facility] Comment: medMATCH comments are: - present when drug test results may be the result of metabolism of one or more drugs or when results are inconsistent with prescribed medication(s) listed. - may be blank when drug results are consistent with prescribed medication(s) listed. 05/10/2014 3:29 PM EDT 05/10/2014 11:01 PM EDT Narrative Resulting Agency Comment Performing Organization Information: Site ID: KP Name: [facility] Address: [address] [place] [address] [place] [address] Director: Brandy Stephenson PhD Kwadwo KNOX-PDM ORDERABLE (NON-SE) F inal Result Performing Organization Address [facility] de Phone Number LISETTE Seanodes [facility] [address] [place] [address], [facility] * PDM, AMPHETAMINES, W/CONF,W/MEDMATCH,U-QUEST (05/10/2014 3:29 PM EDT) Only the most recent of2 resultswithin the time period is included. Prescribed Drug 1 [place](TM) [facility] Prescribed Drug 2 Xanax(TM) [facility] Amphetamines NEGATIVE <500 ng/mL [facility] medMATCH Amphetamines CONSISTENT [facility] medMatch Comments [facility] Comment: medMATCH comments are: - present when drug test results may be the result of metabolism of one or more drugs or when results are inconsistent with prescribed medication(s) listed. - may be blank when drug results are consistent with prescribed medication(s) listed. 05/10/2014 3:29 PM EDT 05/10/2014 11:01 PM EDT Narrative Resulting Agency Comment Performing Organization Information: Site ID: Name: [facility] Address: [address] [place] [id number] Director: Brandy Stephenson PhD Kwadwo KNOX-PDM ORDERABLE (NON-[facility]) F inal Result Performing Organization Address [facility] de Phone Number LISETTE KNOX [facility] [address] [place] [address], [facility] * PDM, OXYCODONE, W/CONF,W/MEDMATCH,U-QUEST (05/10/2014 3:29 PM EDT) Only the most recent of2 resultswithin the time period is included. Prescribed Drug 1 [place](TM) [facility] Prescribed Drug 2 Xanax(TM) [facility] Oxycodone NEGATIVE <100 ng/mL [facility] medMATCH Oxycodone CONSISTENT [facility] medMatch Comments [facility] Comment: medMATCH comments are: - present when drug test results may be the result of metabolism of one or more drugs or when results are inconsistent with prescribed medication(s) listed. - may be blank when drug results are consistent with prescribed medication(s) listed. 05/10/2014 3:29 PM EDT 05/10/2014 11:01 PM EDT Narrative Resulting Agency Comment Performing Organization Information: Site ID: Name: [facility] Address: [address] [place] [address] [place] [address] Director: Brandy Stephenson PhD Kwadwo Ibrahim MD [facility] ORDERABLE (NON-[facility]) F inal Result LISETTE Seanodes [facility] [address] [place] [address], [facility] * (ABNORMAL) PDM, OPIATES, W/CONF,W/MEDMATCH,U-QUEST (05/10/2014 3:29 PM EDT) Only the most recent of2 resultswithin the time period is included. Prescribed Drug 1 [place](TM) [facility] Prescribed Drug 2 Xanax(TM) [facility] Opiates POSITIVE(A) <100 ng/mL [facility] Codeine NEGATIVE <50 ng/mL [facility] medMATCH Codeine CONSISTENT [facility] Morphine Urine NEGATIVE <50 ng/mL [facility] medMATCH Morphine CONSISTENT [facility] Hydrcodone 1,310(H) <50 ng/mL [facility] medMATCH Hydrocodone CONSISTENT [facility] Hydromorphone 374(H) <50 ng/mL [facility] medMATCH Hydromorphone SEE NOTE(S) [facility] Comment: Hydromorphone is a metabolite of hydrocodone as well as a prescribed drug. medMatch Comments [facility]NAL [facility] Comment: medMATCH comments are: - present when drug test results may be the result of metabolism of one or more drugs or when results are inconsistent with prescribed medication(s) listed. - may be blank when drug results are consistent with prescribed medication(s) listed. 05/10/2014 3:29 PM EDT 05/10/2014 11:01 PM EDT Narrative Resulting Agency Comment Performing Organization Information: Site ID: Name: [facility]ette [facility] Address: [address] [place] [address] [place] [address] Director: Brandy Stephenson PhD Kwadwo Ibrahim MD [facility]PD[facility] ORDERABLE (NON-[facility]) F inal Result LISETTE KNOX Night Node SoftwareJESENIA [address] [place] [address], [facility] * PDM, METHADONE, W/CONF,W/MEDMATCH,U-QUEST (05/10/2014 3:29 PM EDT) Only the most recent of2 resultswithin the time period is included. Pathologist [facility] Prescribed Drug 1 [place](TM) [facility] Prescribed Drug 2 Xanax(TM) [facility] Methadone NEGATIVE <150 ng/mL [facility] medMATCH Methadone CONSISTENT [facility] medMatch Comments [facility] Comment: medMATCH comments are: - present when drug test results may be the result of metabolism of one or more drugs or when results are inconsistent with prescribed medication(s) listed. - may be blank when drug results are consistent with prescribed medication(s) listed. 05/10/2014 3:29 PM EDT 05/10/2014 11:01 PM EDT Narrative Resulting Agency Comment Performing Organization Information: Site ID: Name: [facility] Address: [address] [place] [address] [place] [address] Director: Brandy Stephenson PhD Kwadwo Ibrahim MD [facility] ORDERABLE (NON-SE) F inal Result Performing Organization Address [facility] Co de Phone Number LISETTE Parabel[facility] [address] [place] [address], [facility] * PDM,MARIJUANA METAB W/CONF,W/MEDMATCH,U-QUEST (05/10/2014 3:29 PM EDT) Only the most recent of2 resultswithin the time period is included. Pathologist [facility] Prescribed Drug 1 [place](TM) [facility] Prescribed Drug 2 Xanax(TM) [facility] Marijuana Metabolite NEGATIVE <20 ng/mL [facility] medMATCH Marijuana Metab CONSISTENT [facility] medMatch Comments [facility] Comment: medMATCH comments are: - present when drug test results may be the result of metabolism of one or more drugs or when results are inconsistent with prescribed medication(s) listed. - may be blank when drug results are consistent with prescribed medication(s) listed. 05/10/2014 3:29 PM EDT 05/10/2014 11:01 PM EDT Narrative Resulting Agency Comment Performing Organization Information: Site ID: Name: [facility] Address: [address] [place] [id number] Director: Brandy Stephenson PhD Kwadwo KNOX-PDM ORDERABLE (NON-SE) F inal Result Performing Organization Address [facility] de Phone Number LISETTE [facility] [address] [place] [address], [facility] * XR LUMBAR SPINE AP LATERAL FLEXION AND EXTENSION (01/15/2014 2:57 PM EDT) Only the most recent of3 resultswithin the time period is included. Anatomical Region Laterality Modality L-spine Radiographic Tracy ging 01/15/2014 2:40 PM EDT Impressions 01/15/2014 3:09 PM EDT IMPRESSION: Severe degenerative disease L1-L2, L4-L5, and L5-S1. Prior posterior fixation from L2-L4. Stable grade 1 anterolisthesis L4 on L5 of 2 to 3 mm. No evidence of instability. Narrative 01/15/2014 3:09 PM EDT Lumbar spine with flexion-extension 5 views INDICATION: Low back pain. Procedure Note Qasim Nicolas MD - 01/15/2014 Lumbar spine with flexion-extension 5 views INDICATION: Low back pain. IMPRESSION: Severe degenerative disease L1-L2, L4-L5, and L5-S1. Prior posteriorfixation from L2-L4. Stable grade 1 anterolisthesis L4 on L5 of 2 to 3 mm. No evidence ofinstability. us Devonte Pena [facility] ORDERABL ES Final Result * (ABNORMAL) POCT URINALYSIS AUTOMATED (12/28/2013 3:43 PM EDT) Only the most recent of2 resultswithin the time period is included. Color, UA - Clear, Yellow, [place], Rust SEP OFFICE Clarity, UA - Clear, Cloudy SEP OFFICE Glucose, UA - g/dl% SEP OFFICE Bilirubin, UA 1.015 Pos/Neg SEP OFFICE Ketones, UA - Pos/Neg SEP casing sewer Grav, UA 6(A) 1.001 - 1.035 g/dl SEP OFFICE Blood, UA - Pos/Neg SEP OFFICE pH, UA - 5.0 - 8 SEP OFFICE Protein, UA - Pos/Neg SEP OFFICE Urobilinogen, UA - 0.2 - 1.0 mg/dL SEP OFFICE Leukocytes, UA - Pos/Neg SEP OFFICE Nitrite, UA - Pos/Neg SEP OFFICE Appear BF Clear, Slightly Cloudy Clear, Cloudy SEP OFFICE Lot Number SEP OFFICE Expiration Date SEP OFFICE SeriAl # SEP OFFICE Urine specimen (specimen) 12/28/2013 3:43 PM EDT us Kwadwo Ibrahim MD POINT OF CARE TEST ORDERABLES F inal Result SEP OFFICE * (ABNORMAL) TESTOSTERONE LEVEL TOTAL (11/08/2013 5:08 PM EST) Only the most recent of3 resultswithin the time period is included. Testosterone Lvl 935(H) 193 - 740 ng/dL [facility] Blood specimen (specimen) UPPER LIMB STRUCTURE / Unknown 11/08/2013 5:08 PM EST 11/08/2013 7:52 PM EST us Kwadwo Ibrahim MD CHEMISTRY ORDERABLES Final Resu lt [facility] [address] [place] [address] * MRI KNEE RIGHT WO CONTRAST (08/02/2013 3:01 PM EST) Anatomical Region Laterality Modality Knee Magnetic Resonan ce 08/02/2013 Impressions 08/03/2013 8:22 AM EST IMPRESSION: 1. Medial meniscal tear as detailed above. 2. Chondral lesions of both the medial and lateral compartments as detailed above. 3. Mucoid degeneration of the posterior horn of the lateral meniscus but no evidence of discrete tear. Narrative 08/03/2013 8:22 AM EST MRI OF THE RIGHT KNEE: INDICATION: Pain, chronic and medial. HISTORY: Same. TECHNIQUE: Long and short imaging parameters were obtained the sagittal, coronal, and axial orientation. Examination demonstrates a tear of the posterior horn and body of the medial meniscus to the free margin undersurface. Early meniscal substance extrusion is noted, indicating compromise of the hoop mechanism. There is mucoid degeneration of the posterior horn of the lateral meniscus but no evidence of discrete tear. The ligaments, extensor mechanism, and retinaculum are grossly intact. There is degenerative disease in the medial compartment. Significant chondral injury is seen centrally towards the condylar aspect. There is grade 4 disease indeed. In the lateral compartment there is grade 4 disease about the tibia. The patellofemoral compartment, by contrast, is grossly intact. Procedure Note Wilmer Walker MD - 08/03/2013 MRI OF THE RIGHT KNEE: INDICATION: Pain, chronic and medial. HISTORY: Same. TECHNIQUE: Long and short imaging parameters were obtained the sagittal,coronal, and axial orientation. Examination demonstrates a tear of the posterior horn and body of themedial meniscus to the free margin undersurface. Early meniscal substance extrusion is noted,indicating compromise of the hoop mechanism. There is mucoid degeneration of the posterior horn ofthe lateral meniscus but no evidence of discrete tear. The ligaments, extensor mechanism, andretinaculum are grossly intact. There is degenerative disease in the medial compartment.Significant chondral injury is seen centrally towards the condylar aspect. There is grade 4disease indeed. In the lateral compartment there is grade 4 disease about the tibia. Thepatellofemoral compartment, by contrast, is grossly intact. IMPRESSION: 1. Medial meniscal tear as detailed above. 2. Chondral lesions of both the medial and lateral compartments asdetailed above. 3. Mucoid degeneration of the posterior horn of the lateral meniscus butno evidence of discrete tear. 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 No disc herniation or compression of neural structures is seen in the thoracic region. Narrative 08/02/2013 4:41 PM EST MRI THORACIC SPINE WO CONTRAST Aug 02, 2013 02:31:08 PM HISTORY: 724.4-Thoracic or lumbosacral neuritis or radiculitis, [id number]. Compare: no previous thoracic spine MR study is available. Comparison made with cervical spine MR study of 07/06/2013. Sagittal images obtained through the cervical region for counting purposes. The show evidence discogenic disease in the cervical spine region. Please note recent MR cervical spine report of 07/06/2013 Mild anterior wedging of multiple thoracic spine vertebral bodies noted which is felt to be chronic in nature. No findings felt to be suspicious for acute fracture. Signal alteration seen in the discs at multiple levels consistent with degenerative disc diseases. No disc herniation or compression of neural structures is seen. No intrinsic lesion of the thoracic spinal cord Evidence of mild discogenic disease noted at the T12-L1 level. This is better seen on the lumbar spine MR study of 07/06/2013. Procedure Note Simeon Stevens MD - 08/02/2013 MRI THORACIC SPINE WO CONTRAST Aug 02, 2013 02:31:08 PM HISTORY: 724.4-Thoracic or lumbosacral neuritis or radiculitis,[id number]. Compare: no previous thoracic spine MR study is available. Comparison madewith cervical spine MR study of 07/06/2013. Sagittal images obtained through the cervical region for countingpurposes. The show evidence discogenic disease in the cervical spine region. Please note recent MRcervical spine report of 07/06/2013 Mild anterior wedging of multiple thoracic spine vertebral bodies notedwhich is felt to be chronic in nature. No findings felt to be suspicious for acute fracture. Signal alteration seen in the discs at multiple levels consistent withdegenerative disc diseases. No disc herniation or compression of neural structures is seen.No intrinsic lesion of the thoracic spinal cord Evidence of mild discogenic disease noted at the T12-L1 level. This isbetter seen on the lumbar spine MR study of 07/06/2013. 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 us Duane Rowley MD IMG MRI ORDERABLES Final Result * MRI LUMBAR SPINE W WO CONTRAST (07/06/2013 12:52 PM EDT) Anatomical Region Laterality Modality L-spine Magnetic Resonan ce 07/06/2013 Impressions 07/07/2013 9:09 AM EDT IMPRESSION: Status post fusion from L2 through L4. Again, the CT exam performed concomitantly demonstrates poor bony fusion. There appears to be foraminal narrowing bilaterally in the surgical bed at L3-L4. Certainly, at L4-L5 there is severe foraminal narrowing from a combination of disc protrusion and hypertrophy of the posterior elements. Narrative 07/07/2013 9:09 AM EDT MRI LUMBAR SPINE WITH AND WITHOUT CONTRAST INDICATIONS: Pain. History same. TECHNIQUE: Long and short imaging parameters were obtained in the sagittal and axial orientation. Also obtained were postcontrast images after administration of 20 mL MultiHance. The current exam is read in conjunction with a CT exam performed concomitantly. The CT exam demonstrates patient to be status post fusion from the L2 through L4 levels. On the CT exam poor bony fusion is noted. The fusion is redemonstrated on the current exam which creates metallic dephasing artifact. Grossly, in the surgical bed at L2-L3, however, the central canal and foramina are capacious. At L3-L4 there appears be hypertrophy of the posterior elements creating foraminal narrowing compromising the inlets. Certainly, at L4-L5, there is bilateral foraminal narrowing. At L5-S1 the disease is less prominent and of questionable architectural significance. More cephalad to the surgical bed there is degenerative disease, but the central canal and foramina are grossly capacious. Procedure Note Wilmer Walker MD - 07/07/2013 MRI LUMBAR SPINE WITH AND WITHOUT CONTRAST INDICATIONS: Pain. History same. TECHNIQUE: Long and short imaging parameters were obtained in the sagittaland axial orientation. Also obtained were postcontrast images after administrationof 20 mL MultiHance. The current exam is read in conjunction with a CT exam performedconcomitantly. The CT exam demonstrates patient to be status post fusion from the L2 through [id number]. On the CT exam poor bony fusion is noted. The fusion is redemonstrated on the currentexam which creates metallic dephasing artifact. Grossly, in the surgical bed at L2-L3,however, the central canal and foramina are capacious. At L3-L4 there appears be hypertrophy of theposterior elements creating foraminal narrowing compromising the inlets. Certainly, at L4-L5,there is bilateral foraminal narrowing. At L5-S1 the disease is less prominent and ofquestionable architectural significance. More cephalad to the surgical bed there is degenerativedisease, but the central canal and foramina are grossly capacious. IMPRESSION: Status post fusion from L2 through L4. Again, the CT examperformed concomitantly demonstrates poor bony fusion. There appears to be foraminal narrowingbilaterally in the surgical bed at L3-L4. Certainly, at L4-L5 there is severe foraminalnarrowing from a combination of disc protrusion and hypertrophy of the posteriorelements. us Duane Rowley MD IMG MRI ORDERABLES Final Result * MRI CERVICAL SPINE WO CONTRAST (07/06/2013 11:52 AM EDT) Anatomical Region Laterality Modality C-spine Magnetic Resonan ce 07/06/2013 Narrative 07/06/2013 3:10 PM EDT MRI CERVICAL SPINE WO CONTRAST 07/06/2013 at 11:26 a.m. Clinical: 67-year-old male. Neck pain. Technical: Axial, sagittal T1 and T2 imaging. FINDINGS: 1. Vertebral body height common signal preserved. 2. No intrinsic cervical cord abnormality. 3. Disc spaces preserved but with loss of signal at each level indicating desiccation of nucleus pulposus. 4. C2-C3: Normal disc margin and canal. 5. C3-C4: Broad smooth disc protrusion. Bony spondylitic change and right side foraminal disc protrusion results in a narrowed neuroforamina for the right C4 root. 6. C4-C5: Broad disc bulge. 7. C5-C6: Broad disc bulge. 8. C6-C7: Broad disc bulge. 9. C7-T1: Normal disc margin and canal. 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 Broad disc protrusion and bony spondylitic change effacing ventral margin of the thecal sac and resulting in neuroforaminal narrowing for the right C4 root. Broad disc bulges at C4-C5, C5-C6, and C6-C7. No intrinsic cervical cord abnormality. Procedure Note Octavio Rawls MD - 07/06/2013 MRI CERVICAL SPINE WO CONTRAST 07/06/2013 at 11:26 a.m. Clinical: 67-year-old male. Neck pain. Technical: Axial, sagittal T1 and T2 imaging. FINDINGS: 1. Vertebral body height common signal preserved. 2. No intrinsic cervical cord abnormality. 3. Disc spaces preserved but with loss of signal at each level indicatingdesiccation of nucleus pulposus. 4. C2-C3: Normal disc margin and canal. 5. C3-C4: Broad smooth disc protrusion. Bony spondylitic change and rightside foraminal disc protrusion results in a narrowed neuroforamina for the right C4 root. 6. C4-C5: Broad disc bulge. 7. C5-C6: Broad disc bulge. 8. C6-C7: Broad disc bulge. 9. C7-T1: Normal disc margin and canal. 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 Broad discprotrusion and bony spondylitic change effacing ventral margin of the thecal sac and resultingin neuroforaminal narrowing for the right C4 root. Broad disc bulges at C4-C5, C5-C6, andC6-C7. No intrinsic cervical cord abnormality. us Duane Rowley MD IMG MRI ORDERABLES Final Result * CT ABDOMEN PELVIS W CONTRAST (01/17/2013 6:47 PM EDT) Anatomical Region Laterality Modality Abdomen, Chest, Pelvis, Hip Comp uted Tomography 01/17/2013 5:06 PM EDT Impressions 01/17/2013 9:04 PM EDT IMPRESSION: Nonobstructive bowel gas pattern. No focal abdominal pelvic inflammatory process. No evidence of gallstones or pancreatitis. Narrative 01/17/2013 9:04 PM EDT 01/17/2013 CT ABDOMEN/PELVIS WITH CONTRAST (ADDITIONAL MULTIPLANAR RECONSTRUCTIONS): CLINICAL HISTORY: The patient presents with diffuse abdominal pain and nausea. Rule out inflammatory process. Direct comparison with 01/16/2008 CT study. Prelim report provided to the ER department at 6:50 p.m., 01/17/2013. Direct 5 mm axial imaging after administration of oral and IV injection, 75 mL Omnipaque 350. Additional multiplanar reconstruction images reviewed separately. Postinflammatory linear scar noted within the lingula and right lower lobe. No focal pleural effusion. The liver, spleen, adrenals, pancreas and gallbladder appear unremarkable. Nonobstructive bowel gas pattern. Extensive multilevel posterior laminectomy and posterior fusion changes noted. The kidneys symmetrically function without evidence of obstructive uropathy. PELVIS: Normal appendix. A few scattered diverticula involve the descending and sigmoid colon. No active diverticulitis. Symmetric degenerative change of the hips. Procedure Note Darshan Woo, - 01/17/2013 01/17/2013 CT ABDOMEN/PELVIS WITH CONTRAST (ADDITIONAL MULTIPLANARRECONSTRUCTIONS): CLINICAL HISTORY: The patient presents with diffuse abdominal pain andnausea. Rule out inflammatory process. Direct comparison with 01/16/2008 CT study. Prelimreport provided to the ER department at 6:50 p.m., 01/17/2013. Direct 5 mm axial imaging after administration of oral and IV injection,75 mL Omnipaque 350. Additional multiplanar reconstruction images reviewed separately.Postinflammatory linear scar noted within the lingula and right lower lobe. No focal pleural effusion.The liver, spleen, adrenals, pancreas and gallbladder appear unremarkable. Nonobstructivebowel gas pattern. Extensive multilevel posterior laminectomy and posterior fusion changesnoted. The kidneys symmetrically function without evidence of obstructive uropathy. PELVIS: Normal appendix. A few scattered diverticula involve thedescending and sigmoid colon. No active diverticulitis. Symmetric degenerative change of the hips. IMPRESSION: Nonobstructive bowel gas pattern. No focal abdominal pelvic inflammatoryprocess. No evidence of gallstones or pancreatitis. us Gabino Gao MD IMG CT ORDERABLES Final Result * TROPONIN-I (01/17/2013 4:33 PM EDT) Only the most recent of2 resultswithin the time period is included. [facility] Troponin-I <0.03 <=0.06 ng/mL [facility] Blood specimen (specimen) UPPER LIMB STRUCTURE / Unknown 01/17/2013 4:33 PM EDT 01/17/2013 4:37 PM EDT us Gabino Gao MD CHEMISTRY ORDERABLES Final Resul t Performing Organization Address [facility] Co de Phone Number [facility] [address] [place] [address] * (ABNORMAL) LIPASE LEVEL (01/17/2013 4:33 PM EDT) [facility] Lipase Lvl 310(H) 36 - 250 IU/L [facility] Blood specimen (specimen) UPPER LIMB STRUCTURE / Unknown 01/17/2013 4:33 PM EDT 01/17/2013 4:37 PM EDT us Gabino Gao MD CHEMISTRY ORDERABLES Final Resul t Performing Organization Address [facility] Co de Phone Number [facility] [address] [place] [address] * POCT URINALYSIS DIPSTICK (01/17/2013 1:50 AM EDT) Only the most recent of3 resultswithin the time period is included. Pathologist [facility] Color, UA yellow Clear, Yellow, [place], Rust [facility] Clarity, UA clear Clear, Cloudy [facility] Glucose, UA negaitve g/dl% [facility] Bilirubin, UA negaitve Pos/Neg [facility] Ketones, UA negaitve Pos/Neg [facility] Spec Grav, UA 1.010 1.001 - 1.035 g/dl [facility] Blood, UA negaitve Pos/Neg [facility] pH, UA 7.0 5.0 - 8 [facility] Protein, UA negative Pos/Neg [facility] Urobilinogen, UA negaitve 0.2 - 1.0 mg/dL [facility] Leukocytes, UA negative Pos/Neg [facility] Nitrite, UA negative Pos/Neg [facility] UA Appear POC yellow [facility] Lot Number [id number] [facility] Expiration Date 03/03 [facility] SeriAl # [facility] Urine specimen (specimen) 01/17/2013 1:50 AM EDT Gabino Gao MD POINT OF CARE TEST ORDERABLES Fi nal Result [facility] [address] [place] [address] * SMEAR REVIEW (01/13/2013 1:44 PM EDT) [facility] Bands 4 0 - 10 % [facility] Atyp Lymph 2 0 - 5 % [facility] RBC Morph Normal [facility] Blood specimen (specimen) 01/13/2013 1:44 PM EDT 01/13/2013 1:51 PM EDT Katelyn Wilson MD HEMATOLOGY ORDERABLES Final Result [facility] [address] [place] [address] * PDM, HEROIN METAB, W/CONF,W/MEDMATCH,U-QUEST (05/26/2012 2:50 PM EDT) [facility] Prescribed Drug 1 Hydrocodone [facility] Prescribed Drug 2 Alprazolam Q [facility] 6-Acetylmorphine,G C/MS NEGATIVE <10 ng/mL [facility] medMATCH 6 Acetylmorphine CONSISTENT [facility] medMatch Comments [facility] Comment: medMATCH comments are: - present when drug test results may be the result of metabolism of one or more drugs or when results are inconsistent with prescribed medication(s) listed. - may be blank when drug results are consistent with prescribed medication(s) listed. 05/26/2012 2:50 PM EDT 05/27/2012 3:40 AM EDT Narrative [facility] - 05/31/2012 1:17 PM EDT FASTING: UNKNOWN Resulting Agency Comment Performing Organization Information: Site ID: Name: [facility] Address: [address] [place] [address] [place] [address] Director: Nava Seema PhD Ruddy Londono MD [facility]-PDM ORDERABLE (NON-SEH) F inal Result LISETTE Parabel-[place] [address] [facility] [place] [address], [facility] * PDM, MDMA/MDA, W/CONF,W/MEDMATCH,U-QUEST (05/26/2012 2:50 PM EDT) Pathologist [facility] Prescribed Drug 1 Hydrocodone [facility] Prescribed Drug 2 Alprazolam [facility] [place] MDMA NEGATIVE <500 ng/mL [facility] [place] medMATCH MDMA CONSISTENT [facility] [place] medMatch Comments [facility] Comment: medMATCH comments are: - present when drug test results may be the result of metabolism of one or more drugs or when results are inconsistent with prescribed medication(s) listed. - may be blank when drug results are consistent with prescribed medication(s) listed. 05/26/2012 2:50 PM EDT 05/27/2012 3:40 AM EDT Narrative [facility] - 05/31/2012 1:17 PM EDT FASTING: UNKNOWN Resulting Agency Comment Performing Organization Information: Site ID: Name: [facility] Address: [address] [facility] [place] [address] Director: Brandy Stephenson PhD Ruddy KNOX-PDM ORDERABLE (NON-SE) F inal Result Performing Organization Address [facility] Co de Phone Number [facility]TE [facility] [address] [facility]ISELENCOM[facility] [place] [address], [facility] * PDM, CLONAZEPAM METAB,QN,W/MEDMATCH,U-QUEST (05/26/2012 2:50 PM EDT) Prescribed Drug 1 Hydrocodone [facility] Prescribed Drug 2 [facility]prazolam Q [facility] Aminoclonazepam NEGATIVE <25 ng/mL [facility] medMATCH Aminoclonazepam CONSISTENT [facility] medMatch Comments QU EST [facility] Comment: medMATCH comments are: - present when drug test results may be the result of metabolism of one or more drugs or when results are inconsistent with prescribed medication(s) listed. - may be blank when drug results are consistent with prescribed medication(s) listed. 05/26/2012 2:50 PM EDT 05/27/2012 3:40 AM EDT Narrative [facility] - 05/31/2012 1:17 PM EDT FASTING: UNKNOWN Resulting Agency Comment Performing Organization Information: Site ID: Name: [facility]ette [facility] Address: [address] [facility] [facility] [facility] [place] [address] Director: Brandy Stephenson PhD Ruddy KNOX-PDM ORDERABLE (NON-SE) F inal Result Performing Organization Address City/[facility]/ZIP Co de Phone Number LISETTE KNOX [facility] SoftwareHUNGENCOM[facility] [address] [facility] [place] [address], [facility] * PDM, PREGABALIN, QN,W/MEDMATCH,U-QUEST (05/26/2012 2:50 PM EDT) Prescribed Drug 1 [facility]codone [facility] Prescribed Drug 2 Alprazolam [facility] [place] Pregabalin NEGATIVE <1000 ng/mL [facility] [place] medMATCH Pregabalin CONSISTENT [facility] [place] medMatch Comments [facility] [place] Comment: medMATCH comments are: - present when drug test results may be the result of metabolism of one or more drugs or when results are inconsistent with prescribed medication(s) listed. - may be blank when drug results are consistent with prescribed medication(s) listed. 05/26/2012 2:50 PM EDT 05/27/2012 3:40 AM EDT Narrative [facility] - 05/31/2012 1:17 PM EDT FASTING: UNKNOWN Resulting Agency Comment Performing Organization Information: Site ID: Name: [facility]lyfe [facility] Address: [address] [place] [address] [place] [address] Director: [employer] Seema PhD Ruddy Londono MD [facility]-PDM ORDERABLE (NON-SEH) F inal Result LISETTE ParabelHUNGMELI [address] [facility] [place] [address], [facility] * PDM, TRAMADOL, QN,W/MEDMATCH,U-QUEST (05/26/2012 2:50 PM EDT) [facility] Prescribed Drug 1 Hydrocodone [facility] [place] Prescribed Drug 2 Alprazolam [facility] [place] Tramadol Scrn, Ur NEGATIVE <100 ng/mL [facility] [place] medMATCH Tramadol CONSISTENT [facility]- [place] medMatch Comments [facility]- [place] Comment: medMATCH comments are: - present when drug test results may be the result of metabolism of one or more drugs or when results are inconsistent with prescribed medication(s) listed. - may be blank when drug results are consistent with prescribed medication(s) listed. 05/26/2012 2:50 PM EDT 05/27/2012 3:40 AM EDT Narrative [facility] - 05/31/2012 1:17 PM EDT FASTING: UNKNOWN Resulting Agency Comment Performing Organization Information: Site ID: Name: [facility] Address: [address] [facility] [place] [address] Director: Brandy Stephenson PhD Ruddy KNOX-PDM ORDERABLE (NON-SEH) F inal Result Performing Organization Address [facility] Co de Phone Number LISETTE ParabelMADDIE [address] [place] [address], [facility] * PDM, CARISOPRODOL METAB,QN,W/MEDMATCH,U-QUEST (05/26/2012 2:50 PM EDT) Prescribed Drug 1 Hydrocodone [facility] Prescribed Drug 2 [facility]prazolam [facility] Meprobamate Lvl NEGATIVE <1000 ng/mL [facility] medMATCH Meprobamate CONSISTENT [facility] [place] medMatch Comments [facility] Comment: medMATCH comments are: - present when drug test results may be the result of metabolism of one or more drugs or when results are inconsistent with prescribed medication(s) listed. - may be blank when drug results are consistent with prescribed medication(s) listed. 05/26/2012 2:50 PM EDT 05/27/2012 3:40 AM EDT [facility] - 05/31/2012 1:17 PM EDT FASTING: UNKNOWN Resulting Agency Comment Performing Organization Information: Site ID: Name: [facility] Address: [address] [place] [address] Director: Brandy Stephenson PhD Ruddy KNOX-PDM ORDERABLE (NON-SEH) F inal Result Performing Organization Address [facility]/ZIP Co de Phone Number LISETTE ParabelHUNGENCOMPASS [facility] [address] [facility] [place] [address], [facility] * (ABNORMAL) PDM PROFILE 1 W/ CONF, URINE-QUEST (05/26/2012 2:50 PM EDT) Prescribed Drug 1 Hydrocodone YoombaSALUDA Prescribed Drug 2 Alprazolam Q [facility] Creatinine, Urine 33.2 > or = 20.0 mg/dL Parabel -[place] UA pH 7.0 4.5 - 9.0 [facility] Oxidant NEGATIVE <200 mcg/mL [facility] Amphetamines NEGATIVE <500 ng/mL [facility] medMATCH Amphetamines CONSISTENT [facility] Barbiturates NEGATIVE <300 ng/mL [facility] medMATCH Barbiturates CONSISTENT [facility] Benzodiazepines POSITIVE(A) <100 ng/mL [facility] Alphahydroxyalprazolam 98(H) <50 ng/mL [facility] medMATCH aOH alprazolam CONSISTENT Parabel [facility] Alpha-hydroxytriazolam UR NEGATIVE <50 ng/mL [facility] medMATCH aOH triazolam CONSISTENT [facility] Lorazepam UR QT NEGATIVE <50 ng/mL [facility] medMATCH Lorazepam CONSISTENT [facility] Midazolam UR QT NEGATIVE <50 ng/mL [facility] medMATCH Midazolam CONSISTENT Parabel [facility] Nordiazepam Lvl NEGATIVE <50 ng/mL [facility] medMATCH Nordiazepam CONSISTENT [facility] Oxazepam UR QT NEGATIVE <50 ng/mL [facility] medMATCH Oxazepam CONSISTENT Q [facility] Temazepam UR QT NEGATIVE <50 ng/mL [facility] medMATCH Temazepam CONSISTENT [facility] Marijuana Metabolite NEGATIVE <20 ng/mL [facility] medMATCH Marijuana Metab [facility]SISTENT [facility] Cocaine Metabolite NEGATIVE <150 ng/mL [facility] medMATCH Cocaine Metab CONSISTENT [facility] Methadone NEGATIVE <150 ng/mL [facility] medMATCH Methadone CONSI[facility] Opiates POSITIVE(A) <100 ng/mL [facility] Codeine NEGATIVE <50 ng/mL [facility] medMATCH Codeine CONSISTENT [facility] Morphine Urine NEGATIVE <50 ng/mL [facility] medMATCH Morphine CONSISTENT Q [facility] Hydrcodone 644(H) <50 ng/mL [facility] medMATCH Hydrocodone CONSISTENT [facility] Hydromorphone 87(H) <50 ng/mL [facility] medMATCH Hydromorphone SEE NOTE(S)(A) [facility] Comment: Hydromorphone is a metabolite of hydrocodone as well as a prescribed drug. Oxycodone NEGATIVE <100 ng/mL [facility] medMATCH Oxycodone CONSISTENT [facility] Phencyclidine NEGATIVE <25 ng/mL [facility] medMATCH Phencyclidine CONSISTENT [facility] Propoxyphene, Screen NEGATIVE <300 ng/mL [facility] medMATCH Propoxyphene CONSISTENT [facility] medMatch Comments [facility] Comment: medMATCH comments are: - present when drug test results may be the result of metabolism of one or more drugs or when results are inconsistent with prescribed medication(s) listed. - may be blank when drug results are consistent with prescribed medication(s) listed. 05/26/2012 2:50 PM EDT 05/27/2012 3:40 AM EDT Narrative [facility] - 05/31/2012 1:17 PM EDT FASTING: UNKNOWN Resulting Agency Comment Performing Organization Information: Site ID: KP Name: [place] Address: [address] [place] [address] [address] Director: Brandy Stephenson PhD us Ruddy KNOX-PDM ORDERABLE (NON-SEH) F inal Result L[facility]ETTE SNYDERKgCHARLESRIST[place] [address] [place] [address], [facility] * POCT DRUG SCREEN (08/31/2011 12:46 PM EST) Only the most recent of2 resultswithin the time period is included. Amphetamine Screen, Urine - Barbiturate Screen, Urine - Benzodiazepine Screen Urine + Cocaine(Metab.)Scree n, Urine - Marijuana Metabolite - Methamphetamines - Opiates + Oxycodone - Phencyclidine - Propoxyphene - TCA Scrn - 08/31/2011 12:4 6 PM EST Kwadwo Ibrahim MD POINT OF CARE TEST ORDERABLES F inal Result * VITAMIN D, [id number] (06/08/2011 3:54 PM EDT) Vit D 25 OH 31 30 - 80 ng/mL [facility] Comment: REFERENCE INTERVAL: Vitamin D, 25-Hydroxy This assay accurately quantifies the sum of vitamin D3, 25-hydroxy and vitamin D2, 25-hydroxy. 0-17 years: Deficiency: less than 20 ng/mL Optimum level: greater than or equal to 20 ng/mL* *(Castaneda CL et al. Pediatrics 2008; 122: 1142-52.) 18 years and older: Deficiency: Less than 20 ng/mL Insufficiency: 20-29 ng/mL Optimum Level: 30-80 ng/mL Possible Toxicity: Greater than 150 ng/mL Blood specimen (specimen) UPPER LIMB STRUCTURE / Unknown 06/08/2011 3:54 PM EDT 06/08/2011 9:58 PM EDT us Kwadwo Ibrahim MD CHEMISTRY ORDERABLES Final Resu lt [facility] [address] [place] [address] * SCANNED OR REPORT (07/31/2010 12:00 AM EST) Narrative 07/31/2010 12:00 AM EST Ordered by an unspecified provider. Transcriptions Unknown, Unknown - 07/31/2010 12:00 AM EST us Unknown Unknown PROCEDURE/MINOR SURGICAL ORDERAB LES Final Result * PARTIAL THROMBOPLASTIN TIME (06/12/2010 12:21 PM EDT) PTT 33.7 27.2 - 38.6 second(s) [facility] Comment:The therapeutic rang e for heparinized patients monitored by the aPTT is 62-105 seconds. Blood specimen (specimen) UPPER LIMB STRUCTURE / Unknown 06/12/2010 12:21 PM EDT 06/12/2010 12:21 PM EDT Kwadwo Ibrahim MD HEMATOLOGY ORDERABLES Final Res ult Performing Organization Address [facility] de Phone Number [facility] [address] [place] [address] * PT / INR (06/12/2010 12:21 PM EDT) PT 11.2 9.9 - 12.3 second(s) [facility] INR 1.05 0.90 - 1.11 [facility] Comment: Level of Therapy Indications Target INR Range Standard Dose Treatment and prophylaxis of venous 2.0 - 3.0 thrombosis, pulmonary embolism. High Dose High risk patients with mechanical 2.5 - 3.5 heart valves. Blood specimen (specimen) UPPER LIMB STRUCTURE / Unknown 06/12/2010 12:21 PM EDT 06/12/2010 12:21 PM EDT us Kwadwo Ibrahim MD HEMATOLOGY ORDERABLES Final Res ult Performing Organization Address [facility] de Phone Number [facility] [address] [place] [address] * SCANNED OR REPORT (05/07/2010 12:00 AM EDT) Narrative 05/07/2010 8:09 PM EDT Ordered by an unspecified provider. Transcriptions Unknown, U - 05/07/2010 8:04 PM EDT us U Unknown PROCEDURE/MINOR SURGICAL ORDERAB LES Final Result * SCANNED OR REPORT (05/05/2010 12:00 AM EDT) Narrative 05/05/2010 12:17 AM EDT Ordered by an unspecified provider. Transcriptions Unknown, U - 05/05/2010 12:10 AM EDT us U Unknown PROCEDURE/MINOR SURGICAL ORDERAB LES Final Result * SCANNED OR REPORT (04/30/2010 12:00 AM EDT) Narrative 04/30/2010 1:31 PM EDT Ordered by an unspecified provider. Transcriptions Unknown, U - 04/30/2010 7:34 AM EDT us U Unknown PROCEDURE/MINOR SURGICAL ORDERAB LES Final Result * SCANNED OR REPORT (04/30/2010 12:00 AM EDT) Narrative 04/30/2010 1:31 PM EDT Ordered by an unspecified provider. Transcriptions Unknown, U - 04/30/2010 7:34 AM EDT us U Unknown PROCEDURE/MINOR SURGICAL ORDERAB LES Final Result * SCANNED OR REPORT (04/12/2010 12:00 AM EDT) Narrative 04/12/2010 5:09 PM EDT Ordered by an unspecified provider. Transcriptions Unknown, U - 04/11/2010 5:20 PM EDT us U Unknown PROCEDURE/MINOR SURGICAL ORDERAB LES Final Result * EC ECHO COMPLETE GC (02/24/2010 8:23 AM EDT) Anatomical Region Laterality Modality Other 02/24/2010 8:23 AM EDT Narrative 02/24/2010 1:42 PM EDT [address] [address] [email or web address] Transthoracic Echo Report JERMAINE HE Age- 64 Gender- M - 1945 Exam Date- 02/24/2010 Exam Location- [facility] ECHO Room Number- Ordering Phys- DEEPA SAUCEDO MD (MEAGAN) Referring Phys- KWADWO IBRAHIM MD Technologist- Helenarahel Cuetoh [facility] Accession Number- [id number] Height(in)- 69 Weight(lb)- 200 BSA- 2.12 Procedure CPT- Indication- ICD-9 Codes- 52170 CHEST PAIN NOS Critical Result- No Critical Finding History- Rhythm- Technical Quality- Adequate. MEASUREMENTS (Male / Female) Normal Values 2D ECHO LV Diastolic Diameter VICKIE 4.5 cm (4.2 - 5.9 / 3.9 - 5.3 cm) LV Systolic Diameter PLAX 3.7 cm IVS Diastolic Thickness 1.2 cm (0.6 - 1.0 / 0.6 - 0.9 cm) LVPW Diastolic Thickness 1.1 cm (0.6 - 1.1 cm) LVOT Diameter 2.0 cm Aortic Root Diameter 3.6 cm LA Systolic Diameter LX 4.0 cm (3.0 - 4.0 / 2.7 - 3.8 cm) DOPPLER AV Peak Velocity 180.0 cm/s AV Peak Gradient 13.0 mmHg AV Mean Gradient 7.0 mmHg LVOT Peak Velocity 125.0 cm/s LVOT Peak Gradient 6.3 mmHg AV Area Cont Eq vti 2.4 cmXB2 AV Area Cont Eq pk 2.2 cmXB2 Mitral E to A Ratio 0.8 TR Peak Velocity 246.0 cm/s TR Peak Gradient 24.2 mmHg Right Ventricular Systoli 34.2 mmHg FINDINGS Left Ventricle Normal left ventricular chamber size. Mild to moderate concentric left ventricular hypertrophy with doppler evidence of impaired relaxation. Ejection fraction is estimated to be 50-55%. Right Ventricle The right ventricle is normal in size and function. Right Atrium The right atrium is normal in size. Left Atrium The left atrium is normal in size. Mitral Valve Structurally normal mitral valve without significant stenosis or prolapse. There is mild mitral regurgitation. Aortic Valve Structurally normal aortic valve without significant sclerosis or stenosis. There is no aortic regurgitation. Tricuspid Valve Structurally normal tricuspid valve without significant stenosis or regurgitation. There is mild tricuspid regurgitation. Pulmonary artery systolic pressure is 34mmHg. Pulmonic Valve Structurally normal pulmonic valve without significant stenosis. There is no pulmonic regurgitation. Pericardium Normal pericardium without effusion. Aorta Normal aortic root dimension. CONCLUSIONS Mild to moderate concentric left ventricular hypertrophy with doppler evidence of impaired relaxation. Ejection fraction is estimated to be 50-55%. Pulmonary artery systolic pressure is 34mmHg. Normal pericardium without effusion. DEEPA SAUCEDO MD (Electronically Signed) Final Date- 24 February 2010 13-42 Ticket Maker- DEEPA SAUCEDO MD Reading Physician- DEEPA SAUCEDO MD Released Date Time- 02/24/10 1343 Procedure Note Deepa Saucedo - 02/24/2010 [place] [address] [email or web address] Transthoracic Echo Report JERMAINE HE Age- 64 Gender- M - 1945 Exam Date- 02/24/2010 09-31 Exam Location- [facility] ECHO Room Number- Ordering Phys- DEEPA SAUCEDO MD (MEAGAN) Referring Genesis- KWADWO IBRAHIM MD Technologist- Helena Garrett [facility] Accession Number- [id number] Height(in)- 69 Weight(lb)- 200 BSA- 2.12 Procedure CPT- Indication- ICD-9 Codes- 27737 CHEST PAIN NOS Critical Result- No Critical Finding History- Rhythm- Technical Quality- Adequate. MEASUREMENTS (Male / Female) Normal Values 2D ECHO LV Diastolic Diameter VICKIE 4.5 cm (4.2 - 5.9 / 3.9 - 5.3 cm) LV Systolic Diameter PLAX 3.7 cm IVS Diastolic Thickness 1.2 cm (0.6 - 1.0 / 0.6 - 0.9 cm) LVPW Diastolic Thickness 1.1 cm (0.6 - 1.1 cm) LVOT Diameter 2.0 cm Aortic Root Diameter 3.6 cm LA Systolic Diameter LX 4.0 cm (3.0 - 4.0 / 2.7 - 3.8 cm) DOPPLER AV Peak Velocity 180.0 cm/s AV Peak Gradient 13.0 mmHg AV Mean Gradient 7.0 mmHg LVOT Peak Velocity 125.0 cm/s LVOT Peak Gradient 6.3 mmHg AV Area Cont Eq vti 2.4 cmXB2 AV Area Cont Eq pk 2.2 cmXB2 Mitral E to A Ratio 0.8 TR Peak Velocity 246.0 cm/s TR Peak Gradient 24.2 mmHg Right Ventricular Systoli 34.2 mmHg FINDINGS Left Ventricle Normal left ventricular chamber size. Mild to moderate concentric left ventricular hypertrophy with doppler evidence of impaired relaxation. Ejection fraction is estimated to be 50-55%. Right Ventricle The right ventricle is normal in size and function. Right Atrium The right atrium is normal in size. Left Atrium The left atrium is normal in size. Mitral Valve Structurally normal mitral valve without significant stenosis or prolapse. There is mild mitral regurgitation. Aortic Valve Structurally normal aortic valve without significant sclerosis or stenosis. There is no aortic regurgitation. Tricuspid Valve Structurally normal tricuspid valve without significant stenosis or regurgitation. There is mild tricuspid regurgitation. Pulmonary artery systolic pressure is 34mmHg. Pulmonic Valve Structurally normal pulmonic valve without significant stenosis. There is no pulmonic regurgitation. Pericardium Normal pericardium without effusion. Aorta Normal aortic root dimension. CONCLUSIONS Mild to moderate concentric left ventricular hypertrophy with doppler evidence of impaired relaxation. Ejection fraction is estimated to be 50-55%. Pulmonary artery systolic pressure is 34mmHg. Normal pericardium without effusion. DEEPA SAUCEDO MD (Electronically Signed) Final Date- 24 February 2010 13-42 Ticket Maker- DEEPA SAUCEDO MD Reading Physician- DEEPA SAUCEDO MD Released Date Time- 02/24/10 1343 us Deepa Saucedo MD IMG SE STAR CARD HISTOR ICAL Final Result * 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 GC (02/24/2010 8:19 AM EDT) Only the most recent of3 resultswithin the time period is included. Anatomical Region Laterality Modality Other 02/24/2010 8:19 AM EDT Narrative 02/25/2010 9:16 AM EDT Gated SPECT Stress Myocardial Perfusion Exam 1. 8.2 mCi of Technetium sestamibi was injected for the rest images. 26.1 mCi of Technetium sestamibi was injected for the stress images. 2. Stress test was performed by Lexiscan protocol. 3. On post Lexiscan images there is decreased uptake noted in the inferior basal and mid and inferior lateral basal mid wall and just below normal uptake at the apex. When compared to rest images, there is a borderline difference at the apex and a borderline difference in the amount of uptake in a portion of the inferior wall but not enough to consider reversible ischemia. There is actually in most areas in the basal inferior wall there is less uptake on the resting images. There was no evidence of ischemia but a little bit of soft tissue and diaphragmatic attenuation. 4. There is normal wall motion and segmental thickening with end- diastolic volume of 110 ml and end-systolic volume of 32 ml with post- Lexiscan EF of 71%. CONCLUSIONS- There is a borderline difference in the inferior wall that did not meet criteria for ischemia. There is no evidence of Lexiscan induced ischemia, however there was a borderline difference. Would recommend clinical correlation. * The normal range for left ventricular ejection fraction determined by MUGA scan is 50-70%. * The normal range for left ventricular ejection fraction determined by SPECT gated myocardial perfusion scan is 45-75%. Ticket Maker- AZIZA KNUTSON Reading Physician- DEEPA SAUCEDO MD Released Date Time- 02/25/10 0923 Procedure Note Deepa Saucedo - 02/25/2010 Gated SPECT Stress Myocardial Perfusion Exam 1. 8.2 mCi of Technetium sestamibi was injected for the rest images. 26.1 mCi of Technetium sestamibi was injected for the stress images. 2. Stress test was performed by Lexiscan protocol. 3. On post Lexiscan images there is decreased uptake noted in the inferior basal and mid and inferior lateral basal mid wall and just below normal uptake at the apex. When compared to rest images, there is a borderline difference at the apex and a borderline difference in the amount of uptake in a portion of the inferior wall but not enough to consider reversible ischemia. There is actually in most areas in the basal inferior wall there is less uptake on the resting images. There was no evidence of ischemia but a little bit of soft tissue and diaphragmatic attenuation. 4. There is normal wall motion and segmental thickening with end- diastolic volume of 110 ml and end-systolic volume of 32 ml with post- Lexiscan EF of 71%. CONCLUSIONS- There is a borderline difference in the inferior wall that did not meet criteria for ischemia. There is no evidence of Lexiscan induced ischemia, however there was a borderline difference. Would recommend clinical correlation. * The normal range for left ventricular ejection fraction determined by MUGA scan is 50-70%. * The normal range for left ventricular ejection fraction determined by SPECT gated myocardial perfusion scan is 45-75%. Ticket Maker- AZIZA KNUTSON Reading Physician- DEEPA SAUCEDO MD Released Date Time- 02/25/10 0923 Deepa Saucedo MD [facility] Final Result * ST PHARM STRESS GC (02/24/2010 8:19 AM EDT) Only the most recent of3 resultswithin the time period is included. Anatomical Region Laterality Modality Other 02/24/2010 8:19 AM EDT Narrative 02/25/2010 8:05 AM EDT Time B/P HR Rhythm Dosage Comments 1 min- 132/68 106 2 min- 123/67 103 3 min- 124/70 93 4 min- 124/70 95 no symptoms 5 min- 6 min- 7 min- 8 min- 9 min- 10 min- INTERPRETATION- Nuclear to follow. No chest pain. No EKG changes. Jose Enrique Farmer /02/25/10 Ticket Maker- DORETHA Jimenez Physician- DEEPA SAUCEDO MD Released Date Time- 02/25/10 1056 Procedure Note Deepa Saucedo - 02/25/2010 Time B/P HR Rhythm Dosage Comments 1 min- 132/68 106 2 min- 123/67 103 3 min- 124/70 93 4 min- 124/70 95 no symptoms 5 min- 6 min- 7 min- 8 min- 9 min- 10 min- INTERPRETATION- Nuclear to follow. No chest pain. No EKG changes. Jose Enrique Farmer /02/25/10 Ticket Maker- DORETHA Jimenez Physician- DEEPA SAUCEDO MD Released Date Time- 02/25/10 1056 us Deepa Saucedo MD [facility] STAR CARD HISTOR ICAL Final Result * SCANNED OR REPORT STL (02/09/2010 12:00 AM EDT) Narrative 02/09/2010 10:26 AM EDT Ordered by an unspecified provider. Transcriptions Unknown, Unknown - 02/08/2010 7:10 PM EDT us Unknown Unknown PROCEDURE/MINOR SURGICAL ORDERAB LES Final Result * SCANNED OR REPORT STL (02/09/2010 12:00 AM EDT) Narrative 02/09/2010 1:44 AM EDT Ordered by an unspecified provider. Transcriptions Unknown, Unknown - 02/08/2010 3:02 PM EDT us Unknown Unknown PROCEDURE/MINOR SURGICAL ORDERAB LES Final Result * XR LUMBOSACRAL IR W/FLEX&EXT GC (12/10/2009 12:24 PM EDT) Anatomical Region Laterality Modality Other 12/10/2009 12:2 4 PM EDT Narrative 12/10/2009 3:00 PM EDT Lumbosacral spine with flexion and extension views - History- Lumbar spondylolisthesis. Mild to moderate degenerative changes with spurring noted. Mild anterolisthesis of L3 on L4 to a distance of approximately 5 mm. No acute fracture. No destructive lesion of bone. No instability seen on flexion and extension views. Comparison- 11/27/2009 Postsurgical changes again noted in the mid and lower lumbar spine. Increased density noted in the posterior elements consistent with facet arthropathy of the L4 and L5 levels. Anterior wedging of some lower thoracic vertebral bodies noted which is stable. Opinion- Grade 1 spondylolisthesis of L3 on L4. No instability on flexion and extension views. Degenerative changes as described. Mild to moderate narrowing of the L5-S1 interspace. Ticket Maker- AGUILA WELLS Reading Physician- SIMEON STEVENS MD Released Date Time- 12/10/09 1616 Procedure Note Simeon Stevens - 12/11/2009 Lumbosacral spine with flexion and extension views - History- Lumbar spondylolisthesis. Mild to moderate degenerative changes with spurring noted. Mild anterolisthesis of L3 on L4 to a distance of approximately 5 mm. No acute fracture. No destructive lesion of bone. No instability seen on flexion and extension views. Comparison- 11/27/2009 Postsurgical changes again noted in the mid and lower lumbar spine. Increased density noted in the posterior elements consistent with facet arthropathy of the L4 and L5 levels. Anterior wedging of some lower thoracic vertebral bodies noted which is stable. Opinion- Grade 1 spondylolisthesis of L3 on L4. No instability on flexion and extension views. Degenerative changes as described. Mild to moderate narrowing of the L5-S1 interspace. Ticket Maker- AGUILA Jimenez Physician- SIMEON STEVENS MD Released Date Time- 12/10/09 1616 Devonte Pena [facility] Fin al Result * XR KNEE (3 VIEWS) (11/20/2009 2:47 PM EST) Anatomical Region Laterality Modality Other 11/20/2009 2:47 PM EST Narrative 11/20/2009 6:51 PM EST Examinations of the right knee Indications- Pain. History same. Three views of the right knee demonstrate degenerative changes in all 3 compartments. There is joint space narrowing, osteophyte formation and sclerosis. Impression- No fractures. Degenerative changes. Ticket Maker- MIGUELITO Jimenez Physician- WILMER WALKER M.D. Released Date Time- 11/20/09 2208 Procedure Note Wilmer Walker - 11/29/2009 Examinations of the right knee Indications- Pain. History same. Three views of the right knee demonstrate degenerative changes in all 3 compartments. There is joint space narrowing, osteophyte formation and sclerosis. Impression- No fractures. Degenerative changes. Ticket Maker- MIGUELITO Jimenez Physician- WILMER WALKER M.D. Released Date Time- 11/20/092207 us Jason Luz MD [facility] Final Result * XR PELVIS GC (11/20/2009 2:46 PM EST) Anatomical Region Laterality Modality Other 11/20/2009 2:46 PM EST Narrative 11/20/2009 6:50 PM EST Examination of the pelvis. Indications- Pain. History- Pain. Single frontal view of the pelvis demonstrates degenerative changes of both hips. There is joint space narrowing, osteophyte formation, and sclerosis. Degenerative changes are also seen in the visualized portions of the lower lumbar spine in this patient who is status post multilevel posterior decompression. Impression- Degenerative changes. Ticket Maker- MORRIS Jimenez Physician- WILMER WALKER M.D. Released Date Time- 11/20/092207 Procedure Note Wilmer Walker - 11/29/2009 Examination of the pelvis. Indications- Pain. History- Pain. Single frontal view of the pelvis demonstrates degenerative changes of both hips. There is joint space narrowing, osteophyte formation, and sclerosis. Degenerative changes are also seen in the visualized portions of the lower lumbar spine in this patient who is status post multilevel posterior decompression. Impression- Degenerative changes. Ticket Maker- MORRIS Jimenez Physician- WILMER WALKER M.D. Released Date Time- 11/20/092207 us [facility] Lu[facility] Final Result * XR LUMBOSACRAL SPINE GC (11/20/2009 2:44 PM EST) Anatomical Region Laterality Modality Other 11/20/2009 2:44 PM EST Narrative 11/20/2009 6:46 PM EST Examinations of the lumbosacral spine Indications- Pain. History same. Frontal, lateral and coned-down views of the lumbosacral spine demonstrate the patient to be status post posterior decompression through the mid and lower lumbar spine. Hypertrophic changes are seen posteriorly. In addition, there is endplate sclerosis and spondylosis. Impression- Status post posterior decompression. DDD and DJD. Ticket Maker- MIGUELITO Jimenez Physician- WILMER WALKER M.D. Released Date Time- 11/20/092207 Procedure Note Wilmer Walker 11/29/2009 Examinations of the lumbosacral spine Indications- Pain. History same. Frontal, lateral and coned-down views of the lumbosacral spine demonstrate the patient to be status post posterior decompression through the mid and lower lumbar spine. Hypertrophic changes are seen posteriorly. In addition, there is endplate sclerosis and spondylosis. Impression- Status post posterior decompression. DDD and DJD. Ticket Maker- MIGUELITO Jimenez Physician- WILMER WALKER M.D. Released Date Time- 11/20/092207 us Jason Luz MD [facility] Final Result * MR LUMBAR WITH & W/O CONT GC (11/11/2009 2:10 PM EST) Anatomical Region Laterality Modality Other 11/11/2009 2:10 PM EST Narrative 11/11/2009 7:46 PM EST MRI of the lumbar spine without and with contrast, 11/11/2009. History- 724.2, low back pain which radiates into right lower extremity. 847.2. Findings- MRI of the lumbar spine was performed both before and after the administration of 20 mL of OptiMARK gadolinium intravenous contrast. The patient's known prior study dated 02/13/2006 is no longer available for comparison. A normal conus is identified, ending at approximately the L1-L2 level. At T11-T12, minimal diffuse discogenic changes are identified, which minimally flatten the ventral aspect of the thecal sac without evidence of thoracic cord compression. At T12-L1, mild diffuse discogenic changes are identified, which mildly flatten the ventral aspect of the thecal sac without evidence of conus or nerve root compression. The L1-L2 intervertebral disc space is normal. At L2-L3, the patient is status post posterior decompressive laminectomy. Severe bilateral hypertrophic facet arthropathy is identified at the L2-L3 level. Pavu-te-egvkggmu diffuse discogenic changes are identified at L2-L3, which appear more focally prominent in a left foraminal location. There is subsequent bilateral narrowing of the L2 neural foramina, which is hjthpzmh-my-tgucrg on the left and moderate on the right, which could potentially cause a mechanism for compression of the left L2 nerve within its neural foramen. There is also mild compression of the thecal sac in a ysge-tm-mbuj manner secondary to severe bilateral hypertrophic facet arthropathy at the L2-L3 level. At L3-L4, the patient is status post posterior decompressive laminectomy. A grade 1 spondylolisthesis is identified at L3-L4, with an approximate 5 mm anterior slippage of L3 with respect to L4. Qbnp-wf-ajmbaqqj diffuse discogenic changes are also identified at L3-L4, which appear more focally prominent in a right foraminal location. Severe bilateral hypertrophic facet arthropathy is also seen at the L3-L4 level. There is subsequent severe narrowing of the right L3 neural foramen secondary to grade 1 spondylolisthesis, diffuse discogenic changes, and posterior hypertrophic facet arthropathy at L3-L4, which may potentially cause a mechanism for compression of the right L3 nerve within its neural foramen. There is also relative narrowing of the right L4 lateral recess secondary to right paracentral component of discogenic changes at L4-L5 as well as right-sided hypertrophic facet arthropathy and grade 1 spondylolisthesis at L3-L4, which could potentially cause a mechanism for compression of the right L4 nerve within its lateral recess. There is also cmgcjamq-ac-uopzlw narrowing of the left L3 neural foramen secondary to these same processes at L3-L4, which could potentially cause a mechanism for compression of the left L3 nerve within its neural foramen. At L4-L5, the patient is status post posterior decompressive laminectomy. Severe bilateral hypertrophic facet arthropathy is identified at L4-L5, left greater than right. Minimal diffuse discogenic changes are also identified at L4-L5. There is subsequent moderate narrowing of the inferior aspects of both L4 neural foramina on a degenerative basis without definite evidence of L4 nerve compression within their neural foramina at this time. At L5-S1, mild diffuse discogenic changes are identified, which minimally indent the ventral aspect of the thecal sac. Aqcpyazb-bv-smdmxx bilateral hypertrophic facet arthropathy is seen at L5-S1. There is lbpusuub-mf-vwjevt narrowing of the left L5 neural foramen on a degenerative basis, which could potentially cause a mechanism for compression of the left L5 nerve within its neural foramen. No significant epidural fibrosis is identified after contrast administration. Impression- Evidence of posterior decompressive laminectomies at L2-L3, L3-L4, and L4-L5. Grade 1 spondylolisthesis at L3-L4. Prominent narrowing of both L3 neural foramina secondary to grade 1 spondylolisthesis, diffuse discogenic changes, and severe bilateral hypertrophic facet arthropathy at L3-L4, which could potentially cause a mechanism for compression of both L3 nerves within their neural foramina, right greater than left. There is also relative narrowing of the right L4 lateral recess secondary to the same processes at L3-L4, which could potentially cause a mechanism for compression of the right L4 nerve within its lateral recess. Other multilevel discogenic changes of the lumbar spine as described above causing bilateral neural foraminal narrowing as described above. Correlation with EMG findings would likely be helpful in this patient with multilevel bilateral neural foraminal narrowing. No significant epidural fibrosis demonstrated. Ticket Maker- BRIANNA Jimenez Physician- DARSHAN BURKETT MD Released Date Time- 11/12/09 1209 Procedure Note Darshan Burkett - 11/29/2009 MRI of the lumbar spine without and with contrast, 11/11/2009. History- 724.2, low back pain which radiates into right lower extremity. 847.2. Findings- MRI of the lumbar spine was performed both before and after the administration of 20 mL of OptiMARK gadolinium intravenous contrast. The patient's known prior study dated 02/13/2006 is no longer available for comparison. A normal conus is identified, ending at approximately the L1-L2 level. At T11-T12, minimal diffuse discogenic changes are identified, which minimally flatten the ventral aspect of the thecal sac without evidence of thoracic cord compression. At T12-L1, mild diffuse discogenic changes are identified, which mildly flatten the ventral aspect of the thecal sac without evidence of conus or nerve root compression. The L1-L2 intervertebral disc space is normal. At L2-L3, the patient is status post posterior decompressive laminectomy. Severe bilateral hypertrophic facet arthropathy is identified at the L2-L3 level. Gcaa-fe-wqinjuia diffuse discogenic changes are identified at L2-L3, which appear more focally prominent in a left foraminal location. There is subsequent bilateral narrowing of the L2 neural foramina, which is kkslypag-gk-ftxmhv on the left and moderate on the right, which could potentially cause a mechanism for compression of the left L2 nerve within its neural foramen. There is also mild compression of the thecal sac in a wdav-kh-zqbr manner secondary to severe bilateral hypertrophic facet arthropathy at the L2-L3 level. At L3-L4, the patient is status post posterior decompressive laminectomy. A grade 1 spondylolisthesis is identified at L3-L4, with an approximate 5 mm anterior slippage of L3 with respect to L4. Rkoi-wa-dcrxevxx diffuse discogenic changes are also identified at L3-L4, which appear more focally prominent in a right foraminal location. Severe bilateral hypertrophic facet arthropathy is also seen at the L3-L4 level. There is subsequent severe narrowing of the right L3 neural foramen secondary to grade 1 spondylolisthesis, diffuse discogenic changes, and posterior hypertrophic facet arthropathy at L3-L4, which may potentially cause a mechanism for compression of the right L3 nerve within its neural foramen. There is also relative narrowing of the right L4 lateral recess secondary to right paracentral component of discogenic changes at L4-L5 as well as right-sided hypertrophic facet arthropathy and grade 1 spondylolisthesis at L3-L4, which could potentially cause a mechanism for compression of the right L4 nerve within its lateral recess. There is also scgmxjhf-vo-vajrwn narrowing of the left L3 neural foramen secondary to these same processes at L3-L4, which could potentially cause a mechanism for compression of the left L3 nerve within its neural foramen. At L4-L5, the patient is status post posterior decompressive laminectomy. Severe bilateral hypertrophic facet arthropathy is identified at L4-L5, left greater than right. Minimal diffuse discogenic changes are also identified at L4-L5. There is subsequent moderate narrowing of the inferior aspects of both L4 neural foramina on a degenerative basis without definite evidence of L4 nerve compression within their neural foramina at this time. At L5-S1, mild diffuse discogenic changes are identified, which minimally indent the ventral aspect of the thecal sac. Lltomemp-zh-ewpfpk bilateral hypertrophic facet arthropathy is seen at L5-S1. There is offgwhrv-sv-bqwqvr narrowing of the left L5 neural foramen on a degenerative basis, which could potentially cause a mechanism for compression of the left L5 nerve within its neural foramen. No significant epidural fibrosis is identified after contrast administration. Impression- Evidence of posterior decompressive laminectomies at L2-L3, L3-L4, and L4-L5. Grade 1 spondylolisthesis at L3-L4. Prominent narrowing of both L3 neural foramina secondary to grade 1 spondylolisthesis, diffuse discogenic changes, and severe bilateral hypertrophic facet arthropathy at L3-L4, which could potentially cause a mechanism for compression of both L3 nerves within their neural foramina, right greater than left. There is also relative narrowing of the right L4 lateral recess secondary to the same processes at L3-L4, which could potentially cause a mechanism for compression of the right L4 nerve within its lateral recess. Other multilevel discogenic changes of the lumbar spine as described above causing bilateral neural foraminal narrowing as described above. Correlation with EMG findings would likely be helpful in this patient with multilevel bilateral neural foraminal narrowing. No significant epidural fibrosis demonstrated. Ticket Maker- BRIANNA HAMILTON Reading Physician- DARSHAN BURKETT MD Released Date Time- 11/12/09 1209 Jason Luz MD [facility] Final Result * SURGICAL PATHOLOGY REPORT (10/21/2009 4:55 PM EST) Only the most recent of2 resultswithin the time period is included. Surgical Pathology Report PATIENT NAME:JERMAINE HE Surgical Pathology Report Accession Number Collected Date/Time Received Date/Time [id number] 10/21/09 16:55 EST 10/21/09 16:55 EST Diagnosis Skin, left cheek lesion, shave biopsy: - Ulceration with acute and chronic inflammation and atypical squamous epithelium. See note. Note: The shave biopsy show focal ulceration, acute and chronic inflammation. The adjacent squamous epithelium with moderate cytologic atypia. No definite squamous cell carcinoma in situ or invasive squamous cell carcinoma is noted. Reactive atypia is favored. However, the evaluation is limited by shallow and fragmented biopsy. Clinical correlation and continued follow up is recommended. Candy Aragon MD, PhD (Electronically signed by) Verified: 10/23/2009 [facility] Laboratory Clinical Information Lesion on cheek Gross Description Received in formalin labelled with the patient's name and biopsy of left cheek lesion are two pieces of pale shi-salcido and hemorrhagic irregular tissues ranging in size from 0.2 to 0.3 cm. No discrete margin is identified. Entirely submitted in one cassette. /[place] /CT Microscopic Description Microscopic examination is performed and the findings corroborate the diagnosis. [facility] 10/21/2009 4:55 PM EST us Jermaine Aly MD PATHOLOGY ORDERABLES Final Result Performing Organization Address City/State/[facility] Co de Phone Number [facility] [address] [place] [address] * EK EKG REG GC (06/17/2009 10:02 PM EDT) Only the most recent of4 resultswithin the time period is included. Anatomical Region Laterality Modality Other 06/17/2009 10:0 2 PM EDT Narrative 06/18/2009 1:08 PM EDT Sinus rhythm. Normal ECG Ticket Maker- SARTHAK FREEMAN MD Reading Physician- SARTHAK FREEMAN MD Released Date Time- 06/18/09 1308 Procedure Note Sarthak Freeman - 11/29/2009 Sinus rhythm. Normal ECG Ticket Maker- SARTHAK FREEMAN MD Reading Physician- SARTHAK FREEMAN MD Released Date Time- 06/18/09 1308 Jennifer Mackey MD [facility] STAR CARD HISTORICAL F inal Result * XR CHEST PORTABLE GC (06/17/2009 9:55 PM EDT) Only the most recent of2 resultswithin the time period is included. Anatomical Region Laterality Modality Other 06/17/2009 9:55 PM EDT Narrative 06/18/2009 12:29 AM EDT AP, upright, portable chest History- Acute chest pain. Comparison with 04/08/2009 exam. The heart and mediastinum remains stable. Clear lungs. No evidence of failure. Degenerative change of the right AC joint. Postsurgical resection of the distal left clavicle. Impression- Stable chest. No acute chest process. Ticket Maker- ESTRELLA Jimenez PhysicianKg WOO DO Released Date Time- 06/18/0920 Procedure Note Darshan Woo - 11/29/2009 AP, upright, portable chest History- Acute chest pain. Comparison with 04/08/2009 exam. The heart and mediastinum remains stable. Clear lungs. No evidence of failure. Degenerative change of the right AC joint. Postsurgical resection of the distal left clavicle. Impression- Stable chest. No acute chest process. Ticket Makermagi WOO DO Released Date Time- 06/18/09519 Jennifer Mackey MD [facility] RAD HISTORICAL Fi nal Result * CC CARDIAC PROCEDURE (12/13/2008 10:33 AM EDT) Only the most recent of2 resultswithin the time period is included. Anatomical Region Laterality Modality Other 12/13/2008 10:3 3 AM EDT Narrative 12/13/2008 3:34 PM EDT Date of procedure- 12/13/2008 Procedure- Left heart catheterization, coronary angiography, left ventriculography, right iliac angiography Indications- See chart. Technique- Informed consent was obtained after the risks, benefits, and alternatives were explained to the patient and all questions were answered. The patient was brought to the catheterization suite where he was prepped and draped in the usual sterile fashion. 1% Xylocaine was used to anesthetize the area over the right femoral artery. 5 [place] hemostasis sheath was placed in the right femoral artery using a modified Seldinger technique. Selective coronary angiography of the right and left coronary arteries was performed using the standard technique. A 5 [place] angled pigtail catheter was used to perform a Single plane left ventriculography. Pullback revealed no gradient. Of note, because of difficulty engaging the right coronary artery, multiple catheters were used and subsequently an AL2 was used. He has a high anterior takeoff over toward the left cusp. At the conclusion of the procedure, right iliac angiogram was performed by hand injection of 5 cc of contrast through the hemostasis sheath and subsequently firm pressure was used to obtain hemostasis. Results- LV 126/6, AO 126/81. Right iliac angiography- Right iliac angiography was performed by hand injection of 5 cc of contrast through the hemostasis sheath and demonstrated LIs of 5 to 10%. Single-plane left ventriculography demonstrates EF of 50%, no MR. Coronary angiography- Left main is short. LAD has LIs of 20 to 40% with the stent overall well preserved. The mid and distal LAD is long and diffusely LIs of 10 to 20% but no critical disease. Circumflex has LIs of 10 to 20%. Right coronary artery is dominant with LIs of 10 to 30%. It originates anterior and almost over in the left cusp. Impression- 1. Left anterior descending artery stent well preserved. 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 3. Normal LV function. Plan- RX medically. Ticket Maker- SHELLI HERBERT Reading Physician- DEEPA SAUCEDO MD Released Date Time- 12/17/08 1028 Procedure Note Deepa Saucedo - 11/28/2009 Date of procedure- 12/13/2008 Procedure- Left heart catheterization, coronary angiography, left ventriculography, right iliac angiography Indications- See chart. Technique- Informed consent was obtained after the risks, benefits, and alternatives were explained to the patient and all questions were answered. The patient was brought to the catheterization suite where he was prepped and draped in the usual sterile fashion. 1% Xylocaine was used to anesthetize the area over the right femoral artery. 5 [place] hemostasis sheath was placed in the right femoral artery using a modified Seldinger technique. Selective coronary angiography of the right and left coronary arteries was performed using the standard technique. A 5 [place] angled pigtail catheter was used to perform a Single plane left ventriculography. Pullback revealed no gradient. Of note, because of difficulty engaging the right coronary artery, multiple catheters were used and subsequently an AL2 was used. He has a high anterior takeoff over toward the left cusp. At the conclusion of the procedure, right iliac angiogram was performed by hand injection of 5 cc of contrast through the hemostasis sheath and subsequently firm pressure was used to obtain hemostasis. Results- LV 126/6, AO 126/81. Right iliac angiography- Right iliac angiography was performed by hand injection of 5 cc of contrast through the hemostasis sheath and demonstrated LIs of 5 to 10%. Single-plane left ventriculography demonstrates EF of 50%, no MR. Coronary angiography- Left main is short. LAD has LIs of 20 to 40% with the stent overall well preserved. The mid and distal LAD is long and diffusely LIs of 10 to 20% but no critical disease. Circumflex has LIs of 10 to 20%. Right coronary artery is dominant with LIs of 10 to 30%. It originates anterior and almost over in the left cusp. Impression- 1. Left anterior descending artery stent well preserved. 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 3. Normal LV function. Plan- RX medically. Ticket Maker- SHELLI Jimenez Physician- DEEPA SAUCEDO MD Released Date Time- 12/17/08 1028 us Deepa Saucedo MD [facility] STAR CARD HISTOR ICAL Final Result * US GALL BLADDER SONO GC (11/23/2008 8:10 AM EST) Anatomical Region Laterality Modality Other 11/23/2008 8:10 AM EST Narrative 11/23/2008 12:08 PM EST Right upper quadrant ultrasound, 11/23/2008. History- Mid upper abdominal pain. Findings- Fatty infiltration of the liver is present. No focal lesions. No biliary dilatation. The gallbladder and pancreatic head are unremarkable. Impression- Fatty infiltration of the liver. Ticket Maker- SURESH Jimenez Physician- QASIM NICOLAS MD Released Date Time- 11/23/08 1539 Procedure Note Qasim Nicolas - 11/28/2009 Right upper quadrant ultrasound, 11/23/2008. History- Mid upper abdominal pain. Findings- Fatty infiltration of the liver is present. No focal lesions. No biliary dilatation. The gallbladder and pancreatic head are unremarkable. Impression- Fatty infiltration of the liver. Ticket MakerKg Jimenez Physician- QASIM NICOLAS MD Released Date Time- 11/23/08 1539 Willie Guevara MD [facility] HISTORICAL Fi nal Result * CT ABD/PELVIS SCREW MACHINE ADJUSTER AUTOMATIC GC (01/16/2008 8:32 AM EDT) Anatomical Region Laterality Modality Other 01/16/2008 8:32 AM EDT Narrative 01/16/2008 10:24 AM EDT Contrast-enhanced CT abdomen and pelvis, 01/16/2008 CLINICAL HISTORY- Abdominal pain, nausea. Scanning performed from the lung bases through the pubic symphysis. 100 ml Optiray-320 injected intravenously. Oral contrast also given. No comparison CT scans available. CT abdomen- Liver, spleen, and pancreas are normal. The gallbladder is unremarkable. Adrenals and kidneys are normal. No adenopathy or ascites seen. CT pelvis- There is minimal sigmoid diverticulosis. There is no evidence of diverticulitis. The bladder, seminal vesicles, and prostate are normal. There has been multilevel laminectomy from L2-L4. Degenerative changes are noted of the spine. No destructive lesions. IMPRESSION- Relatively unremarkable examination for age with incidental mild sigmoid diverticulosis but no evidence of diverticulitis and postsurgical changes in the lumbar spine. No acute abnormality demonstrated. Ticket Maker- YOMAIRA ROBERSON Reading Radiologist- SEKOU DIMAS MD Released Date Time- 01/16/08 1950 Procedure Note Sekou Dimas L - 11/28/2009 Contrast-enhanced CT abdomen and pelvis, 01/16/2008 CLINICAL HISTORY- Abdominal pain, nausea. Scanning performed from the lung bases through the pubic symphysis. 100 ml Optiray-320 injected intravenously. Oral contrast also given. No comparison CT scans available. CT abdomen- Liver, spleen, and pancreas are normal. The gallbladder is unremarkable. Adrenals and kidneys are normal. No adenopathy or ascites seen. CT pelvis- There is minimal sigmoid diverticulosis. There is no evidence of diverticulitis. The bladder, seminal vesicles, and prostate are normal. There has been multilevel laminectomy from L2-L4. Degenerative changes are noted of the spine. No destructive lesions. IMPRESSION- Relatively unremarkable examination for age with incidental mild sigmoid diverticulosis but no evidence of diverticulitis and postsurgical changes in the lumbar spine. No acute abnormality demonstrated. Ticket Maker- YOMAIRA Jimenez Radiologist- SEKOU DIMAS MD Released Date Time- 01/16/081949 us Willie Guevara MD [facility] HISTORICAL Fi nal Result * VA CAROTID W/DUPLEX COMPLETE GC (11/28/2007 8:10 AM EDT) Anatomical Region Laterality Modality Other 11/28/2007 8:10 AM EDT Narrative 11/28/2007 8:41 AM EDT History- Hypertensive. Hyperlipidemia. Dizziness. ANGIODYNOGRAPH Brachial Pressure- RIGHT- 150 mmhg LEFT- 160 mmhg Angiodynograph Study- S=Peak Systole,D=End Diastole,Pop=CM/SEC RIGHT LEFT Pop-S Pop-D Pop-S Pop-D Proximal Common 71 19 103 30 Distal Common 73 26 79 36 Proximal Internal 55 27 53 28 Distal Internal 59 22 63 29 External 67 14 67 16 Vertebral 40 19 33 15 Angiodynograph Study Impression- Mild intimal thickening of the Right and Left CCA. No evidence of a flow significant stenosis or a flow channel narrowing seen on the Right or Left. Antegrade symmetrical verebral artery flow. Conclusion- Mild intimal thickening of the Right and Left CCA. No evidence of a flow significant stenosis seen on the Right or Left at this time. Antegrade symmetrical vertebral artery flow. Ticket Maker- LORRI GRIJALVA Reading Radiologist- RUDDY CHOU MD Released Date Time- 11/30/07 0744 Procedure Note Ruddy Chou - 11/28/2009 History- Hypertensive. Hyperlipidemia. Dizziness. ANGIODYNOGRAPH Brachial Pressure- RIGHT- 150 mmhg LEFT- 160 mmhg Angiodynograph Study- S=Peak Systole,D=End Diastole,Pop=CM/SEC RIGHT LEFT Pop-S Pop-D Pop-S Pop-D Proximal Common 71 19 103 30 Distal Common 73 26 79 36 Proximal Internal 55 27 53 28 Distal Internal 59 22 63 29 External 67 14 67 16 Vertebral 40 19 33 15 Angiodynograph Study Impression- Mild intimal thickening of the Right and Left CCA. No evidence of a flow significant stenosis or a flow channel narrowing seen on the Right or Left. Antegrade symmetrical verebral artery flow. Conclusion- Mild intimal thickening of the Right and Left CCA. No evidence of a flow significant stenosis seen on the Right or Left at this time. Antegrade symmetrical vertebral artery flow. Ticket Maker- LORRI GRIJALVA Reading Radiologist- RUDDY CHOU MD Released Date Time- 11/30/07 0744 Deepa Saucedo MD [facility] STAR CARD HISTOR ICAL Final Result * HOLTER MONITOR PANEL GC (11/23/2007 1:00 PM EST) Anatomical Region Laterality Modality Other 11/23/2007 1:00 PM EST Narrative 11/28/2007 10:20 AM EDT INDICATIONS- cp/dizziness LENGTH OF TAPE 24HRS 38 MINS MEDICATION- SLOWEST RATE 45 FASTEST RATE 114 AVERAGE RATE 61 TOTAL PVC'S 0 TOTAL PAC'S 53 VENTRICULAR TACHYCARDIA SUPRAVENTRICULAR TACHYCARDIA Number of episodes 0 Number of episodes 0 Longest run beats Longest run beats Fastest rate Fastest rate OTHER ARRHYTHMIAS- See below. ST T WAVE CHANGES- See below. SYMPTOMS- See below. IMPRESSION- 1. SR 45-114, average 61. 2. 0 PVC's, 53 PAC's. 3. No arrhythmias. Jose Enrique Farmer /11-28-07 Ticket Maker- DORETHA Jimenez Radiologist- DEEPA SAUCEDO MD Released Date Time- 11/28/07 113 Procedure Note Deepa Saucedo - 11/28/2009 INDICATIONS- cp/dizziness LENGTH OF TAPE 24HRS 38 MINS MEDICATION- SLOWEST RATE 45 FASTEST RATE 114 AVERAGE RATE 61 TOTAL PVC'S 0 TOTAL PAC'S 53 VENTRICULAR TACHYCARDIA SUPRAVENTRICULAR TACHYCARDIA Number of episodes 0 Number of episodes 0 Longest run beats Longest run beats Fastest rate Fastest rate OTHER ARRHYTHMIAS- See below. ST T WAVE CHANGES- See below. SYMPTOMS- See below. IMPRESSION- 1. SR 45-114, average 61. 2. 0 PVC's, 53 PAC's. 3. No arrhythmias. Jose Enrique Farmer /11-28-07 Ticket Maker- DORETHA Jimenez Radiologist- DEEPA SAUCEDO MD Released Date Time- 11/28/07 1133 Deepa Saucedo MD [facility] STAR CARD HISTOR ICAL Final Result * EK EKG REG (10/20/2005 4:25 PM EST) Anatomical Region Laterality Modality Other 10/20/2005 4:25 PM EST Narrative 10/21/2005 12:16 PM EST Sinus bradycardia. No significant change from earlier record. Borderline ECG. Ticket MakerKg Jimenez Radiologist- MANJEET KWON M.D. Released Date Time- 10/21/05 121 Procedure Note Manjeet Kwon - 11/26/2009 Sinus bradycardia. No significant change from earlier record. Borderline ECG. Ticket MakerKg Jimenez Radiologist- MANJEET KWON M.D. Released Date Time- 10/21/05 1216 Evangelist Smith MD [facility] STAR CARD HISTORICAL Fi nal Result * FL MYELO INJ NOT C1-C2 (08/21/2005 12:00 AM EST) Anatomical Region Laterality Modality Other 08/21/2005 08/21/2005 Narrative 08/21/2005 12:00 AM EST VERIFIED [facility] Reason: LUMBAR STENOSIS/CT MYELOGRAMLUMBAR Dict.Staff: SIMEON STEVENS Verified By: JERMAINE MARTINO Azalea: 08/22/05 12:09 am Exams: DIAG-MYELO INJ (NOT C1-C2) LUMBAR MYELOGRAM AND POST-MYELOGRAPHIC CT SCAN: HISTORY: Lumbar stenosis and bilateral leg pain. Comparison is made with the MR study of 04/01/2005 from [facility] . After informed consent was obtained, an L5-S1 level lumbar puncture was performed using a 22-gauge spinal needle. Flow of clear CSF was noted. A total of approximately 9ml of Isovue 200 was injected into the thecal sac. The patient initially complained of some leg pain, but this was relieved by placing him in a standing position. There were no immediate complications. The procedure was performed by Dr. Stevens. Post-myelographic CT images were obtained from the level of T12-l1 to L5-S1. At the T12-L1 level, there is mild diffuse disk bulging with mild ventral flattening of the thecal sac. The T12 neural foramina are patent. There is mild facet arthropathy. At the L1-2 level, there is minimal disk bulging with minimal ventral flattening of the thecal sac. There is mild to moderate facet arthropathy. There is mild narrowing of the L1 neural foramina. At the L2-3 level, there is a broad-based disk protrusion. There is mild to moderate facet arthropathy and ligamentum flavum hypertrophy. The combinations of these factors is producing moderate to severe central stenosis with a residual AP dimension of the spinal canal of 8mm. There is mild to moderate narrowing of the L2 neural foramina. At the L3-4 level, there is a broad-based disk protrusion with mild to moderate ventral indentation of the thecal sac. There is moderate facet arthropathy and ligamentum flavum hypertrophy. The combination of these factors is producing moderate to marked central stenosis with approximately 7mm of residual AP dimension of the spinal canal. The disk protrusion extends to both L3 neural foramina and is producing mild to moderate narrowing of the L3 neural foramina and abuts the nerve root within the foramina. At the L4-5 level, there is moderate facet arthropathy. There is diffuse disk bulging with mild ventral flattening of the thecal sac. Evidence of previous surgery is noted posteriorly. There is mild distortion of the shape of the thecal sac. There is mild to moderate narrowing of the L4 neural foramina with discogenic disease abutting the nerve roots within the foramina bilaterally. At the L5-S1 level, there is mild to moderate facet arthropathy. There is mild diffuse disk bulging with mild ventral indentation of the thecal sac. The discogenic disease is producing mild to moderate narrowing of the L5 neural foramina and abuts the nerve root within the foramina. A normal-appearing conus is seen to extend to the level of L1. OPINION: Multilevel discogenic disease with foraminal narrowing as described. A combination of the discogenic disease, facet arthropathy, and ligamentum flavum hypertrophy is producing moderate to severe central stenosis at the L2-3 and L3-4 levels as described. ROCKY:nella end of result Procedure Note Unknown, U - 01/02/2010 VERIFIED [facility] Reason: LUMBAR STENOSIS/CT MYELOGRAMLUMBAR Dict.Staff: SIMEON STEVENS Verified By: JERMAINE MARTINO Azalea: 08/22/05 12:09 am Exams: DIAG-MYELO INJ (NOT C1-C2) LUMBAR MYELOGRAM AND POST-MYELOGRAPHIC CT SCAN: HISTORY: Lumbar stenosis and bilateral leg pain. Comparison is made with the MR study of 04/01/2005 from [facility]. After informed consent was obtained, an L5-S1 level lumbar puncture was performed using a 22-gauge spinal needle. Flow of clear CSF was noted. A total of approximately 9ml of Isovue 200 was injected into the thecal sac. The patient initially complained of some leg pain, but this was relieved by placing him in a standing position. There were no immediate complications. The procedure was performed by Dr. Stevens. Post-myelographic CT images were obtained from the level of T12-l1 to L5-S1. At the T12-L1 level, there is mild diffuse disk bulging with mild ventral flattening of the thecal sac. The T12 neural foramina are patent. There is mild facet arthropathy. At the L1-2 level, there is minimal disk bulging with minimal ventral flattening of the thecal sac. There is mild to moderate facet arthropathy. There is mild narrowing of the L1 neural foramina. At the L2-3 level, there is a broad-based disk protrusion. There is mild to moderate facet arthropathy and ligamentum flavum hypertrophy. The combinations of these factors is producing moderate to severe central stenosis with a residual AP dimension of the spinal canal of 8mm. There is mild to moderate narrowing of the L2 neural foramina. At the L3-4 level, there is a broad-based disk protrusion with mild to moderate ventral indentation of the thecal sac. There is moderate facet arthropathy and ligamentum flavum hypertrophy. The combination of these factors is producing moderate to marked central stenosis with approximately 7mm of residual AP dimension of the spinal canal. The disk protrusion extends to both L3 neural foramina and is producing mild to moderate narrowing of the L3 neural foramina and abuts the nerve root within the foramina. At the L4-5 level, there is moderate facet arthropathy. There is diffuse disk bulging with mild ventral flattening of the thecal sac. Evidence of previous surgery is noted posteriorly. There is mild distortion of the shape of the thecal sac. There is mild to moderate narrowing of the L4 neural foramina with discogenic disease abutting the nerve roots within the foramina bilaterally. At the L5-S1 level, there is mild to moderate facet arthropathy. There is mild diffuse disk bulging with mild ventral indentation of the thecal sac. The discogenic disease is producing mild to moderate narrowing of the L5 neural foramina and abuts the nerve root within the foramina. A normal-appearing conus is seen to extend to the level of L1. OPINION: Multilevel discogenic disease with foraminal narrowing as described. A combination of the discogenic disease, facet arthropathy, and ligamentum flavum hypertrophy is producing moderate to severe central stenosis at the L2-3 and L3-4 levels as described. ROCKY:nella end of result us U Unknown IMG [facility] RAD HISTORICAL Final Result * FL MYELOGRAM L SPINE S&I (08/19/2005 12:00 AM EST) Anatomical Region Laterality Modality Other 08/19/2005 08/19/2005 Narrative 08/19/2005 12:00 AM EST VERIFIED [facility] Reason: LUMBAR STENOSIS/CT MYELOGRAMLUMBAR Dict.Staff: SIMEON STEVENS Verified By: SIMEON CASTANEDA Azalea: 08/19/05 6:54 pm Exams: DIAG-MYELO LUMBAR SPINE S&I LUMBAR MYELOGRAM AND POST-MYELOGRAPHIC CT SCAN: HISTORY: Lumbar stenosis and bilateral leg pain. Comparison is made with the MR study of 04/01/2005 from [facility]. After informed consent was obtained, an L5-S1 level lumbar puncture was performed using a 22-gauge spinal needle. Flow of clear CSF was noted. A total of approximately 9ml of Isovue 200 was injected into the thecal sac. The patient initially complained of some leg pain, but this was relieved by placing him in a standing position. There were no immediate complications. The procedure was performed by Dr. Stevens. Post-myelographic CT images were obtained from the level of T12-l1 to L5-S1. At the T12-L1 level, there is mild diffuse disk bulging with mild ventral flattening of the thecal sac. The T12 neural foramina are patent. There is mild facet arthropathy. At the L1-2 level, there is minimal disk bulging with minimal ventral flattening of the thecal sac. There is mild to moderate facet arthropathy. There is mild narrowing of the L1 neural foramina. At the L2-3 level, there is a broad-based disk protrusion. There is mild to moderate facet arthropathy and ligamentum flavum hypertrophy. The combinations of these factors is producing moderate to severe central stenosis with a residual AP dimension of the spinal canal of 8mm. There is mild to moderate narrowing of the L2 neural foramina. At the L3-4 level, there is a broad-based disk protrusion with mild to moderate ventral indentation of the thecal sac. There is moderate facet arthropathy and ligamentum flavum hypertrophy. The combination of these factors is producing moderate to marked central stenosis with approximately 7mm of residual AP dimension of the spinal canal. The disk protrusion extends to both L3 neural foramina and is producing mild to moderate narrowing of the L3 neural foramina and abuts the nerve root within the foramina. At the L4-5 level, there is moderate facet arthropathy. There is diffuse disk bulging with mild ventral flattening of the thecal sac. Evidence of previous surgery is noted posteriorly. There is mild distortion of the shape of the thecal sac. There is mild to moderate narrowing of the L4 neural foramina with discogenic disease abutting the nerve roots within the foramina bilaterally. At the L5-S1 level, there is mild to moderate facet arthropathy. There is mild diffuse disk bulging with mild ventral indentation of the thecal sac. The discogenic disease is producing mild to moderate narrowing of the L5 neural foramina and abuts the nerve root within the foramina. A normal-appearing conus is seen to extend to the level of L1. OPINION: Multilevel discogenic disease with foraminal narrowing as described. A combination of the discogenic disease, facet arthropathy, and ligamentum flavum hypertrophy is producing moderate to severe central stenosis at the L2-3 and L3-4 levels as described. ROCKY:casimirod end of result Procedure Note Unknown, U - 01/02/2010 VERIFIED [facility] Reason: LUMBAR STENOSIS/CT MYELOGRAMLUMBAR Dict.Staff: SIMEON STEVENS Verified By: SIMEON CASTANEDA Azalea: 08/19/05 6:54 pm Exams: DIAG-MYELO LUMBAR SPINE S&I LUMBAR MYELOGRAM AND POST-MYELOGRAPHIC CT SCAN: HISTORY: Lumbar stenosis and bilateral leg pain. Comparison is made with the MR study of 04/01/2005 from [facility]. After informed consent was obtained, an L5-S1 level lumbar puncture was performed using a 22-gauge spinal needle. Flow of clear CSF was noted. A total of approximately 9ml of Isovue 200 was injected into the thecal sac. The patient initially complained of some leg pain, but this was relieved by placing him in a standing position. There were no immediate complications. The procedure was performed by Dr. Stevens. Post-myelographic CT images were obtained from the level of T12-l1 to L5-S1. At the T12-L1 level, there is mild diffuse disk bulging with mild ventral flattening of the thecal sac. The T12 neural foramina are patent. There is mild facet arthropathy. At the L1-2 level, there is minimal disk bulging with minimal ventral flattening of the thecal sac. There is mild to moderate facet arthropathy. There is mild narrowing of the L1 neural foramina. At the L2-3 level, there is a broad-based disk protrusion. There is mild to moderate facet arthropathy and ligamentum flavum hypertrophy. The combinations of these factors is producing moderate to severe central stenosis with a residual AP dimension of the spinal canal of 8mm. There is mild to moderate narrowing of the L2 neural foramina. At the L3-4 level, there is a broad-based disk protrusion with mild to moderate ventral indentation of the thecal sac. There is moderate facet arthropathy and ligamentum flavum hypertrophy. The combination of these factors is producing moderate to marked central stenosis with approximately 7mm of residual AP dimension of the spinal canal. The disk protrusion extends to both L3 neural foramina and is producing mild to moderate narrowing of the L3 neural foramina and abuts the nerve root within the foramina. At the L4-5 level, there is moderate facet arthropathy. There is diffuse disk bulging with mild ventral flattening of the thecal sac. Evidence of previous surgery is noted posteriorly. There is mild distortion of the shape of the thecal sac. There is mild to moderate narrowing of the L4 neural foramina with discogenic disease abutting the nerve roots within the foramina bilaterally. At the L5-S1 level, there is mild to moderate facet arthropathy. There is mild diffuse disk bulging with mild ventral indentation of the thecal sac. The discogenic disease is producing mild to moderate narrowing of the L5 neural foramina and abuts the nerve root within the foramina. A normal-appearing conus is seen to extend to the level of L1. OPINION: Multilevel discogenic disease with foraminal narrowing as described. A combination of the discogenic disease, facet arthropathy, and ligamentum flavum hypertrophy is producing moderate to severe central stenosis at the L2-3 and L3-4 levels as described. ROCKY:nella end of result us U Unknown [facility] LW RAD HISTORICAL Final Result * CT MRI MULTIPLANAR, 3D RECON (08/19/2005 12:00 AM EST) Anatomical Region Laterality Modality Other 08/19/2005 08/19/2005 Narrative 08/19/2005 12:00 AM EST VERIFIED [facility] Reason: CT LUMBAR / POST MYELOGRAM Dict.Staff: SIMEON STEVENS Verified By: SIMEON STEVENS [place]: 08/21/05 8:57 am Exams: CT-L SPINE W/O CONTRAST CT-MULTI PLANAR, 3-D RECON SEE LUMBAR MYELOGRAM SAME DATE end of result Procedure Note Unknown, U - 01/02/2010 VERIFIED [facility] Reason: CT LUMBAR / POST MYELOGRAM Dict.Staff: SIMEON STEVENS Verified By: SIMEON STEVENS [place]: 08/21/05 8:57 am Exams: CT-L SPINE W/O CONTRAST CT-MULTI PLANAR, 3-D RECON SEE LUMBAR MYELOGRAM SAME DATE end of result us U Unknown [facility] RAD HISTORICAL Final Result * CT L SPINE W/O CONTRAST (08/19/2005 12:00 AM EST) Anatomical Region Laterality Modality Other 08/19/2005 08/19/2005 Narrative 08/19/2005 12:00 AM EST VERIFIED [facility] Reason: CT LUMBAR / POST MYELOGRAM Dict.Staff: SIMEON STEVENS Verified By: SIMEON STEVENS [place]: 08/21/05 8:57 am Exams: CT-L SPINE W/O CONTRAST CT-MULTI PLANAR, 3-D RECON SEE LUMBAR MYELOGRAM SAME DATE end of result Procedure Note Unknown, U - 01/02/2010 VERIFIED [facility] Reason: CT LUMBAR / POST MYELOGRAM Dict.Staff: SIMEON STEVENS Verified By: SIMEON STEVENS [place]: 08/21/05 8:57 am Exams: CT-L SPINE W/O CONTRAST CT-MULTI PLANAR, 3-D RECON SEE LUMBAR MYELOGRAM SAME DATE end of result us U Unknown [facility] RAD HISTORICAL Final Result * FLUORO GUIDE NDL INJ SPINE/PARASPINE (06/01/2005 12:00 AM EDT) Only the most recent of2 resultswithin the time period is included. Anatomical Region Laterality Modality Other 06/01/2005 06/01/2005 Narrative 06/01/2005 12:00 AM EDT VERIFIED [facility] Reason: fermin Dict.Staff: DILLON CUNNINGHAM Verified By: JERMAINE MARTINO [place]: 06/01/05 4:21 pm Exams: DIAG-FL GUIDE NDL INJ SPINE/PA FLUOROSCOPY WAS PROVIDED FOR THE ATTENDING PHYSICIAN. NO FILMS WERE OBTAINED AND A RADIOLOGIST WAS NOT IN ATTENDANCE. end of result Procedure Note Unknown, U - 01/02/2010 VERIFIED [facility] Reason: fermin Dict.Staff: DILLON CUNNINGHAM Verified By: JERMAINE MARTINO [place]: 06/01/05 4:21 pm Exams: DIAG-FL GUIDE NDL INJ SPINE/PA FLUOROSCOPY WAS PROVIDED FOR THE ATTENDING PHYSICIAN. NO FILMS WERE OBTAINED AND A RADIOLOGIST WAS NOT IN ATTENDANCE. end of result us U Unknown [facility] RAD HISTORICAL Final Result Visit Diagnoses Diagnosis Start Date Depressive disorder, not elsewhere classified 05/23/2010 Unspecified essential hypertension 05/23/2010 Hypertrophy of prostate without urinary obstruction and other lower urinary tract symptoms (LUTS) 05/23/2010 Esophageal reflux 05/23/2010 Sinusitis Unspecified sinusitis (chronic) 05/23/2010 Depressive disorder, not elsewhere classified 05/23/2010 Unspecified essential hypertension 05/23/2010 Preoperative examination, unspecified 06/12/2010 Pre-operative exam Preoperative examination, unspecified 06/12/2010 Flu shot Need for prophylactic vaccination and inoculation against influenza 06/12/2010 ED (erectile dysfunction) Impotence of organic origin 06/12/2010 Need for influenza vaccine Need for prophylactic vaccination and inoculation against influenza 06/12/2010 HTN (hypertension) Unspecified essential hypertension 06/12/2010 DDD (degenerative disc disease), lumbar Degeneration of lumbar or lumbosacral intervertebral disc 06/12/2010 Seasonal allergies Allergic rhinitis, cause unspecified 06/12/2010 Depressive disorder, not elsewhere classified 08/21/2010 Acute sinusitis Acute sinusitis, unspecified 08/21/2010 Seasonal allergies Allergic rhinitis, cause unspecified 08/21/2010 Depressive disorder, not elsewhere classified 08/21/2010 Unspecified essential hypertension 08/21/2010 Hypertrophy of prostate without urinary obstruction and other lower urinary tract symptoms (LUTS) 08/21/2010 Esophageal reflux 08/21/2010 Shortness of breath 10/01/2010 Pure hypercholesterolemia 10/01/2010 Essential hypertension, benign 10/01/2010 Coronary atherosclerosis of [place] coronary artery 10/01/2010 Precordial pain 10/01/2010 Other nonspecific findings on examination of blood(790.99) Other nonspecific findings on examination of blood 10/23/2010 Hypopotassemia 11/25/2010 Essential hypertension, benign 11/25/2010 HTN (hypertension) Unspecified essential hypertension 12/17/2010 DDD (degenerative disc disease), lumbar Degeneration of lumbar or lumbosacral intervertebral disc 12/17/2010 STIVEN (generalized anxiety disorder) Generalized anxiety disorder 12/17/2010 Hypertrophy of prostate without urinary obstruction and other lower urinary tract symptoms (LUTS) 12/17/2010 Esophageal reflux 12/17/2010 Hyperlipemia Other and unspecified hyperlipidemia 12/17/2010 STIVEN (generalized anxiety disorder) Generalized anxiety disorder 02/13/2011 URI (upper respiratory infection) Acute upper respiratory infections of unspecified site 02/13/2011 Seasonal allergies Allergic rhinitis, cause unspecified 02/13/2011 Nonspecific abnormal electrocardiogram (ECG) (EKG) 03/09/2011 Essential hypertension, benign 03/09/2011 Coronary atherosclerosis of [place] coronary artery 03/09/2011 Shortness of breath 03/09/2011 Precordial pain 03/09/2011 Pure hypercholesterolemia 03/09/2011 ASHD (arteriosclerotic heart disease) Coronary atherosclerosis of unspecified type of vessel, [place] or graft 03/09/2011 STIVEN (generalized anxiety disorder) Generalized anxiety disorder 03/17/2011 Low back pain Lumbago 03/17/2011 Depressive disorder, not elsewhere classified 03/17/2011 Acute sinusitis Acute sinusitis, unspecified 03/17/2011 Seasonal allergies Allergic rhinitis, cause unspecified 03/17/2011 Esophageal reflux 03/17/2011 Acute bronchitis 03/17/2011 ASHD (arteriosclerotic heart disease) Coronary atherosclerosis of unspecified type of vessel, [place] or graft 03/30/2011 Fatigue Other malaise and fatigue 04/27/2011 Weakness generalized Other malaise and fatigue 04/27/2011 Acute sinusitis Acute sinusitis, unspecified 04/27/2011 DDD (degenerative disc disease), lumbar Degeneration of lumbar or lumbosacral intervertebral disc 04/27/2011 Encounter for long-term opiate analgesic use Encounter for long-term (current) use of other medications 04/27/2011 Dysuria 04/27/2011 Depressive disorder, not elsewhere classified 04/27/2011 STIVEN (generalized anxiety disorder) Generalized anxiety disorder 05/23/2011 Unspecified essential hypertension 06/08/2011 Neuropathy Mononeuritis of unspecified site 06/08/2011 STIVEN (generalized anxiety disorder) Generalized anxiety disorder 06/08/2011 DDD (degenerative disc disease), lumbar Degeneration of lumbar or lumbosacral intervertebral disc 06/08/2011 Rash Rash and other nonspecific skin eruption 06/08/2011 Flu shot Need for prophylactic vaccination and inoculation against influenza 06/08/2011 Leukoplakia Other specified dermatoses 06/08/2011 Hypertrophy of prostate without urinary obstruction and other lower urinary tract symptoms (LUTS) 06/08/2011 Unspecified essential hypertension 06/08/2011 Depressive disorder, not elsewhere classified 06/08/2011 ED (erectile dysfunction) Impotence of organic origin 06/08/2011 Neuropathy Mononeuritis of unspecified site 06/08/2011 Chest pain Chest pain, unspecified 06/25/2011 Acute sinusitis Acute sinusitis, unspecified 06/25/2011 Seasonal allergies Allergic rhinitis, cause unspecified 06/25/2011 Depressive disorder, not elsewhere classified 06/25/2011 Unspecified essential hypertension 06/25/2011 Acute bronchitis 06/25/2011 Herpes simplex Herpes simplex without mention of complication 06/25/2011 Hyperlipemia Other and unspecified hyperlipidemia 08/24/2011 Leg pain Pain in limb 08/31/2011 Anxiety and depression Dysthymic disorder 08/31/2011 Hypertrophy of prostate without urinary obstruction and other lower urinary tract symptoms (LUTS) 08/31/2011 Unspecified essential hypertension 08/31/2011 Esophageal reflux 08/31/2011 Insomnia Insomnia, unspecified 08/31/2011 Acute bronchitis 08/31/2011 Acute bronchitis 09/21/2011 Acute sinusitis Acute sinusitis, unspecified 09/21/2011 Seasonal allergies Allergic rhinitis, cause unspecified 09/21/2011 Depressive disorder, not elsewhere classified 09/21/2011 Unspecified essential hypertension 09/21/2011 Hypertrophy of prostate without urinary obstruction and other lower urinary tract symptoms (LUTS) 09/21/2011 Cerumen impaction Impacted cerumen 09/21/2011 DDD (degenerative disc disease), lumbar Degeneration of lumbar or lumbosacral intervertebral disc 09/21/2011 Dysuria 10/06/2011 Toenail fungus Dermatophytosis of nail 10/06/2011 Depressive disorder, not elsewhere classified 10/06/2011 Unspecified essential hypertension 10/06/2011 Hypertrophy of prostate without urinary obstruction and other lower urinary tract symptoms (LUTS) 10/06/2011 Esophageal reflux 10/06/2011 DDD (degenerative disc disease), lumbar Degeneration of lumbar or lumbosacral intervertebral disc 10/06/2011 Balanitis Balanoposthitis 10/06/2011 Fatigue Other malaise and fatigue 10/06/2011 Acute sinusitis Acute sinusitis, unspecified 10/06/2011 STIVEN (generalized anxiety disorder) Generalized anxiety disorder 10/06/2011 Anxiety Anxiety state, unspecified 10/06/2011 Nonspecific abnormal electrocardiogram (ECG) (EKG) 10/21/2011 Coronary atherosclerosis of [place] coronary artery 10/21/2011 Essential hypertension, benign 10/21/2011 Shortness of breath 10/21/2011 Pure hypercholesterolemia 10/21/2011 Depressive disorder, not elsewhere classified 10/21/2011 Unspecified essential hypertension 10/21/2011 Hypertrophy of prostate without urinary obstruction and other lower urinary tract symptoms (LUTS) 10/21/2011 Esophageal reflux 10/21/2011 Hyperkalemia Hyperpotassemia 10/28/2011 Unspecified essential hypertension 10/28/2011 Prostatitis, acute Acute prostatitis 10/29/2011 Hypertrophy of prostate without urinary obstruction and other lower urinary tract symptoms (LUTS) 10/29/2011 Unspecified essential hypertension 10/29/2011 Depressive disorder, not elsewhere classified 10/29/2011 Esophageal reflux 10/29/2011 Hyponatremia Hyposmolality and/or hyponatremia 10/29/2011 DDD (degenerative disc disease), lumbar Degeneration of lumbar or lumbosacral intervertebral disc 10/29/2011 Cyst Sebaceous cyst 10/29/2011 Synovial cyst Synovial cyst, unspecified 10/31/2011 Hyperkalemia Hyperpotassemia 11/16/2011 Unspecified essential hypertension 11/16/2011 Depressive disorder, not elsewhere classified 11/16/2011 Hypertrophy of prostate without urinary obstruction and other lower urinary tract symptoms (LUTS) 11/16/2011 Esophageal reflux 11/16/2011 Unspecified essential hypertension 12/02/2011 Unspecified essential hypertension 12/02/2011 CAD (coronary artery disease) Coronary atherosclerosis of unspecified type of vessel, [place] or graft 12/03/2011 CAD (coronary artery disease) Coronary atherosclerosis of unspecified type of vessel, [place] or graft 12/07/2011 Unspecified essential hypertension 12/07/2011 Hypercholesteremia Pure hypercholesterolemia 12/07/2011 SOB (shortness of breath) Shortness of breath 12/07/2011 Fatigue Other malaise and fatigue 12/10/2011 Neck pain Cervicalgia 12/10/2011 DDD (degenerative disc disease), cervical Degeneration of cervical intervertebral disc 12/10/2011 DDD (degenerative disc disease), lumbar Degeneration of lumbar or lumbosacral intervertebral disc 12/10/2011 Unspecified essential hypertension 12/10/2011 Depressive disorder, not elsewhere classified 12/10/2011 Hypertrophy of prostate without urinary obstruction and other lower urinary tract symptoms (LUTS) 12/10/2011 ED (erectile dysfunction) Impotence of organic origin 12/10/2011 Fatigue Other malaise and fatigue 12/10/2011 Toenail fungus Dermatophytosis of nail 12/10/2011 Prostatitis, acute Acute prostatitis 12/10/2011 Hyponatremia Hyposmolality and/or hyponatremia 12/23/2011 Seasonal allergies Allergic rhinitis, cause unspecified 12/23/2011 Unspecified essential hypertension 12/23/2011 Hypertrophy of prostate without urinary obstruction and other lower urinary tract symptoms (LUTS) 12/23/2011 Depressive disorder, not elsewhere classified 12/23/2011 Esophageal reflux 12/23/2011 Arthritis Arthropathy, unspecified, site unspecified 12/23/2011 Acute sinusitis Acute sinusitis, unspecified 12/23/2011 Hyponatremia Hyposmolality and/or hyponatremia 12/23/2011 Vertigo Dizziness and giddiness 02/17/2012 Esophageal reflux 02/17/2012 CAD (coronary artery disease) Coronary atherosclerosis of unspecified type of vessel, [place] or graft 02/17/2012 ED (erectile dysfunction) Impotence of organic origin 02/17/2012 Vertigo Dizziness and giddiness 02/17/2012 Lower back pain Lumbago 02/17/2012 DDD (degenerative disc disease), lumbar Degeneration of lumbar or lumbosacral intervertebral disc 02/17/2012 Depressive disorder, not elsewhere classified 02/17/2012 Unspecified essential hypertension 02/17/2012 BPH w/o urinary obs/LUTS Hypertrophy of prostate without urinary obstruction and other lower urinary tract symptoms (LUTS) 02/17/2012 Esophageal reflux 02/17/2012 CAD (coronary artery disease) Coronary atherosclerosis of unspecified type of vessel, [place] or graft 02/17/2012 ED (erectile dysfunction) Impotence of organic origin 02/17/2012 Sinusitis acute Acute sinusitis, unspecified 02/17/2012 Hyponatremia Hyposmolality and/or hyponatremia 02/26/2012 Dermatitis of face Contact dermatitis and other eczema, due to unspecified cause 02/26/2012 BPH w/o urinary obs/LUTS Hypertrophy of prostate without urinary obstruction and other lower urinary tract symptoms (LUTS) 02/26/2012 ED (erectile dysfunction) Impotence of organic origin 02/26/2012 Hyponatremia Hyposmolality and/or hyponatremia 02/26/2012 CAD (coronary artery disease) Coronary atherosclerosis of unspecified type of vessel, [place] or graft 02/26/2012 Unspecified essential hypertension 02/26/2012 Hypercholesteremia Pure hypercholesterolemia 02/26/2012 Hyponatremia Hyposmolality and/or hyponatremia 03/21/2012 Conjunctivitis, allergic Other chronic allergic conjunctivitis 03/21/2012 ED (erectile dysfunction) Impotence of organic origin 03/21/2012 Unspecified essential hypertension 03/21/2012 BPH w/o urinary obs/LUTS Hypertrophy of prostate without urinary obstruction and other lower urinary tract symptoms (LUTS) 03/21/2012 Acute sinusitis Acute sinusitis, unspecified 03/21/2012 Anxiety Anxiety state, unspecified 03/21/2012 Hyponatremia Hyposmolality and/or hyponatremia 03/21/2012 Myalgia Mylagia and myositis, unspecified 04/04/2012 Depressive disorder, not elsewhere classified 04/04/2012 Unspecified essential hypertension 04/04/2012 BPH w/o urinary obs/LUTS Hypertrophy of prostate without urinary obstruction and other lower urinary tract symptoms (LUTS) 04/04/2012 URI (upper respiratory infection) Acute upper respiratory infections of unspecified site 04/04/2012 Acute sinusitis Acute sinusitis, unspecified 04/04/2012 URI (upper respiratory infection) Acute upper respiratory infections of unspecified site 04/19/2012 Acute sinusitis Acute sinusitis, unspecified 04/19/2012 URI (upper respiratory infection) Acute upper respiratory infections of unspecified site 04/19/2012 Acute sinusitis Acute sinusitis, unspecified 04/19/2012 Neck pain, chronic Cervicalgia 04/27/2012 Unspecified essential hypertension 04/27/2012 Depressive disorder, not elsewhere classified 04/27/2012 BPH w/o urinary obs/LUTS Hypertrophy of prostate without urinary obstruction and other lower urinary tract symptoms (LUTS) 04/27/2012 Low back pain Lumbago 04/27/2012 DDD (degenerative disc disease), lumbar Degeneration of lumbar or lumbosacral intervertebral disc 04/27/2012 DDD (degenerative disc disease), cervical Degeneration of cervical intervertebral disc 04/27/2012 Sinusitis Unspecified sinusitis (chronic) 04/27/2012 Poison alexey Contact dermatitis and other eczema due to plants (except food) 05/26/2012 Need for influenza vaccination Need for prophylactic vaccination and inoculation against influenza 06/13/2012 Low back pain Lumbago 06/13/2012 Sciatica 06/13/2012 LBP (low back pain) Lumbago 06/17/2012 Lumbar radicular pain Thoracic or lumbosacral neuritis or radiculitis, unspecified 06/17/2012 CAD (coronary artery disease) Coronary atherosclerosis of unspecified type of vessel, [place] or graft 07/25/2012 Unspecified essential hypertension 07/25/2012 Hypercholesteremia Pure hypercholesterolemia 07/25/2012 SOB (shortness of breath) Shortness of breath 07/25/2012 CAD (coronary artery disease) Coronary atherosclerosis of unspecified type of vessel, [place] or graft 07/25/2012 Unspecified essential hypertension 07/25/2012 Hypercholesteremia Pure hypercholesterolemia 07/25/2012 SOB (shortness of breath) Shortness of breath 07/25/2012 CAD (coronary artery disease) Coronary atherosclerosis of unspecified type of vessel, [place] or graft 07/25/2012 Unspecified essential hypertension 07/25/2012 Hypercholesteremia Pure hypercholesterolemia 07/25/2012 SOB (shortness of breath) Shortness of breath 07/25/2012 Depressive disorder, not elsewhere classified 08/08/2012 DDD (degenerative disc disease), lumbar Degeneration of lumbar or lumbosacral intervertebral disc 08/08/2012 Rash Rash and other nonspecific skin eruption 08/08/2012 Abdominal pain Abdominal pain, unspecified site 08/08/2012 GERD (gastroesophageal reflux disease) Esophageal reflux 08/08/2012 Right groin pain Abdominal pain, right lower quadrant 08/08/2012 Unspecified essential hypertension 08/08/2012 Sinusitis Unspecified sinusitis (chronic) 08/08/2012 CAD (coronary artery disease) Coronary atherosclerosis of unspecified type of vessel, [place] or graft 08/08/2012 Unspecified essential hypertension 08/08/2012 Carotid bruit Other symptoms involving cardiovascular system 08/08/2012 Abnormal EKG Nonspecific abnormal electrocardiogram (ECG) (EKG) 08/08/2012 CAD (coronary artery disease) Coronary atherosclerosis of unspecified type of vessel, [place] or graft 08/22/2012 Unspecified essential hypertension 08/22/2012 Carotid bruit Other symptoms involving cardiovascular system 08/22/2012 Abnormal EKG Nonspecific abnormal electrocardiogram (ECG) (EKG) 08/22/2012 Vertigo Dizziness and giddiness 10/06/2012 Acute sinusitis Acute sinusitis, unspecified 10/06/2012 Seasonal allergies Allergic rhinitis, cause unspecified 10/06/2012 Acute bronchitis 10/06/2012 DDD (degenerative disc disease), lumbar Degeneration of lumbar or lumbosacral intervertebral disc 10/06/2012 Fatigue Other malaise and fatigue 10/06/2012 Depressive disorder, not elsewhere classified 10/06/2012 Acute asthmatic bronchitis Unspecified asthma, with exacerbation 10/28/2012 Paresthesia Disturbance of skin sensation 10/28/2012 Depressive disorder, not elsewhere classified 10/28/2012 Unspecified essential hypertension 10/28/2012 BPH w/o urinary obs/LUTS Hypertrophy of prostate without urinary obstruction and other lower urinary tract symptoms (LUTS) 10/28/2012 Acute sinusitis Acute sinusitis, unspecified 10/28/2012 Environmental allergies Allergic rhinitis, cause unspecified 10/28/2012 Rash Rash and other nonspecific skin eruption 10/28/2012 Anxiety Anxiety state, unspecified 10/28/2012 Sinusitis Unspecified sinusitis (chronic) 11/08/2012 Vertigo Dizziness and giddiness 11/08/2012 Unspecified essential hypertension 11/08/2012 Shingles Herpes zoster without mention of complication 11/08/2012 Sinusitis Unspecified sinusitis (chronic) 11/17/2012 Unspecified essential hypertension 01/10/2013 Hypercholesteremia Pure hypercholesterolemia 01/10/2013 CAD (coronary artery disease) Coronary atherosclerosis of unspecified type of vessel, [place] or graft 01/10/2013 Sinusitis Unspecified sinusitis (chronic) 01/10/2013 Acute asthmatic bronchitis Unspecified asthma, with exacerbation 01/10/2013 Rash Rash and other nonspecific skin eruption 01/10/2013 Depressive disorder, not elsewhere classified 01/10/2013 DDD (degenerative disc disease), lumbar Degeneration of lumbar or lumbosacral intervertebral disc 01/10/2013 CAD (coronary artery disease) Coronary atherosclerosis of unspecified type of vessel, [place] or graft 01/10/2013 Unspecified essential hypertension 01/10/2013 Hypercholesteremia Pure hypercholesterolemia 01/10/2013 Esophageal reflux 01/10/2013 Chest pain Chest pain, unspecified 01/10/2013 Vertigo Dizziness and giddiness 01/10/2013 Fatigue Other malaise and fatigue 01/13/2013 Acute sinusitis Acute sinusitis, unspecified 01/13/2013 Hyponatremia Hyposmolality and/or hyponatremia 01/13/2013 Orthostasis Orthostatic hypotension 01/13/2013 Hyposmolality and/or hyponatremia 01/13/2013 Orthostatic hypotension 01/13/2013 Hyponatremia Hyposmolality and/or hyponatremia 01/16/2013 HTN (hypertension) Unspecified essential hypertension 01/16/2013 CAD (coronary artery disease) Coronary atherosclerosis of unspecified type of vessel, [place] or graft 01/16/2013 Unspecified essential hypertension 01/16/2013 Hyponatremia Hyposmolality and/or hyponatremia 01/16/2013 HTN (hypertension) Unspecified essential hypertension 01/16/2013 CAD (coronary artery disease) Coronary atherosclerosis of unspecified type of vessel, [place] or graft 01/16/2013 Unspecified essential hypertension 01/16/2013 Dizziness Dizziness and giddiness 01/16/2013 Fatigue Other malaise and fatigue 01/16/2013 Nausea Nausea alone 01/17/2013 Abdominal pain Abdominal pain, unspecified site 01/17/2013 Hyponatremia Hyposmolality and/or hyponatremia 01/17/2013 Pancreatitis Acute pancreatitis 01/17/2013 Acute pancreatitis 01/17/2013 Hyposmolality and/or hyponatremia 01/17/2013 Abdominal pain, generalized 01/17/2013 Nausea alone 01/17/2013 Abdominal pain Abdominal pain, unspecified site 01/18/2013 BPH w/o urinary obs/LUTS Hypertrophy of prostate without urinary obstruction and other lower urinary tract symptoms (LUTS) 01/18/2013 GERD (gastroesophageal reflux disease) Esophageal reflux 01/18/2013 Abdominal pain Abdominal pain, unspecified site 01/18/2013 Depressive disorder, not elsewhere classified 01/18/2013 Unspecified essential hypertension 01/18/2013 BPH w/o urinary obs/LUTS Hypertrophy of prostate without urinary obstruction and other lower urinary tract symptoms (LUTS) 01/18/2013 Anxiety Anxiety state, unspecified 01/18/2013 Impaired vision Unspecified visual loss 01/18/2013 Sinusitis Unspecified sinusitis (chronic) 01/18/2013 Unspecified essential hypertension 01/26/2013 CAD (coronary artery disease) Coronary atherosclerosis of unspecified type of vessel, [place] or graft 01/26/2013 Edema 01/26/2013 CAD (coronary artery disease) Coronary atherosclerosis of unspecified type of vessel, [place] or graft 01/26/2013 Unspecified essential hypertension 01/26/2013 Edema 01/26/2013 Nausea Nausea alone 01/27/2013 Acute sinusitis Acute sinusitis, unspecified 01/27/2013 Acute bronchitis 01/27/2013 Unspecified essential hypertension 01/27/2013 BPH w/o urinary obs/LUTS Hypertrophy of prostate without urinary obstruction and other lower urinary tract symptoms (LUTS) 03/10/2013 HTN (hypertension) Unspecified essential hypertension 03/10/2013 Fatigue Other malaise and fatigue 03/10/2013 Skin infection Unspecified local infection of skin and subcutaneous tissue 03/10/2013 Depressive disorder, not elsewhere classified 03/10/2013 CAD (coronary artery disease) Coronary atherosclerosis of unspecified type of vessel, [place] or graft 03/10/2013 Unspecified essential hypertension 03/10/2013 BPH w/o urinary obs/LUTS Hypertrophy of prostate without urinary obstruction and other lower urinary tract symptoms (LUTS) 03/10/2013 Esophageal reflux 03/10/2013 DDD (degenerative disc disease), cervical Degeneration of cervical intervertebral disc 03/10/2013 ED (erectile dysfunction) Impotence of organic origin 03/10/2013 Acute sinusitis Acute sinusitis, unspecified 03/10/2013 Rash Rash and other nonspecific skin eruption 03/10/2013 Edema 03/10/2013 HTN (hypertension) Unspecified essential hypertension 03/13/2013 Unspecified essential hypertension 03/13/2013 CAD (coronary artery disease) Coronary atherosclerosis of unspecified type of vessel, [place] or graft 03/13/2013 Unspecified essential hypertension 03/22/2013 Unspecified essential hypertension 04/03/2013 Allergic rhinitis Allergic rhinitis, cause unspecified 05/09/2013 Unspecified essential hypertension 05/09/2013 DDD (degenerative disc disease), lumbar Degeneration of lumbar or lumbosacral intervertebral disc 05/09/2013 Skin infection Unspecified local infection of skin and subcutaneous tissue 05/09/2013 Acute sinusitis Acute sinusitis, unspecified 05/09/2013 Mouth sore Other and unspecified diseases of the oral soft tissues 06/02/2013 Depressive disorder, not elsewhere classified 06/02/2013 Encounter for long-term (current) use of other medications 06/02/2013 Need for influenza vaccination Need for prophylactic vaccination and inoculation against influenza 06/02/2013 DDD (degenerative disc disease), lumbar Degeneration of lumbar or lumbosacral intervertebral disc 06/02/2013 Unspecified essential hypertension 06/02/2013 BPH w/o urinary obs/LUTS Hypertrophy of prostate without urinary obstruction and other lower urinary tract symptoms (LUTS) 06/02/2013 Esophageal reflux 06/02/2013 CAD (coronary artery disease) Coronary atherosclerosis of unspecified type of vessel, [place] or graft 06/02/2013 Rash Rash and other nonspecific skin eruption 06/02/2013 Seasonal allergies Allergic rhinitis, cause unspecified 06/02/2013 CAD (coronary artery disease) Coronary atherosclerosis of unspecified type of vessel, [place] or graft 06/12/2013 Unspecified essential hypertension 06/12/2013 Thoracic or lumbosacral neuritis or radiculitis, unspecified 07/06/2013 Brachial neuritis or radiculitis NOS Brachial neuritis or radiculitis nos 07/06/2013 Thoracic or lumbosacral neuritis or radiculitis, unspecified 07/06/2013 Depressive disorder, not elsewhere classified 08/02/2013 Unspecified essential hypertension 08/02/2013 BPH w/o urinary obs/LUTS Hypertrophy of prostate without urinary obstruction and other lower urinary tract symptoms (LUTS) 08/02/2013 Esophageal reflux 08/02/2013 CAD (coronary artery disease) Coronary atherosclerosis of unspecified type of vessel, [place] or graft 08/02/2013 Acute sinusitis Acute sinusitis, unspecified 08/02/2013 Acute bronchitis 08/02/2013 Seasonal allergies Allergic rhinitis, cause unspecified 08/02/2013 Yeast infection of the skin Candidiasis of skin and nails 08/02/2013 DDD (degenerative disc disease), lumbar Degeneration of lumbar or lumbosacral intervertebral disc 08/02/2013 Pain in joint, lower leg 08/02/2013 Thoracic or lumbosacral neuritis or radiculitis, unspecified 08/02/2013 Unspecified essential hypertension 09/07/2013 Osteoarthritis Osteoarthrosis, unspecified whether generalized or localized, unspecified site 09/07/2013 Knee pain, right Pain in joint, lower leg 09/07/2013 Pre-operative general physical examination Other specified pre-operative examination 09/07/2013 Unspecified essential hypertension 09/07/2013 Osteoarthritis Osteoarthrosis, unspecified whether generalized or localized, unspecified site 09/07/2013 Knee pain, right Pain in joint, lower leg 09/07/2013 Unspecified essential hypertension 10/30/2013 CAD (coronary artery disease) Coronary atherosclerosis of unspecified type of vessel, [place] or graft 10/30/2013 Routine adult health maintenance Routine general medical examination at a health care facility 11/08/2013 Acute sinusitis Acute sinusitis, unspecified 11/08/2013 Environmental allergies Allergic rhinitis, cause unspecified 11/08/2013 Unspecified essential hypertension 11/08/2013 BPH w/o urinary obs/LUTS Hypertrophy of prostate without urinary obstruction and other lower urinary tract symptoms (LUTS) 11/08/2013 Depressive disorder, not elsewhere classified 11/08/2013 Esophageal reflux 11/08/2013 CAD (coronary artery disease) Coronary atherosclerosis of unspecified type of vessel, [place] or graft 11/08/2013 Hyperlipidemia LDL goal < 100 Other and unspecified hyperlipidemia 11/08/2013 Osteoarthritis Osteoarthrosis, unspecified whether generalized or localized, unspecified site 11/08/2013 Routine adult health maintenance Routine general medical examination at a health care facility 11/08/2013 Anxiety Anxiety state, unspecified 11/08/2013 Unspecified essential hypertension 12/25/2013 CAD (coronary artery disease) Coronary atherosclerosis of unspecified type of vessel, [place] or graft 12/25/2013 Anxiety Anxiety state, unspecified 12/28/2013 Acute sinusitis Acute sinusitis, unspecified 12/28/2013 Environmental allergies Allergic rhinitis, cause unspecified 12/28/2013 Depressive disorder, not elsewhere classified 12/28/2013 Unspecified essential hypertension 12/28/2013 BPH w/o urinary obs/LUTS Hypertrophy of prostate without urinary obstruction and other lower urinary tract symptoms (LUTS) 12/28/2013 Esophageal reflux 12/28/2013 CAD (coronary artery disease) Coronary atherosclerosis of unspecified type of vessel, [place] or graft 12/28/2013 Decreased urination Oliguria and anuria 12/28/2013 LBP (low back pain) Lumbago 01/15/2014 CAD (coronary artery disease) Coronary atherosclerosis of unspecified type of vessel, [place] or graft 03/12/2014 Unspecified essential hypertension 03/12/2014 Hypercholesteremia Pure hypercholesterolemia 03/12/2014 Chest pain Chest pain, unspecified 03/12/2014 SOB (shortness of breath) on exertion Shortness of breath 03/12/2014 Anxiety Anxiety state, unspecified 03/12/2014 Acute sinusitis Acute sinusitis, unspecified 03/12/2014 Environmental allergies Allergic rhinitis, cause unspecified 03/12/2014 Depressive disorder, not elsewhere classified 03/12/2014 Unspecified essential hypertension 03/12/2014 BPH w/o urinary obs/LUTS Hypertrophy of prostate without urinary obstruction and other lower urinary tract symptoms (LUTS) 03/12/2014 Esophageal reflux 03/12/2014 CAD (coronary artery disease) Coronary atherosclerosis of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 or chronic, without mention of hemorrhage, perforation, or obstruction 06/07/2017 Chronic seasonal allergic rhinitis, unspecified trigger 06/07/2017 Positive urine drug screen Nonspecific abnormal toxicological findings 06/07/2017 Chest pain, unspecified type 06/28/2017 Unspecified essential hypertension 06/28/2017 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 06/28/2017 Chest tightness or pressure Other chest pain 06/28/2017 SOB (shortness of breath) on exertion Shortness of breath 06/28/2017 Acute urticaria Other specified urticaria 07/06/2017 Fungal dermatitis Dermatomycosis, unspecified 07/08/2017 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 07/30/2017 Unspecified essential hypertension 07/30/2017 Acute bronchitis, unspecified organism 07/30/2017 Hyperglycemia Other abnormal glucose 07/30/2017 Acute bronchitis, unspecified organism 07/30/2017 Unspecified essential hypertension 07/30/2017 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 07/30/2017 Hyperglycemia Other abnormal glucose 07/30/2017 Drug therapy Encounter for other specified aftercare 09/24/2017 Acute rhinosinusitis Acute sinusitis, unspecified 09/24/2017 Need for influenza vaccination Need for prophylactic vaccination and inoculation against influenza 09/24/2017 Drug therapy Encounter for other specified aftercare 09/24/2017 Acute rhinosinusitis Acute sinusitis, unspecified 09/24/2017 Unspecified essential hypertension 09/24/2017 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 10/13/2017 Acute rhinosinusitis Acute sinusitis, unspecified 10/15/2017 History of degenerative disc disease Personal history of other musculoskeletal disorders 10/15/2017 PUD (peptic ulcer disease) Peptic ulcer, unspecified site, unspecified as acute or chronic, without mention of hemorrhage, perforation, or obstruction 12/10/2017 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 12/13/2017 Coronary artery disease involving [place] heart, angina presence unspecified, unspecified vessel or lesion type 12/13/2017 Unspecified essential hypertension 12/13/2017 Racing heart beat Tachycardia, unspecified 12/13/2017 Dizziness Dizziness and giddiness 12/13/2017 SOB (shortness of breath) on exertion Shortness of breath 12/13/2017 Chest tightness or pressure Other chest pain 12/13/2017 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 01/03/2018 Coronary artery disease involving [place] heart, angina presence unspecified, unspecified vessel or lesion type 01/03/2018 Unspecified essential hypertension 01/03/2018 Racing heart beat Tachycardia, unspecified 01/03/2018 Dizziness Dizziness and giddiness 01/03/2018 SOB (shortness of breath) on exertion Shortness of breath 01/03/2018 Chest tightness or pressure Other chest pain 01/03/2018 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 01/03/2018 Coronary artery disease involving [place] heart, angina presence unspecified, unspecified vessel or lesion type 01/03/2018 Unspecified essential hypertension 01/03/2018 Racing heart beat Tachycardia, unspecified 01/03/2018 Dizziness Dizziness and giddiness 01/03/2018 SOB (shortness of breath) on exertion Shortness of breath 01/03/2018 Chest tightness or pressure Other chest pain 01/03/2018 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 01/03/2018 Coronary artery disease involving [place] heart, angina presence unspecified, unspecified vessel or lesion type 01/03/2018 Unspecified essential hypertension 01/03/2018 Racing heart beat Tachycardia, unspecified 01/03/2018 Dizziness Dizziness and giddiness 01/03/2018 SOB (shortness of breath) on exertion Shortness of breath 01/03/2018 Chest tightness or pressure Other chest pain 01/03/2018 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 01/03/2018 Coronary artery disease involving [place] heart, angina presence unspecified, unspecified vessel or lesion type 01/03/2018 Unspecified essential hypertension 01/03/2018 Racing heart beat Tachycardia, unspecified 01/03/2018 Dizziness Dizziness and giddiness 01/03/2018 SOB (shortness of breath) on exertion Shortness of breath 01/03/2018 Chest tightness or pressure Other chest pain 01/03/2018 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, sciatica laterality unspecified 01/06/2018 Bug bite, subsequent encounter 01/06/2018 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 01/06/2018 History of degenerative disc disease Personal history of other musculoskeletal disorders 01/06/2018 Acute bacterial sinusitis Acute sinusitis, unspecified 01/06/2018 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 01/08/2018 Allergic rhinitis Allergic rhinitis, cause unspecified 01/26/2018 Encounter for medication management 02/07/2018 Encounter for medication management 02/07/2018 Acute rhinosinusitis Acute sinusitis, unspecified 02/07/2018 Seasonal allergic rhinitis due to other allergic trigger 02/07/2018 History of degenerative disc disease Personal history of other musculoskeletal disorders 02/07/2018 Unspecified essential hypertension 03/14/2018 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 03/14/2018 History of degenerative disc disease Personal history of other musculoskeletal disorders 05/02/2018 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 05/07/2018 PUD (peptic ulcer disease) Peptic ulcer, unspecified site, unspecified as acute or chronic, without mention of hemorrhage, perforation, or obstruction 06/05/2018 Psoriasis Other psoriasis 07/30/2018 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 08/09/2018 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 09/26/2018 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 09/28/2018 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 10/10/2018 SIADH (syndrome of inappropriate ADH production) Other disorders of neurohypophysis 10/10/2018 Unspecified essential hypertension 10/10/2018 Nausea Nausea alone 11/03/2018 PUD (peptic ulcer disease) Peptic ulcer, unspecified site, unspecified as acute or chronic, without mention of hemorrhage, perforation, or obstruction 11/26/2018 Flu vaccine need Need for prophylactic vaccination and inoculation against influenza 06/16/2019 Screening PSA (prostate specific antigen) Special screening for malignant neoplasm of prostate 06/16/2019 Unspecified essential hypertension 06/16/2019 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 06/16/2019 Acute bacterial sinusitis Acute sinusitis, unspecified 06/16/2019 Seasonal allergies Allergic rhinitis, cause unspecified 06/16/2019 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 02/09/2020 Unspecified essential hypertension 02/09/2020 Screening PSA (prostate specific antigen) Special screening for malignant neoplasm of prostate 02/09/2020 Lethargy Other malaise and fatigue 02/09/2020 Vitamin D deficiency Unspecified vitamin D deficiency 02/09/2020 Osteoarthritis, unspecified osteoarthritis type, unspecified site 02/09/2020 Lethargy Other malaise and fatigue 02/09/2020 Osteoarthritis, unspecified osteoarthritis type, unspecified site 02/09/2020 Vitamin D deficiency Unspecified vitamin D deficiency 02/09/2020 Cellulitis of other specified site 02/09/2020 Unspecified essential hypertension 02/27/2020 Vasovagal syncope Syncope and collapse 02/27/2020 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 02/27/2020 SOB (shortness of breath) on exertion Shortness of breath 02/27/2020 Chest pressure Other chest pain 02/27/2020 Unspecified essential hypertension 03/25/2020 Vasovagal syncope Syncope and collapse 03/25/2020 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 03/25/2020 SOB (shortness of breath) on exertion Shortness of breath 03/25/2020 Chest pressure Other chest pain 03/25/2020 Unspecified essential hypertension 03/25/2020 Vasovagal syncope Syncope and collapse 03/25/2020 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 03/25/2020 SOB (shortness of breath) on exertion Shortness of breath 03/25/2020 Chest pressure Other chest pain 03/25/2020 Unspecified essential hypertension 03/25/2020 Vasovagal syncope Syncope and collapse 03/25/2020 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 03/25/2020 SOB (shortness of breath) on exertion Shortness of breath 03/25/2020 Chest pressure Other chest pain 03/25/2020 Acute bronchitis, unspecified organism 04/05/2020 Acute bronchitis, unspecified organism 04/05/2020 Acute bacterial sinusitis Acute sinusitis, unspecified 05/29/2020 Need for influenza vaccination Need for prophylactic vaccination and inoculation against influenza 05/29/2020 Glossitis 05/29/2020 Yeast infection Other and unspecified mycoses 06/06/2020 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 10/07/2020 Unspecified essential hypertension 10/07/2020 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 05/12/2021 Unspecified essential hypertension 05/12/2021 Flu vaccine need Need for prophylactic vaccination and inoculation against influenza 07/10/2021 Acute bacterial sinusitis Acute sinusitis, unspecified 07/10/2021 Seasonal allergies Allergic rhinitis, cause unspecified 07/10/2021 Medicare annual wellness visit, subsequent Routine general medical examination at a health care facility 07/10/2021 Acute bacterial sinusitis Acute sinusitis, unspecified 07/14/2021 Cough 11/12/2021 Numbness and tingling of both legs below knees Disturbance of skin sensation 11/12/2021 Acute bacterial sinusitis Acute sinusitis, unspecified 11/12/2021 Seasonal allergic rhinitis due to other allergic trigger 11/12/2021 DDD (degenerative disc disease), lumbar Degeneration of lumbar or lumbosacral intervertebral disc 11/12/2021 Acute bacterial sinusitis Acute sinusitis, unspecified 11/19/2021 Unspecified essential hypertension 02/02/2022 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 02/02/2022 Chest pressure Other chest pain 09/28/2022 SOB (shortness of breath) on exertion Shortness of breath 09/28/2022 Unspecified essential hypertension 09/28/2022 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 09/28/2022 Bruit of right carotid artery 09/28/2022 Aortic root enlargement Aortic ectasia, unspecified site 09/28/2022 Chest pressure Other chest pain 11/03/2022 SOB (shortness of breath) on exertion Shortness of breath 11/03/2022 Unspecified essential hypertension 11/03/2022 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 11/03/2022 Bruit of right carotid artery 11/03/2022 Aortic root enlargement Aortic ectasia, unspecified site 11/03/2022 Chest pressure Other chest pain 11/25/2022 SOB (shortness of breath) on exertion Shortness of breath 11/25/2022 Unspecified essential hypertension 11/25/2022 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 11/25/2022 Bruit of right carotid artery 11/25/2022 Aortic root enlargement Aortic ectasia, unspecified site 11/25/2022 Chest pressure Other chest pain 11/25/2022 SOB (shortness of breath) on exertion Shortness of breath 11/25/2022 Unspecified essential hypertension 11/25/2022 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 11/25/2022 Bruit of right carotid artery 11/25/2022 Aortic root enlargement Aortic ectasia, unspecified site 11/25/2022 Chest pressure Other chest pain 11/25/2022 SOB (shortness of breath) on exertion Shortness of breath 11/25/2022 Unspecified essential hypertension 11/25/2022 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 11/25/2022 Bruit of right carotid artery 11/25/2022 Aortic root enlargement Aortic ectasia, unspecified site 11/25/2022 Chronic cough Cough 02/22/2023 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 03/29/2023 Unspecified essential hypertension 03/29/2023 Sinobronchitis Unspecified sinusitis (chronic) 03/31/2023 Seasonal allergies Allergic rhinitis, cause unspecified 03/31/2023 Coronary artery disease involving [place] heart with other form of angina pectoris, unspecified vessel or lesion type 03/31/2023 Acute cough 04/21/2023 Unspecified essential hypertension 04/21/2023 Medicare annual wellness visit, subsequent Routine general medical examination at a health care facility 04/21/2023 Sinobronchitis Unspecified sinusitis (chronic) 04/21/2023 Acute cough 04/21/2023 Screening for prostate cancer Special screening for malignant neoplasm of prostate 04/21/2023 Seasonal allergies Allergic rhinitis, cause unspecified 06/01/2023 Acute bacterial sinusitis Acute sinusitis, unspecified 06/01/2023 Flu vaccine need Need for prophylactic vaccination and inoculation against influenza 06/01/2023 Medicare annual wellness visit, subsequent Routine general medical examination at a health care facility 07/29/2023 Essential hypertension Unspecified essential hypertension 07/29/2023 Screening for prostate cancer Special screening for malignant neoplasm of prostate 07/29/2023 Fever, unspecified fever cause 07/29/2023 Acute cough 07/29/2023 Congestion of nasal sinus Other diseases of nasal cavity and sinuses 07/29/2023 Fever, unspecified fever cause 07/29/2023 Acute cough 07/29/2023 Atypical chest pain Other chest pain 07/30/2023 Fever, unspecified fever cause 07/30/2023 Acute cough 07/30/2023 Acute bacterial sinusitis Acute sinusitis, unspecified 08/31/2023 Acute bacterial sinusitis Acute sinusitis, unspecified 09/21/2023 Pain of both breasts 09/21/2023 Mass of lower outer quadrant of left breast 09/21/2023 Pain of both breasts 10/14/2023 Mass of lower outer quadrant of left breast 10/14/2023 Pain of both breasts 10/14/2023 Mass of lower outer quadrant of left breast 10/14/2023 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 03/13/2024 Unspecified essential hypertension 03/13/2024 Hypertensive heart disease with heart failure (HCC) Unspecified hypertensive heart disease with heart failure 03/13/2024 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 03/13/2024 Unspecified essential hypertension 03/13/2024 Hypertensive heart disease with heart failure (HCC) Unspecified hypertensive heart disease with heart failure 03/13/2024 Annual physical exam Routine general medical examination at a health care facility 04/26/2024 COPD with acute exacerbation (HCC) Obstructive chronic bronchitis with exacerbation 04/26/2024 Chronic pain of both knees 04/26/2024 Insomnia, persistent Persistent disorder of initiating or maintaining sleep 04/26/2024 PUD (peptic ulcer disease) Peptic ulcer, unspecified site, unspecified as acute or chronic, without mention of hemorrhage, perforation, or obstruction 04/26/2024 Acute bacterial sinusitis Acute sinusitis, unspecified 04/26/2024 Atherosclerotic heart disease of [place]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 04/26/2024 Anemia, unspecified type 04/27/2024 Bradycardia Other specified cardiac dysrhythmias 05/11/2024 Unspecified essential hypertension 06/19/2024 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 06/19/2024 Hypertensive heart disease with heart failure (HCC) Unspecified hypertensive heart disease with heart failure 06/19/2024 Atherosclerosis of [place] coronary artery of [place] heart without angina pectoris 06/19/2024 Benign essential HTN Essential hypertension, benign 06/19/2024 Acute bacterial sinusitis Acute sinusitis, unspecified 08/08/2024 Acute cough 08/08/2024 Malaise and fatigue Other malaise and fatigue 08/08/2024 Anemia, unspecified type 08/08/2024 Bradycardia Other specified cardiac dysrhythmias 08/08/2024 Unspecified essential hypertension 08/10/2024 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 08/10/2024 Hypertensive heart disease with heart failure (HCC) Unspecified hypertensive heart disease with heart failure 08/10/2024 Atherosclerosis of [place] coronary artery of [place] heart without angina pectoris 08/10/2024 Benign essential HTN Essential hypertension, benign 08/10/2024 SOB (shortness of breath) on exertion Shortness of breath 10/16/2024 Unspecified essential hypertension 10/16/2024 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 10/16/2024 Hypertensive heart disease with heart failure (HCC) Unspecified hypertensive heart disease with heart failure 10/16/2024 Atherosclerosis of [place] coronary artery of [place] heart without angina pectoris 10/16/2024 Benign essential HTN Essential hypertension, benign 10/16/2024 Atherosclerotic heart disease of [place]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 10/16/2024 COPD with acute exacerbation (HCC) Obstructive chronic bronchitis with exacerbation 12/11/2024 STIVEN (generalized anxiety disorder) Generalized anxiety disorder 12/29/2024 History of degenerative disc disease Personal history of other musculoskeletal disorders 01/26/2025 Insomnia, persistent Persistent disorder of initiating or maintaining sleep 02/14/2025 Acute bacterial sinusitis Acute sinusitis, unspecified 02/14/2025 B12 deficiency Other B-complex deficiencies 02/14/2025 Mass of muscle of right upper extremity 02/14/2025 History of degenerative disc disease Personal history of other musculoskeletal disorders 02/20/2025 Left eye injury, initial encounter 02/23/2025 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 PUD (peptic ulcer disease) Peptic ulcer, unspecified site, unspecified as acute or chronic, without mention of hemorrhage, perforation, or obstruction 02/23/2025 Mass of muscle of right upper extremity 03/02/2025 Malaise and fatigue Other malaise and fatigue 03/02/2025 Spinal enthesopathy, cervicothoracic region 03/02/2025 Peripheral neuropathy, idiopathic Unspecified hereditary and idiopathic peripheral neuropathy 03/02/2025 Anemia, unspecified type 03/02/2025 B12 deficiency Other B-complex deficiencies 03/02/2025 Screening for diabetes mellitus (DM) Screening for diabetes mellitus 03/02/2025 Vitamin D deficiency Unspecified vitamin D deficiency 03/02/2025 Therapeutic drug monitoring Encounter for therapeutic drug monitoring 03/02/2025 Anemia, unspecified type 03/03/2025 STIVEN (generalized anxiety disorder) Generalized anxiety disorder 03/10/2025 PUD (peptic ulcer disease) Peptic ulcer, unspecified site, unspecified as acute or chronic, without mention of hemorrhage, perforation, or obstruction 03/13/2025 Insomnia, persistent Persistent disorder of initiating or maintaining sleep 03/13/2025 Arm mass, right 03/22/2025 Syncope Syncope and collapse 12/27/2015 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 12/27/2015 Orthostatic hypotension 12/27/2015 Hyponatremia Hyposmolality and/or hyponatremia 12/27/2015 SIADH (syndrome of inappropriate ADH production) Other disorders of neurohypophysis 12/27/2015 Vasovagal syncope Syncope and collapse 12/27/2015 Goals Goal Patient Goal Type Associated Problems Recent Progress Patient-Stated? 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
--- OUTSIDE RECORDS SUMMARY | 2025-04-06 10:14 | XMS_ITS | Encounter Summary ---
Author Organization Healthcare Address [address] [id number] Care Team Providers Care Caregiver Services Home Name Role Phone Christi Vasquez MD Primary Care Provider [phone] Emi Ledezma CAR DRYER Unavailable Unavailab Catrina Qureshi CAR DRYER Unavailable Unavail able Reason for Visit * Reason Comments Med Refill Encounter Details Date Type Department Care Team (Late st Contact Info) Description 07/17/2022 Refill [facility] [address] [place] [address] Christi Vasquez MD [address] [place] [address] Chronic pain syndrome Social History Tobacco Use Types Packs/Day Years Used Date Smoking Tobacco: Never Smokeless Tobacco: Current Chew Alcohol Use Standard Drinks/Week Comments No 0 (1 standard drink = 0.6 oz pur e alcohol) PHQ-2 Answer Date Recorded Patient Health Questionnaire-2 Score 0 04/16/2022 Sex and Gender Information Value Date Recorded Sex Assigned at Not on file Legal Sex Male 8:24 PM EDT Gender Identity Not on file Sexual Orientation Not on file documented as of this encounter Miscellaneous Notes * Telephone Encounter - Romelia Brizuela - 07/17/2022 8:36 AM EDT Left message for patient to return call. documented in this encounter Plan of Treatment Not on file documented as of this encounter Visit Diagnoses Diagnosis Chronic pain syndrome documented in this encounter Additional Health Concerns Assessment Noted Time A fall risk assessment has been complete d for the patient 04/16/2022 11:02 AM EDT documented as of this encounter Care Teams Caregiver Services Home Relationship Specialty Start Date End Date Christi Vasquez MD [address] [place] [address] PCP - General 01/31/21 10/28/23 Emi Ledezma LPN [employer]ED [employer]FORMATION PROGRAM Licensed Practical Nurse 07/06/23 3 Catrina Valdovinos LPN [place] [address] TCM Nurse 07/09/23 07/09/23 documented as of this encounter
== END 2025-04-05 23:59 | disposition home or self-care (01) ==
LOC: LAB.DROPOF 04-06 10:06
PROVIDERS: PCP Family Medicine; Visit Provider Family Medicine
DX: E78.2 Mixed hyperlipidemia (principal); I10 Essential (primary) hypertension; F41.9 Anxiety disorder, unspecified; E66.9 Obesity, unspecified
CPT/HCPCS: 80053; 80061; 83036; 84443; 85025

== ENCOUNTER 2025-09-06 15:49 | Outpatient (CLI) | payer MEDICARE, SELFPAY ==
--- OUTSIDE RECORDS SUMMARY | 2025-07-16 08:20 | XMS_ITS | Encounter Summary ---
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 Hypertensive heart disease with heart failure (HCC) Atherosclerotic heart disease of big sandy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 Benign essential HTN Atherosclerosis of big sandy coronary artery of big sandy heart without angina pectoris Left carotid bruit Procedures VT US CAROTID DUPLEX BILATERAL Raul Saucedo MD [address] [place] [address] Phone: tel: fax: Referral ID Status Reason Start Date Expiration Date V isits Requested Visits Authorized [id number] Pending Review 07/16/2025 07/16/2026 1 1 * Echo (Routine) - Pending Review Specialty Diagnoses / Procedures Referred By Contac t Referred To Contact Radiology Diagnoses SOB (shortness of breath) on exertion Essential hypertension 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 Hypertensive heart disease with heart failure (HCC) Atherosclerotic heart disease of big sandy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 Benign essential HTN Atherosclerosis of big sandy coronary artery of big sandy heart without angina pectoris Procedures EC ECHOCARDIOGRAM COMPLETE W DOPPLER AND COLOR FLOW MAPPING Raul Saucedo MD [address] [place] [address] [address] [place], [place] [address] Phone: tel: fax: Referral ID Status Reason Start Date Expiration Date V isits Requested Visits Authorized [id number] Pending Review 07/16/2025 07/16/2027 1 1 * Stress (Routine) - Pending Review Specialty Diagnoses / Procedures Referred By Contac t Referred To Contact Radiology Diagnoses SOB (shortness of breath) on exertion Essential hypertension 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 Hypertensive heart disease with heart failure (HCC) Atherosclerotic heart disease of big sandy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 Benign essential HTN Atherosclerosis of big sandy coronary artery of big sandy heart without angina pectoris Procedures ST STRESS TEST Raul Turner MD [address] [place] [address] [address] Eric, [place] [address] Phone: tel: fax: Referral ID Status Reason Start Date Expiration Date V isits Requested Visits Authorized [id number] Pending Review 07/16/2025 07/16/2027 1 1 * Nuclear Medicine (Routine) - Pending Review Specialty Diagnoses / Procedures Referred By Contac t Referred To Contact Radiology Diagnoses SOB (shortness of breath) on exertion Essential hypertension 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 Hypertensive heart disease with heart failure (HCC) Atherosclerotic heart disease of big sandy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 Benign essential HTN Atherosclerosis of big sandy coronary artery of big sandy heart without angina pectoris Procedures NM MYOCARDIAL PERFUSION SPECT STRESS AND REST Raul Saucedo MD [address] [place] [address] [place] [address] Phone: tel: fax: Referral ID Status Reason Start Date Expiration Date V isits Requested Visits Authorized [id number] Pending Review 07/16/2025 07/16/2026 5 5 Reason for Visit * Reason Comments Coronary Artery Disease 9 month follow u p. Medications have not changed per patient, unsure of what he is taking. 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; Benign essential HTN; Atherosclerosis of big sandy coronary artery of big sandy heart without angina pectoris; Left carotid bruit Social History Tobacco Use Types Packs/Day Years [...] Sign Reading Time Taken Comments Blood Pressure 122/62 07/16/2025 9:22 AM EDT Pulse 76 07/16/2025 9:22 AM EDT Temperature - - Respiratory Rate - - Oxygen Saturation - - Inhaled Oxygen Concentration - - Weight 85.3 kg (188 lb) 07/16/2025 9:22 AM EDT Height 165.1 cm (5' 5 ) 07/16/2025 9:22 AM EDT Body Mass Index 31.28 07/16/2025 9:22 AM EDT documented in this encounter Functional [...] documented in this encounter Progress Notes * Raul Saucedo MD - 07/16/2025 9:20 AM EDT Chief Complaint Patient presents with Coronary Artery Disease 9 month follow up. Medications have not changed per patient, unsure of what he is taking. Hypertension HPI: Chente Carey He is here for regularly scheduled cardiology followup. The patient reports feeling well without particular complaints today. REVIEW OF SYSTEMS: NEGATIVE FOR: Chest pain Dyspnea Palpitations Dizziness Syncope Edema POSITIVE FOR: none All other review of systems are negative. PAST MEDICAL HISTORY: Past Medical History[1] PAST SURGICAL HISTORY: Surgical History[2] ALLERGIES: Allergies[3] MEDICATIONS: Current Medications[4] SOCIAL HISTORY: Social History Socioeconomic History Marital status: Single [...] Resource Strain: Low Risk (07/09/2023) Received from [facility] Overall Financial Resource Strain (CARDIA) Difficulty of Paying Living Expenses: Not hard at all Food Insecurity: No Food Insecurity (07/09/2023) Received from [facility] Hunger Vital Sign Within the past 12 months, you worried that your food would run out before you got the money to buymore.: Never true Within the past 12 months, the food you bought just didn't last and you didn't have money to get more.: Never true Transportation Needs: No Transportation Needs (07/09/2023) Received from [facility] PRAPARE - Transportation Lack of Transportation (Medical): No Lack of Transportation (Non-Medical): No Physical Activity: Inactive (07/09/2023) Received from [facility] Exercise Vital Sign On average, how many days per week do you engage in moderate to strenuous exercise (like a brisk walk)?: 0 days On average, how many minutes do you engage in exercise at this level?: 0 min Stress: No Stress Concern Present (07/09/2023) Received from [facility] [employer] - Occupational Stress Questionnaire Feeling of Stress : Not at all Social Connections: Moderately Isolated (07/09/2023) Received from [facility] Social Connection and Isolation Panel In a typical week, how many times do you talk on the phone with family, friends, or neighbors?: More than three times a week How often do you get together with friends or relatives?: Once a week How often do you attend yazdanism or gnosticism services?: Never Do you belong to any clubs or organizations such as yazdanism groups, unions, fraternal or athletic groups, or school groups?: No How often do you attend meetings of the clubs or organizations you belong to?: Never Are you , , , , never , or living with a partner?: Living with partner Intimate Partner Violence: Not At Risk (07/09/2023) Received from [facility] Humiliation, Afraid, Rape, and Kick questionnaire Within the last year, have you been afraid of your partner or ex-partner?: No Within the last year, have you been humiliated or emotionally abused in other ways by your partner or ex-partner?: No Within the last year, have you been kicked, hit, slapped, or otherwise physically hurt by your partner or ex-partner?: No Within the last year, have you been raped or forced to have any kind of sexual activity by your partner or ex-partner?: No Housing Stability: Low Risk (07/09/2023) Received from [facility] Housing Stability Vital Sign Unable to Pay for Housing in the Last Year: No Number of Places Lived in the Last Year: 1 Unstable Housing in the Last Year: No FAMILY HISTORY: Family History[5] PHYSICAL EXAMINATION: Vitals: 07/16/25 0922 BP: 122/62 Pulse: 76 Body mass index is 31.28 kg/m??. CONSTITUTIONAL: Vital signs are noted No apparent distress Alert and oriented EYES: Gaze is conjugate Ptosis is absent EARS, NOSE, MOUTH, THROAT: Oropharynx is clear Nose is midline NECK: Thyromegaly is absent Trachea is midline RESPIRATORY: Respiratory effort is normal Wheezes are absent Rales are absent Rhonchi are absent CARDIOVASCULAR: Heart rate is noted above Rhythm is regular Murmurs are absent Rubs are absent S1 and S2 normal S3 or S4 are absent Pulses are normal Jugular venous pressure is normal Edema is absent Carotid Bruits left carotud bruit GASTROINTESTINAL: Bowel sounds are normal Hepatomegaly is absent Spleenomegaly is absent Abdomen is soft and non tender MUSCULOSKELETAL: Clubbing is absent Cyanosis is absent Gait is normal SKIN: Rashes are visually absent Turgor is normal Warm and dry NEUROLOGICAL: Cranial nerves are grossly intact Speech is normal PSYCHIATRIC: Mood is normal Affect is normal LABORATORY AND STUDIES: All pertinent study and laboratory results have been personally reviewed including results from last coronary angiogram, stress test, echocardiogram and/or carotid ultrasound if pertinent to this visit. SELECTIVE LAST BLOOD WORK: Lab Results Component Value Date CHOLESTEROL 164 03/13/2024 HDL 92 03/13/2024 LDLCALC 61 03/13/2024 TRIG 55 03/13/2024 Lab Results Component Value Date INR 1.05 06/12/2010 Lab Results Component Value Date WBC 7.9 03/02/2025 HGB 13.4 (L) 03/02/2025 HCT 40.9 03/02/2025 MCV 98.1 03/02/2025 PLT 256 03/02/2025 Lab Results Component Value Date HGBA1C 5.5 03/02/2025 Lab Results Component Value Date NA 137 08/08/2024 K 4.4 08/08/2024 BUN 10 08/08/2024 CALCIUM 9.6 08/08/2024 CL 98 08/08/2024 CO2 30 (H) 08/08/2024 CREATININE 0.89 08/08/2024 GLU 100 (H) 08/08/2024 Lab Results Component Value Date ALT 23 08/08/2024 AST 32 08/08/2024 ALKPHOS 102 08/08/2024 Lab Results Component Value Date TSH 0.496 03/02/2025 ECG RESULT IF DONE: No results found for this visit on 07/16/25. LABS ORDERS THIS VISIT: No orders of the defined types were placed in this encounter. IMAGING ORDERS THIS VISIT: None MEDICINE CHANGES THIS VISIT: Requested Prescriptions No prescriptions requested or ordered in this encounter There are no discontinued medications. 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 09/21/2023 Noted by TAMMIE Barnhart MD last documented on [id number] Gynecomastia 09/23/2022 Chronic idiopathic constipation 09/09/2021 Acute bronchitis 05/27/2021 Allergic rhinitis 11/25/2020 Chronic pain 02/15/2019 Esophageal stricture 02/15/2019 Anxiety 12/02/2018 Psoriasis 08/01/2018 Tinnitus 08/01/2018 Coronary atherosclerosis 06/14/2018 Gastric ulcer 06/14/2018 Benign essential HTN 06/14/2018 Positive urine drug screen 06/07/2017 + Marijuana Lumbar stenosis 09/15/2016 PUD (peptic ulcer disease) 03/31/2016 Bleeding ulcer 03/31/2016 STIVEN (generalized anxiety disorder) 03/31/2016 Vasovagal syncope 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 Left heart catheterization, 12/13/08, previous stent to the LAD to be well preserved. Minor disease throughout the circ and RCA. Lexiscan Myoview, 03/30/11, consistent with a small area of apical wall ischemia. Normal wall motion. No ischemic EKG changes. EF 66%. unchanged from previous stress tests. Stress test 07-24-12 There are no significant [...] lower urinary tract symptoms (LUTS) Esophageal reflux ASSESSMENT AND PLAN: No dizziness no weakness No cps norpessure No new sob Able to walkup flight steps with railing No usa no chf Using he Needs to quit chew tobacco Left carotid bruit Sob fast walking or long distance Back issues Tolerating lipitor 10mg aday ldl last check 61. Sob with hills but not new no new sob. Still chew toba no smoking Carotid art 1-39%, November 2022, Stress nuc no ischemia inferior/lateral wall defect 52%, Echo 3.8cm aortic ascending aorta ef 55-60% Unsteady gait uses he no falls echonormal ef arotic root enlargement Beta aldo none unless has pacer due to baseline slow hr but not symptomatic and slow enough Back limits activities Echo normal ef Carotid bruit right Holter [address] slow rates 5am slow rate Order sleep study Cosnder stress in fall 2024, carotid 1-39% , [1] Past Medical History: Diagnosis Date Allergic rhinitis CAD (coronary artery disease) Depressive disorder, not elsewhere classified Esophageal reflux Hypertrophy of prostate without urinary obstruction and other lower urinary tract symptoms (LUTS) Unspecified essential hypertension [2] Past Surgical History: Procedure Laterality Date BACK SURGERY 07-18-10 disc caged in CORONARY ANGIOPLASTY WITH STENT PLACEMENT 03/20/08 OTHER SURGICAL HISTORY 1986 disectomy [3] Allergies Allergen Reactions Adhesive Tape-Silicones Other (See Comments) Severe skin irritation Ciprofloxacin Hydrochlorothiazide Other (See Comments) hyponatremia Sulfa (Sulfonamide Antibiotics) Latex Rash [4] Current Outpatient Medications: amitriptyline (ELAVIL) 25 mg Oral Tablet, Take 1 Tablet by mouth nightly., Disp: 100 Tablet, Rfl: 3 amLODIPine (NORVASC) 5 mg Oral Tablet, TAKE 1 TABLET BY MOUTH ONCE DAILY, Disp: 90 Tab, Rfl: 1 aspirin 81 mg Oral Tablet, Chewable, Take by mouth daily., Disp: , Rfl: atorvastatin (LIPITOR) 10 mg Oral Tablet, Take 1 Tablet by mouth nightly., Disp: 90 Tablet, Rfl: 2 azelastine (ASTELIN) 137 mcg (0.1 %) Nasl Aerosol, [place], USE TWO SPRAY(S) IN EACH NOSTRIL TWICE [...] doxazosin (CARDURA) 8 mg Oral Tablet, Take 1 Tablet by mouth daily., Disp: 30 Tablet, Rfl: 2 erythromycin (ROMYCIN) Opht Ointment, APPLY 1/2 INCH STRIP INSIDE LOWER LEFT LID NEEDED FOR 2-3 DAYS THEN USE NIGHTLY FOR 10 DAYS, Disp: , Rfl: Fish Oil-DHA-EPA 1,200-144-216 mg Cap, Take by mouth daily., Disp: , Rfl: fluticasone propionate (FLONASE) 50 mcg/actuation Nasl [place], Suspension, USE 1 SPRAY NASALLY EVERYDAY, Disp: 32 g, Rfl: 3 fUROsemide (LASIX) 40 mg Oral Tablet, Take 1 Tab by mouth daily as needed., Disp: 30 Tab, Rfl: 3 gabapentin (NEURONTIN) 600 mg Oral Tablet, TAKE 1 TABLET FOUR TIMES DAILY, Disp: 120 Tablet, Rfl: 2 GLUCOSAMINE/MSM/CHONDROIT SULF (GLUCOSAMINE [id number] ORAL), Take by mouth., Disp: , Rfl: hydrOXYzine (ATARAX) 25 mg Oral Tablet, TAKE 1 TABLET THREE TIMES DAILY NEEDED, Disp: 90 Tablet,Rfl: 11 loperamide (IMODIUM) 2 mg Oral Capsule, Take 1 Capsule by mouth 4 times daily as needed for Diarrhea., Disp: 120 Capsule, Rfl: 2 MAGIC MOUTHWASH (LIDO/DIPHEN/NYSTAT) ORAL COMPOUND, 5 ml swish and swallow qid PRN, Disp: 450 mL, Rfl: 0 meclizine (ANTIVERT) 12.5 mg Oral Tablet, , Disp: , Rfl: MULTIVITAMIN W-MINERALS/LUTEIN (CENTRUM SILVER ORAL), Take by mouth daily., Disp: , Rfl: ondansetron (ZOFRAN-ODT) 4 mg Oral Tablet, Rapid Dissolve, Dissolve 1 Tablet by mouth every 8 hoursas needed., Disp: 30 Tablet, Rfl: 1 oxyCODONE-acetaminophen (PERCOCET) 7.5-325 mg Oral Tablet, Take 1 Tablet by mouth every 4 hours as needed for Acute Pain (R52)., Disp: , Rfl: pantoprazole (PROTONIX) 40 mg Oral Tablet, Delayed Release (E.C.), Take 1 Tablet by mouth daily., Disp: 90 Tablet, Rfl: 3 Polyethylene Glycol 3350 Misc Powder, by Misc.(Non-Drug; Combo Route) route., Disp: , Rfl: triamcinolone acetonide (KENALOG) 0.1 % [place] Paste, Take by mouth 4 times daily., Disp: , Rfl: urea (CARMOL) 20 % Top Cream, Apply to affected area, Disp: 75 g, Rfl: 1 [5] Family History Problem Relation Age of Onset Unknown Mother Other Father brain aneurysm documented in this encounter Miscellaneous Notes * Addendum Note - Juan Pablo Gupta RMA - 07/16/2025 9:20 AM EDTAddended by: JUAN PABLO GUPTA on: 07/16/2025 09:35 AM Modules accepted: Orders documented in this encounter Plan of Treatment Upcoming Encounters Date Type Department Care Team (Late st Contact Info) Description 10/17/2025 10:30 AM EST Appointment [facility] [address] [place] [address] Raul Saucedo MD [address] [place] [address] [address] [place], [place] [address] 10/17/2025 11:30 AM EST Appointment [facility] STR[facility] [address] [place] [address] Raul Saucedo MD [address] [place] [address] [address] [place], [place] [address] 10/17/2025 12:15 PM EST Appointment [facility] [place] [address] Raul Saucedo MD [address] [place] [address] [address] [place], [place] [address] 10/17/2025 1:15 PM EST Appointment [facility] [address] [place] [address] Raul Saucedo MD [address] [place] [address] [address] [place], [place] [address] 03/18/2026 9:50 AM EDT Office Visit [facility] [place] [address] [place] [address] Raul Saucedo MD [address] [place] [address] [address] [place], [place] [address] Scheduled Orders Name Type Priority Associated Diagnoses Orde r Schedule NM MYOCARDIAL PERFUSION SPECT STRESS AND REST Imaging Cardiology Routine SOB (shortness of breath) on exertion Essential hypertension 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 Hypertensive heart disease with heart failure (HCC) Atherosclerotic heart disease of big sandy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 Benign essential HTN Atherosclerosis of big sandy coronary artery of big sandy heart without angina pectoris 1 Occurrences starting 07/16/2025 until 07/16/2026 ST STRESS TEST LEXISCAN Imaging Cardiology Routine SOB (shortness of breath) on exertion Essential hypertension 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 Hypertensive heart disease with heart failure (HCC) Atherosclerotic heart disease of big sandy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 Benign essential HTN Atherosclerosis of big sandy coronary artery of big sandy heart without angina pectoris 1 Occurrences starting 07/16/2025 until 07/16/2026 EC ECHOCARDIOGRAM COMPLETE W DOPPLER AND COLOR FLOW MAPPING Imaging Cardiology Routine SOB (shortness of breath) on exertion Essential hypertension 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 Hypertensive heart disease with heart failure (HCC) Atherosclerotic heart disease of big sandy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 Benign essential HTN Atherosclerosis of big sandy coronary artery of big sandy heart without angina pectoris 1 Occurrences starting 07/16/2025 until 07/16/2027 VA US CAROTID DUPLEX BILATERAL Imaging Cardiology Routine SOB (shortness of breath) on exertion Essential hypertension 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 Hypertensive heart disease with heart failure (HCC) Atherosclerotic heart disease of big sandy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 Benign essential HTN Atherosclerosis of big sandy coronary artery of big sandy heart without angina pectoris Left carotid bruit 1 Occurrences starting 07/16/2025 until 07/16/2027 COMPREHENSIVE METABOLIC PANEL Lab Routine SOB (shortness of breath) on exertion Unspecified essential hypertension 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 Hypertensive heart disease with heart failure (HCC) Atherosclerotic heart disease of big sandy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 Benign essential HTN Atherosclerosis of big sandy coronary artery of big sandy heart without angina pectoris Left carotid bruit Expected: 11/18/2025 (Approximate), Expires: 07/16/2026 LIPID SCREEN Lab Routine SOB (shortness of breath) on exertion Unspecified essential hypertension 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 Hypertensive heart disease with heart failure (HCC) Atherosclerotic heart disease of big sandy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 Benign essential HTN Atherosclerosis of big sandy coronary artery of big sandy heart without angina pectoris Left carotid bruit Expected: 11/18/2025 (Approximate), Expires: 07/16/2026 documented as of this encounter Goals Goal Patient Goal Type Associated Problems Recent Progress Patient-Stated? Author Blood Pressure < 140/90 Blood Pressure 122/62(2024 9:22 AM EDT) David Gilmore MD Maintain a healthy diet, exercise regularly and maintain an ideal body weight General No Estrella Tariq RMA Stay Tobacco Free Lifestyle Estrella Jasso RMA documented as of this encounter Visit Diagnoses Diagnosis Hypertensive heart disease with heart failure (HCC)- Primary Unspecified hypertensive heart disease with heart failure SOB (shortness of breath) on exertion Shortness of breath Unspecified essential hypertension 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 Atherosclerotic heart disease of big sandy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 Benign essential HTN Essential hypertension, benign Atherosclerosis of big sandy coronary artery of big sandy heart without angina pectoris Left carotid bruit Other symptoms involving cardiovascular system documented in this encounter Additional Health Concerns Assessment Noted Time A fall risk assessment has been complete d for the patient 05/24/2025 12:59 PM EDT documented as of this encounter Care Teams Bi Technical Lead Relationship Specialty Start Date End Date Dillon Cadena APRN [address] [place] [address] PCP - General Nurse Practitioner 08/31/23 Zenaida Cruz Ud, MD [address] [place] [address] Internal Medicine-Nephrology 04/06/16 documented as of this encounter
[2025-09-06 20:56] LABS: Hematocrit 37.8 % (42.0-52.0); Hemoglobin 12.7 g/dL (14.1-18.0); Immature Granulocytes % 0.2 %; Mean Corpuscular HGB Conc 33.6 g/dL (31.8-35.4); Mean Corpuscular Hemoglobin 31.4 pg (27.0-31.2); Mean Corpuscular Volume 93.6 fl (80-94); Nucleated Red Blood Cells % 0 %; Platelet Count 277 K/mm3 (142-424); Red Blood Count 4.04 M/mm3 (4.60-6.20); Red Cell Distribution Width-SD 42.3 fL; White Blood Count 6.1 K/mm3 (4.8-10.8)
[2025-09-06 21:17] LABS: Alanine Aminotransferase 27 U/L (12-78); Albumin Level 4.2 g/dl (3.5-5.0); Albumin/Globulin Ratio 1.8 (1.1-1.8); Alkaline Phosphatase 110 U/L (38-126); Anion Gap 10.5 mEq/L (5-15); Aspartate Amino Transferase 43 U/L (17-59); Bilirubin,Total 0.6 mg/dl (0.2-1.3); Blood Urea Nitrogen 10 mg/dl (9-20); Calcium 9.7 mg/dl (8.4-10.2); Carbon Dioxide 32 mmol/L (22.0-30.0); Chloride 97 mmol/L (98-107); Cholesterol 121 mg/dl (140-200); Creatinine,Serum 0.80 mg/dl (0.66-1.25); Estimated Glomerular Filt Rate 94 ml/min (>60); GFR (African American) 113 ML/MIN (>60); Globulin 2.3 g/dL (1.3-3.2); Glucose 90 mg/dl (74-100); HDL Cholesterol 88 mg/dl (40-60); Potassium 4.5 mmoL/L (3.5-5.1); Sodium 135 mmol/L (136-145); Total Protein,Serum 6.5 g/dl (6.3-8.2); Triglycerides 66 mg/dl (30-150)
--- OUTSIDE RECORDS SUMMARY | 2025-09-07 10:55 | XMS_ITS | Clinical Summary ---
Author Organization [facility] Address [address] [place] [address] Phone Care Team Providers Care Transportation Superintendent Name Role Phone Becky CARCAMO, [facility] [phone] Conditions or Problems Problem Name Problem Code Onset Date Status Entry Date Provider Comment Standard Description Annotate OVERWEIGHT 475594480 (SNOMED CT) 03/16 Active 03/16 Aditi Gomez Overweight BODY MASS INDEX 30.0-30.9, ADULT 685242116 (SNOMED CT) 12/15 Active 12/15 Elif Rodriguez MA Finding of body mass index DDD LUMBAR 50195448 (SNOMED CT) 11/16 Active 10/02 Darlene Chettiar 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 454566296 (SNOMED CT) Active 10/02 Darlene Chettiar Kyphosis deformity of spine ARTHRODESIS STATUS 770678917 (SNOMED CT) 10/01 Active 10/01 Macho De La Cruz MD H/O: arthrodesis PSEUDARTHRO SIS M96.0 (ICD-10-CM ) Active Elif Rodrgiuez MA Pseudarthrosis after fusion or arthrodesis SCOLIOSIS, [...] MA Other specified postprocedural states SACROILIITI S 48705615 (SNOMED CT) 11/05 Resolved 11/05 Elif Vinsonff DEBBIE Inflammation of sacroiliac joint LUMBAR RADICULOPAT HY 365158186 (SNOMED CT) 11/05 Resolved 11/05 Elif Vinsonff DEBBIE Lumbar radiculopathy SYNOVIAL CYST 057370991 (SNOMED CT) Resolved Elifjoaquin Rodriguez MA Synovial cyst CARDIAC DISEASE I51.9 (ICD-10-CM ) 02/06 Resolved 02/06 Elifjoaquin Rodriguez MA Heart disease, unspecified LUMBAR RADICULOPAT HY 190029048 (SNOMED CT) 02/06 Resolved 02/06 Elif Michael LEWIS Lumbar radiculopathy LUMBAR SPONDYLOSIS W/RADIC, 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 (ICD-10-CM ) 11/18 Active 11/18 Elif Michael DEBBIE Other spondylosis with radiculopathy, lumbar region SACROILIITI S 56481988 (SNOMED CT) 11/06 Active 11/06 Elif Rodriguez MA Inflammation of sacroiliac joint LUMBAR RADICULOPAT HY, L1-L5 M54.16 (ICD-10-CM ) 11/06 Active 11/06 Elif Rodriguez MA Radiculopathy, lumbar region NECK PAIN 77355871 (SNOMED CT) 12/06 Active 12/06 Flaca Taylor MA Neck pain POST-OP STATUS, FUSION SPINE Z98.89 (ICD-10-CM ) 09/27 Active 09/27 Elif Rodriguez MA Other specified postprocedural states LUMBAR RADICULOPAT HY 841010201 (SNOMED CT) 02/06 Removed 02/06 Elif Rodriguez MA Lumbar radiculopathy CARDIAC DISEASE I51.9 (ICD-10-CM ) 02/06 Removed 02/06 Elif Rodriguez MA Heart disease, unspecified SYNOVIAL CYST 800201341 (SNOMED CT) Removed Joshua Devine MD Synovial cyst LUMBAR RADICULOPAT HY 187174389 (SNOMED CT) 11/05 Removed 11/05 Elif Rodriguez MA Lumbar radiculopathy SACROILIITI S 00963805 (SNOMED CT) 11/05 Removed 11/05 Elif Rodriguez [...] Alejandro Spinal stenosis, lumbar region HYPERTENSIO N 01714151 (SNOMED CT) 10/26 Active 10/26 Judith Alejandro Hypertensive disorder FITTING/ADJ USTMENT, DENTAL PROSTHESIS 20160189 (SNOMED CT) 10/26 Active 10/26 Judith Alejandro Fitting of prosthesis HEARING LOSS 75938283 (SNOMED CT) 10/26 Active 10/26 Judith Alejandro Hearing loss Medications Medication Instructions Start Date Stop Date Generic Name NDC Provider DICLOFENAC SODIUM 75 MG TBEC Take 1 tablet bid DICLOFENAC SODIUM 70460478063 Devonte Pena MD NORCO 10-325 MG ORAL TABLET Take 1 tablet bid HYDROCODONE-ACETAMI NOPHEN 95127897253 Devonte Pena MD NORCO 10-325 MG ORAL TABLET Take 1 tablet tid 05/07 HYDROCODONE-ACETAMI NOPHEN 38065852329 Devonte Pena MD RESTORIL 30 MG CAPS 1 qhs TEMAZEPAM 84173676005 Devonte Pena MD NORCO 10-325 MG ORAL TABLET Take 1 tablet qid 03/16 HYDROCODONE-ACETAMI NOPHEN 02069320321 Devonte Pena MD NORCO 5-325 MG ORAL TABLET Take 1 tab q 6 hrs prn pain HYDROCODONE-ACETAMI NOPHEN 45682762718 Devonte Pena MD NORCO 5-325 MG ORAL TABLET Take 1 tab TID HYDROCODONE-ACETAMI NOPHEN 63467747940 Devonte Pena MD NORCO 5-325 MG ORAL TABLET Take 1 tab q 6 hrs prn pain 12/27 HYDROCODONE-ACETAMI NOPHEN 74916111995 Devonte Pena MD PERCOCET 5-325 MG TABS 1 tabs po q 6 h prn OXYCODONE-ACETAMINO PHEN 22575356985 Devonte Pena MD ROBAXIN-750 750 MG ORAL TABLET ONE TABLET PO QID METHOCARBAMOL 01496013031 Devonte Pena MD GABAPENTIN 600 MG TABS Take 1 tablet TID GABAPENTIN 67164411008 Devonte Pena MD PERCOCET 5-325 MG TABS 1-2 tabs po q 4-6 h prn 01/09 OXYCODONE-ACETAMINO PHEN 47215499230 Macho De La Cruz MD CYCLOBENZAPRINE HCL 10 MG TABS 1 po Q8h CYCLOBENZAPRINE HCL 60434485887 Doyle Westbrook MD CENTRUM SILVER TABS Non- MULTIPLE VITAMINS-MINERALS 32678084901 Joshua Devine MD FISH OIL CAPS Non- OMEGA-3 FATTY ACIDS CAPS 16620591175 Joshua Devine MD ASPIRIN 81 MG ORAL TABLET Non- ASPIRIN 55566386711 Joshua Devine MD GABAPENTIN 300 MG CAPS Non- GABAPENTIN 45173785386 Joshua Devine MD ZOLPIDEM TARTRATE 10 MG TABS Non- ZOLPIDEM TARTRATE 57046766566 Joshua Devine MD MELOXICAM 15 MG TABS - MELOXICAM 82333057507 Joshua Devine MD TAMSULOSIN HCL 0.4 MG CAPS - TAMSULOSIN HCL 14316143948 Joshua Devine MD LISINOPRIL-HYDROC HLOROTHIAZIDE 20-25 MG TABS - LISINOPRIL-HYDROCHL OROTHIAZIDE 98150997052 Joshua Devine MD LOVASTATIN 40 MG TABS - LOVASTATIN 64465832024 Joshua Devine MD ALPRAZOLAM 1 MG TABS ALPRAZOLAM 97302221541 Joshua Devine MD HYDROCODONE-ACETA MINOPHEN 10-325 MG TABS - HYDROCODONE-ACETAMI NOPHEN 68018901849 Joshua Devine MD ADULT ASPIRIN EC LOW STRENGTH 81 MG ORAL TABLET DELAYED RELEASE Non-06/28 ASPIRIN 05537317861 Joshua Devine MD CENTRUM SILVER TABS Non-[place] 06/28 MULTIPLE VITAMINS-MINERALS 23233642983 Joshua Devine MD FISH OIL CAPS Non-[place] 06/28 OMEGA-3 FATTY ACIDS CAPS 65775535910 Joshua Devine MD MELOXICAM TABS Non-[place] 06/28 MELOXICAM TABS 53922491913 Joshua Devine MD GABAPENTIN 300 MG TABS TAKE 1 TID 06/28 GABAPENTIN Joshua Devine MD PERCOCET 5-325 MG TABS 1- PO Q 6 hrs prn pain 06/28 OXYCODONE-ACETAMINO PHEN 06071286019 Joshua Devine MD ROBAXIN 500 MG ORAL TABLET 1 tablet QID 06/28 Methocarbamol 59848378764 Joshua Devine MD KEFLEX 500 MG ORAL CAPSULE 1 tab po QID 06/28 CEPHALEXIN 91808998550 Joshua Devine MD PERCOCET 5-325 MG TABS 1-2 tabs po q 4-6 h prn 06/28 OXYCODONE-ACETAMINO PHEN 67445644161 Joshua Devine MD ULTRAM 50 MG ORAL TABLET one tab po bid 06/28 TRAMADOL HCL 13998424362 Joshua Devine MD VICODIN 5-500 MG TABS 1q 6 hr prn pain 06/28 HYDROCODONE-ACETAMI NOPHEN 35430579018 Joshua Devine MD VOLTAREN 75 MG TBEC ONE TABLET PO BID 06/28 DICLOFENAC SODIUM 59312586889 Joshua Devine MD FLOMAX [id number] Non-[place] 06/28 TAMSULOSIN HCL [id number] 94203838548 Joshua Devine MD LORAZEPAM TABS Non-[place] 06/28 LORAZEPAM TABS 54802966308 Joshua Devine MD VITAMINS Non-[place] 06/28 VITAMINS Joshua Devine MD NEURONTIN 300 MG CAPS Non-[place] 06/28 GABAPENTIN 78571601636 Joshua Devine MD HYDROCODONE-ACETA MINOPHEN 10-500 MG ORAL TABLET Non-[place] 06/28 HYDROCODONE-ACETAMI NOPHEN 75347275890 Joshua Devine MD OMEGA-3 CF CAPS Non-[place] 06/28 OMEGA-3 FATTY ACIDS CAPS 06514116460 Joshua Devine MD PRILOSEC PACK Non-[place] 06/28 OMEPRAZOLE MAGNESIUM PACK 77237240294 Joshua Devine MD LOVASTATIN 10 MG TABS Non-[place] 06/28 LOVASTATIN 66253206886 Joshua Devine MD LISINOPRIL 10 MG TABS Non-[place] 06/28 LISINOPRIL 35829044010 Joshua Devine MD PERCOCET 5-325 MG TABS one po QID 06/28 OXYCODONE-ACETAMINO PHEN 88127634211 Joshua Devine MD AMBIEN 5 MG TABS 1 QHS 06/28 ZOLPIDEM TARTRATE 73029624276 Joshua Devine MD MEDROL 4 MG TBPK Take as directed 06/28 METHYLPREDNISOLONE 87588168266 Joshua Devine MD VOLTAREN 75 MG TBEC 1-2 BID 06/28 DICLOFENAC SODIUM 69610224770 Joshua Devine MD ASPIRIN TABS Non-[place] 06/28 ASPIRIN TABS 98524797456 Joshua Devine MD ZOLOFT TABS [facility] 06/28 SERTRALINE HCL TABS 67040162800 Joshua Devine MD ADULT ASPIRIN EC LOW STRENGTH 81 MG ORAL TABLET DELAYED RELEASE -[place] 06/28 ASPIRIN 56762217454 Elif Rodriguez MA CENTRUM SILVER TABS [facility] 09/29 MULTIPLE VITAMINS-MINERALS 45316843017 Elif Rodriguez MA FISH OIL CAPS -[place] 07/10 OMEGA-3 FATTY ACIDS CAPS 96829621639 Elif Rodriguez MA MELOXICAM TABS Non-[place] 06/28 MELOXICAM TABS 73670026006 Elif Rodriguez MA VICODIN 5-500 MG TABS 1q 6 hr prn pain 06/28 HYDROCODONE-ACETAMI NOPHEN 87417836808 Devonte Pena MD GABAPENTIN 300 MG TABS TAKE 1 TID 06/28 GABAPENTIN Devonte Pena MD PERCOCET 5-325 MG TABS 1- PO Q 6 hrs prn pain 01/09 OXYCODONE-ACETAMINO PHEN 71596553741 Devonte Pena MD ROBAXIN 500 MG ORAL TABLET 1 tablet QID 09/29 Methocarbamol 52383168778 Devonte Pena MD KEFLEX 500 MG ORAL CAPSULE 1 tab po QID 09/29 CEPHALEXIN 85871259633 Becca Abad NP PERCOCET 5-325 MG TABS 1-2 tabs po q 4-6 h prn 01/09 OXYCODONE-ACETAMINO PHEN 18237808601 Macho De La Cruz MD ULTRAM 50 MG ORAL TABLET one tab po bid 06/21 TRAMADOL HCL 77548184870 Devonte Pena MD VICODIN 5-500 MG TABS 1q 4 hr prn pain 03/09 HYDROCODONE-ACETAMI NOPHEN 94834135549 Devonte Pena MD VOLTAREN 75 MG TBEC ONE TABLET PO BID 06/28 DICLOFENAC SODIUM 41952002124 Devonte Pena MD FLOMAX [id number] [facility] 06/28 TAMSULOSIN HCL [id number] 09194610569 Elif Rodriguez MA LORAZEPAM TABS [facility] 06/28 LORAZEPAM TABS 92499916215 Elif Rodriguez MA VITAMINS [facility] 06/28 VITAMINS Elif Rodriguez MA NEURONTIN 300 MG CAPS [facility] 06/28 GABAPENTIN 10538174133 Elif Rodriguez MA HYDROCODONE-ACETA MINOPHEN 10-500 MG ORAL TABLET -[place] 06/28 HYDROCODONE-ACETAMI NOPHEN 35977054174 Elif Rodriguez MA OMEGA-3 CF CAPS -[place] 06/28 OMEGA-3 FATTY ACIDS CAPS 28367236785 Elif Rodriguez MA PRILOSEC PACK -[place] 06/28 OMEPRAZOLE MAGNESIUM PACK 67382520970 Elif Rodriguez MA LOVASTATIN 10 MG TABS [facility] 11/27 LOVASTATIN 48338960467 Elif Rodriguez MA LISINOPRIL 10 MG TABS [facility] 06/28 LISINOPRIL 96598773735 Elif Rodriguez MA PERCOCET 5-325 MG TABS one po QID 01/09 OXYCODONE-ACETAMINO PHEN 71619931038 Devonte Pena MD AMBIEN 5 MG TABS 1 QHS 02/11 ZOLPIDEM TARTRATE 94149297429 Devonte Pena MD MEDROL 4 MG TBPK Take as directed 01/17 METHYLPREDNISOLONE 71647867642 Devonte Pena MD VOLTAREN 75 MG TBEC 1-2 BID 06/28 DICLOFENAC SODIUM 44242563851 [facility] ASPIRIN TABS 97793816096 Judith Alejandro [facility]FT [facility] SERTRALINE HCL TABS 80699439278 Judith Alejandro Medications Administered No information available. [...] Procedures Code Procedure Name Date Entry Date [facility]-[id number] Pneumonia Vaccine Previously Received 20 05/01/10 [id number] Pneumonia Vaccine Previously Received 20 06/06/28 [id number] Flu Shot Previously Received 59995 X-Ray Scoliosis - Series 201 03/25/27 [id number] Pneumonia Vaccine Previously Received 20 06/03/27 [facility]-[id number] Medications Documented [id number] Flu Shot Declined 8 64831 X-Ray Lumbar AP-Lat and Flex/Extension 20 05/12/27 34230 Radiologic examinati on, spine; thoracolumbar, 2 views 63191 Radiologic examinati on, spine; thoracolumbar, 2 views 25648 X-Ray Scoliosis - Standing 2 19705 Evaluation - Low 24955 X-Ray Scoliosis - Standing 2 G8979 Mobility: [...] 1124F No ACP/POA documented but discussed 11/18 54944 X-Ray Scoliosis - Standing 2 86323 SI Joint Injection 1 G8427 Medication Reconciliation [...] Pneumococcal vaccine received G8482 Flu shot received 5737T8H ACP/POA not documented; no reason. 03/14 MC-C-39496 X-Ray Lumbar AP & Lateral 20 04/03/25 G8427 Medication Reconciliation Completed CPT-G 8427 G8730 Pain Assessment positive with follow up p miguel G8417 BMI above normal, f/u plan documented 201 01/23/25 1036F No tobacco use currently 201 01/23/25 9424D1U No pneumococcal vaccine received; no reas on G8483 No flu shot received; allergy etc. 03/14 MC-C-27773 X-ray Cervical AP & Lateral MC-C-15583 X-Ray Lumbar AP & Lateral 20 02/12/18 MC-C-48027 X-Ray Lumbar AP & Lateral 20 03/12/03 MC-C-80714 X-Ray Lumbar Flexion/Extension 71617JQM Lumbar or Sacral CPT-84601 2 J0702 Betamethasone (Celestone) 6mg 08100FWQ Additional Level, Lumbar or Sacral CPT-64 484 82113 Lumbar or Sacral CPT-40107 2 J1040 Depo Medrol 80MG 65217 Fluroscopic Guidance CPT-59887 G8427 Medication Reconciliation Completed CPT-G 8427 13505 Lumbar or Sacral CPT-84389 2 J1040 Depo Medrol 80MG 74264 Fluroscopic Guidance CPT-03178 MC-C-82161 X-Ray Lumbar AP & Lateral 07/24/07 MC-C-70544 X-Ray Lumbar Flexion/Extension MC-C-24767 X-Ray Lumbar AP & Lateral 07/24/07 MC-C-26326 X-Ray Lumbar Flexion/Extension MC-C-01254 X-Ray Lumbar AP & Lateral 07/01/21 MC-C-95691 CARINA Series=1.3 Injections 20 06/23/15 MC-C-47076 MRI Lumbar w/o & w/contrast MC-C-25822 X-Ray Lumbar AP & Lateral 02/23/04 MC-C-01809 X-Ray Lumbar Flexion/Extension Vital Signs Date Name [...]
--- OUTSIDE RECORDS SUMMARY | 2025-09-07 10:55 | XMS_ITS | Encounter Summary ---
Author Organization [place] [address] Care Team Providers Care Park Worker Supervisor Name Role Phone Zenaida Cruz Ud, MD Unavailable [phone] Dillon Cadena APRN Primary Care Provider [phone] Reason for Visit * Reason Onset Date Comments Medication Refill 07/10/2025 Encounter Details Date Type Department Care Team (Late Contact Info) Description 07/10/2025 Refill [facility] [address] [place] [address] Gerardo, Gabino, DO [address] [place] [address] Medication Refill Social History Tobacco Use Types [...] Refills Last Filled Start Date End Date doxazosin (CARDURA) 8 mg Oral Tablet Take 1 Tablet by mouth daily. 30 Tablet 2 07/10/2025 documented in this encounter Miscellaneous Notes * Telephone Encounter - Dillon Cadena APRN - 07/10/2025 7:51 AM EDT Can we verify with pharmacy he has been taking along with the dose? * Telephone Encounter - Val Camarena MA - 07/10/2025 7:46 AM EDT Please advise Ok to refill? * Telephone Encounter - Marti Han - 07/10/2025 7:39 AM EDT Refill doxazosin 8 mg documented in this encounter Plan of Treatment Upcoming Encounters Date Type Department Care Team (Late st Contact Info) Description 10/17/2025 10:30 AM EST Appointment [facility] [address] [place] [address] Raul Saucedo MD [address] [place] [address] DR ANDREW [place], [facility]17 10/17/2025 11:30 AM EST Appointment [facility] STRESS TEST [address] [place] [address] Raul Saucedo MD [address] [place] [address] DR ANDREW [place]ZM[place], [facility]17 10/17/2025 12:15 PM EST Appointment [facility] [address] [place] [address] Raul Saucedo MD [address] [place] [address] DR ANDREW GUZM[place], [place] [address] 10/17/2025 1:15 PM EST Appointment [facility] [address] [place] [address] Raul Saucedo MD [address] [place] [address] DR ANDREW GUZM[place], [facility]17 03/18/2026 9:50 AM EDT Office Visit [facility] [address] [address] Raul Saucedo MD [address] [place] [address] [address] [place], [place] [address] documented as of this encounter Goals Goal Patient Goal Type Associated Problems Recent Progress Patient-Stated? Author Blood Pressure < 140/90 Blood Pressure 122/62(2024 9:22 AM EDT) No David Cadena MD Maintain a healthy diet, exercise regularly and maintain an ideal body weight General No Estrella Tariq RMA Stay Tobacco Free Lifestyle No Tariq, Estrella Nesha, RMA documented as of this encounter Visit Diagnoses Not on filedocumented in this encounter Discontinued Medications Medication Sig Discontinue Reason Start Date End Da te doxazosin (CARDURA) 8 mg Oral Tablet Take 8 mg by mouth daily. Reorder 07/10/2025 documented as of this encounter Additional Health Concerns Assessment Noted Time A fall risk assessment has been complete d for the patient 05/24/2025 12:59 PM EDT documented as of this encounter Care Teams Park Worker Supervisor Relationship Specialty Start Date End Date Dillon Cadena APRN [address] [place] [address] PCP - General Nurse Practitioner 08/31/23 Zenaida Cruz Ud, MD [address] [place] [address] Internal Medicine-Nephrology 04/06/16 documented as of this encounter
--- OUTSIDE RECORDS SUMMARY | 2025-09-07 10:55 | XMS_ITS | Clinical Summary ---
Author Organization [facility] Address [address], [address] [place] [address] Care Team Providers Care Signal Person Name Role Phone Kassie Beasley MD Primary Care Provider Social History Tobacco Use Types Packs/Day Years Used Date Smoking Tobacco: Never Assessed Sex and Gender Information Value Date Recorded Sex Assigned at Not on file Legal Sex Male 10:03 AM EST Gender Identity Not on file Sexual Orientation Not on file Plan of Treatment Not on file Insurance MEDICARE [employer] Care Teams Signal Person Relationship Specialty Start Date End Date Kassie Beasley MD PCP - General Family Medicine 09/16/16
--- OUTSIDE RECORDS SUMMARY | 2025-09-07 10:56 | XMS_ITS | Encounter Summary ---
Author Organization [facility] Address [address] [id number] Care Team Providers Care Home Appliance Installer Name Role Phone Christi Vasquez MD Primary Care Provider [phone] Emi Ledezma LPN Unavailable Unavailab Catrina Qureshi LPN Unavailable Unavail able Reason for Visit * Reason Onset Date Comments Med Refill Med Refill 02/28/2021 Encounter Details Date Type Department Care Team (Late st Contact Info) Description 02/24/2021 Refill [facility] [address] [place] [address] Christi Vasquez MD [address] [place] [address] Social History Tobacco Use Types [...] on filedocumented in this encounter Care Teams Home Appliance Installer Relationship Specialty Start Date End Date Christi Vasquez MD [address] [place] [address] PCP - General 01/31/21 10/28/23 Emi Ledezma LPN VALUE-BASED TRANSFORMATION PROGRAM None Licensed Practical Nurse 07/06/23 3 Catrina Valdovinos LPN VALUE-BASED [place] [address] None TCM Nurse 07/09/23 07/09/23 documented as of this encounter
--- OUTSIDE RECORDS SUMMARY | 2025-09-07 10:56 | XMS_ITS | Clinical Summary ---
Author Organization [facility] Address [address] [place], [place] [address] Care Team Providers Care Educational Program Assistant Name Role Phone Kassie Beasley MD Primary Care Provider [phone] Devonte Pena MD Unavailable [phone] Allergies Active Allergy Reactions Criticality Noted Date [...] Active fluticasone (FLONASE) 50 mcg/actuation nasal spray [place] 1 [place] into nose daily. Active methocarbamol (ROBAXIN) 750 [...] on file Medical Devices Implanted Type Area Market Research Coordinator Device Identifier Shelf Expiration Date Model / Serial / Lot Scr Si Polyaxl 9 X 50mm Implanted:Qty: 2 on 09/17/2016 by Devonte Pena MD at [facility] Screw Spine Lumbar * [employer] [id number] / / Single-Inner Setscr Implanted:Qty: 25 on 09/17/2016 by Devonte Pena MD at [facility] Screw Spine Lumbar * J \T\ Naida DEPUY SPINE [id number] / / Graft Chip Bone Canc 30ml - S1 Implanted:Qty: 1 on 07/18/2010 at [facility] N/A: Spine Lumbar * [employer] [id number] / / [id number] Graft Chip Bone Canc 30ml - S1 Implanted:Qty: 1 on 07/18/2010 at [facility] N/A: Spine Lumbar * [employer] [id number] / / [id number] Graft Chip Bone Canc 30ml - S1 Implanted:Qty: 1 on 07/18/2010 at [facility] N/A: Spine Lumbar * [employer] [id number] / / [id number] Graft Bone Kt Infuse Lg - S1 Implanted:Qty: 1 on 07/18/2010 at [facility] N/A: Spine Lumbar * [employer] 09/20/2012 [id number] / / [id number] Mis Brody Poly Scw 7x50mm,Ti - S1 Implanted:Qty: 6 on 07/18/2010 at [facility] N/A: Spine Lumbar * DIANE CONTRERAS [id number] / / Mayra Lx Spinal Cage 10mm Implanted:Qty: 2 on 07/18/2010 at [facility] N/A: Spine Lumbar * USE JJ DEPU [id number] / / Viper2 Lordotic Mitchel-70mm - S1 Implanted:Qty: 2 on 07/18/2010 at [facility] N/A: Spine Lumbar * DIANE CONTRERAS [id number] / / Mis Single Inner Setscw - S1 Implanted:Qty: 6 on 07/18/2010 at [facility] N/A: Spine Lumbar * DIANE CONTRERAS [id number] / / Viper2 Lordotic Mitchel-100mm Implanted:Qty: 2 on 09/11/2014 by Devonte Pena MD at [facility] Spine Lumbar * J \T\ J DEPUY SPINE [id number] / / Mis Single Inner Setscw Implanted:Qty: 2 on 09/11/2014 by Devonte Pena MD at [facility] Spine Lumbar * J \T\ J DEPUY SPINE [id number] / / Scr Poly Mis Brody 6j33axic Implanted:Qty: 2 on 09/11/2014 by Devonte Pena MD at [facility] Spine Lumbar * J \T\ J DEPUY SPINE [id number] / / Graft Putty Bone Dbx 10cc - [id number] Implanted:Qty: 1 on 09/11/2014 by Devonte Pena MD at [facility] Spine Lumbar * MUSCULOSKELETAL TRANSPLAN 02/23/2016 088917 / [id number] / Bone Cube Cancellous 15ml Implanted:Qty: 1 on 09/11/2014 by Devonte Pena MD at [facility] Spine Lumbar 08/02/2019 CANCUBE 15 SP / / [id number] Concorde Spinal Cage Curv,9mm Implanted:Qty: 1 on 09/11/2014 by Devonte Pena MD at [facility] Spine Lumbar * USE JJ DEPU [id number] / / Graft Putty Bone Dbx 10cc Implanted:Qty: 1 on 09/15/2016 by Devonte Pena MD at [facility] Spine Lumbar * MUSCULOSKELETAL TRANSPLAN 04/22/2018 [id number] / [id number] / Graft Bone Kt Infuse Lg Implanted:Qty: 1 on 09/15/2016 by Devonte Pena MD at [facility] Spine Lumbar * [employer] SOFAMOR DANEK 07/20/2017 [id number] / / [id number] Charanjit Casillas Md 14mm 20deg Implanted:Qty: 1 on 09/15/2016 by Devonte Pena MD at [facility] Spine Lumbar * J \T\ J DEPUY [id number] / / Cage [place] Impl Sm 14mm 10deg Implanted:Qty: 1 on 09/15/2016 by Devonte Pena MD at [facility] Spine Lumbar * J \T\ J DEPUY SPINE [id number] / / Scr Si Polyaxl 7 X 50mm Implanted:Qty: 2 on 09/17/2016 by Devonte Pena MD at [facility] Spine Lumbar * J \T\ J DEPUY SPINE [id number] / / Scr Si Polyaxl 6 X 50mm Implanted:Qty: 7 on 09/17/2016 by Devonte Pena MD at [facility] Spine Lumbar * J \T\ J DEPUY SPINE [id number] / / Scr Si Polyaxl 6 X 45mm Implanted:Qty: 1 on 09/17/2016 by Devonte Pena MD at [facility] Spine Lumbar * J \T\ J DEPUY SPINE [id number] / / Graft Bone Posterolateral 5cm Implanted:Qty: 1 on 09/17/2016 by Devonte Pena MD at [facility] Spine Lumbar * [employer] 04/02/2018 [id number] / [id number] / Graft Bone Posterolateral 5cm Implanted:Qty: 1 on 09/17/2016 by Devonte Pena MD at [facility] Spine Lumbar * [employer] 01/01/2018 [id number] / [id number] / Graft Bone Posterolateral 10cm Implanted:Qty: 1 on 09/17/2016 by Devonte Pena MD at [facility] Spine Lumbar * [employer] 12/08/2017 [id number] / [id number] / Scr Exp Ti Poly [id number] Implanted:Qty: 2 on 09/17/2016 by Devonte Pena MD at [facility] [place] Spine Lumbar * J \T\ J DEPUY SPINE [id number] / / Mitchel Spinal Hex Ti [id number] Implanted:Qty: 2 on 09/17/2016 by Devonte Pena MD at [facility] Spine Lumbar * J \T\ J DEPUY SPINE [id number] / / 5.5 Ti Opn Iliac Cn 20mm Implanted:Qty: 1 on 09/17/2016 by Devonte Pena MD at [facility] Spine Lumbar * J \T\ J DEPUY SPINE [id number] / / Sfx5.5ti Med Size A5 Implanted:Qty: 1 on 09/17/2016 by Devonte Pena MD at [facility] Spine Lumbar * J \T\ J DEPUY SPINE [id number] / / Insurance MEDICARE [employer] [facility] MEDICARE Advance Directives For more information, please contact: [phone] Documents on File Type Date Recorded Patient Bee Worker Expl anation Advance Directives and Livin g Will 09/15/2016 11:32 AM * Full Code (Latest Code Status on File) Date Activated Date Inactivated Comments 09/15/2016 10:16 PM 09/23/2016 6:25 PM * Full Code Date Activated Date Inactivated Comments 09/11/2014 9:55 PM 09/14/2014 3:50 PM * Full Code Date Activated Date Inactivated Comments 07/18/2010 10:34 PM 07/20/2010 4:30 PM Care Teams Educational Program Assistant Relationship Specialty Start Date End Date Kassie Beasley MD [address] [place] [id number] PCP - General Family Medicine 09/07/16 Devonte Pena MD [address] [place] [address]. [address] [place] [address] Neurological Surgery 09/27/22
--- OUTSIDE RECORDS SUMMARY | 2025-09-07 10:56 | XMS_ITS | Encounter Summary ---
Author Organization Healthcare Address [address] [id number] Care Team Providers Care Digital Cartographic Technician Name Role Phone Christi Vasquez MD Primary Care Provider Emi Ledezma DORMITORY COUNSELOR Unavailable Unavailab Catrina Qureshi DORMITORY COUNSELOR Unavailable Unavail able Reason for Visit * Reason Comments Med Refill Encounter Details Date Type Department Care Team (Late st Contact Info) Description 10/27/2021 Refill [facility] [address] [place] [address] Christi Vasquez MD [address] [place] [address] Social History Tobacco Use Types [...] documented as of this encounter Care Teams Digital Cartographic Technician Relationship Specialty Start Date End Date Christi Vasquez MD [address] [place] [address] PCP - General 01/31/21 10/28/23 Emi Ledezma LPN VALUE-BASED TRANSFORMATION PROGRAM None Licensed Practical Nurse 07/06/23 3 Catrina Valdovinos LPN VALUE[place] [address] None TCM Nurse 07/09/23 07/09/23 documented as of this encounter
--- OUTSIDE RECORDS SUMMARY | 2025-09-07 10:56 | XMS_ITS | Encounter Summary ---
Author Organization Healthcare Address [address] [id number] Care Team Providers Care Director Furniture Name Role Phone Unavailable Primary Care Provider Unavailabl e Reason for Visit * Reason Comments Med Refill Encounter Details Date Type Department Care Team (Late st Contact Info) Description 05/17/2024 Refill [facility] [place] [address] Christi Vasquez MD [address] [place] [address] Chronic pain syndrome Social History [...] often do you attend chur ch or orthodox services? Never 07/09/2023 Do you belong to any clubs o r organizations such as zoroastrianism groups, unions, fraternal or athletic groups, or [...] Recorded Patient Health Questionnaire-2 Score 1 01/21/2023 [facility] [place] - Occupational Stress Questionnaire Answer Date Recorded [...] place to sleep or slept in a assisted (including now)? No 07/09/2023 PHQ-2A Answer Date [...]
--- OUTSIDE RECORDS SUMMARY | 2025-09-07 10:56 | XMS_ITS | Encounter Summary ---
Author Organization Healthcare Address 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 Never 07/09/2023 Do you belong to any clubs o r organizations such as faith groups, unions, fraternal or athletic groups, or [...] Recorded Patient Health Questionnaire-2 Score 1 01/21/2023 [facility] - Occupational Stress Questionnaire Answer Date Recorded [...] place to sleep or slept in a intermediate (including now)? No 07/09/2023 PHQ-2A Answer Date [...]
--- OUTSIDE RECORDS SUMMARY | 2025-09-07 10:57 | XMS_ITS | Continuity of Care Document ---
Author Organization [facility] Address [address] [place] [address] Phone Care Team Providers Care Panelboard Operator Name Role Phone Zenaida Cruz Ud, MD Unavailable [phone] Dillon Ibrahim APRN Primary Care Provider [phone] Encounters Date Type Department Care Team Description 07/16/2025 9:20 AM EDT Office Visit [facility] [address] [address] Deepa Saucedo MD Hypertensive heart disease with heart failure (HCC) (Primary Dx); SOB (shortness of breath) on exertion; Unspecified essential hypertension; Coronary 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 artery of [place] heart without angina pectoris; Atherosclerotic heart disease of [place]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; Benign essential HTN; Atherosclerosis of [place] coronary artery of [place] heart without angina pectoris; Left carotid bruit 07/10/2025 Refill [facility] [address] [place] [address] Gabino Carrillo DO Medication Refill 07/06/2025 Refill [facility] [address] [place] [address] Dillon Ibrahim APRN Medication Refill 06/22/2025 Refill [facility] [address] [place] [address] Dillon Ibrahim APRN Medication Refill 05/28/2025 Telephone [facility] 100 [place] [address] Dillon Ibrahim APRN Symptoms (Only Use If Pt Pushes Back On Scheduling A Visit) (Nausea); Patient Returning Call (returning call to office ) 05/25/[address] [place] [address] Kassie Beasley MD Relaying Information (diarrhea) 05/24/2025 1:00 PM EDT Office Visit [address] [place] [address] Kassie Beasley MD Annual physical exam (Primary Dx); Insomnia, persistent; Flu vaccine need; Peripheral neuropathy, idiopathic; B12 deficiency; PUD (peptic ulcer disease); Spinal enthesopathy, cervicothoracic region; STIVEN (generalized anxiety disorder); Vitamin D deficiency; Atherosclerotic heart disease of [place]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; Acute bacterial sinusitis 05/22/[address] [place] [address] Dillon Ibrahim APRN Refill 04/09/2025 Orders Only [address] [address] Pam Eng MA 04/09/[address] [address] Dillon Ibrahim APRN Refill (fluticasone (FLONASE) 50 mcg/actuation Nasl [place], Suspension - - - /Sig - Route: by Nasal route daily. - Nasal //) 03/22/2025 9:10 AM EDT Office Visit [facility] Gen Surg [address] [address] Erwin Kasper MD Arm mass, right (Primary Dx) 03/13/[address] [place] [address] Dillon Ibrahim APRN Medication Refill 03/10/2025 Refill [facility] [address] [place], [place] [address] Dillon Ibrahim, COREEN Medication Refill 03/03/2025 Results Follow-Up [facility] [address] [place], [place] [address] Dillon Ibrahim, AGGREGATE CONVEYOR OPERATOR US UPPER EXTREMITY NONVASCULAR LIMITED 03/03/2025 Results Follow-Up [facility] Winston [facility] [address] [place] [address] Dillon Ibrahim, AGGREGATE CONVEYOR OPERATOR VITAMIN D 25 HYDROXY, VITAMIN B12/ FOLIC ACID, CBC, Additional followed-up results: 4 03/02/2025 3:18 PM EDT - 03/02/2025 11:59 PM EDT Hospital Encounter [address] [place] [address] Dillon Ibrahim APRN Mass of muscle of right upper extremity Discharge Disposition: Home or Self Care 03/02/2025 10:15 AM EDT Office Visit [facility] [place] [address] Dillon Ibrahim APRN Malaise and fatigue (Primary Dx); Spinal enthesopathy, cervicothoracic region; Peripheral neuropathy, idiopathic; Anemia, unspecified type; B12 deficiency; Screening for diabetes mellitus (DM); Vitamin D deficiency; Therapeutic drug monitoring 02/23/2025 9:00 AM EDT Office Visit [facility] Winston [place] [address] [place] [address] Kassie Beasley MD Left eye injury, initial encounter (Primary Dx); Costochondritis; PUD (peptic ulcer disease) 02/20/2025 Telephone [facility] Winston [place] [address] [place] [address] Dillon Ibrahim APRN Refill (Gabapentin ) 02/14/2025 Refill [place] [address] Dillon Ibrahim APRN Medication Refill 02/14/2025 10:45 AM EDT [facility] [address] [place] [address] Dillon Ibrahim APRN Acute bacterial sinusitis (Primary Dx); B12 deficiency; Mass of muscle of right upper extremity 01/26/2025 Refill [facility] [address] [place] [address] Dillon Ibrahim APRN Medication Refill 12/29/2024 Telephone [facility] [address] [place] [address] Dillon Ibrahim APRN Medication Refill 12/11/2024 11:15 AM EDT [facility] [address] [place] [address] Dillon Ibrahim APRN COPD with acute exacerbation (HCC) (Primary Dx) 10/16/2024 Travel 10/16/2024 9:20 AM EST Office Visit [facility] [place] [address] [place] [address] Deepa Saucedo MD SOB (shortness of breath) on exertion (Primary Dx); Unspecified essential hypertension; Coronary 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 artery of [place] heart without angina pectoris; Hypertensive heart disease with heart failure (HCC); Atherosclerosis of [place] coronary artery of [place] heart without angina pectoris; Benign essential HTN; Atherosclerotic heart disease of [place]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 08/16/2024 Telephone [facility] [place] [address] [place] [address] Deepa Saucedo MD Results 08/10/2024 10:16 AM EST - 08/10/2024 11:59 PM EST Hospital Encounter [facility] [address] [place] [address] Deepa Saucedo MD Unspecified essential hypertension; Coronary 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 artery of [place] heart without angina pectoris; Hypertensive heart disease with heart failure (HCC); Atherosclerosis of [place] coronary artery of [place] heart without angina pectoris; Benign essential HTN Discharge Disposition: Home or Self Care 08/08/2024 10:30 AM EST Office Visit [facility] [address] Dillon Ibrahim APRN Acute bacterial sinusitis (Primary Dx); Acute cough; Malaise and fatigue; Anemia, unspecified type; Bradycardia 06/19/2024 8:40 AM EDT Office Visit [facility] [address] [address] Deepa Saucedo MD Unspecified essential hypertension (Primary Dx); Coronary 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 artery of [place] heart without angina pectoris; Hypertensive heart disease with heart failure (HCC); Atherosclerosis of [place] coronary artery of [place] heart without angina pectoris; Benign essential HTN 05/11/2024 Telephone [facility] [address] Deepa Saucedo MD Patient Question; Fatigue 04/28/2024 Telephone [facility] [address] [place] [address] Dillon Ibrahim APRN Results 04/27/2024 Orders Only [facility] [address] [place] [address] Dillon Ibrahim APRN Anemia, unspecified type (Primary Dx) 04/26/2024 2:45 PM EDT Office Visit [facility] [address] [place] [address] Dillon Ibrahim APRN Annual physical exam (Primary Dx); COPD with acute exacerbation (HCC); Chronic pain of both knees; Insomnia, persistent; PUD (peptic ulcer disease); Acute bacterial sinusitis; Atherosclerotic heart disease of [place]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 03/14/2024 Telephone [facility] [address] Deepa Saucedo MD Results (Labwork, SWP and he is aware of results and to increase potassium rich foods and recheck BMP in 2 weeks.) 03/13/2024 8:45 AM EDT - 03/13/2024 11:59 PM EDT Hospital Encounter [facility] [address] [place] [address] Coronary 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 artery of [place] heart without angina pectoris; Unspecified essential hypertension; Hypertensive heart disease with heart failure (HCC) Discharge Disposition: Home or Self Care 03/13/2024 Travel 03/13/2024 8:50 AM EDT Office Visit [facility] [place] [address] [place] [address] Deepa Saucedo MD Coronary 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 artery of [place] heart without angina pectoris (Primary Dx); Unspecified essential hypertension; Hypertensive heart disease with heart failure (HCC) 10/14/2023 9:51 AM EST - 10/14/2023 11:59 PM EST Hospital Encounter [facility] [address] [place] [address] Dillon Ibrahim APRN Pain of both breasts; Mass of lower outer quadrant of left breast Discharge Disposition: Home or Self Care 10/14/2023 9:50 AM EST Hospital Encounter [facility] Mamm[facility] [address] [place] [address] Dillon Ibrahim APRN Pain of both breasts; Mass of lower outer quadrant of left breast Discharge Disposition: Home or Self Care 09/21/2023 10:30 AM EST [facility] [address] [place] [address] Dillon Ibrahim APRN Acute bacterial sinusitis (Primary Dx); Pain of both breasts; Mass of lower outer quadrant of left breast 08/31/2023 1:30 PM EST Office Visit [facility] [address] [place] [address] Dillon Ibrahim APRN Acute bacterial sinusitis (Primary Dx) 08/04/2023 Telephone [facility] [address] [place] [address] Guy Monge MD Other (asking if Dr. Monge needs anything else from ) 08/02/2023 Patient Outreach [facility] [address] [place] [address] Tad Kohler LPN ED Follow-Up Call 07/30/2023 Travel 07/30/2023 5:20 PM EST - 07/30/2023 8:23 PM EST Emergency [facility] [address] [place] [address] Elder Parish MD Atypical chest pain (Primary Dx) Discharge Disposition: Home or Self Care 07/30/2023 Telephone [facility] [address] [place] [address] Michelle Curry RN Results 07/30/2023 1:15 PM EST - 07/30/2023 5:19 PM EST Hospital Encounter [facility] [address] [place] [address] Fever, unspecified fever cause; Acute cough Discharge Disposition: Home or Self Care 07/30/2023 Telephone [facility] [address] [place] [address] Guy Monge MD Symptom Call 07/30/2023 Telephone [facility] [address] [place] [address] Guy Monge MD Results (Lab PSA, CBC, T4, TSH, CMP, Lipid, ) 07/29/2023 2:55 PM EST - 07/29/2023 11:59 PM EST Hospital Encounter [facility] [address] [place] [address] Medicare annual wellness visit, subsequent; Essential hypertension; Screening for prostate cancer Discharge Disposition: Home or Self Care 07/29/2023 1:55 PM EST Ancillary Procedure [facility] [address] [place] [address] Ilene Gambino PA-C Fever, unspecified fever cause; Acute cough Discharge Disposition: Home or Self Care 07/29/2023 1:15 PM EST Office Visit [facility] [address] [place] [address] Ilene Gambino PA-C Congestion of nasal sinus (Primary Dx); Fever, unspecified fever cause; Acute cough 06/01/2023 2:30 PM EDT Office Visit [facility] [address] [facility] [place] [address] Ruddy Londono MD Seasonal allergies (Primary Dx); Acute bacterial sinusitis; Flu vaccine need 04/21/2023 Telephone [facility] [address] [place] [address] Guy Monge MD Results 04/21/2023 11:00 AM EDT Ancillary Procedure [facility] [address] [place] [address] Acute cough 04/21/2023 10:40 AM EDT Office Visit [facility] [place] [address] [place] [address] Guy Monge MD Medicare annual wellness visit, subsequent (Primary Dx); Unspecified essential hypertension; Sinobronchitis; Acute cough; Screening for prostate cancer 03/31/2023 1:40 PM EDT Office Visit [facility] [place] [address] [facility] [place] [address] Guy Monge MD Sinobronchitis (Primary Dx); Seasonal allergies; Coronary artery disease involving [place] heart with other form of angina pectoris, unspecified vessel or lesion type 03/29/2023 Travel 03/29/2023 9:30 AM EDT Office Visit [facility] [place] [address] Deepa Saucedo MD Coronary 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 artery of [place] heart without angina pectoris (Primary Dx); Unspecified essential hypertension 02/22/2023 12:41 PM EDT - 02/22/2023 11:59 PM EDT Hospital Encounter [address] [address] Christi Vasquez MD Chronic cough Discharge Disposition: Home or Self Care 02/10/2023 Travel 02/10/2023 12:55 PM EDT - 02/10/2023 11:59 PM EDT Hospital Encounter [facility] [address] [place] [address] Discharge Disposition: Home or Self Care 12/10/2022 Telephone [facility] [address] [place] [address] Devonte Verdugo MD Appointment Needed (New pt requesting work in with Laura Robbins at 2:15 today ) 11/26/2022 Telephone [facility] [address] [address] Deepa Saucedo MD Results 11/25/2022 Travel 11/25/2022 8:01 AM EST - 11/25/2022 9:15 AM EST Hospital Encounter [facility] [address] [place] [address] Deepa Saucedo MD Chest pressure; SOB (shortness of breath) on exertion; Unspecified essential hypertension; Coronary 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 artery of [place] heart without angina pectoris; Bruit of right carotid artery; Aortic root enlargement Discharge Disposition: Home or Self Care 11/25/2022 9:16 AM EST - 11/25/2022 11:59 PM EST Hospital Encounter [facility] [address] [place] [address] Deepa Saucedo MD Chest pressure; SOB (shortness of breath) on exertion; Unspecified essential hypertension; Coronary 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 artery of [place] heart without angina pectoris; Bruit of right carotid artery; Aortic root enlargement Discharge Disposition: Home or Self Care 11/25/2022 7:55 AM EST - 11/25/2022 8:00 AM EST Hospital Encounter [facility] [address] [place] [address] Deepa Saucedo MD Chest pressure; SOB (shortness of breath) on exertion; Unspecified essential hypertension; Coronary 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 artery of [place] heart without angina pectoris; Bruit of right carotid artery; Aortic root enlargement Discharge Disposition: Home or Self Care 11/04/2022 Telephone [facility] [place] [address] [place] [address] Deepa Saucedo MD Results 11/03/2022 Travel 11/03/2022 9:30 AM EST - 11/03/2022 11:59 PM EST Hospital Encounter [facility] [address] [place] [id number] Deepa Saucedo MD Chest pressure; SOB (shortness of breath) on exertion; Unspecified essential hypertension; Coronary 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 artery of [place] heart without angina pectoris; Bruit of right carotid artery; Aortic root enlargement Discharge Disposition: Home or Self Care 09/28/2022 Travel 09/28/2022 9:30 AM EST Office Visit [facility] [place] [address] [place] [address] Deepa Saucedo MD Chest pressure (Primary Dx); SOB (shortness of breath) on exertion; Unspecified essential hypertension; Coronary 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 artery of [place] heart without angina pectoris; Bruit of right carotid artery; Aortic root enlargement 08/17/2022 Telephone [facility] [place] [address] [facility] [address] [place] [address] Deepa Saucedo MD Appointment Needed 02/02/2022 Travel 02/02/2022 9:20 AM EDT Office Visit [facility] [place] [address] [place] [address] Deeap Saucedo MD Unspecified essential hypertension (Primary Dx); Coronary 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 artery of [place] heart without angina pectoris 11/19/2021 Orders Only [facility] [address] [place] [address] Guy Monge MD Acute bacterial sinusitis 11/18/2021 Telephone [facility] [address] [place] [address] Guy Monge MD Medication Management 11/12/2021 1:50 PM EST Office Visit [facility] [place] [address] [facility] [place] [address] Guy Monge MD Acute bacterial sinusitis (Primary Dx); Cough; Numbness and tingling of both legs below knees; Seasonal allergic rhinitis due to other allergic trigger; DDD (degenerative disc disease), lumbar 07/14/2021 Telephone [facility] [address] [place] [address] Ruddy Londono MD Other 07/10/2021 Travel 07/10/2021 8:50 AM EDT Office Visit [facility] [address] [facility] [place] [address] Ruddy Londono MD Flu vaccine need (Primary Dx); Acute bacterial sinusitis; Seasonal allergies; Medicare annual wellness visit, subsequent 05/12/2021 Travel 05/12/2021 8:30 AM EDT Office Visit [facility] [address] [address] Deepa Saucedo MD Coronary 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 artery of [place] heart without angina pectoris (Primary Dx); Unspecified essential hypertension 12/23/2020 Travel 10/07/2020 Travel 10/07/2020 9:30 AM EST Office Visit [facility] [address] [address] Deepa Saucedo MD Coronary 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 artery of [place] heart without angina pectoris (Primary Dx); Unspecified essential hypertension 06/06/2020 Travel 06/06/2020 Telephone [facility] [address] [facility] [place] [address] Ruddy Londono MD Symptom Call (yeast infection ) 05/29/2020 3:00 PM EDT Office Visit [facility] [facility] [address] [place] [address] Jillian Woo MD Acute bacterial sinusitis (Primary Dx); Need for influenza vaccination; Glossitis 05/29/2020 Travel 05/28/2020 Telephone [facility] [address] [facility] [place] [address] Ruddy Londono MD Appointment Needed (acute- congestion, fatigue, cough x 3 days ) 05/28/2020 Travel 04/05/2020 12:30 PM EDT Ancillary Procedure [facility] [place] [address] [place] [address] Acute bronchitis, unspecified organism 04/05/2020 Travel 04/05/2020 11:30 AM EDT Office Visit [facility] 405 [facility] [place] [address] Ruddy Londono MD Acute bronchitis, unspecified organism (Primary Dx) 04/04/2020 Telephone [facility] [address] [facility] [place] [address] Ruddy Londono MD Appointment Needed (pain in the back of his shoulders in his lungs, feels sore all over / x2 days) 04/04/2020 Travel 03/27/2020 Telephone [facility] [address] [facility] [address] [place] [address] Deepa Saucedo MD Results 03/25/2020 Travel 03/25/2020 11:55 AM EDT - 03/25/2020 11:59 PM EDT Hospital Encounter [facility] [place] [address] Deepa Saucedo MD Unspecified essential hypertension; Vasovagal syncope; Coronary 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 artery of [place] heart without angina pectoris; SOB (shortness of breath) on exertion; Chest pressure Discharge Disposition: Home or Self Care 03/25/2020 10:00 AM EDT - 03/25/2020 11:54 AM EDT Hospital Encounter [facility] [address] [place] [address] Deepa Saucedo MD Unspecified essential hypertension; Vasovagal syncope; Coronary 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 artery of [place] heart without angina pectoris; SOB (shortness of breath) on exertion; Chest pressure Discharge Disposition: Home or Self Care 03/25/2020 10:00 AM EDT - 03/25/2020 11:54 AM EDT Hospital Encounter [facility] [address] [place] [address] Deepa Saucedo MD Unspecified essential hypertension; Vasovagal syncope; Coronary 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 artery of [place] heart without angina pectoris; SOB (shortness of breath) on exertion; Chest pressure Discharge Disposition: Home or Self Care 03/22/2020 Travel 03/22/2020 Telephone [facility] [address] [place] [address] Ruddy Londono MD Appointment Needed 03/04/2020 Travel 02/27/2020 Travel 02/27/2020 12:15 PM EDT Office Visit [facility] [place] [address] [place] [address] Deepa Saucedo MD Unspecified essential hypertension (Primary Dx); Vasovagal syncope; Coronary 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 artery of [place] heart without angina pectoris; SOB (shortness of breath) on exertion; Chest pressure 02/09/2020 10:18 AM EDT - 02/09/2020 11:59 PM EDT Hospital Encounter [facility] [address] [place] [address] Coronary 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 artery of [place] heart without angina pectoris; Unspecified essential hypertension; Screening PSA (prostate specific antigen); Lethargy; Vitamin D deficiency; Osteoarthritis, unspecified osteoarthritis type, unspecified site Discharge Disposition: Home or Self Care 02/09/2020 Travel 02/09/2020 9:50 AM EDT Office Visit [facility] [address] [place] [address] Cameron Prieto MD Lethargy (Primary Dx); Osteoarthritis, unspecified osteoarthritis type, unspecified site; Vitamin D deficiency; Cellulitis of other specified site 02/08/2020 Travel 06/16/2019 1:20 PM EDT Office Visit [facility] [address] [place] [address] Ruddy Londono MD Flu vaccine need (Primary Dx); Screening PSA (prostate specific antigen); Unspecified essential hypertension; Coronary 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 artery of [place] heart without angina pectoris; Acute bacterial sinusitis; Seasonal allergies 04/06/2019 Telephone [facility] [address] [facility] [place] [address] Ruddy Londono MD Appointment Needed (Medicare wellness ) 11/26/2018 Refill [facility] [address] [place] [address] Ruddy Londono MD Medication Refill 11/03/2018 [facility]ill [facility] [address] [place] [address] Kassie Beasley MD Medication Refill 10/10/2018 11:00 AM EST Office Visit [facility] H&V [address] [address] Deepa Saucedo MD Coronary 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 artery of [place] heart without angina pectoris (Primary Dx); SIADH (syndrome of inappropriate ADH production); Unspecified essential hypertension 09/28/2018 Refill [facility] [address] [place] [address] Ruddy Londono MD Medication Refill 09/26/2018 Refill [facility] [address] [place] [address] Ruddy Londono MD Medication Refill 08/09/2018 [facility]ill [facility] [address] [place] [address] Ruddy Londono MD Medication Refill 07/30/2018 [facility]ill [facility] [address] [place] [address] Kassie Beasley MD Medication Refill 06/05/2018 Refill [facility] [address] [facility] [place] [address] Ruddy Londono MD Medication Refill 05/07/2018 Refill [facility] [address] [facility] [place] [address] Ruddy Londono MD Medication Refill 05/02/2018 Refill [facility] [facility] [address] [place] [address] Ruddy Londono MD Medication Refill 03/14/2018 12:30 PM EDT Office Visit [facility] [place] [address] [place] [address] Deepa Saucedo MD Unspecified essential hypertension (Primary Dx); Coronary 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 artery of [place] heart without angina pectoris 02/10/2018 Telephone [facility] [address] [place] [address] Deepa Saucedo MD Bradycardia 02/07/2018 11:11 PM EDT - 02/07/2018 11:59 PM EDT Hospital Encounter [facility] [address] [facility] [place] [address] Encounter for medication management Discharge Disposition: Home or Self Care 02/07/2018 10:40 AM EDT [facility] [address] [place] [address] Ruddy Londono MD Encounter for medication management (Primary Dx); Acute rhinosinusitis; Seasonal allergic rhinitis due to other allergic trigger; History of degenerative disc disease 02/04/2018 [facility]ill [facility] [address] [place] [address] Kassie Beasley MD Medication Refill 01/31/2018 Telephone [facility] [address] [place] [address] Laar Conley, RMA Results 01/26/2018 Refill [facility] [address] [place] [address] [place] [address] Bebo Cook MD Medication Refill 01/08/2018 Refill [facility] [address] [place] [address] Ruddy Londono MD Medication Refill 01/06/2018 11:20 AM EDT Office Visit [facility] [address] [place] [address] Ruddy Londono MD 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, sciatica laterality unspecified (Primary Dx); Bug bite, subsequent encounter; Coronary 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 artery of [place] heart without angina pectoris; History of degenerative disc disease; Acute bacterial sinusitis 01/05/2018 Telephone [facility] [address] [facility] [address] [place] [address] Deepa Saucedo MD Other 01/03/2018 7:26 AM EDT Hospital En[facility] [place] [address] Deepa Saucedo MD Coronary 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 artery of [place] heart without angina pectoris; Coronary artery disease involving [place] heart, angina presence unspecified, unspecified vessel or lesion type; Unspecified essential hypertension; Racing heart beat; Dizziness; SOB (shortness of breath) on exertion; Chest tightness or pressure Discharge Disposition: Home or Self Care 01/03/2018 8:23 AM EDT - 01/03/2018 11:59 PM EDT Hospital Encounter [facility] [place] [address] Deepa Saucedo MD Coronary 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 artery of [place] heart without angina pectoris; Coronary artery disease involving [place] heart, angina presence unspecified, unspecified vessel or lesion type; Unspecified essential hypertension; Racing heart beat; Dizziness; SOB (shortness of breath) on exertion; Chest tightness or pressure Discharge Disposition: Home or Self Care 01/03/2018 7:48 AM EDT - 01/03/2018 8:22 AM EDT Hospital Encounter [facility] STRESS [facility] [place] [address] Deepa Saucedo MD Coronary 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 artery of [place] heart without angina pectoris; Coronary artery disease involving [place] heart, angina presence unspecified, unspecified vessel or lesion type; Unspecified essential hypertension; Racing heart beat; Dizziness; SOB (shortness of breath) on exertion; Chest tightness or pressure Discharge Disposition: Home or Self Care 01/03/2018 7:27 AM EDT - 01/03/2018 7:47 AM EDT Hospital Encounter [facility] [address] [place] [address] Deepa Saucedo MD Coronary 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 artery of [place] heart without angina pectoris; Coronary artery disease involving [place] heart, angina presence unspecified, unspecified vessel or lesion type; Unspecified essential hypertension; Racing heart beat;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 07/31/2015 9:30 AM EST Office Visit [facility] [address] [place] [address] Deepa Saucedo MD Coronary artery disease due to lipid rich plaque (Primary Dx); Unspecified essential hypertension; H/O placement of stent in anterior descending branch of left coronary artery 07/15/2015 Telephone [facility] [address] [place] [address] Kassie Beasley MD Medication Refill 07/11/2015 Refill [facility] [address] [place] [address] Ruddy Londono MD Medication Refill 07/08/2015 Telephone [facility] [address] [place] [address] Ruddy Londono MD Medication Refill 07/05/2015 Telephone [facility] [address] [place] [address] Kassie Beasley MD Labs Only 07/04/2015 11:45 AM EDT - 07/04/2015 11:59 PM EDT Hospital Encounter [facility] [address] [place] [address] Bronchitis Discharge Disposition: Home or Self Care 07/03/2015 10:00 AM EDT [facility] [address] [place] [address] Kassie Beasley MD Bronchitis (Primary Dx); Rash; Allergic rhinitis, unspecified allergic rhinitis type; DDD (degenerative disc disease), lumbar 06/28/2015 9:45 AM EDT - 06/28/2015 11:59 PM EDT Hospital Encounter [facility] [address] [place] [address] Coronary 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 artery of [place] heart without angina pectoris; Unspecified essential hypertension; Elevated PSA; Balanitis Discharge Disposition: Home or Self Care 06/27/2015 Orders Only [facility] [address] [place] [address] Deepa Saucedo MD Coronary 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 artery of [place] heart without angina pectoris (Primary Dx); Unspecified essential hypertension 06/27/2015 Telephone [facility] [place] [facility] [address] [facility] [place] [address] Jina Camarena LPN Other 06/27/2015 Telephone [facility] [address] [place] [address] Deepa Saucedo MD Other 06/14/2015 Telephone [facility] [address] [facility] [place] [address] Rita Hood RMA Medication Refill 06/12/2015 3:10 PM EDT Office Visit [facility] [address] [facility] [place] [address] Ruddy Londono MD Acute bronchitis, unspecified organism (Primary Dx); Balanitis; DDD (degenerative disc disease), lumbar 06/11/2015 Abstract [facility] [address] [address] Pedro Calle MA 06/09/2015 Refill [facility] [place] [facility] [address] [facility] [place] [address] Ruddy Londono MD Medication Refill 06/06/2015 Telephone [facility] [address] [place] [address] Deepa Saucedo MD Medication Refill 06/03/2015 2:00 PM EDT Office Visit [facility] [address] [facility] [place] [address] Ruddy Londono MD Seasonal allergies (Primary Dx); Acute frontal sinusitis, recurrence not specified; Need for prophylactic vaccination and inoculation against influenza 05/20/2015 Refill [facility] [address] [place] [address] Deepa Saucedo MD Medication Refill (atorvastatin-Denial) 05/11/2015 Refill [facility] [address] [place] [address] Ruddy Londono MD Medication Refill 05/11/2015 Refill [facility] [address] [place] [address] Deepa Saucedo MD Medication Refill 05/06/2015 Refill [facility] [address] [place] [address] Kwadwo Ibrahim MD Medication Refill 04/12/2015 Refill [facility] [address] [place] [address] Deepa Saucedo MD Medication Refill (Atorvastatin) 04/12/2015 Refill [facility] [address] [place] [address] Kwadwo Ibrahim MD Medication Refill 03/19/2015 10:50 AM EDT Office Visit [address] [address] Kwadwo Ibrahim MD Acute recurrent frontal sinusitis (Primary Dx); Coronary 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 artery without angina pectoris; Depressive disorder, not elsewhere classified; Unspecified essential hypertension; Seasonal allergies 03/15/2015 Refill [facility] [address] [place] [address] Ruddy Londono MD Medication Refill 03/11/2015 11:35 AM EDT - 03/11/2015 11:59 PM EDT Hospital Encounter [facility] [address] [place] [address] Arthrodesis status Discharge Disposition: Home or Self Care 03/08/2015 Telephone [facility] [address] [place] [address] Jina Camarena, EXPLOSIVE OPERATOR SUPERVISOR Other 03/07/2015 Refill [facility] [address] [place] [address] Jina Camarena, EXPLOSIVE OPERATOR SUPERVISOR Other 03/07/2015 9:40 AM EDT Office Visit [facility] [place] [place] [address] Kwadwo Ibrahim MD Depressive disorder, not elsewhere classified (Primary Dx); DDD (degenerative disc disease), lumbar; Unspecified essential hypertension; BPH w/o urinary obs/LUTS; Gastroesophageal reflux disease with esophagitis; Midline low back pain, with sciatica presence unspecified; Coronary 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 artery without angina pectoris; DDD (degenerative disc disease); Other seasonal allergic rhinitis 02/13/2015 Refill [facility] [place] [place] [address] Ruddy Londono MD Medication Refill 01/24/2015 2:20 PM EDT Office Visit [facility] [place] [place] [address] Kwadwo Ibrahim MD Acute bronchitis (Primary Dx); Acute sinusitis with symptoms > 10 days; Seasonal allergies; CAD (coronary artery disease); Depressive disorder, not elsewhere classified; Unspecified essential hypertension; BPH w/o urinary obs/LUTS; Esophageal reflux; DDD (degenerative disc disease) 12/07/2014 12:13 PM EDT - 12/07/2014 11:59 PM EDT Hospital Encounter [facility] [address] [place] [address] Cervicalgia Discharge Disposition: Home or Self Care 12/07/2014 2:20 PM EDT Office Visit [facility] [place] [place] [address] Kwadwo Ibrahim MD Depressive disorder, not elsewhere classified (Primary Dx); CAD (coronary artery disease); Esophageal reflux; DDD (degenerative disc disease), cervical; Unspecified essential hypertension; BPH w/o urinary obs/LUTS; Acute sinusitis; Psoriasiform eczema; DDD (degenerative disc disease) 09/03/2014 Telephone [facility] [address] [place] [address] Madelin Da Silva LPN Other 08/31/2014 Telephone [facility] [address] [place] [address] Deepa Saucedo MD Results 08/29/2014 9:44 AM EST - 08/29/2014 11:59 PM EST Hospital Encounter [facility] [address] [place] [address] Deepa Saucedo MD Chest pain; CAD (coronary artery disease); Unspecified essential hypertension; Hypercholesteremia; SOB (shortness of breath) on exertion Discharge Disposition: Home or Self Care 08/29/2014 8:59 AM EST - 08/29/2014 9:43 AM EST Hospital Encounter [facility] [address] [place] [address] Deepa Saucedo MD Chest pain; [...] online to verify your site or call [phone] [address] Dillon Acevedo APRN Screening for other and unspecified cardiovascular conditions Discharge Disposition: Home or Self Care 08/24/2014 Refill [facility] [place] [facility] [address] [place] [address] Jina Camarena LPN Medication Refill 08/23/2014 Refill [facility] [address] [place] [address] Deepa Saucedo MD Medication Refill 08/20/2014 Telephone [facility] [address] [facility] [address] [place] [address] Deepa Saucedo MD Cardiology Clearance 08/15/2014 8:33 PM EST - 08/15/2014 11:59 PM EST Hospital Encounter [facility] PROCESSING [facility] [place] [address] Preop examination Discharge Disposition: Home or Self Care 08/15/2014 2:00 PM EST [facility] [address] [place] [address] Kwadwo Ibrahim MD Preop examination (Primary Dx); Depressive disorder, not elsewhere classified; DDD (degenerative disc disease); Encounter for smoking cessation counseling 07/19/2014 8:40 AM EDT Office Visit [address] [address] Ruddy Londono MD Environmental allergies (Primary Dx); CAD (coronary artery disease); BPH w/o urinary obs/LUTS; Depressive disorder, not elsewhere classified; Esophageal reflux; DDD (degenerative disc disease); Need for pneumococcal vaccination 07/17/2014 Refill [facility] [place] [facility] [address] [place] [address] Kwadwo Ibrahim MD Medication Refill 07/17/2014 8:55 AM EDT - 07/17/2014 11:59 PM EDT Hospital Encounter [facility] [address] [facility] [place] [address] Devonte Pena Thoracic or lumbosacral neuritis or radiculitis, unspecified Discharge Disposition: Home or Self Care 07/17/2014 8:55 AM EDT - 07/17/2014 11:59 PM EDT Hospital Encounter [address] [place] [address] Devonte Pena Thoracic or lumbosacral neuritis or radiculitis, unspecified Discharge Disposition: Home or Self Care 06/07/2014 8:40 AM EDT Office Visit [facility] [place] [facility] [address] [place] [address] Kwadwo Ibrahim MD Flu vaccine need (Primary Dx); Depressive disorder, not elsewhere classified; Unspecified essential hypertension; BPH w/o urinary obs/LUTS; Esophageal reflux; CAD (coronary artery disease); Seasonal allergies; Atrophy of skin 05/10/2014 3:30 PM EDT Office Visit [address] [address] Kwadwo Ibrahim MD Anxiety (Primary Dx); Acute sinusitis; Environmental allergies; Encounter for long-term (current) use of other medications; Seasonal allergies; Depressive disorder, not elsewhere classified; Unspecified essential hypertension; BPH w/o urinary obs/LUTS; Esophageal reflux; CAD (coronary artery disease); Rash 04/18/[address] [address] Dottie Tejeda [place] Medication Change 04/16/[address] [address] Kwadwo Ibrahim MD Prior Authorization 04/11/[address] [address] Kwadwo Ibrahim MD Medication Refill 03/16/2014 Refill [facility] [address] [place] [address] Deepa Saucedo MD Medication Refill 03/16/2014 Telephone [facility] [address] [place] [address] Deepa Saucedo MD Other 03/15/2014 Telephone [facility] [place] [address] [place] [address] Deepa Saucedo MD Results 03/12/2014 10:40 AM EDT - 03/12/2014 11:59 PM EDT Hospital Encounter [facility] [address] [facility] [place] [address] CAD (coronary artery disease) (Primary Dx); Unspecified essential hypertension; Hypercholesteremia; Chest pain; SOB (shortness of breath) on exertion Discharge Disposition: Home or Self Care 03/12/2014 2:20 PM EDT Office Visit [address] [address] Kwadwo Ibrahim MD Anxiety (Primary Dx); Acute sinusitis; Environmental allergies; Depressive disorder, not elsewhere classified; Unspecified essential hypertension; BPH w/o urinary obs/LUTS; Esophageal reflux; CAD (coronary artery disease); Acute bronchitis 03/12/2014 10:00 AM EDT Office Visit [address] [address] Deepa Saucedo MD CAD (coronary artery disease) (Primary Dx); Chest pain; Unspecified essential hypertension; Hypercholesteremia; SOB (shortness of breath) on exertion 02/14/[address] [address] Kwadwo Ibraihm MD Medication Refill 01/15/2014 2:40 PM EDT - 01/15/2014 11:59 PM EDT Hospital Encounter [facility] [address] [place] [address] LBP (low back pain) Discharge Disposition: Home or Self Care 12/28/2013 3:10 PM EDT Office Visit [address] [address] Kwadwo Ibrahim MD Anxiety (Primary Dx); Acute sinusitis; Environmental allergies; Depressive disorder, not elsewhere classified; Unspecified essential hypertension; BPH w/o urinary obs/LUTS; Esophageal reflux; CAD (coronary artery disease); Decreased urination 12/25/2013 1:15 PM EDT Office Visit [facility] [address] Deepa Saucedo MD Unspecified essential hypertension (Primary Dx); CAD (coronary artery disease) 12/17/[address] [address] Kwadwo Ibrahim MD Medication Refill 11/15/[address] [address] Kwadwo Ibrahim MD Medication Refill 11/09/[address] [address] Dottie Liu [place] Visit Follow Up 11/08/2013 7:24 PM EST - 11/08/2013 11:59 PM EST Hospital Encounter [facility] PROCESSING [facility] [place] [address] Routine adult health maintenance Discharge Disposition: Home or Self Care 11/08/2013 2:50 PM EST Office Visit [address] [address] Kwadwo Ibrahim MD Acute sinusitis (Primary Dx); Environmental allergies; Unspecified essential hypertension; BPH w/o urinary obs/LUTS; Depressive disorder, not elsewhere classified; Esophageal reflux; CAD (coronary artery disease); Hyperlipidemia LDL goal < 100; Osteoarthritis; Routine adult health maintenance; Anxiety 11/06/[address] [address] Kwadwo Ibrahim MD Medication Refill 10/30/2013 11:00 AM EST Office Visit [facility] [address] [address] Deepa Saucedo MD Unspecified essential hypertension (Primary Dx); CAD (coronary artery disease) 10/26/[address] [address] Kwadwo Ibrahim MD Medication Refill 10/17/2013 Telephone [facility] [address] [facility] [address] [place] [address] Deepa Saucedo MD Other 10/15/[address] [address] Kwadwo Ibrahim MD Medication Refill 09/12/[address] [address] Kwadwo Ibrahim MD Medication Refill 09/07/2013 8:43 PM EST - 09/07/2013 11:59 PM EST Hospital Encounter [facility] PROCESSING [facility] [place] [address] Unspecified essential hypertension; Osteoarthritis; Knee pain, right Discharge Disposition: Home or Self Care 09/07/2013 2:50 PM EST Office Visit [address] [address] Kwadwo Ibrahim MD Pre-operative general physical examination (Primary Dx); Unspecified essential hypertension; Osteoarthritis; Knee pain, right 09/07/2013 Telephone [facility] [address] [facility] [address] [place] [address] Deepa Saucedo MD Cardiology Clearance 09/06/[address] [address] Kwadwo Ibrahim MD Medication Refill 08/02/2013 10:20 AM EST Office Visit [address] [address] Kwadwo Ibrahim MD Depressive disorder, not elsewhere classified (Primary Dx); Unspecified essential hypertension; BPH w/o urinary obs/LUTS; Esophageal reflux; CAD (coronary artery disease); Acute sinusitis; Acute bronchitis; Seasonal allergies; Yeast infection of the skin; DDD (degenerative disc disease), lumbar 08/02/2013 1:45 PM EST - 08/02/2013 11:59 PM EST Hospital Encounter [address] [place] [address] Duane Rowley MD Pain in joint, lower leg Discharge Disposition: Home or Self Care 08/02/2013 1:45 PM EST - 08/02/2013 11:59 PM EST Hospital Encounter [facility] [address] [facility] [place] [address] Duane Rowley MD Thoracic or lumbosacral neuritis or radiculitis, unspecified Discharge Disposition: Home or Self Care 07/31/2013 Refill [facility] [place] [facility] [address] [place] [address] Kwadwo Ibrahim MD Medication Refill 07/17/2013 Refill [facility] [address] [place] [address] Kwadwo Ibrahim MD Medication Refill 07/07/2013 Abstract [facility] [place] [facility] [address] [place] [address] Ruddy Londono MD 07/06/2013 10:22 AM EDT - 07/06/2013 11:59 PM EDT Hospital Encounter [facility] [address] [place] [address] Duane Rowley MD Thoracic or lumbosacral neuritis or radiculitis, unspecified Discharge Disposition: Home or Self Care 07/06/2013 10:21 AM ED[place] [address] Duane Rowley MD Brachial neuritis or radiculitis NOS Discharge Disposition: Home or Self Care 07/06/2013 10:21 AM EDT Hospital Encounter [facility] [address] [place] [address] Duane Rowley MD Thoracic or lumbosacral neuritis or radiculitis, unspecified Discharge Disposition: Home or Self Care 06/12/2013 10:00 AM EDT Office Visit [facility] [place] [phone] Deepa Saucedo MD CAD (coronary artery disease) (Primary Dx); Unspecified essential hypertension 06/02/2013 Telephone [facility] [place] [address] Jina Camarena LPN Other 06/02/2013 2:30 PM EDT Office Visit [address] [address] Kwadwo Ibrahim MD Mouth sore (Primary Dx); Depressive disorder, not elsewhere classified; Encounter for long-term (current) use of other medications; Need for influenza vaccination; DDD (degenerative disc disease), lumbar; Unspecified essential hypertension; BPH w/o urinary obs/LUTS; Esophageal reflux; CAD (coronary artery disease); Rash; Seasonal allergies 05/31/[address] [address] Shira Claudio [facility] Other 05/19/[address] [address] Kwadwo Ibrahim MD Medication Refill 05/09/2013 10:30 AM EDT Office Visit [address] [address] Cameron Prieto MD Allergic rhinitis (Primary Dx); Unspecified essential hypertension; DDD (degenerative disc disease), lumbar; Skin infection; Acute sinusitis 04/17/2013 Telephone [facility] [address] [place] [address] Deepa Saucedo MD Medication Refill 04/17/[address] [address] Kwadwo Ibrahim MD Medication Refill 04/06/[address] [address] Kwadwo Ibrahim MD Other (referral-Dr Fall ) 04/03/2013 10:10 AM EDT - 04/03/2013 11:59 PM EDT Hospital Encounter [facility] [address] [facility] [place] [address] Unspecified essential hypertension (Primary Dx) Discharge Disposition: Home or Self Care 03/22/2013 Orders Only [facility] [address] [place] [address] Deepa Saucedo MD Unspecified essential hypertension (Primary Dx) 03/21/2013 Telephone [facility] [address] [place] [address] Deepa Saucedo MD Hypertension 03/13/2013 Orders Only [facility] [place] [address] [place] [address] Andreas Hood APRN HTN (hypertension) (Primary Dx) 03/13/2013 10:15 AM EDT Office Visit [facility] [address] [address] Deepa Sauceod MD Unspecified essential hypertension (Primary Dx); CAD (coronary artery disease) 03/10/2013 4:49 PM EDT - 03/10/2013 11:59 PM EDT Hospital Encounter [facility] PROC[facility] [place] [address] BPH w/o urinary obs/LUTS Discharge Disposition: Home or Self Care 03/10/2013 9:30 AM EDT Office Visit [address] [address] Kwadwo Ibrahim MD HTN (hypertension) (Primary Dx); Fatigue; Skin infection; Depressive disorder, not elsewhere classified; CAD (coronary artery disease); Unspecified essential hypertension; BPH w/o urinary obs/LUTS; Esophageal reflux; DDD (degenerative disc disease), cervical; ED (erectile dysfunction); Acute sinusitis; Rash; Edema 01/27/2013 9:10 AM EDT [facility] [address] [place] [address] Duane Johnson V, DO Acute sinusitis (Primary Dx); Nausea; Acute bronchitis; Unspecified essential hypertension 01/26/2013 Orders Only [facility] [address] [place] [address] Deepa Saucedo MD Unspecified essential hypertension (Primary Dx); CAD (coronary artery disease); Edema 01/26/2013 Orders Only [facility] [address] [place] [address] Andreas Hood APRN CAD (coronary artery disease) (Primary Dx); Unspecified essential hypertension; Edema 01/25/2013 Telephone [facility] [address] [place] [address] Deepa Saucedo MD Medication Problem 01/18/2013 7:59 PM EDT - 01/18/2013 11:59 PM EDT Hospital Encounter [facility] PROCESSING [facility] [place] [address] Abdominal pain; BPH w/o urinary obs/LUTS Discharge Disposition: Home or Self Care 01/18/2013 10:20 AM EDT Office Visit [facility] [address] [place] [address] Kwadwo Ibrahim MD GERD (gastroesophageal reflux disease) (Primary Dx); Abdominal pain; Depressive disorder, not elsewhere classified; Unspecified essential hypertension; BPH w/o urinary obs/LUTS; Anxiety; Impaired vision; Sinusitis 01/17/2013 3:51 PM EDT - 01/17/2013 7:45 PM EDT [facility] [address] [facility] [place] [address] Gabino Gao MD Nausea (Primary Dx); Abdominal pain; Hyponatremia; Pancreatitis Discharge Disposition: Home or Self Care 01/17/2013 Telephone [facility] [address] [place] [address] Madelin Da Silva LPN Other 01/16/2013 2:50 PM EDT - 01/16/2013 11:59 PM EDT Hospital Encounter [facility] [place] [address] Hyponatremia (Primary Dx); HTN (hypertension); CAD (coronary artery disease); Unspecified essential hypertension Discharge Disposition: Home or Self Care 01/16/2013 1:15 PM EDT Office Visit [facility] [place] [address] [place] [address] Deepa Saucedo MD Hyponatremia (Primary Dx); HTN (hypertension); CAD (coronary artery disease); Unspecified essential hypertension; Dizziness; Fatigue 01/13/2013 12:47 PM EDT - 01/13/2013 3:15 PM EDT Emergency [facility] [address] [place] [address] Katelyn Wilson MD Fatigue (Primary Dx); Acute sinusitis; Hyponatremia; Orthostasis Discharge Disposition: Home or Self Care 01/10/2013 7:59 PM EDT - 01/10/2013 11:59 PM EDT Hospital Encounter [facility] PROCESSING [facility] [place] [address] Unspecified essential hypertension; Hypercholesteremia; CAD (coronary artery disease) Discharge Disposition: Home or Self Care 01/10/2013 11:30 AM EDT [facility] [address] [place] [address] Kwadwo Ibrahim MD Sinusitis (Primary Dx); Acute asthmatic bronchitis; Rash; Depressive disorder, not elsewhere classified; DDD (degenerative disc disease), lumbar; CAD (coronary artery disease); Unspecified essential hypertension; Hypercholesteremia; Esophageal reflux; Chest pain; Vertigo; CAD (coronary artery disease); CAD (coronary artery disease); CAD (coronary artery disease) 12/23/2012 Refill [facility] [address] [place] [address] Kwadwo Ibrahim MD Medication Refill 12/09/2012 Refill [facility] [place] [address] [place] [address] Deepa Saucedo MD Medication Refill 11/17/2012 Telephone [facility] [address] [place] [address] Dottie Liu Bartolo Medication Management 11/11/[address] [address] Kwadwo Ibrahim MD Medication Refill 11/11/2012 Refill [facility] [address] [address] Deepa Saucedo MD Medication Refill 11/09/[address] [address] Cameron Prieto MD Other (possible reaction to med) 11/08/2012 10:50 AM EST Office Visit [address] [address] Cameron Prieto MD Sinusitis (Primary Dx); Vertigo; Unspecified essential hypertension; Shingles 10/28/2012 9:30 AM EST Office Visit [address] [address] Kwadwo Ibrahim MD Acute asthmatic bronchitis (Primary Dx); Paresthesia; Depressive disorder, not elsewhere classified; Unspecified essential hypertension; BPH w/o urinary obs/LUTS; Acute sinusitis; Environmental allergies; Rash; Anxiety 10/07/[address] [address] Kwadwo Ibrahim MD Medication Refill 10/06/2012 2:40 PM EST Office Visit [address] [address] Kwadwo Ibrahim MD Vertigo (Primary Dx); Acute sinusitis; Seasonal allergies; Acute bronchitis; DDD (degenerative disc disease), lumbar; Fatigue; Depressive disorder, not elsewhere classified 08/30/2012 Telephone [facility] [address] [facility] [address] [place] [address] Deepa Saucedo MD Results 08/22/2012 10:14 AM EST - 08/22/2012 11:59 PM EST Hospital Encounter [facility] [address] [place] [address] Deepa Saucedo MD CAD (coronary artery disease); Unspecified essential hypertension; Carotid bruit; Abnormal EKG Discharge Disposition: Home or Self Care 08/08/2012 1:30 PM EST Office Visit [address] [address] Kwadwo Ibrahim MD Depressive disorder, not elsewhere classified (Primary Dx); DDD (degenerative disc disease), lumbar; Rash; Abdominal pain; GERD (gastroesophageal reflux disease); Right groin pain; Unspecified essential hypertension; Sinusitis 08/08/2012 11:00 AM EST Office Visit [facility] [place] [id number] Deepa Saucedo MD CAD (coronary artery disease); Unspecified essential hypertension; Carotid bruit; Abnormal EKG 08/01/[address] [address] Kwadwo Ibrahim MD Medication Refill 07/25/2012 8:08 AM EST - 07/25/2012 8:11 AM EST Hospital Encounter [facility] [address] [place] [address] Deepa Saucedo MD CAD (coronary artery disease); Unspecified essential hypertension; Hypercholesteremia; SOB (shortness of breath) Discharge Disposition: Home or Self Care 07/25/2012 8:32 AM EST - 07/25/2012 11:59 PM EST Hospital Encounter [facility] [address] [place] [address] Deepa Saucedo MD CAD (coronary artery disease); Unspecified essential hypertension; Hypercholesteremia; SOB (shortness of breath) Discharge Disposition: Home or Self Care 07/25/2012 8:12 AM EST - 07/25/2012 8:31 AM EST Hospital Encounter [facility] [address] [place] [address] Deepa Saucedo MD CAD (coronary artery disease); Unspecified essential hypertension; Hypercholesteremia; SOB (shortness of breath) Discharge Disposition: Home or Self Care 07/20/2012 Refill [facility] [place] [address] Kwadwo Ibrahim MD Medication Refill 07/20/[address] [address] Ruddy Londono MD Medication Refill 06/17/2012 10:41 AM EDT - 06/17/2012 11:59 PM EDT Hospital Encounter [facility] [address] [place] [address] LBP (low back pain); Lumbar radicular pain Discharge Disposition: Home or Self Care 06/13/2012 4:10 PM EDT Office Visit [address] [address] Kwadwo Ibrahim MD Need for influenza vaccination (Primary Dx); Low back pain; Sciatica 06/13/[address] [address] Kwadwo Ibrahim MD Medication Refill 05/26/2012 Orders Only [address] [address] Ruddy Londono MD 05/26/2012 2:40 PM EDT Office Visit [address] [address] Ruddy Londono MD Poison alexey (Primary Dx) 04/27/2012 11:10 AM EDT Office Visit [address] [address] Kwadwo Ibrahim MD Neck pain, chronic; Unspecified essential hypertension; Depressive disorder, not elsewhere classified; BPH w/o urinary obs/LUTS; Low back pain; DDD (degenerative disc disease), lumbar; DDD (degenerative disc disease), cervical; Sinusitis 04/19/2012 10:12 AM EDT Hospital Encounter [facility] [address] [place] [address] Kwadwo Ibrahim MD URI (upper respiratory infection); Acute sinusitis Discharge Disposition: Home or Self Care 04/19/2012 10:13 AM EDT - 04/19/2012 11:59 PM EDT Hospital Encounter [facility] [address] [place] [address] Kwadwo Ibrahim MD URI (upper respiratory infection); Acute sinusitis Discharge Disposition: Home or Self Care 04/15/2012 Telephone [facility] [address] [place] [address] Kwadwo Ibrahim MD Other 04/04/2012 3:50 PM EDT [facility] [address] [place] [address] Kwadwo Ibrahim MD Myalgia; Depressive disorder, not elsewhere classified; Unspecified essential hypertension; BPH w/o urinary obs/LUTS; URI (upper respiratory infection); Acute sinusitis 03/21/2012 3:57 PM EDT - 03/21/2012 11:59 PM EDT Hospital Encounter [facility]LEX[facility] PROCESSING [facility] [place] [address] Hyponatremia Discharge Disposition: Home or Self Care 03/21/2012 10:20 AM EDT [facility] [address] [place] [address] Kwadwo Ibrahim MD Conjunctivitis, allergic; ED (erectile dysfunction); Unspecified essential hypertension; BPH w/o urinary obs/LUTS; Acute sinusitis; Anxiety; Hyponatremia 03/08/2012 [facility] [address] [place] [address] Kwadwo Ibrahim MD Medication Refill 02/27/2012 Refill [facility] [address] [place] [address] Jina Camarena LPN Other 02/26/2012 4:16 PM EDT - 02/26/2012 11:59 PM EDT Hospital Encounter [facility] ALEXANDER PROCESSING [facility] [place] [address] Hyponatremia Discharge Disposition: Home or Self Care 02/26/2012 10:30 AM EDT Office Visit [address] [address] Kwadwo Ibrahim MD Dermatitis of face; BPH w/o urinary obs/LUTS; ED (erectile dysfunction); Hyponatremia; CAD (coronary artery disease); Unspecified essential hypertension; Hypercholesteremia 02/18/[address] [address] Kwadwo Ibrahim MD Visit Follow Up 02/17/2012 8:14 PM EDT - 02/17/2012 11:59 PM EDT Hospital Encounter [facility]LEX[facility]ER PROCESSING [facility] [place] [address] Vertigo; Esophageal reflux; CAD (coronary artery disease); ED (erectile dysfunction) Discharge Disposition: Home or Self Care 02/17/2012 1:50 PM EDT Office Visit [address] [address] Kwadwo Ibrahim MD Vertigo; Lower back pain; DDD (degenerative disc disease), lumbar; Depressive disorder, not elsewhere classified; Unspecified essential hypertension; BPH w/o urinary obs/LUTS; Esophageal reflux; CAD (coronary artery disease); ED (erectile dysfunction); Sinusitis acute 02/16/[address] [address] Kwadwo Ibrahim MD Medication Refill 01/19/[address] [address] Kwadwo Ibrahim MD Medication Refill 12/28/[address] [address] Kwadwo Ibrahim MD Other 12/24/2011 [facility] [address] Kwadwo Ibrahim MD Referral 12/23/2011 4:37 PM EDT - 12/23/2011 11:59 PM EDT Hospital Encounter [facility] PROCESSING [facility] [address] [place], [place] [id number] Hyponatremia Discharge Disposition: Home or Self Care 12/23/2011 9:30 AM EDT [facility] [address] Kwadwo Ibrahim MD Seasonal allergies; Unspecified essential hypertension; Hypertrophy of prostate without urinary obstruction and other lower urinary tract symptoms (LUTS); Depressive disorder, not elsewhere classified; Esophageal reflux; Arthritis; Acute sinusitis; Hyponatremia 12/17/[address] [address] Kwadwo Ibrahim MD Medication Refill 12/10/2011 2:31 PM EDT - 12/10/2011 11:59 PM EDT Hospital Encounter [facility] ALEX[facility] PROCESSING [facility] [place] [address] Fatigue Discharge Disposition: Home or Self Care 12/10/2011 8:50 AM EDT Office Visit [facility] [place] [address] Kwadwo Ibrahim MD Neck pain; DDD (degenerative disc disease), cervical; DDD (degenerative disc disease), lumbar; Unspecified essential hypertension; Depressive disorder, not elsewhere classified; Hypertrophy of prostate without urinary obstruction and other lower urinary tract symptoms (LUTS); ED (erectile dysfunction); Fatigue; Toenail fungus; Prostatitis, acute 12/08/[address] [address] Kwadwo Ibrahim MD Other 12/07/2011 11:00 AM EDT Office Visit [facility] [address] [address] Deepa Saucedo MD CAD (coronary artery disease); Unspecified essential hypertension; Hypercholesteremia; SOB (shortness of breath) 12/03/2011 Abstract [facility] [address] [place] [address] Deepa Saucedo MD CAD (coronary artery disease) 12/02/2011 3:10 PM EDT - 12/02/2011 11:59 PM EDT Hospital Encounter [facility] [address] [place] [address] Unspecified essential hypertension Discharge Disposition: Home or Self Care 12/02/2011 Orders Only [facility] [address] [place] [address] Deepa Saucedo MD Unspecified essential hypertension (Primary Dx) 12/01/2011 Telephone [facility] [address] [phone] Deepa Saucedo MD Other 11/24/2011 Telephone [facility] [address] [place] [address] Deepa Saucedo MD Medication Problem 11/19/2011 Refill [facility] [address] [place] [address] Kwadwo Ibrahim MD Medication Refill 11/16/2011 9:18 AM EST - 11/16/2011 11:59 PM EST Hospital Encounter [facility] [address] [place] [address] Hyperkalemia; Unspecified essential hypertension; Depressive disorder, not elsewhere classified; Hypertrophy of prostate without urinary obstruction and other lower urinary tract symptoms (LUTS); Esophageal reflux Discharge Disposition: Home or Self Care 10/31/2011 10:13 AM EST - 10/31/2011 11:59 PM EST Hospital Encounter [facility] [address] [place] [address] Synovial cyst Discharge Disposition: Home or Self Care 10/29/2011 10:00 AM EST Office Visit [facility] [address] [facility] [place] [address] Kwadwo Ibrahim MD Prostatitis, acute; Hypertrophy of prostate without urinary obstruction and other lower urinary tract symptoms (LUTS); Unspecified essential hypertension; Depressive disorder, not elsewhere classified; Esophageal reflux; Hyponatremia; DDD (degenerative disc disease), lumbar; Cyst 10/28/2011 Telephone [facility] [address] [facility] [address] [place] [address] Deepa Saucedo MD Results 10/21/2011 8:35 AM EST - 10/21/2011 11:59 PM EST Hospital Encounter [facility] [address] [facility] [place] [address] Nonspecific abnormal electrocardiogram (ECG) (EKG); Coronary atherosclerosis of [place] coronary artery; Essential hypertension, benign; Shortness of breath; Pure hypercholesterolemia; Depressive disorder, not elsewhere classified; Unspecified essential hypertension; Hypertrophy of prostate without urinary obstruction and other lower urinary tract symptoms (LUTS); Esophageal reflux Discharge Disposition: Home or Self Care 10/06/2011 3:00 PM EST Office Visit [address] [address] Kwadwo Ibrahim MD Dysuria (Primary Dx); Toenail fungus; Depressive disorder, not elsewhere classified; Unspecified essential hypertension; Hypertrophy of prostate without urinary obstruction and other lower urinary tract symptoms (LUTS); Esophageal reflux; DDD (degenerative disc disease), lumbar; Balanitis; Fatigue; Acute sinusitis; STIVEN (generalized anxiety disorder); Anxiety 09/21/2011 11:00 AM EST Office Visit [address] [address] Kwadwo Ibrahim MD Acute bronchitis; Acute sinusitis; Seasonal allergies; Depressive disorder, not elsewhere classified; Unspecified essential hypertension; Hypertrophy of prostate without urinary obstruction and other lower urinary tract symptoms (LUTS); Cerumen impaction; DDD (degenerative disc disease), lumbar 08/31/2011 11:20 AM EST Office Visit [address] [address] Kwadwo Ibrahim MD Leg pain (Primary Dx); Anxiety and depression; Hypertrophy of prostate without urinary obstruction and other lower urinary tract symptoms (LUTS); Unspecified essential hypertension; Esophageal reflux; Insomnia; Acute bronchitis 08/24/[address] [address] Kwadwo Ibrahim MD Medication Refill 08/05/[address] [address] Kwadwo Ibrahim MD Medication Refill 06/25/2011 2:30 PM EDT Office Visit [address] [address] Kwadwo Ibrahim MD Chest pain; Acute sinusitis; Seasonal allergies; Depressive disorder, not elsewhere classified; Unspecified essential hypertension; Acute bronchitis; Herpes simplex 06/19/[address] [address] Kwadwo Ibrahim MD Medication Refill 06/08/2011 9:05 PM EDT - 06/08/2011 11:59 PM EDT Hospital Encounter [facility] PROCESSING [facility] [place] [address] Unspecified essential hypertension; Neuropathy Discharge Disposition: Home or Self Care 06/08/2011 2:50 PM EDT Office Visit [address] [address] Kwadwo Ibrahim MD STIVEN (generalized anxiety disorder); DDD (degenerative disc disease), lumbar; Rash; Flu shot; Leukoplakia; BPH w/o urinary obs/LUTS; Unspecified essential hypertension; Depressive disorder, not elsewhere classified; ED (erectile dysfunction); Neuropathy 05/23/[address] [address] Tracy Rubalcava RN Medication Refill 04/27/2011 4:40 PM EDT Office Visit [address] [address] Guy Monge MD Fatigue; Weakness generalized; Acute sinusitis; DDD (degenerative disc disease), lumbar; Encounter for long-term opiate analgesic use; Dysuria; Depressive disorder, not elsewhere classified 03/30/2011 9:30 AM EDT - 03/30/2011 11:59 PM EDT Hospital Encounter [facility] [address] [place] [address] Deepa Saucedo MD ASHD (arteriosclerotic heart disease) Discharge Disposition: Home or Self Care 03/30/2011 8:22 AM EDT - 03/30/2011 9:29 AM EDT Hospital Encounter [facility] [address] [place] [address] Deepa Saucedo MD Discharge Disposition: Home or Self Care 03/17/2011 2:00 PM EDT Office Visit [address] [address] Kwadwo Ibrahim MD Acute sinusitis (Primary Dx); STIVEN (generalized anxiety disorder); Low back pain; Depressive disorder, not elsewhere classified; Seasonal allergies; Esophageal reflux; Acute bronchitis 03/09/2011 7:55 AM EDT Hospital Encounter [facility] [address] [place] [address] Nonspecific abnormal electrocardiogram (ECG) (EKG); Essential hypertension, benign; Coronary atherosclerosis of [place] coronary artery; Shortness of breath; Precordial pain; Pure hypercholesterolemia Discharge Disposition: Home or Self Care 03/09/2011 7:57 AM EDT - 03/09/2011 11:59 PM EDT Hospital Encounter [facility] [address] [place] [address] Deepa Saucedo MD ASHD (arteriosclerotic heart disease) Discharge Disposition: Home or Self Care 02/13/2011 3:30 PM EDT Office Visit [facility] [address] [place] [address] Ruddy Londono MD STIVEN (generalized anxiety disorder) (Primary Dx); URI (upper respiratory infection); Seasonal allergies 02/11/[address] [address] Kwadwo Ibrahim MD Medication Refill 12/17/2010 9:30 AM EDT Office Visit [address] [address] Kwadwo Ibrahim MD HTN (hypertension); DDD (degenerative disc disease), lumbar; STIVEN (generalized anxiety disorder); BPH w/o urinary obs/LUTS; Esophageal reflux; Hyperlipemia 12/15/[address] [address] Kwadwo Ibrahim MD Medication Refill 12/15/[address] [address] Kwadwo Ibrahim MD Medication Refill 12/09/[address] [address] Kwadwo Ibrahim MD Medication Refill 11/25/2010 1:30 PM EST - 11/25/2010 11:59 PM EST Hospital Encounter [facility] [address] [place] [address] Hypopotassemia; Essential hypertension, benign Discharge Disposition: Home or Self Care 11/17/[address] [address] Kwadwo Ibrahim MD Medication Refill 11/04/[address] [address] Kaykay Hawkins Medication Refill 10/23/2010 3:15 PM EST - 10/23/2010 11:59 PM EST Hospital Encounter [facility] [address] [place] [address] Other nonspecific findings on examination of blood Discharge Disposition: Home or Self Care 10/20/[address] [address] Kwadwo Ibrahim MD Medication Refill 10/17/2010 Refill [facility] [address] [place] [place] [address] Kwadwo Ibrahim MD Medication Refill 10/15/2010 Refill [facility] [address] [facility] [place] [address] Kwadwo Ibrahim MD Medication Refill 10/01/2010 10:35 AM EST - 10/01/2010 11:59 PM EST Hospital Encounter [facility] [address] [facility] [place] [address] Shortness of breath; Pure hypercholesterolemia; Essential hypertension, benign; Coronary atherosclerosis of [place] coronary artery; Precordial pain Discharge Disposition: Home or Self Care 08/21/2010 Refill [facility] [address] [place] [address] Tracy Rubalcava RN Medication Refill 08/21/[address] [place] [address] Tracy Rubalcava RN Medication Refill 08/21/2010 9:40 AM EST Office Visit [address] [address] Kwadwo Ibrahim MD Acute sinusitis; Seasonal allergies; Depressive disorder, not elsewhere classified; Unspecified essential hypertension; BPH w/o urinary obs/LUTS; Esophageal reflux 08/18/2010 Refill [facility] [address] [facility] [place] [address] Kwadwo Ibrahim MD Medication Refill 07/15/2010 Refill [facility] [address] [place] [address] Kwadwo Ibrahim MD Medication Refill 07/15/2010 Refill [facility] [address] [place] [address] Kwadwo Ibrahim MD Medication Refill 06/18/2010 Refill [facility] [address] [place] [address] Kwadwo Ibrahim MD Medication Refill 06/13/2010 Telephone [facility] [address] [place] [address] NicolAdijohanavalerianoCHANTELLE Results (lab) 06/12/2010 12:04 PM EDT - 06/12/2010 11:59 PM EDT Hospital Encounter [facility] [address] [place] [address] Unspecified pre-operative examination Discharge Disposition: Home or Self Care 06/12/2010 Telephone [facility] [address] [place] [address] Janine Spear MA Rash 06/12/2010 9:30 AM EDT Office Visit [facility] [address] [place] [address] Kwadwo Ibrahim MD Pre-operative exam (Primary Dx); Flu shot; ED (erectile dysfunction); Need for influenza vaccine; HTN (hypertension); DDD (degenerative disc disease), lumbar; Seasonal allergies 05/23/2010 Refill [facility] [address] [place] [address] Kwadwo Ibrahim MD Medication Refill 05/23/2010 Abstract SEP [facility] [address] [place] [address] Kwadwo Ibrahim MD Depressive disorder, not elsewhere classified; Unspecified essential hypertension; BPH w/o urinary obs/LUTS; Esophageal reflux 05/23/2010 1:50 PM EDT Office Visit [facility] [address] [place] [address] Cameron Prieto MD Sinusitis; Depressive disorder, not elsewhere classified; Unspecified essential hypertension 02/24/2010 12:01 AM EDT - 02/25/2010 2:03 PM EDT Hospital Encounter HST SEG Deepa Allen MD 01/15/2010 10:41 AM EDT - 01/15/2010 11:59 PM EDT Hospital Encounter HST SEG GRT Deepa Saucedo MD 12/10/2009 12:20 PM EDT - 12/10/2009 11:59 PM EDT Hospital Encounter HST RADIOLOGY GRT Devonte Pena 11/20/2009 8:25 AM EST - 11/20/2009 11:59 PM EST Hospital Encounter HST SEG GRT Jason Luz MD 11/11/2009 12:01 AM EST - 11/11/2009 11:59 PM EST Hospital Encounter HST EPIC CON UNK GRT Jason Luz MD 10/21/2009 4:23 PM EST - 10/21/2009 11:59 PM EST Hospital Encounter HST EPIC CON UNK EDG Jermaine Aly MD 09/23/2009 11:06 PM EST [...] 3:40 PM EDT Hospital Encounter HST GC JohnsonDuane patel V, DO Kwadwo Ibrahim MD 04/03/2009 8:18 [...] 11:59 PM EST Hospital Encounter HST LAB JACQUELINET Deepa Saucedo MD 06/04/2008 10:54 AM EDT - 06/04/2008 11:56 AM EDT Emergency HST EPIC CON UNK JACQUELINET Rusty Traylor MD 04/27/2008 1:41 AM EDT - 04/28/2008 10:29 AM EDT Hospital Encounter HST TCA Deepa Saucedo MD 04/23/2008 1:36 PM EDT - 04/23/2008 11:59 PM EDT Hospital Encounter HST GC SPEC SVC Deepa Allen MD 01/16/2008 8:01 AM EDT - 01/16/2008 11:59 PM EDT Hospital Encounter HST RADIOLOGY JACQUELINET Willie Guevara MD 01/12/2008 12:00 PM EDT - 01/12/2008 4:20 PM EDT Hospital Encounter HST 4C SHT STY UN RANDIG Willie Guevara MD 11/23/2007 11:56 AM EST - 01/07/2008 11:59 PM EDT 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 Deepa Allen MD 12/19/2007 12:36 PM EDT - 12/19/2007 11:59 PM EDT Hospital Encounter HST GC SPEC [facility] Deepa Allen MD 11/28/2007 7:53 AM EDT - 11/28/2007 11:59 PM EDT Hospital Encounter HST GC SPEC [facility] Deepa Allen MD 11/21/2007 4:11 PM EST - 11/21/2007 11:59 PM EST Hospital Encounter HST LAB EDG Kwadwo Ibrahim MD 09/28/2007 10:53 AM EST - 09/28/2007 11:59 PM EST Hospital Encounter HST LAB EDG Kwadwo Ibrahim MD 03/16/2007 12:43 PM EDT [...] 10/21/2005 12:15 PM EST Hospital Encounter HST Evangelist Garcia MD 10/05/2005 4:27 PM EST - 10/05/2005 [...] 01/15/2005 10:35 AM EDT Hospital Encounter HST Macho Pat MD 10/02/2004 7:47 AM EST - 10/02/2004 11:00 AM EST Hospital Encounter HST Macho Pat MD 09/10/2004 12:01 AM EST - 09/10/2004 11:59 PM EST Hospital Encounter HST SURGERY EDG Macho Chang MD 09/17/2003 3:25 PM EST - 09/17/2003 4:20 PM EST Emergency HST EPIC CON UNK GRT Arben Day MD 09/06/2003 7:08 AM EST - 09/06/2003 11:59 PM EST Hospital Encounter HST GC SPEC SVC JACQUELINET Willie Guevara MD 06/20/2003 10:59 AM EDT - 06/20/2003 11:59 PM EDT Hospital Encounter HST GC SPEC SVC GRT Raji Gallardo MD 06/20/2003 9:40 AM EDT - 06/20/2003 11:59 PM EDT Hospital Encounter HST RADIOLOGY JACQUELINET aCmeron Prieto MD 06/05/2003 2:38 PM EDT - [...] AM EDT Emergency HST EPIC CON UNK GRT Darshan Jansen MD 08/23/2000 5:50 AM EST [...] Hospital Encounter HST EPIC CON UNK EDG Imer Sanchez 01/28/1994 8:57 AM EDT - 01/28/1994 11:59 [...] daily. Active urea (CARMOL) 20 % Top CreamIndications:Pr uritus Apply to affected area 75 g 1 6 Active GLUCOSAMINE/MSM/CHO NDROIT SULF (GLUCOSAMINE [id number] ORAL) Take by mouth. Active cholecalciferol, vitamin D3, 25 mcg (1,000 unit) Oral Tablet Take 1 Tablet by mouth 2 times daily. Active fUROsemide (LASIX) 40 mg Oral TabletIndications:C oronary 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 artery of [place] heart without angina pectoris Take 1 Tab by mouth daily as needed. 30 Tab 3 7 Active aspirin 81 mg Oral Tablet, Chewable Take by mouth daily. Active azelastine (ASTELIN) 137 mcg (0.1 %) Nasl Aerosol, SprayIndications:Al lergic rhinitis USE TWO SPRAY(S) IN EACH NOSTRIL TWICE DAILY DIRECTED 30 mL 3 8 Active amLODIPine (NORVASC) 5 mg Oral TabletIndications:C oronary 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 artery of [place] heart without angina pectoris TAKE 1 TABLET BY MOUTH ONCE DAILY 90 Tab 1 8 Active busPIRone (BUSPAR) 10 mg Oral Tablet Take by mouth as needed. Active triamcinolone acetonide (KENALOG) 0.1 % [place] Paste Take by mouth 4 times daily. Active MAGIC MOUTHWASH (LIDO/DIPHEN/NYSTAT ) ORAL COMPOUNDIndications :Glossitis 5 ml swish and swallow qid PRN 450 mL 0 Active ciclopirox (LOPROX) 0.77 % Top Cream Apply topically 2 times daily. Active Polyethylene Glycol 3350 Misc Powder by [employer].(Non-Petey g; Combo Route) route. Active cetirizine (ZYRTEC) 10 mg Oral TabletIndications:S easonal allergies Take 1 Tablet by mouth daily. 30 Tablet 2 3 Active meclizine (ANTIVERT) 12.5 mg Oral Tablet 4 Active oxyCODONE-acetamino phen (PERCOCET) 7.5-325 mg Oral Tablet Take 1 Tablet by mouth every 4 hours as needed for Acute Pain (R52). 4 Active desvenlafaxine succinate (PRISTIQ) 50 mg Oral Tablet Sustained Release 24 hr Take 50 mg by mouth daily. 4 Active pantoprazole (PROTONIX) 40 mg Oral Tablet, Delayed Release (E.C.)Indications:P UD (peptic ulcer disease) Take 1 Tablet by mouth daily. 90 Tablet 3 5 Active erythromycin (ROMYCIN) Opht Ointment APPLY 1/2 INCH STRIP INSIDE LOWER LEFT LID NEEDED FOR 2-3 DAYS THEN USE NIGHTLY FOR 10 DAYS 5 Active hydrOXYzine (ATARAX) 25 mg Oral TabletIndications:G AD (generalized anxiety disorder) TAKE 1 TABLET THREE TIMES DAILY NEEDED 90 Tablet 11 5 Active atorvastatin (LIPITOR) 10 mg Oral TabletIndications:C oronary 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 artery of [place] heart without angina pectoris Take 1 Tablet by mouth nightly. 90 Tablet 2 5 Active amitriptyline (ELAVIL) 25 mg Oral TabletIndications:I nsomnia, persistent Take 1 Tablet by mouth nightly. 100 Tablet 3 5 Active loperamide (IMODIUM) 2 mg Oral Capsule Take 1 Capsule by mouth 4 times daily as needed for Diarrhea. 120 Capsule 2 5 Active ondansetron (ZOFRAN-ODT) 4 mg Oral Tablet, Rapid DissolveIndications :Nausea Dissolve 1 Tablet by mouth every 8 hours as needed. 30 Tablet 1 5 Active fluticasone propionate (FLONASE) 50 mcg/actuation Nasl [place], Suspension USE 1 SPRAY NASALLY EVERY DAY 32 g 3 5 Active gabapentin (NEURONTIN) 600 mg Oral TabletIndications:S velma enthesopathy, cervicothoracic region,Peripheral neuropathy, idiopathic TAKE 1 TABLET FOUR TIMES DAILY 120 Tablet 2 5 Active doxazosin (CARDURA) 8 mg Oral Tablet Take 1 Tablet by mouth daily. 30 Tablet 2 5 Active Active Problems Patient Care Coordination No te Formatting of this note migh t be different from the original. FAILED TOX SCREEN ctsa 02/07/18 uds 02/07/18 Colby 08/27/16,06/07/17([id number]),05/19/18([id number]),03/02/22([id number]),06/01/23([id number]) As expected Gets Hydrocodone from Dr. Pena [facility] audit completed by Estrella Osman, RN on 12/03/2021. Problem Noted Date Diagnosed [...] times daily. Atherosclerotic heart diseas e of [place] coronary artery with other forms of angina [...] ulcer 03/31/2016 STIVEN (generalized anxiety disorder) 03/31/2016 Syncope 12/28/2015 Coronary artery disease invo lving [place] coronary artery of [place] heart 12/28/2015 Orthostatic hypotension 12/28/2015 Hyponatremia 12/28/2015 [...] the fall Coronary artery disease invo lving [place] coronary artery of [place] heart without angina pectoris Vasovagal syncope Resolved [...] Hepatitis A, Adult 04/21/2019,10/16/2018 Influenza High Dose 05/24/2025,,06/07/2020,06/16,10/16/2018,09/24/2017,06/03/2016 ,06/03/2015,06/07/2014,06/02/2013 Influenza Patient Reported 07/03/2008,06/28/2007 Influenza Vaccine, Unspecifi [...] Mother Social History Smoking Status as of 09/07/2025 Tobacco Use Types Packs/Day Years Used Date [...] Pulse 76 07/16/2025 9:22 AM EDT Temperature 36.9 C (98.4 F) 05/24/2025 1:04 PM EDT Respiratory Rate 18 03/22/2025 8:59 AM EDT Oxygen Saturation 98% 03/22/2025 8:59 AM EDT Inhaled Oxygen Concentration - - Weight 85.3 kg (188 lb) 07/16/2025 9:22 AM EDT Height 165.1 cm (5' 5 ) 07/16/2025 9:22 AM EDT Body Mass Index 31.28 07/16/2025 9:22 AM EDT Plan of Treatment Upcoming Encounters Date Type Department Care Team (Late st Contact Info) Description 10/17/2025 10:30 AM EST Appointment GRT NUC MED [address] [place] [address] Deepa Saucedo MD [address] [place] [address] [address] [place] [place] [address] 10/17/2025 11:30 AM EST Appointment GRT STRESS TEST [address] [place] [address] Deepa Saucedo MD [address] [place] [address] [address] [place] [place] [address] 10/17/2025 12:15 PM EST Appointment GRT VASCULAR LAB [address] [place] [address] Deepa Saucedo MD [address] [place] [address] [address] [place] [place] [address] 10/17/2025 1:15 PM EST Appointment GRT VASCULAR LAB [address] [place] [address], [place] [address] Deepa Saucedo MD [address] [place] [address] [address] [place] [address] 03/18/2026 9:50 AM EDT Office Visit GRT H&V [address] [id number] Deepa Saucedo MD [address] [place] [address] [address] [place] [address] Procedures Procedure Name Priority Date/Time Associated Diagnosis [...] Unspecified essential hypertension Coronary 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 artery of [place] heart without angina pectoris Hypertensive heart disease with heart failure (HCC) Atherosclerosis of [place] coronary artery of [place] heart without angina pectoris Benign essential HTN [...] 8:50 AM EDT Coronary 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 artery of [place] heart without angina pectoris Unspecified essential hypertension Hypertensive heart disease with heart failure (HCC) HEPATIC FUNCTION PANEL Routine 03/13/2024 8:50 AM EDT Coronary 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 artery of [place] heart without angina pectoris Unspecified essential hypertension Hypertensive heart disease with heart failure (HCC) BASIC METABOLIC PANEL Routine 03/13/2024 8:50 AM EDT Coronary 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 artery of [place] heart without angina pectoris Unspecified essential hypertension [...] Unspecified essential hypertension Coronary 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 artery of [place] heart without angina pectoris Bruit of right carotid artery Aortic root enlargement NM MYOCARDIAL PERFUSION SPECT STRESS AND REST Routine 11/25/2022 10:30 AM EST Chest pressure SOB (shortness of breath) on exertion Unspecified essential hypertension Coronary 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 artery of [place] heart without angina pectoris Bruit of right carotid artery Aortic root enlargement ST STRESS TEST LEXISCAN Routine 11/25/2022 9:59 AM EST Chest pressure SOB (shortness of breath) on exertion Unspecified essential hypertension Coronary 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 artery of [place] heart without angina pectoris Bruit of right carotid artery Aortic root enlargement EC ECHOCARDIOGRAM COMPLETE W DOPPLER AND COLOR FLOW MAPPING Routine 11/03/2022 11:14 AM EST Chest pressure SOB (shortness of breath) on exertion Unspecified essential hypertension Coronary 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 artery of [place] heart without angina pectoris Bruit of right [...] hypertension Vasovagal syncope Coronary 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 artery of [place] heart without angina pectoris SOB (shortness of breath) on exertion Chest pressure ST STRESS TEST LEXISCAN Routine 03/25/2020 12:34 PM EDT Unspecified essential hypertension Vasovagal syncope Coronary 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 artery of [place] heart without angina pectoris SOB (shortness of breath) on exertion Chest pressure EC ECHOCARDIOGRAM COMPLETE W DOPPLER AND COLOR FLOW MAPPING Routine 03/25/2020 11:03 AM EDT Unspecified essential hypertension Vasovagal syncope Coronary 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 artery of [place] heart without angina pectoris SOB (shortness of breath) on exertion Chest pressure POCT EKG Routine 02/27/2020 12:11 PM EDT Unspecified essential hypertension Vasovagal syncope Coronary 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 artery of [place] heart without angina pectoris SEDIMENTATION RATE AUTOMATED [...] 10:19 AM EDT Coronary 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 artery of [place] heart without angina pectoris SCANNED LABS 10/13/2018 1:00 PM EST HB-1 CUSTOM UDS PANEL-QUEST Routine 02/07/2018 11:12 PM EDT Encounter for medication management SCANNED RADIOLOGY REPORT 01/04/2018 11:21 AM EDT HM HOLTER MONITOR RECORDING AND ANALYSIS Routine 01/03/2018 11:22 AM EDT Coronary 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 artery of [place] heart without angina pectoris Coronary artery disease involving [place] heart, angina presence unspecified, unspecified vessel or lesion type Unspecified essential hypertension Racing heart beat Dizziness SOB (shortness of breath) on exertion Chest tightness or pressure NM MYOCARDIAL PERFUSION SPECT STRESS AND REST Routine 01/03/2018 10:11 AM EDT Coronary 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 artery of [place] heart without angina pectoris Coronary artery disease involving [place] heart, angina presence unspecified, unspecified vessel or lesion type Unspecified essential hypertension Racing heart beat Dizziness SOB (shortness of breath) on exertion Chest tightness or pressure ST STRESS TEST LEXISCAN Routine 01/03/2018 9:41 AM EDT Coronary 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 artery of [place] heart without angina pectoris Coronary artery disease involving [place] heart, angina presence unspecified, unspecified vessel or lesion type Unspecified essential hypertension Racing heart beat Dizziness SOB (shortness of breath) on exertion Chest tightness or pressure EC ECHOCARDIOGRAM COMPLETE W DOPPLER AND COLOR FLOW MAPPING Routine 01/03/2018 8:19 AM EDT Coronary 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 artery of [place] heart without angina pectoris Coronary artery disease involving [place] heart, angina presence unspecified, unspecified vessel or [...] 11:45 AM EST Coronary 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 artery of [place] heart without angina pectoris COMPREHENSIVE METABOLIC PANEL Routine 07/30/2017 11:45 AM EST Unspecified essential hypertension CBC WITH DIFF Routine 07/30/2017 11:45 AM EST Acute bronchitis, unspecified organism LIPID SCREEN Routine 07/30/2017 11:45 AM EST Coronary 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 artery of [place] heart without angina pectoris Unspecified essential hypertension HEPATIC FUNCTION PANEL Routine 07/30/2017 11:45 AM EST Coronary 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 artery of [place] heart without angina pectoris Unspecified essential hypertension [...] 11:04 AM EST Coronary 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 artery of [place] heart, angina presence unspecified Unspecified essential hypertension Preop cardiovascular exam ST STRESS TEST LEXISCAN Routine 09/10/2016 10:15 AM EST Coronary 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 artery of [place] heart, angina presence unspecified Unspecified essential hypertension [...] Orthostatic hypotension Hyponatremia Coronary 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 artery of [place] heart without angina pectoris SIADH (syndrome of [...] Beasley MD mometasone (NASONEX) 50 mcg/actuation Nasl [place], Non-Aerosol 2 Sprays byNasal route daily. 11/27/15 [...] Beasley MD fluticasone (FLONASE) 50 mcg/actuation Nasl [place], Suspension 1 [place] byNasal route daily. 07/03/15 Kassie Beasley MD fUROsemide (LASIX) 20 mg Oral Tablet Take 1 Tab by mouth daily. As neededfor fluid 12/06/15 Gabino Carrillo, loratadine (CLARITIN) 10 mg Oral Tablet Take 1 Tab by mouth daily asneeded. 01/24/15 Kwadwo Ibrahim MD omeprazole (PRILOSEC) 20 mg Oral Capsule, Delayed Release(E.C.) Take 1 Capby mouth 2 times daily (before meals). 08/09/15 Kassie Beasley MD tadalafil (CIALIS) 5 mg Oral Tablet Take 1 Tab by mouth daily. 12/20/15Kassie Beasley MD triamcinolone acetonide (KENALOG) 0.1 % [employer] Paste APPLY TO MUCASMEMBRANES 3 TIMES DAILY FOR 2 WEEKS 07/03/15 Kassie Beasley MD No current outpatient prescriptions on file. HOSPITAL MEDICATIONS: Scheduled Meds: doxazosin 4 mg Oral Nightly enoxaparin 40 mg Subcutaneous Daily fish oil omega 3-dha-epa 1 Cap Oral Daily fluticasone 2 [place] Each Nare Daily gabapentin 600 mg Oral [...] or polydipsia Musculoskelatal: Has chronic back pain CORPORATE AUDITOR: No TIA - Stroke - No balance [...] Noted Syncope 12/28/2015 Coronary 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 artery of [place] heart12/28/2015 Orthostatic hypotension 12/28/2015 Hyponatremia 12/28/2015 DDD [...] for the consult. Will follow. Jailyn Cardoza, AGGREGATE CONVEYOR OPERATOR 12/28/20154:49 PM Physician Documentation: I have reviewed the chief complaint, history of present illness, review ofsystems as well as the past medical/social/family history sections forthis patient.This patient was seen in coordination with Mayra Cardoza NPPlan of care was discussed . I did not see the patient. Yariel Watson MD Interventional Cardiology. [facility]. CORTISOL STAT [...] 10:20 AM EDT Coronary 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 artery of [place] heart without angina pectoris Unspecified essential hypertension [...] Hypercholesteremia SOB (shortness of breath) on exertion [facility] VASCULAR CVMHU SCREENING SINGLE EXAM [...] Routine 01/10/2013 12:38 PM EDT Chest pain VA US CAROTID DUPLEX BILATERAL Routine 08/22/2012 10:41 [...] abnormal electrocardiogram (ECG) (EKG) Coronary atherosclerosis of [place] coronary artery Essential hypertension, benign Shortness of breath Pure hypercholesterolemia Depressive disorder, not elsewhere classified Unspecified essential hypertension Hypertrophy of prostate without urinary obstruction and other lower urinary tract symptoms (LUTS) Esophageal reflux HEPATIC FUNCTION PANEL Routine 10/21/2011 8:39 AM EST Nonspecific abnormal electrocardiogram (ECG) (EKG) Coronary atherosclerosis of [place] coronary artery Essential hypertension, benign Shortness of breath Pure hypercholesterolemia Depressive disorder, not elsewhere classified Unspecified essential hypertension Hypertrophy of prostate without urinary obstruction and other lower urinary tract symptoms (LUTS) Esophageal reflux LIPID PANEL REFLEX Routine 10/21/2011 8:39 AM EST Nonspecific abnormal electrocardiogram (ECG) (EKG) Coronary atherosclerosis of [place] coronary artery Essential hypertension, benign Shortness of [...] 4:01 PM EDT Chest pain VITAMIN D, [id number] Routine 06/08/2011 3:54 PM EDT Unspecified essential [...] (EKG) Essential hypertension, benign Coronary atherosclerosis of [place] coronary artery Shortness of breath Precordial pain Pure hypercholesterolemia HEPATIC FUNCTION PANEL Routine 03/09/2011 8:53 AM EDT Nonspecific abnormal electrocardiogram (ECG) (EKG) Essential hypertension, benign Coronary atherosclerosis of [place] coronary artery Shortness of breath Precordial pain Pure hypercholesterolemia BASIC METABOLIC PANEL Routine 03/09/2011 8:53 AM EDT Nonspecific abnormal electrocardiogram (ECG) (EKG) Essential hypertension, benign Coronary atherosclerosis of [place] coronary artery Shortness of breath Precordial pain [...] hypercholesterolemia Essential hypertension, benign Coronary atherosclerosis of [place] coronary artery Precordial pain HEPATIC FUNCTION PANEL Routine 10/01/2010 10:43 AM EST Shortness of breath Pure hypercholesterolemia Essential hypertension, benign Coronary atherosclerosis of [place] coronary artery Precordial pain LIPID PANEL REFLEX Routine 10/01/2010 10:43 AM EST Shortness of breath Pure hypercholesterolemia Essential hypertension, benign Coronary atherosclerosis of [place] coronary artery Precordial pain SCANNED OR REPORT [...] AM EDT GC NM NUCLEAR CARD PROC BOWL TURNER Routine 02/24/2010 8:19 AM EDT SCANNED OR [...] CARDIAC PROCEDURE Routine 12/13/2008 10:33 AM EDT US GALL BLADDER SONO Routine 11/23/2008 8:[address] PHARM STRESS Routine 11/19/2008 11:10 AM EST NM NUCLEAR CARD PROC BOWL TURNER Routine 11/19/2008 9:18 AM EST CC CARDIAC PROCEDURE Routine 04/27/2008 11:[address] ABD/PELVIS BOWL TURNER Routine 01/16/2008 8:[address] PHARM STRESS Routine 11/28/2007 8:50 AM EDT NM NUCLEAR CARD PROC BOWL TURNER Routine 11/28/2007 8:50 AM EDT VA CAROTID [...] PM CLINICAL HISTORY: M62.89-Other specified disorders of [id number]. COMPARISON: None PROCEDURE COMMENTS: Routine sonographic evaluation of the region of interest with customer response representative images sent to PACS along with trash man notes. FINDINGS: Targeted ultrasound performed in the [...] PM CLINICAL HISTORY: M62.89-Other specified disorders of [id number]. COMPARISON: None PROCEDURE COMMENTS: Routine sonographic evaluation of the region ofinterest with customer response representative images sent to PACS along with trash man notes. FINDINGS: Targeted ultrasound performed in the [...] of the ordering clinician. us Dillon Ibrahim APRN IMG US ORDERABLES Final Resu lt * (ABNORMAL) COMPLIANCE PANEL, URINE (03/02/2025 11:00 AM EDT) Medications Expected Gabapentin Percocet(TM) (oxycodone) 03/04/2025 9:05 AM EDT PREFERRED LAB [facility] [employer] Barbiturates Absent Cutoff 200 ng/mL 03/04/2025 9:05 AM EDT [facility] THC <10 Cutoff 10 ng/mL ng/mL 03/04/2025 9:05 AM EDT [facility] Comment:9-[id number]-[id number] cannabinol; does not distinguish between prescribed and illicit forms THC Glucuronide <10 Cutoff 10 ng/mL ng/mL 03/04/2025 9:05 AM EDT [facility] Comment:Metabolite of THC Amphetamine <50 Cutoff 50 ng/mL ng/mL 03/04/2025 9:05 AM EDT [facility] Comment:e.g., Adderall, Vyva nse, Dexedrine, Obetrol MDA <50 Cutoff 50 ng/mL ng/mL 03/04/2025 9:05 AM EDT [facility]REFERRED [facility] Comment:Metabolite of MDMA, and MDEA MDEA <50 Cutoff 50 ng/mL ng/mL 03/04/2025 9:05 AM EDT [facility] Comment:e.g., Eileen MDMA <50 Cutoff 50 ng/mL ng/mL 03/04/2025 9:05 AM EDT [facility] Comment:e.g., Ecstasy, Tracy Methamphetamine <50 Cutoff 50 ng/mL ng/mL 03/04/2025 9:05 AM EDT [facility] Comment:d- and l- isomers ar e not distinguished by this test; may reflect Srikanth's inhaler, Desoxyn, Selegiline, or illicit source Phentermine <50 Cutoff 50 ng/mL ng/mL 03/04/2025 9:05 AM EDT [facility] Comment:e.g., Adipex, Lomair a, Ionamin,Fastin,Zantryl Gabapentin >2,000(H) Cutoff 50 ng/mL ng/mL 03/04/2025 9:05 AM EDT [facility] Comment:e.g, Neurontin Pregabalin <50 Cutoff 50 ng/mL ng/mL 03/04/2025 9:05 AM EDT [facility] Comment:Lyrica Alprazolam <8 Cutoff 8 ng/mL ng/mL 03/04/2025 9:05 AM EDT [facility] Comment:e.g, Xanax, Niravam alpha-Hydroxyalprazolam <25 Cutoff 25 ng/mL ng/mL 03/04/2025 9:05 AM EDT [facility] [facility] Comment:Metabolite of Alpraz olam Clonazepam <10 Cutoff 10 ng/mL ng/mL 03/04/2025 9:05 AM EDT [facility] Comment:e.g., Klonopin, Clon opin 7-Aminoclonazepam <25 Cutoff [...] AM EDT [facility] Comment:e.g., Serax; also Me tabolite of Temazepam, and Nordiazepam Oxazepam Glucuronide <50 Cutoff 50 ng/mL ng/mL 03/04/2025 9:05 AM EDT [facility] Comment:Metabolite of Oxazep am Temazepam <50 Cutoff [...] EDT [facility] Comment:Metabolite of Fentan yl 6-Monoacetylmorphine (6MAM) <10 [...] 100 ng/mL ng/mL 03/04/2025 9:05 AM EDT [facility] Comment:e.g., Soma Meprobamate <100 Cutoff 100 ng/mL ng/mL 03/04/2025 9:05 AM EDT [facility] Comment:e.g., [place], Equa nil, Micrainin, Equagesic; Metabolite of Carisoprodol Codeine <50 Cutoff 50 ng/mL ng/mL 03/04/2025 9:05 AM EDT [facility] Comment:e.g., Acetaminophen w/Codeine, Tylenol3 w/ Codeine Codeine Glucuronide <50 Cutoff 50 ng/mL ng/mL 03/04/2025 9:05 AM EDT [facility] Comment:Metabolite of Codein e Meperidine <50 Cutoff 50 ng/mL ng/mL 03/04/2025 9:05 AM EDT [facility], [facility] Comment:e.g., Demerol, Pethi dine Normeperidine <50 Cutoff 50 ng/mL ng/mL 03/04/2025 9:05 AM EDT [facility], [facility] Comment:Metabolite of Meperi dine Morphine <50 Cutoff 50 ng/mL ng/mL 03/04/2025 9:05 AM EDT [facility] Comment:e.g., MS Contin, Yaa anol; Metabolite of Codeine and Heroin; may reflect poppy seed ingestion Dhudelzk-7-Wgodnhbscur <25 Cutoff 25 ng/mL ng/mL 03/04/2025 9:05 AM EDT [facility] Comment:Metabolite of Morphi ne. Oxagpixg-0-Orftluxaxvv <25 Cutoff 25 ng/mL ng/mL 03/04/2025 9:05 AM EDT [facility] Comment:Metabolite of Morphi ne. Naloxone <25 Cutoff 25 ng/mL ng/mL 03/04/2025 9:05 AM EDT [facility] Comment:e.g., Narcan, Evzio Hydrocodone <50 Cutoff 50 ng/mL ng/mL 03/04/2025 9:05 AM EDT [facility] Comment:e.g., Lorcet, Lortab , Vicodin, [place]; Minor Metabolite of Codeine Dihydrocodeine <50 Cutoff 50 ng/mL ng/mL 03/04/2025 9:05 AM EDT [facility] Comment:e.g., Didrate, Parzo ne, Parlor, Synalgos; Metabolite of Hydrocodone Norhydrocodone <50 Cutoff 50 ng/mL ng/mL 03/04/2025 9:05 AM EDT [facility] Comment:Metabolite of Hydroc [...] [facility] Comment:e.g., Ultram, ConZip N-Cpghmdysh-cds-Tramadol <50 Cutoff 50 ng/mL ng/mL 03/04/2025 9:05 AM EDT [facility] Comment:Metabolite of Tramad ol Tapentadol <50 Cutoff 50 ng/mL ng/mL 03/04/2025 9:05 AM EDT [facility] Comment:Nucynta Tapentadol-Glucuronide <50 Cutoff 50 ng/mL ng/mL 03/04/2025 9:05 AM EDT [facility], [facility] Comment:Metabolite of Tapent adol Urine Creatinine 72.7 mg/dL 03/04/20 9:05 AM EDT [facility] Comment: Greater than 20: Consistent with valid sample Greater than 2 but less than 20: Possible dilution Less than 2: Questionable valid sample Urine STRUCTURE OF URINARY TRACT PROPER / Unknown 03/02/2025 11:00 AM EDT 03/02/2025 11:00 AM EDT Narrative [facility] - 03/04/2025 9:05 AM EDT The absence of expected drug(s), and/or drug metabolite(s), may indicate non-compliance, diluted or adulterated urine, poor drug absorption, concentration of drug below the cut-off, timing of specimen collection relative to administration of drug, or limitations of testing. Specimens are held for 7 days. This test was developed, and its performance characteristics determined by [facility] ([facility]). It has not been cleared or approved by the FDA. This test is used for clinical purposes. It should not be regarded as investigational or for research. [facility] is certified under the Clinical Laboratory Improvement Amendments (CLIA) as qualified to perform high complexity clinical laboratory testing. Dillon Ibrahim APRN URINE ORDERABLES Final Resul t [facility] [address] , [place] [address] [facility] [address] [place] [address] * VITAMIN B12/ FOLIC ACID (03/02/2025 11:00 AM EDT) Only the most recent of2 resultswithin the time period is included. [facility] Vitamin B12 884 232 - 1,245 pg/mL 03/02/2025 3:49 PM EDT [facility] Folate >16.00 >=4.50 ng/mL 03/02/2025 3:49 PM EDT [facility] Blood VENOUS BLOOD / Unknown Venipuncture / Unknown 03/02/2025 11:00 AM EDT 03/02/2025 11:00 AM EDT Narrative [facility] - 03/02/2025 3:49 PM EDT Ingestion of jefferson doses of biotin (>5 mg/day) taken within 8 hours of drawing blood sample can interfere with this immunoassay test. us Dillon Ibrahim AGGREGATE CONVEYOR OPERATOR CHEMISTRY ORDERABLES Final R esult [facility] [address] , [place] [address] * (ABNORMAL) CBC (03/02/2025 11:00 AM EDT) [...] - 369 x10(3)/mcL 03/02/2025 3:29 PM EDT [facility], [facility] MPV 10.6 8.8 - 12.5 fL 03/02/2025 3:29 PM EDT [facility], [facility] Blood VENOUS BLOOD / Unknown Venipuncture / Unknown 03/02/2025 11:00 AM EDT 03/02/2025 11:00 AM EDT Dillon Ibrahim APRN HEMATOLOGY ORDERABLES Final Result Performing Organization Address [facility] de Phone Number [facility] , [place] [address] * VITAMIN D 25 HYDROXY (03/02/2025 11:00 AM EDT) Only the most recent of3 resultswithin the time period is included. Pathologist [facility] Vit D 25 OH 42.9 30.0 - 150.0 ng/mL 03/02/2025 3:49 PM EDT [facility], [facility] Comment: Preferred: >= 30 ng/mL Insufficient: 21-29 [...] ORDERABLES Final R esult Performing Organization Address [facility] de Phone Number [facility] [employer] [place] [address] * THYROID STIMULATING HORMONE (03/02/2025 11:00 AM EDT) Only the most recent of7 resultswithin the time period is included. Pathologist [facility] TSH 0.496 0.270 - 4.200 mcIU/mL 03/02/2025 4:09 PM EDT [facility] Blood VENOUS BLOOD / Unknown Venipuncture / Unknown 03/02/2025 11:00 AM EDT 03/02/2025 11:00 AM EDT Narrative [facility] - 03/02/2025 4:09 PM EDT Ingestion of jefferson doses of biotin (>5 mg/day) taken within 8 hours of drawing blood sample can interfere with this immunoassay test. Dillon Ibrahim APRN CHEMISTRY ORDERABLES Final R esult Performing Organization Address [facility] de Phone Number [facility] [employer] , [place] [address] * IRON LEVEL (03/02/2025 11:00 AM EDT) Only the most recent of2 resultswithin the time period is included. Iron 141 50 - 170 mcg/dL 03/03/2025 7:46 PM EDT [facility] Blood VENOUS BLOOD / Unknown Venipuncture / Unknown 03/02/2025 11:00 AM EDT 03/02/2025 11:00 AM EDT Dillon Ibrahim APRN CHEMISTRY ORDERABLES Final [facility] Performing Organization Address [facility] de Phone Number [facility] [employer] , [address] [place] [id number] * HEMOGLOBIN A1C (03/02/2025 11:00 AM EDT) Only the most recent of5 resultswithin the time period is included. Hgb A1C 5.5 4.2 - 5.6 % 03/02/2025 3:52 PM EDT [facility] Est. Avg Glucose 111 mg/dL 03/02/2025 3:52 PM EDT [facility] Blood VENOUS BLOOD / Unknown Venipuncture / Unknown 03/02/2025 11:00 AM EDT 03/02/2025 11:00 AM EDT Narrative [facility] - 03/02/2025 3:52 PM EDT REFERENCE RANGE: Normal: 4.0-5.6% Pre-diabetes: 5.7-6.4% Provisional diagnosis of diabetes: >6.4% Hgb F>10% and anything which shortens red cell survival, such as hemolytic anemia, or unstable hemoglobin variants such as HbSS, HbSC, or HbCC, will lower the HbA1c value associated with a given level of glycemic control. us Dillon Ibrahim AGGREGATE CONVEYOR OPERATOR CHEMISTRY ORDERABLES Final R esult [facility] [address] [facility] [address] , [place] [address] * HOLTER MONITOR RECORDING AND ANALYSIS (08/10/2024 10:46 AM EST) Only the most recent of2 resultswithin the time period is included. Anatomical Region Laterality Modality Holter/Event Mon itoring 08/15/2024 12:4 9 PM EST Impressions 08/15/2024 12:34 PM EST [facility] Test Date: 2024-08-15 Pat Name: JERMAINE HE Department: DEPID Room: Gender: Male Professional Model: : 1945 Requested By: DEEPA Pascal Order Number: [id number] Barbara MD: Deepa Saucedo MD Interpretive Statements Caddymaster Date: 08/10/2024 Referring Provider: Dr. Deepa Saucedo MD Patient was monitored for 24 hours. INDICATIONS: Essential (primary) hypertension CONCLUSION: Patient monitored for 1d 21h, analyzable time was 1d 21h starting on 08/10/2024 10:39 am. Primary rhythm was Sinus bradycardia. Average heart rate was 57 bpm, Minimum heart rate was 36 bpm on Day 3 :41:00 am, Max heart rate was 102 bpm on Day :09:03 pm PVC(s): Delphos was 0.04 %, 58 total PVC(s), 2 disparate morphologies Electronically Signed On 08-15-2024 12:34:42 EST by Deepa Saucedo MD Narrative Procedure Note Deepa Saucedo MD - 08/15/[address] [facility] Test Date: 2024-08-15 Pat Name: JERMAINE HE Department: DEPID Room: Gender: Male Professional Model: : 1945 Requested By: DEEPA POST Order Number: [id number] Barbara MD: Deepa Saucedo MD Interpretive Statements Caddymaster Date: 08/10/2024 Referring Provider: Dr. Deepa Saucedo MD Patient was monitored for 24 hours. INDICATIONS: Essential (primary) hypertension CONCLUSION: Patient monitored for 1d 21h, analyzable time was 1d 21h starting on 08/10/2024 10:39 am. Primary rhythm was Sinus bradycardia. Average heart rate was 57 bpm,Minimum heart rate was 36 bpm on Day :41:00 am, Max heart rate was 102 bpmon :09:03 pm PVC(s): Delphos was 0.04 %, 58 total PVC(s), 2 [...] 08/08/2024 5:42 PM EST [facility] BUN 10 8 - 23 mg/dL 08/08/2024 5:42 PM EST [facility] Creatinine 0.89 0.67 - 1.30 mg/dL 08/08/2024 5:42 PM EST [facility] Albumin 4.1 3.2 - 4.6 gm/dL 08/08/2024 5:42 PM EST [facility] Total Protein 6.7 6.4 - 8.3 gm/dL 08/08/2024 5:42 PM EST [facility] Bili Total 0.5 0.2 - 1.4 mg/dL 08/08/2024 5:42 PM EST [facility] ALT 23 <=41 U/L 08/08/2024 5:42 PM EST [facility] AST 32 <=40 U/L 08/08/2024 5:42 PM EST [facility] Alk Phos 102 40 - 129 U/L 08/08/2024 5:42 PM EST [facility] eGFR (CKD-EPIcr 2020) 89 >=60 mL/min/1.7 3 m2 08/08/2024 5:42 PM EST [facility] Comment:Estimated GFR was ca lculated using the CKD-EPIcr (2020) equation refit without race. The equation is recommended by the National Kidney Foundation - [place] [employer] Neph[employer] Task Force. Blood VENOUS BLOOD / Unknown Venipuncture / Unknown 08/08/2024 10:53 AM EST 08/08/2024 10:53 AM EST us Dillon Ibrahim AGGREGATE CONVEYOR OPERATOR CHEMISTRY ORDERABLES Final R esult [facility], [address] , [place] [address] [facility] [address] [place] [address] * HEPATIC FUNCTION PANEL (03/13/2024 8:50 AM EDT) Only the most recent of7 resultswithin the time period is included. Total Protein 6.8 6.4 - 8.3 gm/dL 03/13/2024 5:05 PM EDT [facility] Albumin 4.4 3.2 - 4.6 gm/dL 03/13/2024 5:05 PM EDT [facility] Bili Direct 0.2 0.0 - 0.3 mg/dL 03/13/2024 5:05 PM EDT [facility] Bili Total 0.7 0.2 - 1.4 mg/dL 03/13/2024 5:05 PM EDT [facility] AST 28 <=40 U/L 03/13/2024 5:05 PM EDT [facility] ALT 7 <=41 U/L 03/13/2024 5:05 PM EDT [facility] Alk Phos 92 40 - 129 U/L 03/13/2024 5:05 PM EDT [facility] Blood VENOUS BLOOD / Unknown Venipuncture / Unknown 03/13/2024 8:50 AM EDT 03/13/2024 8:50 AM EDT us Deepa Saucedo MD CHEMISTRY ORDERABLES Fin al Result [facility] [address] , [place] [address] * LIPID SCREEN (03/13/2024 8:50 AM EDT) Only the most recent of6 resultswithin the time period is included. Cholesterol 164 <200 mg/dL 03/13/2024 5:05 PM EDT [facility] Comment: < 200 Desirable 200 - 239 Borderline High >= 240 High Triglyceride 55 <150 mg/dL 03/13/2024 5:05 PM EDT [facility], [facility] Comment: < 150 Normal 150 - 199 Borderline High 200 - 499 High >= 500 Very High HDL 92 >=40 mg/dL 03/13/2024 5:05 PM EDT [facility], [facility] Comment: > 60 Optimal 40 - 60 Acceptable < 40 Low LDL Calculated 61 <100 mg/dL 03/13/2024 5:05 PM EDT [facility] [employer], [facility] Comment: < 100 Optimal 100 - 129 Near or above optimal 130 - 159 Borderline High 160 - 189 High >= 190 Very High Non-HDL-C Calculated 72 <=129 mg/dL 03/13/2024 5:05 PM EDT [facility] Comment: <130 Desirable 130-159 Above Desirable 160-189 Borderline High 190-219 High >= 220 Very High Fasting Specimen? Yes None 024 5:05 PM EDT [facility] Blood VENOUS BLOOD / Unknown Venipuncture / Unknown 03/13/2024 8:50 AM EDT 03/13/2024 8:50 AM EDT us Deepa Saucedo MD CHEMISTRY ORDERABLES Fin al Result [facility] [address] [facility] [address] [address] [place] [id number] [facility] [address] [place] [address] * (ABNORMAL) BASIC METABOLIC PANEL (03/13/2024 8:50 AM EDT) Only the most recent of25 resultswithin the time period is included. Sodium 139 136 - 145 mmol/L 03/13/2024 5:05 PM EDT [facility] Potassium 3.4(L) 3.5 - 5.0 mmol/L 03/13/2024 5:05 PM EDT [facility] Chloride 99 98 - 107 mmol/L 03/13/2024 5:05 PM EDT [facility] Total CO2 30(H) 22 - 29 mmol/L 03/13/2024 5:05 PM EDT [facility] Anion Gap 10 7 - 16 mmol/L 03/13/2024 5:05 PM EDT [facility] Calcium 9.8 8.8 - 10.4 mg/dL 03/13/2024 5:05 PM EDT [facility] Glucose Lvl 93 70 - 99 mg/dL 03/13/2024 5:05 PM EDT [facility] BUN 7(L) 8 - 23 mg/dL 03/13/2024 5:05 PM EDT [facility] Creatinine 0.84 0.67 - 1.30 mg/dL 03/13/2024 5:05 PM EDT [facility] [employer] eGFR (CKD-EPIcr 2020) 90 >=60 mL/min/1.7 3 m2 03/13/2024 5:05 PM EDT [facility] Comment:Estimated GFR was ca lculated using the CKD-EPIcr (2020) equation refit without race. The equation is recommended by the National Kidney Foundation - [place] [employer] Nephrology Task Force. Blood VENOUS BLOOD / Unknown Venipuncture / Unknown 03/13/2024 8:50 AM EDT 03/13/2024 8:50 AM EDT us Deepa Saucedo MD CHEMISTRY ORDERABLES Fin al Result [facility] [address] [place] [address], [address] [place] [phone] [facility] [address] [place], [place] [id number] * MM US BREAST LIMITED BILATERAL (10/14/2023 10:43 AM EST) Anatomical Region Laterality Modality Breast Bilateral Ultrasound 10/14/2023 11:3 9 AM EST Impressions 10/14/2023 11:39 AM EST Negative (PRL-Cllbltvp-5) ~ RECOMMENDATION: Manage patient on clinical basis. [...] the next mammogram, in accordance with the [place] [employer] and the Society of Breast Imaging recommendations. Narrative 10/14/2023 11:39 AM EST Procedure:MM US BREAST LIMITED BILATERAL ~ N64.1-Enbryyvdqj-ECO-10-CM N63.23-Unspecified lump in the left breast, lower outer mtizjhov-QBW-32-CM ~ MM US BREAST LIMITED BILATERAL Standard [...] tissue. No characteristic abnormality. ~ Procedure Note ChiloDarshan DO Imer - 10/14/2023 Procedure:MM US BREAST LIMITED BILATERAL ~ N64.5-Vsqinqaxvs-ZKN-10-CM N63.23-Unspecified lump in the left breast, lower pqxrnirshlxyd-IIA-07-CM ~ MM US BREAST LIMITED BILATERAL Standard [...] tissue. No characteristic abnormality. ~ IMPRESSION: Negative (JOL-Dophrlvs-3) ~ RECOMMENDATION: Manage patient on clinical basis. [...] the next mammogram, in accordance with the [place] [employer] and the Society of Breast Imaging recommendations. us Dillon Ibrahim APRN IMG MAMMOGRAPHY ORDERABLES F inal Result * MM MAMMO DIGITAL FREDI DIAGN BILAT (10/14/2023 10:16 AM EST) Anatomical Region Laterality Modality Breast Bilateral Mammography 10/14/2023 11:1 2 AM EST Impressions 10/14/2023 11:12 AM EST Incomplete-need additional imaging evaluation (FJD-Zvtbvzhz-0) ~ RECOMMENDATION: Ultrasound of both breasts. This [...] the next mammogram, in accordance with the [place] [employer] and the Society of Breast Imaging recommendations. Narrative 10/14/2023 11:12 AM EST Procedure:MM MAMMO DIGITAL FREDI DIAGN BILAT ~ Reason for exam: clinical finding. N64.5-Qwpphncijg-DNW-10-CM N63.23-Unspecified lump in the left breast, lower outer egrlwqec-POP-86-CM N64.4-Uoarjdcmpc-WWN-10-CM N63.23-Unspecified lump in the left breast, lower outer ejkeneea-WHB-34-CM ~ MM MAMMO DIGITAL FREDI DIAGN BILAT [...] ultrasound imaging requested. ~ Procedure Note Darshan Woo, - 10/14/2023 Procedure:MM MAMMO DIGITAL FREDI DIAGN BILAT ~ Reason for exam: clinical finding. N64.6-Znyyozpvje-KKV-10-CM N63.23-Unspecified lump in the left breast, lower xyabwgtuijkme-LMI-65-CM N64.1-Twlocmyfep-XFG-10-CM N63.23-Unspecified lump in the left breast, lower rqtqkfxrhgeco-KYL-74-CM ~ MM MAMMO DIGITAL FREDI DIAGN BILAT [...] requested. ~ IMPRESSION: Incomplete-need additional imaging evaluation (AVQ-Fbhxdncz-3) ~ RECOMMENDATION: Ultrasound of both breasts. This [...] the next mammogram, in accordance with the [place] [employer] and the Society of Breast Imaging recommendations. us Dillon Ibrahim AGGREGATE CONVEYOR OPERATOR IMG MAMMOGRAPHY ORDERABLES F inal Result * SCANNED EKG (08/09/2023 11:43 AM EST) Only the most recent of4 resultswithin the time period is included. Anatomical Region Laterality Modality Other 08/09/2023 11:4 3 AM EST us Unknown Provider IMG ECG ORDERABLES Final Result * (ABNORMAL) TROPONIN-T HIGH SENSITIVITY 2HR (07/30/2023 7:49 PM EST) tf-gIyxrordl-Z 2HR 23(H) <22 ng/L 07/30/2023 8:11 PM EST [facility] Comment:See the website [facility] for rule out [place] care pathway, conditions other than AMI that can cause elevated hs cTnT, and comparison of values from the 4th and 5th generation Gloria tests. https://[email or web address].org/topic/clinical-answers/[email or web address]/cpm-[email or web address] 80371 hs-cTnT 2Hr Delta from Baseline -3 <4 ng/L 07/30/2023 8:11 PM EST [facility] Blood VENOUS BLOOD / Unknown Venipuncture / Unknown 07/30/2023 7:49 PM EST 07/30/2023 7:51 PM EST Narrative [facility] - 07/30/2023 8:11 PM EST Ingestion of jefferson doses of biotin (>5 mg/day) taken within 8 hours of drawing blood sample can interfere with this immunoassay test. us Elder Parish MD CHEMISTRY ORDERABLES Final Res ult [facility] [address] [place], [place] [id number] * CT ANGIOGRAM PULMONARY W CONTRAST (07/30/2023 [...] Isovue 370 IV contrast as recorded in [employer]. 2-D multiplanar reconstructions and 3-D MIP reconstructions reviewed. Dose 1 : CT DLP Total : 423.6 mGycm DLP Spiral Max : 403.7 mGycm Maximum CTDI Vol : 54.3 mGy SSDE : 61.359 mGy SSDE Diameter : 32.3 cm SSDE Source : [employer] FINDINGS: No acute pulmonary embolism. No aortic [...] using Isovue 370 IVcontrast as recorded in [employer]. 2-D multiplanar reconstructions and 3-D MIP reconstructions [...] BASELINE W/ REFLEX (07/30/2023 5:56 PM EST) Pathologist [facility] id-qGvuqbujl-A 26(H) <22 ng/L 07/30/2023 6:19 PM EST [facility] Comment:See the website [employer] for rule out [place] care pathway, conditions other than AMI that can cause elevated hs cTnT, and comparison of values from the 4th and 5th generation Gloria tests. https://[email or web address]/topic/clinical-answers/[email or web address]/[email or web address] 48799 Blood VENOUS BLOOD / Unknown Venipuncture / Unknown 07/30/2023 5:56 PM EST 07/30/2023 5:59 PM EST Narrative [facility] - 07/30/2023 6:19 PM EST Ingestion of jefferson doses of biotin (>5 mg/day) taken within 8 hours of drawing blood sample can interfere with this immunoassay test. us Elder Parish MD CHEMISTRY ORDERABLES Final Res ult [facility] [address] [place] [address] * (ABNORMAL) CBC WITH DIFF (07/30/2023 5:56 PM EST) Only the most recent of12 resultswithin the time period is included. WBC 5.8 3.7 - 10.3 x10(3)/mcL 07/30/2023 6:02 PM [facility] RBC 4.40(L) 4.60 - 6.10 x10(6)/mcL 07/30/2023 6:02 PM [facility] Hgb 14.1 13.7 - 17.5 g/dL 07/30/2023 6:02 PM [facility] Hct 42.5 40.0 - 51.0 % 07/30/2023 6:02 PM [facility] MCV 96.6 80.0 - 100.0 fL 07/30/2023 6:02 PM [facility] MCH 32.0 26.0 - 34.0 pg 07/30/2023 6:02 PM [facility] MCHC 33.2 30.7 - 35.5 g/dL 07/30/2023 6:02 PM [facility] RDW 13.2 <=14.9 % 07/30/2023 6:02 PM [facility] Platelet 261 155 - 369 x10(3)/mcL 07/30/2023 6:02 PM [facility] MPV 9.6 8.8 - 12.5 fL 07/30/2023 6:02 PM [facility] Neut Percent 64.5 % 07/30/2023 6:02 PM [facility] Comment:Neutrophils equals s egs plus bands Imm Gran% 0.2 % 07/30/2023 6:02 PM [facility] Comment:Automated count of m etamyelocytes, myelocytes and promyelocytes. Lymph Percent 19.3 % 07/30/2023 6:02 PM [facility] Irion Percent 10.8 % 07/30/2023 6:02 PM [facility] Eos Percent 4.9 % 07/30/2023 6:02 PM [facility] Baso Percent 0.3 % 07/30/2023 6:02 [facility] Neut # 3.7 1.6 - 6.1 x10(3)/mcL 07/30/2023 6:02 [facility] Comment:Neutrophils equals s egs plus bands IMMGRAN# 0.0 0.0 - 0.1 x10(3)/mcL 07/30/2023 6:02 PM EST [facility] Comment:Automated count of m etamyelocytes, myelocytes and promyelocytes. An absolute IG <0.1 is reported as 0.0. Lymph # 1.1(L) 1.2 - 3.9 x10(3)/mcL 07/30/2023 6:02 PM EST [facility] Irion # 0.6 0.3 - 0.9 x10(3)/[facility] 07/30/2023 6:02 PM EST [facility] Eos# 0.3 0.0 - 0.5 x10(3)/[facility] 07/30/2023 6:02 PM EST [facility] Baso # 0.0 0.0 - 0.1 x10(3)/[facility] 07/30/2023 6:02 PM EST [facility] Blood VENOUS BLOOD / Unknown Venipuncture / Unknown 07/30/2023 5:56 PM EST 07/30/2023 5:59 PM EST us Elder Parish MD HEMATOLOGY ORDERABLES Final Re sult [facility] [address] [place], [place] [id number] * EK EKG 12 LEAD (07/30/2023 5:22 PM EST) Only the most recent of4 resultswithin the time period is included. Anatomical Region Laterality Modality Electrocardiogra phy 07/30/2023 5:31 PM EST Impressions 07/31/2023 12:43 PM EST [facility] Test Date: 2023-07-30 Pat Name: JERMAINE HE Department: DEPID Room: 07 Gender: Male Professional Model: Em : 1945 Requested By: ELDER Barnhart Order Number: [id number] Reading MD: Tito Jha MD Measurements Intervals [place] Rate: 74 P: 44 MA: 212 QRS: -38 QRSD: 105 T: 52 QT: 372 QTc: 413 Interpretive Statements SINUS RHYTHM WITH FIRST DEGREE AV BLOCK Electronically Signed On 07-31-2023 12:43:29 EST by Tito Jha MD Narrative Procedure Note Tito Jha MD - 07/31/[address] Test Date: 2023-07-30 Pat Name: JERMAINE HE Department: DEPID Room: 07 Gender: Male Professional Model: Em : 1945 Requested By: ELDER Barnhart Order Number: [id number] Reading MD: Tito Jha MD Measurements Intervals [place] Rate: 74 P: 44 MA: 212 QRS: -38 QRSD: 105 T: 52 QT: 372 QTc: 413 Interpretive Statements SINUS RHYTHM WITH FIRST DEGREE AV BLOCK Electronically Signed On 07-31-2023 12:43:29 EST by Tito Jha MD Elder Parish MD IMG ECG ORDERABLES Final Resul t * (ABNORMAL) D-DIMER (07/30/2023 1:27 PM EST) D-Dimer 1,058(H) <=500 ng/mL FEU 07/30/2023 1:40 PM EST [facility] Comment:This is an automated latex enhanced [...] PM EST 07/30/2023 1:27 PM EST Narrative [facility] - 07/30/2023 1:40 PM EST For patients between the ages of 50 - 75, an age-adjusted D-Dimer cut-off in combination with non-high clinical probability may be considered for the exclusion of venous thromboembolism (calculation = age x 10). POLLY Easley, et al. Nesha Lot Boss Med. 2017;166(5):361-363 SEAN Darling, et al. Nesha Lot Boss Med. 2015;(163):701-711. Skylar Kaur, et al. LLUVIA. 2014;(11):7936-9955. Ilene Gambino PA-C HEMATOLOGY ORDERABLES nal Result Performing Organization Address [facility] Co de Phone Number [facility] [address] [place] [address] * TSH REFLEX (07/29/2023 2:55 PM EST) Only the most recent of2 resultswithin the time period is included. TSH Reflex 0.467 0.270 - 4.200 mcIU/mL 07/30/2023 5:48 AM EST [facility] Blood VENOUS BLOOD / Unknown Venipuncture / Unknown 07/29/2023 2:55 PM EST 07/29/2023 2:58 PM EST Narrative [facility] - 07/30/2023 5:48 AM EST Ingestion of jefferson doses of biotin (>5 mg/day) taken within 8 hours of drawing blood sample can interfere with this immunoassay test. us Guy Monge MD CHEMISTRY ORDERABLES [facility] al Result Performing Organization Address [facility] Co de Phone Number [facility] [address] [facility], [address] [place] [id number] * PROSTATE SPECIFIC ANTIGEN (SCREENING) (07/29/2023 2:55 PM EST) Only the most recent of5 resultswithin the time period is included. Total Psa 2.08 <=4.00 ng/mL 07/29/2023 10:52 PM EST [facility] Blood VENOUS BLOOD / Unknown Venipuncture / Unknown 07/29/2023 2:55 PM EST 07/29/2023 2:58 PM EST Narrative [facility] - 07/29/2023 10:52 PM EST [facility] Luis [...] ORDERABLES Fin al Result Performing Organization Address [facility] de Phone Number [facility] [address] [facility] , [place] [address] * T4, FREE (THYROXINE) (07/29/2023 2:55 PM EST) Only the most recent of4 resultswithin the time period is included. Free T4 1.23 0.80 - 1.80 ng/dL 07/30/2023 5:48 AM EST [facility] Blood VENOUS BLOOD / Unknown Venipuncture / Unknown 07/29/2023 2:55 PM EST 07/29/2023 2:58 PM EST Narrative [facility] - 07/30/2023 5:48 AM EST Ingestion of jefferson doses of biotin (>5 mg/day) taken within 8 hours of drawing blood sample can interfere with this immunoassay test. Guy Monge MD CHEMISTRY ORDERABLES Fin al Result Performing Organization Address [facility] de Phone Number [facility] [address] [facility] , [place] [address] * XR CHEST PA AND LATERAL (07/29/2023 [...] X-RAY, 07/29/2023 2:00 PM CLINICAL HISTORY: R50.9-Fever, zysnwvalkdh-LQJ-22-CM R05.1-Acute eacuy-TWB-12-CM COMPARISON: 04/21/2023 PROCEDURE COMMENTS: Frontal and lateral views of the chest. FINDINGS: Elevation left hemidiaphragm is unchanged. Bibasilar linear scar. No focal consolidation. Fixation hardware involving the inferior thoracic spine is partially imaged. Heart size is within normal limits. Procedure Note Kwadwo Martino MD - 07/29/2023 PA AND LATERAL CHEST X-RAY, 07/29/2023 2:00 PM CLINICAL HISTORY: R50.9-Fever, [id number]-CSA-74-CM R05.1-Acute xigkb-QPK-55-CM COMPARISON: 04/21/2023 PROCEDURE COMMENTS: Frontal and lateral [...] YES/NO SEP OFFICE 07/29/2023 1:41 PM EST us Ilene Gambino PA-C POINT OF CARE TEST [...] CONTRAST, 02/22/2023 1:21 PM CLINICAL HISTORY: R05.3-Chronic erxvf-EMR-95-CM. COMPARISON: CT chest with IV contrast 08/26/2015 [...] CONTRAST, 02/22/2023 1:21 PM CLINICAL HISTORY: R05.3-Chronic sehte-YRK-48-CM. COMPARISON: CT chest with IV contrast 08/26/2015 [...] There are postoperative changesof thoracolumbar posterior pedicle devnate and screw fusion, incompletelyimaged. UPPER ABDOMEN: Unremarkable. [...] contactthe office of the ordering clinician. us Christi Vasquez MD [facility] CT ORDERABLES Final Result * CREATININE ISTAT (02/22/2023 1:16 PM EDT) Only the most recent of2 resultswithin the time period is included. Creatinine-iST AT 0.9 0.6 - 1.3 mg/dL 02/22/2023 1:23 PM EDT [facility] Blood BLOOD SPECIMEN / Unknown 02/22/2023 1:16 PM EDT 02/22/2023 1:23 PM EDT us Christi Vasquez MD POINT OF CARE TEST ORDERABLES Final Result [facility] [address] [place] [address] * (ABNORMAL) PULMONARY FUNCTION TEST (02/10/2023 1:46 PM EDT) [facility] FVC_PRE 3.10 2.48 - 4.32 L 02/10/2023 4:19 PM EDT [facility] FVC_REF 3.39 02/10/2023 4:19 PM EDT [facility] FVC_LLN 2.48 02/10/2023 4:19 PM EDT [facility] FVC_Pre%REF 91 % 02/10/2023 4:19 PM EDT [facility] FEV1_PRE 2.29 1.82 - 3.27 L 02/10/2023 4:19 PM EDT [facility] FEV1_REF 2.57 02/10/2023 4:19 PM EDT [facility] FEV1_LLN 1.82 02/10/2023 4:19 PM EDT [facility] FEV1_Pre%REF 89 % 02/10/2023 4:19 PM EDT [facility] FEV1/FVC_PRE 73.87 61.88 - 88.93 % 02/10/2023 4:19 PM EDT [facility] FEV1/FVC_REF 76 02/10/2023 4:19 PM EDT [facility] FEV1/FVC_LLN 62 02/10/2023 4:19 PM EDT [facility] FEV1/FVC_Pre%R EF 97 % 02/10/2023 4:19 PM EDT [facility] HJJ87-86%_REF 1.95 02/10/2023 4:19 PM EDT [facility] FWM44-06%_LLN 0.79 02/10/2023 4:19 PM EDT [facility] TJE34-93%_Pre% REF 89 % 02/10/2023 4:19 PM EDT [facility] PEF_PRE 4.85 4.75 - 8.74 L/s 02/10/2023 4:19 PM EDT [facility] PEF_REF 6.74 02/10/2023 4:19 PM EDT [facility] PEF_LLN 4.75 02/10/2023 4:19 PM EDT [facility] PEF_Pre%REF 72 % 02/10/2023 4:19 PM EDT [facility] DLCO_SB_PRE 7.04 5.24 - 9.49 mmol/(min* kPa) 02/10/2023 4:19 PM EDT [facility] DLCOSingleBrea th_REF 21.4 02/10/2023 4:19 PM EDT [facility] DLCOSingleBrea th_LLN 15.6 02/10/2023 4:19 PM EDT [facility] DLCOSingleBrea th_Pre%REF 98 % 02/10/2023 4:19 PM EDT [facility] VA_SB_PRE 4.78 4.22 - 6.42 L 02/10/2023 4:19 PM EDT [facility] VASingleBreath _REF 5.29 02/10/2023 4:19 PM EDT [facility] VASingleBreath _LLN 4.22 02/10/2023 4:19 PM EDT [facility] VASingleBreath _Pre%REF 90 % 02/10/2023 4:19 PM EDT [facility] DLCO/VA_REF 4.08 02/10/2023 4:19 PM EDT [facility] DLCO/VA_LLN 3.00 02/10/2023 4:19 PM EDT [facility] DLCO/VA_Pre%RE F 108 % 02/10/2023 4:19 PM EDT [facility] Hb_PRE 14.40 g(Hb)/dL 02/10/2023 4:19 PM EDT [facility] IC_PRE 2.74(H) 2.46 - 2.46 L 02/10/2023 4:19 PM EDT [facility] IC_REF 2.46 02/10/2023 4:19 PM EDT [facility] IC_LLN 2.46 02/10/2023 4:19 PM EDT [facility] IC_Pre%REF 112 % 02/10/2023 4:19 PM EDT [facility] ERV_PRE 0.35(L) 0.87 - 0.87 L 02/10/2023 4:19 PM EDT [facility] ERV_REF 0.87 02/10/2023 4:19 PM EDT [facility] ERV_LLN 0.87 02/10/2023 4:19 PM EDT [facility] ERV_Pre%REF 41 % 02/10/2023 4:19 PM EDT [facility] RV_PRE 2.90 1.91 - 3.26 L 02/10/2023 4:19 PM EDT [facility] RV_REF 2.58 02/10/2023 4:19 PM EDT [facility] RV_LLN 1.91 02/10/2023 4:19 PM EDT [facility] RV_Pre%REF 112 % 02/10/2023 4:19 PM EDT [facility] RV%TLC_PRE 48.36 34.23 - 52.19 % 02/10/2023 4:19 PM EDT [facility] RV%TLC_REF 43 02/10/2023 4:19 PM EDT [facility] RV%TLC_LLN 34 02/10/2023 4:19 PM EDT [facility] RV%TLC_Pre%REF 112 % 02/10/2023 4:19 PM EDT [facility] FRCpl_PRE 3.25 2.46 - 4.44 L 02/10/2023 4:19 PM EDT [facility] FRCpleth_REF 3.45 02/10/2023 4:19 PM EDT [facility] FRCpleth_LLN 2.46 02/10/2023 4:19 PM EDT [facility] FRCpleth_Pre%R EF 94 % 02/10/2023 4:19 PM EDT [facility] TLC_PRE 6.00 4.96 - 7.26 L 02/10/2023 4:19 PM EDT [facility] TLC_REF 6.11 02/10/2023 4:19 PM EDT [facility] TLC_LLN 4.96 02/10/2023 4:19 PM EDT [facility] TLC_Pre%REF 98 % 02/10/2023 4:19 PM EDT [facility] 02/10/2023 1:46 PM EDT Impressions [facility] - 02/10/2023 4:19 PM EDT Normal lung function us Christi Vasquez MD PFT ORDERABLES Final Result [facility] [address] [place] [address] * SCANNED RADIOLOGY REPORT (11/27/2022 5:13 PM [...] vasodilator is <1.37). us Deepa Saucedo MD [facility] [place] CARDIAC ORDERABLE S Final Result * ST STRESS TEST LEXISCAN (11/25/2022 9:59 AM EST) Only the most recent of7 resultswithin the time period is included. Anatomical Region Laterality Modality Cardiac Stress T esting 11/25/2022 9:26 AM EST Impressions 11/25/2022 12:30 PM EST [facility] Test Date: 2022-11-25 Pat Name: JERMAINE HE Department: DEPID Room: Gender: Male Professional Model: Dora Haney : 1945 Requested By: DEEPA Pascal Order Number: [id number] Reading MD: Tito Jha MD Interpretive Statements [...] Note Tito Jha MD - 11/25/2022 IMPRESSION [facility] Test Date: 2022-11-25 Pat Name: JERMAINE HE Department: DEPID Room: Gender: Male Professional Model: Lyndon Dora : 1945 Requested By: DEEPA POST Order Number: [id number] Reading MD: Tito Jha MD Interpretive Statements [...] ascending aorta is dilated, measures 3.8 cm. us Deepa Saucedo MD IMG ECHO ORDERABLES Tania l Result * POCT JACKI SARS ANTIGEN (11/12/2021 2:13 PM EST) SARS Antigen Negative Negative SEP OFFICE Lot Number SEP OFFICE Expiration Date SEP OFFICE SeriAl # SEP OFFICE Control Line Yes YES/NO SEP OFFICE 11/12/2021 2:13 PM EST us Guy Monge MD POINT OF CARE TEST ORDER WILL Final Result SEP OFFICE * POCT JACKI INFLUENZA A/B (11/12/2021 2:05 PM EST) Influenza A Antigen Negative Negative 11/12/2021 2:13 PM EST [facility] Influenza B Antigen Negative Negative 11/12/2021 2:13 PM EST [facility] Swab SPECIMEN FROM NASOPHARYNGEAL STRUCTURE / Unknown 11/12/2021 2:05 PM EST 11/12/2021 2:13 PM EST us Guy Monge MD POINT OF CARE TEST ORDER WILL Final Result [facility] [address] [place] [address] * POCT EKG (02/27/2020 12:11 PM EDT) Only the most recent of9 resultswithin the time period is included. 02/27/2020 12:1 1 PM EDT Impressions SEP OFFICE - 02/27/2020 12:15 PM EDT Sinus Rhythm 66 nsivcd us Deepa Saucedo MD POINT OF CARE CARDIOLOGY Final Result Performing Organization Address City/[facility] Co de Phone Number SEP OFFICE * LIPID PANEL REFLEX (02/09/2020 10:19 AM EDT) Only the most recent of9 resultswithin the time period is included. Cholesterol 153 <200 mg/dL 02/09/2020 2:23 PM EDT [facility] [employer] Comment: < 200 Desirable 200 - 239 Borderline High >= 240 High Triglyceride 49 <150 mg/dL 02/09/2020 2:23 PM EDT [facility] [employer] Comment: < 150 Normal 150 - 199 Borderline High 200 - 499 High >= 500 Very High HDL 90 >=40 mg/dL 02/09/2020 2:23 PM EDT [facility] [employer] Comment: > 60 Optimal 40 - 60 Acceptable < 40 Low LDL Calculated 53 <100 mg/dL 02/09/2020 2:23 PM EDT [facility] [employer] Non-HDL-C Calculated 63 <=129 mg/dL 02/09/2020 2:23 PM EDT [facility] [employer] Comment: <130 Desirable 130-159 Above Desirable 160-189 Borderline High 190-219 High >= 220 Very High Fasting Specimen? Yes None 020 2:23 PM EDT [facility], [facility] Blood Venipuncture / Unknown 02/09/2020 10:19 AM EDT 02/09/2020 10:19 AM EDT Ruddy Londono MD CHEMISTRY ORDERABLES Final Resu lt [facility] [address] [facility], [place] [address] * SEDIMENTATION RATE AUTOMATED (02/09/2020 10:19 AM EDT) Sed Rate 7 0 - 20 mm/hr 02/09/2020 3:10 PM EDT [facility] Blood Venipuncture / Unknown 02/09/2020 10:19 AM EDT 02/09/2020 10:19 AM EDT Cameron Prieto MD HEMATOLOGY ORDERABLES Fin al Result Performing Organization Address [facility] [place] [address] * SCANNED LABS (10/13/2018 1:00 PM EST) Only the most recent of5 resultswithin the time period is included. 10/13/2018 1:00 PM EST us Unknown Unknown HEMATOLOGY ORDERABLES Final Resu lt * HB-1 CUSTOM UDS PANEL-QUEST (02/07/2018 11:12 PM EDT) Only the most recent of5 resultswithin the time period is included. Prescribed Drug 1 Gabapentin Q [facility]- [...] interpreting these drug results, please contact a [employer] Specialist: [phone] ( ), M-F, 8am-6pm EST. Prescribed [...] interpreting these drug results, please contact a [employer]ist: [phone] ( ), M-F, 8am-6pm EST. Prescribed Drug 1 Gabapentin Q [facility] [employer] (Inspect Manager)ER [employer] Ritalinic Acid NEGATIVE <100 ng/mL [employer] (Inspect Manager)ER [employer] medMATCH Ritalinic Acid CONSISTENT [facility] [employer] (Inspect Manager)ER [employer] medMatch Comments QU EST DIAGNOSTICS- EMPLOYER [employer] Comment: This drug testing is for medical [...] interpreting these drug results, please contact a [employer] Specialist: [phone] ( ), M-F, 8am-6pm EST. 02/07/2018 11:1 2 PM EDT 02/08/2018 4:57 PM EDT Narrative Resulting Agency Comment Performing Organization Information: Site ID: AP Name: [facility] Address: [address] [place] [address], Floor [address] [place] [address] Director: Brionna Vines Ph.Shara. Site ID: [id number] Name: [employer] Address: [address] [place] [phone] Director: Arben Pritchard M.D. 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 us Kassie Beasley MD IMG DIAGNOSTIC IMAGING ORDERAB LES Final Result * HEPATITIS C ANTIBODY - SCREENING (05/06/2017 11:01 AM EDT) Hep C Ab Negative Negative [facility] Blood specimen (specimen) UPPER LIMB STRUCTURE / Unknown 05/06/2017 11:01 AM EDT 05/06/2017 3:52 PM EDT us Kassie Beasley MD HEMATOLOGY ORDERABLES Final Re sult [facility] [address] [place] [address] * DIFFERENTIAL (05/06/2017 11:01 AM EDT) Only the most recent of8 resultswithin the time period is included. Neut Percent 58.5 % [facility] Lymph Percent 25.6 % [facility] Irion Percent 11.4 % [facility] Eos Percent 2.8 % [facility] Baso Percent 1.7 % [facility] Neut# 3.4 1.8 - 7.7 x10(3)/mcL [facility] Lymph# 1.5 0.6 - 4.8 x10(3)/[facility] Irion# 0.7 0.0 - 1.3 x10(3)/[facility] Eos# 0.2 0.0 - 0.5 x10(3)/[facility] Baso# 0.1 0.0 - 0.2 x10(3)/[facility] Blood specimen (specimen) 05/06/2017 11:01 AM EDT 05/06/2017 3:52 PM EDT us Kassie Beasley MD HEMATOLOGY ORDERABLES Final Re sult Performing Organization Address City/[facility]/[place] [address] * PROTEIN LEVEL URINE (12/24/2016 10:30 AM EDT) Urine Protein 10.9 mg/dL [facility] Urine specimen (specimen) 12/24/2016 10:30 AM EDT 12/24/2016 3:01 PM EDT us Zenaida Spann MD URINE ORDERABLES Final R esult Performing Organization Address City/[facility]/[place] [address] * CREATININE LEVEL URINE (12/24/2016 10:30 AM EDT) Urine Creatinine 131.7 mg/dL [facility] Urine specimen (specimen) 12/24/2016 10:30 AM EDT 12/24/2016 3:01 PM EDT Zenaida Spann MD URINE ORDERABLES Final R esult Performing Organization Address City/[facility] Co de Phone Number [facility] [address] [place] [address] * URINALYSIS (12/24/2016 10:30 AM EDT) Only the most recent of2 resultswithin the time period is included. UA Color Yellow [facility] UA Appear Clear Clear [facility] UA Glucose Negative Negative [facility] UA Ketones Negative Negative [facility] UA Blood Negative Negative [facility] UA pH 6.5 5.0 - 8.0 [facility] Comment:Reference range zain d for random specimens only. UA Protein Negative Negative [facility] UA Urobilinogen 0.2 E.U./dL <=1 E.U./dL [facility] UA Nitrite Negative Negative [facility] UA Leuk Est Negative Negative [facility] UA Spec Grav 1.020 1.001 - 1.035 [facility] Comment:Reference range zain d for random specimens only. Urine specimen (specimen) STRUCTURE OF URINARY TRACT PROPER / Unknown 12/24/2016 10:30 AM EDT 12/24/2016 10:31 AM EDT Zenaida Spann MD URINE ORDERABLES Final R esult Performing Organization Address [facility] de Phone Number [facility] [address] [place] [address] * URIC ACID (12/24/2016 10:30 AM EDT) Uric Acid 5.3 3.4 - 7.0 mg/dL [facility] Blood specimen (specimen) UPPER LIMB STRUCTURE / Unknown 12/24/2016 10:30 AM EDT 12/24/2016 10:31 AM EDT Zenaida Spann MD CHEMISTRY ORDERABLES Fin al Result Performing Organization Address City/[facility] Co de Phone Number [facility] [address] [place] [address] * PARATHYROID HORMONE INTACT (12/24/2016 10:30 AM EDT) [facility] PTH Intact 42.74 15.00 - 65.00 pg/mL [facility] Comment: Intact PTH Calcium Interpretation ------- 15 [...] Spann MD CHEMISTRY ORDERABLES Fin al Result [facility] [address] [place] [address] * (ABNORMAL) RENAL FUNCTION PANEL (12/24/2016 10:30 AM EDT) Only the most recent of2 resultswithin the time period is included. [facility] Sodium 143 136 - 145 mmol/L [facility] Potassium 3.8 3.5 - 5.0 mmol/L [facility] Chloride 102 98 - 107 mmol/L [facility] Total CO2 28 22 - 29 mmol/L [facility] Anion Gap 13 7 - 16 mmol/L [facility] Calcium 9.8 8.8 - 10.2 mg/dL [facility] Glucose Lvl 101(H) 82 - 100 mg/dL [facility] BUN 6(L) 8 - 23 mg/dL [facility] Creatinine 0.82 0.67 - 1.30 mg/dL [facility] Albumin 4.2 3.2 - 4.6 gm/dL [facility] Phosphorus 3.6 2.5 - 4.5 mg/dL [facility] GFR Afr Am >60 [facility] GFR Non Afr Am >60 [facility] Blood specimen (specimen) UPPER LIMB STRUCTURE / Unknown 12/24/2016 10:30 AM EDT 12/24/2016 10:31 AM EDT us Zenaida Spann MD CHEMISTRY ORDERABLES Shoaib ai Result - Final [facility] [address] [place] [address] * MRI LUMBAR SPINE WO CONTRAST (07/15/2016 [...] Patent central canal and LEFT lateral recess. [id number] RIGHT lateral recess narrowing. Moderate bilateral foraminal [...] arthropathy. Patent central canal and LEFT lateral recess.[id number] RIGHT lateral recess narrowing. Moderate bilateral foraminal [...] patent. There is moderate bilateral foraminal stenosis. Devonte Pena [facility] [place] MRI ORDERABLES Final Result * ADRENOCORTICOTROPIC HORMONE -REF LAB (06/16/2016 8:50 AM EDT) Only the most recent of2 resultswithin the time period is included. ACTH 25 7 - 69 pg/mL [employer] Comment: INTERPRETIVE INFORMATION: Adrenocorticotropic Hormone Some types of synthetic ACTH are not detected by this assay. Access complete set of age- and/or gender-specific reference intervals for this test in the [facility] Test Directory ([facility]). Blood specimen (specimen) UPPER LIMB STRUCTURE / Unknown 06/16/2016 8:50 AM EDT 06/16/2016 3:00 PM EDT Milly Castillo MD CHEMISTRY ORDERABLES Tania l Result Performing Organization Address City/[facility] Co de Phone Number [employer] [address] [place] [address] * CORTISOL 60 MINUTES (06/15/2016 9:55 AM EDT) Only the most recent of2 resultswithin the time period is included. Cortisol 60 Min 14.61 mcg/dL [facility] Comment:Normal Peak : > 20 u g/dl Blood specimen (specimen) 06/15/2016 9:55 AM EDT 06/15/2016 3:38 PM EDT Milly Castillo MD CHEMISTRY ORDERABLES Tania l Result Performing Organization Address [facility] de Phone Number [facility] [address] [place] [address] * CORTISOL 30 MINUTES (06/15/2016 9:25 AM EDT) Only the most recent of2 resultswithin the time period is included. Cortisol 30 Min 12.08 mcg/dL [facility] Comment:Normal Peak : > 20 u g/dl Blood specimen (specimen) 06/15/2016 9:25 AM EDT 06/15/2016 3:38 PM EDT Milly Castillo MD CHEMISTRY ORDERABLES Tania l Result Performing Organization Address [facility] de Phone Number [facility] [address] [place] [address] * CORTISOL BASELINE (06/15/2016 8:50 AM EDT) Only the most recent of3 resultswithin the time period is included. Cortisol Baseline 6.68 mcg/dL [facility] Blood specimen (specimen) 06/15/2016 8:50 AM EDT 06/15/2016 3:38 PM EDT Milly Castillo MD CHEMISTRY ORDERABLES Tania l Result Performing Organization Address [facility] de Phone Number [facility] [address] [place] [address] * CORTISOL (06/06/2016 10:10 AM EDT) Only the most recent of4 resultswithin the time period is included. Cortisol 4.12 mcg/dL [facility] Comment: Normals: Mornin.2 - 19.4 mcg/dL Evenin.3 - 11.9 mcg/dL Blood specimen (specimen) UPPER LIMB STRUCTURE / Unknown 06/06/2016 10:10 AM EDT 06/06/2016 2:38 PM EDT us Milly Castillo MD CHEMISTRY ORDERABLES Tania l Result Performing Organization Address [facility] de Phone Number [facility] [address] [place] [address] * SODIUM LEVEL URINE (02/14/2016 3:26 PM EDT) Only the most recent of2 resultswithin the time period is included. Urine Sodium 72 mmol/L [facility] Urine specimen (specimen) STRUCTURE OF URINARY TRACT PROPER / Unknown 02/14/2016 3:26 PM EDT 02/14/2016 7:17 PM EDT Cheri Gregory MD URINE ORDERABLES Final Result Performing Organization Address [facility] de Phone Number [facility] [address] [place] [address] * OSMOLALITY URINE (02/14/2016 3:26 PM EDT) Only the most recent of2 resultswithin the time period is included. Urine Osmolality 321 50 - 1,400 mOsm/kg [facility] Comment: Normal Range: 50 mOSM/kg during maximum water diuresis to 1400 mOSM/kg during maximum urinary concentration Reference range valid for random specimens only. Urine specimen (specimen) STRUCTURE OF URINARY TRACT PROPER / Unknown 02/14/2016 3:26 PM EDT 02/14/2016 7:17 PM EDT us Cheri Gregory MD URINE ORDERABLES Final Result Performing Organization Address [facility] Co de Phone Number [facility] [address] [place] [address] * URINE CULTURE (02/14/2016 3:26 PM EDT) Final No growth at 2 days. [facility] Urine specimen obtained by clean catch procedure (specimen) 02/14/2016 3:26 PM EDT 02/14/2016 7:39 PM EDT Cheri Gregory MD MICROBIOLOGY - GENERAL ORDERABLE S Final Result Performing Organization Address [facility] de Phone Number [facility] [address] [place] [address] * OSMOLALITY (02/14/2016 3:26 PM EDT) Only the most recent of2 resultswithin the time period is included. Osmo-serum 289 275 - 295 mOsm/kg [facility] Blood specimen (specimen) UPPER LIMB STRUCTURE / Unknown 02/14/2016 3:26 PM EDT 02/14/2016 7:17 PM EDT Cheri Gregory MD CHEMISTRY ORDERABLES Final Resul t Performing Organization Address [facility] Co de Phone Number [facility] [address] [place] [address] * SCANNED RHYTHM STRIPS (01/05/2016 9:02 PM EDT) Anatomical Region Laterality Modality Other 01/05/2016 9:02 PM EDT us Unknown Unknown IMG ECG ORDERABLES Final Result * CORTISOL 120 MINUTE (12/30/2015 12:06 PM EDT) Cortisol 120 Minutes 8.79 mcg/dL [facility] Blood specimen (specimen) 12/30/2015 12:06 PM EDT 12/30/2015 1:36 PM EDT us Jason Spears MD CHEMISTRY ORDERABLES Final R esult Performing Organization Address [facility] de Phone Number [facility] [address] [place] [address] * CORTISOL 90 MINUTE (12/30/2015 11:38 AM EDT) Cortisol 90 Min 10.19 mcg/dL [facility] Blood specimen (specimen) 12/30/2015 11:38 AM EDT 12/30/2015 1:36 PM EDT us Jason Spears MD CHEMISTRY ORDERABLES Final R esult Performing Organization Address [facility] [place] [address] * POTASSIUM LEVEL URINE (12/28/2015 3:45 PM EDT) Urine Potassium 50.2 mmol/L [facility] Urine specimen (specimen) 12/28/2015 3:45 PM EDT 12/28/2015 5:55 PM EDT us Zenaida Spann MD URINE ORDERABLES Final R esult Performing Organization Address [facility] [place] [address] * CHLORIDE, URINE, RANDOM - REF LAB (12/28/2015 3:45 PM EDT) Hrs Nabeel Random [facility] Total Volume Random [facility] U Creatinine 127 mg/dL [facility] U24 Creat Not Applicable 800 - 2100 mg/day [facility] U Chloride 47 mmol/L [facility] U24 Chloride Not Applicable 140 - 250 mmol/day [facility] Urine specimen (specimen) 12/28/2015 3:45 PM EDT 12/28/2015 7:30 PM EDT us Zenaida Spann MD URINE ORDERABLES Final R esult Performing Organization Address City/[facility] Co de Phone Number [employer] [address] [place] [address] * TROPONIN-T (12/27/2015 10:56 PM EDT) Only the most recent of3 resultswithin the time period is included. Troponin-T <0.01 <=0.00 ng/mL [facility] Comment: Values > or = 0.01 ng/mL have been shown to have prognostic value. Blood specimen (specimen) 12/27/2015 10:56 PM EDT 12/27/2015 10:59 PM EDT us Gregorio Claros MD CHEMISTRY ORDERABLES Final Resul t Performing Organization Address [facility] Co de Phone Number [facility] [address] [place] [address] * NT PROBNP (12/27/2015 2:20 PM EDT) Only the most recent of2 resultswithin the time period is included. NT Pro-BNP 312 <=319 pg/mL [facility] Comment: An NT pro-BNP level less than 300 pg/mL in any patient, regardless of age, Effectively rules out acute CHF with a 99% negative predictive value. Blood specimen (specimen) UPPER LIMB STRUCTURE / Unknown 12/27/2015 2:20 PM EDT 12/27/2015 2:30 PM EDT us Gregorio Claros MD CHEMISTRY ORDERABLES Final Resul t Performing Organization Address City/[facility] Co de Phone Number [facility] [address] [place], [place] [id number] * CT LUMBAR SPINE WO CONTRAST (09/16/2015 [...] to severe bilateralforaminal stenosis at L5-S1. Devonte Pena [facility] CT ORDERABLES Final Result * CT PELVIS WO CONTRAST (09/16/2015 9:20 AM EST) Anatomical Region Laterality Modality Pelvis Computed Tomogra phy 09/16/2015 9:20 AM EST Impressions 09/16/2015 11:34 AM EST IMPRESSION: 1. Moderate bilateral SI joint osteoarthritis. Narrative 09/16/2015 11:[address] PELVIS WO CONTRAST 09/16/2015 9:20 AM HISTORY: Pain M46.1-Sacroiliitis, not elsewhere [id number]-CM TECHNIQUE: Routine CT pelvis without contrast. COMPARISON: [...] 9:20 AM HISTORY: Pain M46.1-Sacroiliitis, not elsewhere [id number]-[id number]-CM TECHNIQUE: Routine CT pelvis without contrast. COMPARISON: [...] IMPRESSION: 1. Moderate bilateral SI joint osteoarthritis. Devonte Shara Pena IMG CT ORDERABLES Final Result * [...] Advanced bilateral sacroiliac degenerative joint changes. Devonte MICHELG DIAGNOSTIC IMAGING ORDERABL ES Final Result * POCT INFLUENZA A/B (08/08/2015 3:04 PM EST) Influenza A Ag - SEP OFFICE Influenza B Ag - SEP OFFICE Lot Number SEP OFFICE Expiration Date SEP OFFICE 08/08/2015 3:04 PM EST us Kassei Beasley MD POINT OF CARE TEST ORDERABLES Final Result Performing Organization Address City/[facility] Co de Phone Number SEP OFFICE * LDL, CALCULATED (06/28/2015 10:20 AM EDT) Only the most recent of7 resultswithin the time period is included. LDL Calculated 39 <=100 mg/dL [facility] Comment: < 100 Optimal 100 - 129 Near or above optimal 130 - 159 Borderline High 160 - 189 High >= 190 Very High Blood specimen (specimen) 06/28/2015 10:20 AM EDT 06/28/2015 1:50 PM EDT Deepa Saucedo MD CHEMISTRY ORDERABLES Fin al Result Performing Organization Address City/[facility] Co de Phone Number [facility] [address] [place] [address] * PROSTATE SPECIFIC ANTIGEN (TUMOR MARKER) (06/28/2015 10:20 AM EDT) Total PSA 1.55 ng/mL [facility] Comment: 2008 AUA Best Practice Statement Guidelines-Age Adjusted Reference Intervals: Age Range Whites Americans Americans 40-49 years 0-2.5 ng/mL 0-2.0 ng/mL 0-2.0 ng/mL 50-59 years 0-3.5 ng/mL 0-4.0 ng/mL 0-3.0 ng/mL 60-69 years 0-4.5 ng/mL 0-4.5 ng/mL 0-4.0 ng/mL 70-79 years 0-6.5 ng/mL 0-5.5 ng/mL 0-5.0 ng/mL [facility] uses the [employer] Total PSA [...] Londono MD CHEMISTRY ORDERABLES Final Resu lt [facility] [address] [place] [address] * XR CERVICAL SPINE AP AND LATERAL (12/07/2014 12:27 PM EDT) Anatomical Region Laterality Modality C-spine Radiographic Tracy ging 12/07/2014 12:1 3 PM EDT Impressions 12/07/2014 2:19 PM EDT IMPRESSION: 1. No acute osseous abnormality. Narrative 12/07/2014 2:19 PM EDT XR CERVICAL SPINE AP AND LATERAL . Dec 07, 2014 12:28:06 PM CLINICAL HISTORY: 723.6-Xlendjcyqan-EYY-9-CM COMPARISON: None No significant osseous abnormality. No acute fracture or dislocation. No destructive lesions. Soft tissue and fat planes preserved. Procedure Note Qasim Nicolas MD - 12/07/2014 XR CERVICAL SPINE AP AND LATERAL . Dec 07, 2014 12:28:06 PM CLINICAL HISTORY: 723.4-Wndxjquohxl-THU-9-CM COMPARISON: None No significant osseous abnormality. No acute fracture or dislocation. Nodestructive lesions. Soft tissue and fat planes preserved. IMPRESSION: 1. No acute osseous abnormality. Devonte Pena IM DIAGNOSTIC IMAGING ORDERABL ES Final Result * [facility] VASCULAR CVMHU SCREENING SINGLE EXAM [...] is within normal ranges described by the [place] [employer] guidelines. Narrative Procedure Note Willie [...] screening is within normal rangesdescribed by the [place] [employer] guidelines. Dillon Acevedo APRN IMG VASCULAR ORDER WILL Final Result * SPECIMEN [...] Comment Performing Organization Information: Site ID: Name: [employer] Address: [address] [place] [address] [place] [address] Director: Brandy Stephenson PhD us Kwadwo KNOX-PDM ORDERABLE (NON-SEH) F inal Result Performing Organization Address [facility] Co de Phone Number LIS[facility]TE [facility] [address] [place] [address], [facility] [[email or web address]] * PDM, HEROIN METAB,QN,W/MEDMATCH,U-QUEST (05/10/2014 3:29 PM EDT) Only the most recent of2 resultswithin the time period is included. Prescribed Drug 1 [place](TM) [facility] Prescribed Drug 2 [...] Organization Information: Site ID: KP Name: Lisette Wolf Address: [address] [place] [id number] Director: [employer] Seema PhD Kwadwo KNOX-PDM ORDERABLE (NON-SEH) F inal Result Performing Organization Address [facility] Co de Phone Number LISETTE KNOX [employer]ADD[employer] [address] [place] [address], [facility] [[email or web address]] * PDM,METHYLPHENIDATE METAB,QN,W/MEDMATCH,U-QUEST (05/10/2014 3:29 PM EDT) Only the most recent of3 resultswithin the time period is included. Prescribed Drug 1 [place](TM) [facility] [place] Prescribed Drug 2 Xanax(TM) [...] Comment Performing Organization Information: Site ID: Name: [employer] Address: [address] [place] [address] [place] [address] Director: Brandy Stephenson PhD Kwadwo Ibrahim MD [facility]-PDM ORDERABLE (NON-SEH) F inal Result LISETTE WOLF [address] [place] [address] [place] [address], [facility] [[email or web address]] * PDM, COCAINE METAB, W/CONF,W/MEDMATCH,U-QUEST (05/10/2014 3:29 PM EDT) Only the most recent of2 resultswithin the time period is included. [facility] Prescribed Drug 1 [place](TM) [facility] [place] Prescribed Drug 2 Xanax(TM) [...] Comment Performing Organization Information: Site ID: Name: [employer] Address: [address] [place] [address] [place] [address] Director: [employer] Seema PhD us Kwadwo Ibrahim MD [facility]-PDM ORDERABLE (NON-SEH) F inal Result [facility] [address] [place] [phone], [facility] [[email or web address]] * (ABNORMAL) PDM,BENZODIAZEPINES W/CONF,W/MEDMATCH,U-QUEST (05/10/2014 3:29 PM EDT) Only the most recent of2 resultswithin the time period is included. Pathologist [facility] Prescribed Drug 1 [place](TM) [facility] Prescribed Drug 2 [...] Performing Organization Information: Site ID: Name: Lisette Wolf Address: [address] [place] [address] Director: Brandy Stephenson PhD us Kwadwo Ibrahim MD [facility]-PDM ORDERABLE (NON-SE) F inal Result Performing Organization Address [facility] de Phone Number [facility] [employer]IE [address] [place] [address], [facility] [[email or web address]] * PDM, AMPHETAMINES, W/CONF,W/MEDMATCH,U-QUEST (05/10/2014 3:29 PM EDT) Only the most recent of2 resultswithin the time period is included. Pathologist [facility] Prescribed Drug 1 [place](TM) [facility] [place] Prescribed Drug 2 Xanax(TM) [...] Performing Organization Information: Site ID: Name: Lisette Wolf Address: [address] [place] [address] Director: Brandy Stephenson PhD us Kwadwo KNOX-PDM ORDERABLE (NON-SE) F inal Result Performing Organization Address [facility] de Phone Number [employer] Embedded SolutionsALIREZAWERNERSVILLE STATE [facility]PITAL [address] [place] [address], [facility] [[email or web address]] * PDM, OXYCODONE, W/CONF,W/MEDMATCH,U-QUEST (05/10/2014 3:29 PM EDT) Only the most recent of2 resultswithin the time period is included. Prescribed Drug 1 [place](TM) [facility] Prescribed Drug 2 Xanax(TM) [...] Performing Organization Information: Site ID: KP Name: [employer] [facility] Address: [address] [place] [address] [place] [address] Director: [employer] Seema PhD Kwadwo Ibrahim MD [facility]-PDM ORDERABLE (NON-SEH) F inal Result [facility] [address] [place] [address] [place] [address], [facility] [[email or web address]] * (ABNORMAL) PDM, OPIATES, W/CONF,W/MEDMATCH,U-QUEST (05/10/2014 3:29 PM EDT) Only the most recent of2 resultswithin the time period is included. Prescribed Drug 1 [place](TM) [facility] Prescribed Drug 2 Xanax(TM) [facility] Opiates POSITIVE(A) <100 ng/mL [facility] Codeine NEGATIVE <50 ng/mL [facility] medMATCH Codeine CONSISTENT [facility] Morphine Urine NEGATIVE <50 ng/mL [facility] [place] medMATCH Morphine CONSISTENT Q [facility] [place] Hydrcodone 1,310(H) <50 ng/mL [facility] [place] medMATCH Hydrocodone CONSISTENT [facility] [place] Hydromorphone 374(H) <50 ng/mL [facility] [place] medMATCH Hydromorphone SEE NOTE(S) [facility] Comment: Hydromorphone is a metabolite of hydrocodone as well as a prescribed drug. medMatch Comments [facility] Comment: medMATCH comments are: - present when [...] Site ID: KP Name: Lisette [place] Address: [address] [place] [address] [place] [address] Director: [employer] PhD Kwadwo Ibrahim MD [facility]-PDM ORDERABLE (NON-SEH) F inal Result LISETTE KNOX [facility]ikerALIREZAMELI [address] [place] [phone], [facility] [[email or web address]] * PDM, METHADONE, W/CONF,W/MEDMATCH,U-QUEST (05/10/2014 3:29 PM EDT) Only the most recent of2 resultswithin the time period is included. [facility] Prescribed Drug 1 [place](TM) [facility] [place] Prescribed Drug 2 Xanax(TM) [...] Performing Organization Information: Site ID: Name: Lisette Wolf Address: [address] [place] [address] Director: Brandy Stephenson PhD us Kwadwo Ibrahim MD [facility]-PDM ORDERABLE (NON-SE) F inal Result Performing Organization Address [facility] de Phone Number [employer] SolutionsMADDIE [address] [place] [address], [facility] [[email or web address]] * PDM,MARIJUANA METAB W/CONF,W/MEDMATCH,U-QUEST (05/10/2014 3:29 PM EDT) Only the most recent of2 resultswithin the time period is included. Pathologist [facility] Prescribed Drug 1 [place](TM) [facility] [place] Prescribed Drug 2 Xanax(TM) [...] Performing Organization Information: Site ID: Name: Lisette Wolf Address: [address] [place] [address] Director: Brandy Stephenson PhD us Kwadwo KNOX-PDM ORDERABLE (NON-SEH) F inal Result Performing Organization Address [facility] de Phone Number [employer] SolutionsMADDIE [address] [place] [address], [facility] [[email or web address]] * XR LUMBAR SPINE AP LATERAL FLEXION [...] 2 to 3 mm. No evidence ofinstability. Devonte Pena IMG DIAGNOSTIC IMAGING ORDERABL ES Final Result * (ABNORMAL) POCT URINALYSIS AUTOMATED (12/28/2013 3:43 PM EDT) Only the most recent of2 resultswithin the time period is included. Color, UA - Clear, Yellow, Linn, Rust [facility] Clarity, UA - Clear, Cloudy [facility] Glucose, UA - g/dl% [facility] Bilirubin, UA 1.015 Pos/Neg [facility] Ketones, UA - Pos/Neg SEP account collector Grav, UA 6(A) 1.001 - 1.035 g/dl [...] Testosterone Lvl 935(H) 193 - 740 ng/dL [facility] Blood specimen (specimen) UPPER LIMB STRUCTURE / Unknown 11/08/2013 5:08 PM EST 11/08/2013 7:52 PM EST us Kwadwo Ibrahim MD CHEMISTRY ORDERABLES Final Resu lt Performing Organization Address City/[facility] Co de Phone Number [facility] [address] [place] [address] * MRI KNEE RIGHT WO CONTRAST (08/02/2013 [...] HISTORY: 724.4-Thoracic or lumbosacral neuritis or radiculitis, zmnjuzcjmhx-BJN-7-CM. Compare: no previous thoracic spine MR study [...] PM HISTORY: 724.4-Thoracic or lumbosacral neuritis or radiculitis,alasfocbisx-LMA-9-CM. Compare: no previous thoracic spine MR study [...] the thoracic region. us Duane Rowley MD [facility] MRI ORDERABLES Final Result * MRI LUMBAR [...] status post fusion from the L2 through [id number]. On the CT exam poor bony fusion [...] of the posteriorelements. us Duane Rowley MD [facility] MRI ORDERABLES Final Result * MRI CERVICAL [...] change of the hips. Procedure Note Darshan Woo DO - 01/17/2013 01/17/2013 CT ABDOMEN/PELVIS WITH CONTRAST [...] of2 resultswithin the time period is included. Troponin-I <0.03 <=0.06 ng/mL [facility] Blood specimen (specimen) UPPER LIMB STRUCTURE / Unknown 01/17/2013 4:33 PM EDT 01/17/2013 4:37 PM EDT us Gabino Gao MD CHEMISTRY ORDERABLES Final Resul t Performing Organization Address City/State/[facility] Co de Phone Number [facility] [address] [place] [address] * (ABNORMAL) LIPASE LEVEL (01/17/2013 4:33 PM EDT) Lipase Lvl 310(H) 36 - 250 IU/L [facility] Blood specimen (specimen) UPPER LIMB STRUCTURE / Unknown 01/17/2013 4:33 PM EDT 01/17/2013 4:37 PM EDT us Gabino Gao MD CHEMISTRY ORDERABLES Final Resul t Performing Organization Address City/State/[facility] Co de Phone Number [facility] [address] [place] [address] * POCT URINALYSIS DIPSTICK (01/17/2013 1:50 AM EDT) Only the most recent of3 resultswithin the time period is included. Color, UA yellow Clear, Yellow, Linn, Rust [facility] Clarity, UA clear Clear, Cloudy [facility] Glucose, UA negaitve g/dl% [facility] Bilirubin, UA negaitve Pos/Neg [facility] Ketones, UA negaitve Pos/Neg [facility] Spec Grav, UA 1.010 1.001 - 1.035 g/dl [facility] Blood, UA negaitve Pos/Neg [facility] pH, UA 7.0 5.0 - 8 [facility] Protein, UA negative Pos/Neg [facility] Urobilinogen, UA negaitve 0.2 - 1.0 mg/dL [facility] Leukocytes, UA negative Pos/Neg [facility] Nitrite, UA negative Pos/Neg [facility] UA Appear POC yellow [facility] Lot Number [id number] [facility] Expiration Date 03/03 [facility] SeriAl # [facility] Urine specimen (specimen) 01/17/2013 1:50 AM EDT Gabino Gao MD POINT OF CARE TEST ORDERABLES Fi nal Result Performing Organization Address [facility] Co de Phone Number [facility] [address] [place] [address] * SMEAR REVIEW (01/13/2013 1:44 PM EDT) Bands 4 0 - 10 % [facility] Atyp Lymph 2 0 - 5 % [facility] RBC Morph Normal [facility] Blood specimen (specimen) 01/13/2013 1:44 PM EDT 01/13/2013 1:51 PM EDT Katelyn Wilson MD HEMATOLOGY ORDERABLES Final Result Performing Organization Address [facility] Co de Phone Number [facility] [address] [place] [address] * PDM, HEROIN METAB, W/CONF,W/MEDMATCH,U-QUEST (05/26/2012 2:50 PM EDT) Prescribed Drug 1 Hydrocodone [facility] [...] Comment Performing Organization Information: Site ID: Name: [employer] Address: [address] [place] [address] [place] [address] Director: Activity[employer] Seema PhD Ruddy Londono MD [facility]-PDM ORDERABLE (NON-SEH) F inal Result LISETTE Power LiensMADDIETRAE [address] [place] [address] [place] [address], [facility] [[email or web address]] * PDM, MDMA/MDA, W/CONF,W/MEDMATCH,U-QUEST (05/26/2012 2:50 PM EDT) Prescribed Drug 1 Hydrocodone [facility] Prescribed Drug 2 Alprazolam [facility] MDMA NEGATIVE <500 ng/mL [facility] [place] medMATCH MDMA CONSISTENT [facility] medMatch Comments [facility] [...] Information: Site ID: Name: Lisette Chongn Address: [address] [place] [address] Director: Brandy Stephenson PhD Ruddy Londono MD [facility]-PDM ORDERABLE (NON-SEH) F inal Result [facility] [address] [place] [address], [facility] [[email or web address]] * PDM, CLONAZEPAM METAB,QN,W/MEDMATCH,U-QUEST (05/26/2012 2:50 PM EDT) Prescribed Drug 1 Hydrocodone [facility] Prescribed Drug 2 Alprazolam Q [facility] [place] Aminoclonazepam NEGATIVE <25 ng/mL [facility] medMATCH Aminoclonazepam CONSISTENT [facility] [place] medMatch Comments QU [...] Performing Organization Information: Site ID: Name: Lisette Wolf Address: [address] [place] [address] Director: Brandy Stephenson PhD Ruddy Londono MD [facility]-PDM ORDERABLE (NON-SEH) F inal Result [facility] [address] [place] [address], [facility] [[email or web address]] * PDM, PREGABALIN, QN,W/MEDMATCH,U-QUEST (05/26/2012 2:50 PM EDT) Prescribed Drug 1 Hydrocodone [facility] Prescribed Drug 2 Alprazolam [facility] Pregabalin NEGATIVE <1000 ng/mL [facility] medMATCH Pregabalin CONSISTENT [facility] medMatch Comments Power LiensGEISING[facility]ORE HOSPITALAngella Comment: medMATCH comments are: - present when [...] Comment Performing Organization Information: Site ID: Name: [facility] Address: [address] [place] [address] Director: Brandy Stephenson PhD Ruddy KNOX-PDM ORDERABLE (NON-SEH) F inal Result LISETTE LISETTE NetzoptikerCHARLESMAGI [address] [place] [address], [facility] [[email or web address]] * PDM, TRAMADOL, QN,W/MEDMATCH,U-QUEST (05/26/2012 2:50 PM EDT) Prescribed Drug 1 Hydrocodone [facility] Prescribed Drug 2 Alprazolam [facility] Li[facility]PITALANGELAWN Tramadol Scrn, Ur NEGATIVE <100 ng/mL [facility] [place] medMATCH Tramadol CONSISTENT [facility]ITAL[facility] medMatch Comments Power LiensRIPLEY [facility]OSPITALWAngella Comment: medMATCH comments are: - present when [...] Comment Performing Organization Information: Site ID: Name: [facility] Address: [address] [place] [address] Director: Brandy Stephenson PhD Ruddy Londono MD [facility]-PDM ORDERABLE (NON-SEH) F inal Result Performing Organization Address [facility]/ZIP Co de Phone Number LISETTE Power LiensMADDIETRAE [address] [place] [address], [facility] [[email or web address]] * PDM, CARISOPRODOL METAB,QN,W/MEDMATCH,U-QUEST (05/26/2012 2:50 PM EDT) [facility] Prescribed Drug 1 Hydrocodone [facility] [place] Prescribed Drug 2 Alprazolam [facility] [place] Meprobamate Lvl NEGATIVE <1000 ng/mL [facility] [place] medMATCH Meprobamate CONSISTENT [facility] [place] medMatch Comments [facility] [place] Comment: medMATCH comments are: - [...] Performing Organization Information: Site ID: Name: Lisette Wolf Address: [address] [place] [address] Director: Brandy Stephenson PhD Ruddy KNOX-PDM ORDERABLE (NON-SEH) F inal Result [facility] [facility] [address] [place] [address], [facility] [[email or web address]] * (ABNORMAL) PDM PROFILE 1 W/ CONF, URINE-QUEST (05/26/2012 2:50 PM EDT) Prescribed Drug 1 Hydrocodone [facility] Prescribed Drug 2 Alprazolam Q [facility] Creatinine, Urine 33.2 > or = 20.0 mg/dL [facility] UA pH 7.0 4.5 - 9.0 [facility] Oxidant NEGATIVE <200 mcg/mL [facility] Amphetamines NEGATIVE <500 ng/mL [facility] medMATCH Amphetamines CONSISTENT [facility] Barbiturates NEGATIVE <300 ng/mL [facility] medMATCH Barbiturates CONSISTENT [facility] Benzodiazepines POSITIVE(A) <100 ng/mL [facility] Alphahydroxyalprazolam 98(H) <50 ng/mL [facility] medMATCH aOH alprazolam CONSISTENT [facility] Alpha-hydroxytriazolam UR NEGATIVE <50 ng/mL [facility] medMATCH aOH triazolam CONSISTENT [facility] Lorazepam UR QT NEGATIVE <50 ng/mL [facility] medMATCH Lorazepam CONSISTENT [facility] Midazolam UR QT NEGATIVE <50 ng/mL [facility] medMATCH Midazolam CONSISTENT [facility] Nordiazepam Lvl NEGATIVE <50 ng/mL [facility] medMATCH Nordiazepam CONSISTENT [facility] Oxazepam UR QT NEGATIVE <50 ng/mL [facility] medMATCH Oxazepam CONSISTENT Q [facility] Temazepam UR QT NEGATIVE <50 ng/mL [facility] medMATCH Temazepam CONSISTENT [facility] Marijuana Metabolite NEGATIVE <20 ng/mL [facility] medMATCH Marijuana Metab [facility]STENT [facility] Cocaine Metabolite NEGATIVE <150 ng/mL [facility] medMATCH Cocaine Metab CONSISTENT [facility] Methadone NEGATIVE <150 ng/mL [facility] med[facility] Methadone CONSISTENT [facility] Opiates POSITIVE(A) <100 ng/mL [facility] Codeine NEGATIVE <50 ng/mL [facility] medMATCH Codeine CONSISTENT [facility] Morphine Urine NEGATIVE <50 ng/mL [facility] medMATCH Morphine CONSISTENT Q [facility] Hydrcodone 644(H) <50 ng/mL [facility] medMATCH Hydrocodone CONSISTENT [facility] Hydromorphone 87(H) <50 ng/mL [facility] medMATCH Hydromorphone SEE NOTE(S)(A) [facility] Comment: Hydromorphone is a metabolite of hydrocodone as well as a prescribed drug. Oxycodone NEGATIVE <100 ng/mL [facility] medMATCH Oxycodone CONSISTENT [facility] Phencyclidine NEGATIVE <25 ng/mL [facility] med[facility] Phencyclidine CONSISTENT [facility] Propoxyphene, Screen NEGATIVE <300 ng/mL [facility] medMATCH Propoxyphene CONSISTENT [facility] medMatch Comments [facility] Comment: medMATCH comments are: - present when [...] Performing Organization Information: Site ID: KP Name: [facility] Address: [address] [place] [address] Director: Brandy Stephenson PhD Ruddy Londono MD [facility]PDM ORDERABLE ([facility]) F inal Result [facility] [address] [place] [address], [facility] [[email or web address]] * POCT DRUG SCREEN (08/31/2011 12:46 PM [...] ORDERABLES F inal Result * VITAMIN D, 87-[id number] (06/08/2011 3:54 PM EDT) Vit D 25 OH 31 30 - 80 ng/mL [facility] Comment: REFERENCE INTERVAL: Vitamin D, [...] 3:54 PM EDT 06/08/2011 9:58 PM EDT Kwadwo Ibrahim MD CHEMISTRY ORDERABLES Final Resu lt [facility] [address] [place] [address] * SCANNED OR REPORT (07/31/2010 12:00 AM EST) Narrative 07/31/2010 12:00 AM EST Ordered by an unspecified provider. Transcriptions Unknown, Unknown - 07/31/2010 12:00 AM EST us Unknown Unknown PROCEDURE/MINOR SURGICAL ORDERAB LES Final Result * PARTIAL THROMBOPLASTIN TIME (06/12/2010 12:21 PM EDT) PTT 33.7 27.2 - 38.6 second(s) [facility] Comment:The therapeutic rang e for heparinized patients monitored by the aPTT is 62-105 seconds. Blood specimen (specimen) UPPER LIMB STRUCTURE / Unknown 06/12/2010 12:21 PM EDT 06/12/2010 12:21 PM EDT Kwadwo Ibrahim MD HEMATOLOGY ORDERABLES Final Res ult Performing Organization Address City/[facility] Co de Phone Number [facility] [address] [place] [address] * PT / INR (06/12/2010 12:21 PM EDT) PT 11.2 9.9 - 12.3 second(s) [facility] INR 1.05 0.90 - 1.11 [facility] Comment: Level of Therapy Indications Target INR Range Standard Dose Treatment and prophylaxis of venous 2.0 - 3.0 thrombosis, pulmonary embolism. High Dose High risk patients with mechanical 2.5 - 3.5 heart valves. Blood specimen (specimen) UPPER LIMB STRUCTURE / Unknown 06/12/2010 12:21 PM EDT 06/12/2010 12:21 PM EDT Kwadwo Ibrahim MD HEMATOLOGY ORDERABLES Final Res ult Performing Organization Address City/[facility]/ZIP Co de Phone Number [facility] [address] [place] [address] * SCANNED OR REPORT (05/07/2010 12:00 AM [...] Unknown, U - 04/30/2010 7:34 AM EDT U Unknown PROCEDURE/MINOR SURGICAL ORDERAB LES Final Result * SCANNED OR REPORT (04/12/2010 12:00 AM EDT) Narrative 04/12/2010 5:09 PM EDT Ordered by an unspecified provider. Transcriptions Unknown, U - 04/11/2010 5:20 PM EDT U Unknown PROCEDURE/MINOR SURGICAL ORDERAB LES Final Result * EC ECHO COMPLETE GC (02/24/2010 8:23 AM EDT) Anatomical Region Laterality Modality Other 02/24/2010 8:23 AM EDT Narrative 02/24/2010 1:42 PM EDT [place] [id number] [email or web address] Transthoracic Echo Report JERMAINE HE Age- 64 Gender- M - 1945 Exam Date- 02/24/2010 Exam Location- [facility] ECHO Room Number- Ordering Phys- DEEPA SAUCEDO MD (MEAGAN) Referring Phys- KWADWO IBRAHIM MD Technologist- Helena Garrett [facility] Accession Number- [id number] Height(in)- 69 Weight(lb)- 200 BSA- 2.12 Procedure CPT- Indication- ICD-9 Codes- 58717 CHEST PAIN NOS Critical Result- No Critical [...] Signed) Final Date- 24 February 2010 13-42 Electronics Specialist- DEEPA SAUCEDO MD Reading Physician- DEEPA SAUCEDO MD Released Date Time- 02/24/10 1343 Procedure Note Deepa Saucedo - 02/24/2010 [place] [id number] [email or web address] Transthoracic Echo Report JERMAINE HE Age- 64 Gender- M - 1945 Exam Date- 02/24/2010 09- Exam Location- [facility] ECHO Room Number- Ordering Phys- DEEPA SAUCEDO MD (MEAGAN) Referring Phys- KWADWO IBRAHIM MD Technologist- Helena Garrett [facility] Accession Number- [id number] Height(in)- 69 Weight(lb)- 200 BSA- 2.12 Procedure CPT- Indication- ICD-9 Codes- 67047 CHEST PAIN NOS Critical Result- No Critical [...] (Electronically Signed) Final Date- 24 February 2010 1342 Electronics Specialist- DEEPA SAUCEDO MD Reading Physician- DEEPA SAUCEDO MD Released Date Time- 02/24/10 1343 us Deepa Saucedo MD [facility] STAR CARD HISTOR ICAL Final Result * NM NUCLEAR CARD PROC BOWL TURNER GC (02/24/2010 8:19 AM EDT) Only the [...] SPECT gated myocardial perfusion scan is 45-75%. Electronics Specialist- AZIZA KNUTSON Reading Physician- DEEPA SAUCEDO MD [...] SPECT gated myocardial perfusion scan is 45-75%. Electronics Specialist- AZIZA KNUTSON Reading Physician- DEEPA SAUCEDO MD Released Date Time- 02/25/10 0923 Deepa [facility]cedo MD [facility] Final Result * ST PHARM STRESS GC [...] No EKG changes. Jose Enrique Farmer /02/25/10 Electronics Specialist- DORETHA BUITRAGO Reading Physician- DEEPA SAUCEDO MD Released Date [...] No EKG changes. Jose Enrique Farmer /02/25/10 Electronics Specialist- DORETHA Jimenez Physician- DEEPA SAUCEDO MD Released Date Time- 02/25/10 1056 Deepa Saucedo MD [facility] STAR CARD HISTOR ICAL Final Result [...] to moderate narrowing of the L5-S1 interspace. Electronics Specialist- AGUILA WELLS Reading Physician- SIMEON STEVENS MD [...] to moderate narrowing of the L5-S1 interspace. Electronics Specialist- AGUILA Jimenez Physician- SIMEON STEVENS MD Released Date Time- 12/10/09 1616 Devonte Pena [facility] Fin al Result * XR [...] and sclerosis. Impression- No fractures. Degenerative changes. Electronics Specialist- MIGUELITO Jimenez Physician- WILMER WALKER M.D. Released Date Time- 11/20/09 2208 Procedure Note Wilmer Walker - 11/29/2009 Examinations of the right knee Indications- Pain. History same. Three views of the right knee demonstrate degenerative changes in all 3 compartments. There is joint space narrowing, osteophyte formation and sclerosis. Impression- No fractures. Degenerative changes. Electronics Specialist- MIGUELITO Jimenez Physician- WILMER WALKER M.D. Released Date Time- 11/20/092207 us Jason Luz MD [facility] RAD HISTORI MOISES Final Result * XR PELVIS [...] post multilevel posterior decompression. Impression- Degenerative changes. Electronics Specialist- MORRIS Jimenez Physician- WILMER WALKER M.D. Released [...] post multilevel posterior decompression. Impression- Degenerative changes. Electronics Specialist- MORRIS Jimenez Physician- WILMER WALKER M.D. Released Date Time- 11/20/092207 us Jason Luz MD [facility] Final Result * XR LUMBOSACRAL SPINE GC [...] Status post posterior decompression. DDD and DJD. Electronics Specialist- MIGUELITO Jimenez Physician- WILMER WALKER M.D. Released Date Time- 11/20/092207 Procedure Note Wilmer Walker - 11/29/2009 Examinations of the lumbosacral spine Indications- Pain. History same. Frontal, lateral and coned-down views of the lumbosacral spine demonstrate the patient to be status post posterior decompression through the mid and lower lumbar spine. Hypertrophic changes are seen posteriorly. In addition, there is endplate sclerosis and spondylosis. Impression- Status post posterior decompression. DDD and DJD. Electronics Specialist- MIGUELITO Jimenez Physician- WILMER WALKER M.D. Released Date Time- 11/20/092207 Jason Luz MD [facility] Final Result * MR LUMBAR WITH & [...] arthropathy is identified at the L2-L3 level. Xyny-kf-gztxhtrx diffuse discogenic changes are identified at L2-L3, which appear more focally prominent in a left foraminal location. There is subsequent bilateral narrowing of the L2 neural foramina, which is fgkaipdq-rk-gzlwms on the left and moderate on the right, which could potentially cause a mechanism for compression of the left L2 nerve within its neural foramen. There is also mild compression of the thecal sac in a cuxg-vq-jgvi manner secondary to severe bilateral hypertrophic facet arthropathy at the L2-L3 level. At L3-L4, the patient is status post posterior decompressive laminectomy. A grade 1 spondylolisthesis is identified at L3-L4, with an approximate 5 mm anterior slippage of L3 with respect to L4. Fsmz-zj-scftddxa diffuse discogenic changes are also identified at [...] within its lateral recess. There is also gmgodgdw-bq-jijtiu narrowing of the left L3 neural foramen [...] the ventral aspect of the thecal sac. Ktgsxxlk-sn-tzruyc bilateral hypertrophic facet arthropathy is seen at L5-S1. There is jygohkku-sm-priohb narrowing of the left L5 neural foramen [...] foraminal narrowing. No significant epidural fibrosis demonstrated. Electronics Specialist- BRIANNA Jimenez Physician- DARSHAN BURKETT MD Released [...] arthropathy is identified at the L2-L3 level. Imtg-te-nhrqrllk diffuse discogenic changes are identified at L2-L3, which appear more focally prominent in a left foraminal location. There is subsequent bilateral narrowing of the L2 neural foramina, which is pnenpzha-yw-movlvh on the left and moderate on the right, which could potentially cause a mechanism for compression of the left L2 nerve within its neural foramen. There is also mild compression of the thecal sac in a zwit-bm-drdh manner secondary to severe bilateral hypertrophic facet arthropathy at the L2-L3 level. At L3-L4, the patient is status post posterior decompressive laminectomy. A grade 1 spondylolisthesis is identified at L3-L4, with an approximate 5 mm anterior slippage of L3 with respect to L4. Xugh-rd-qbfualxl diffuse discogenic changes are also identified at [...] within its lateral recess. There is also mebfbrdy-zl-trlfnm narrowing of the left L3 neural foramen [...] the ventral aspect of the thecal sac. Brpaotob-cx-ivpats bilateral hypertrophic facet arthropathy is seen at L5-S1. There is qozhcmrv-th-uzotxm narrowing of the left L5 neural foramen [...] foraminal narrowing. No significant epidural fibrosis demonstrated. Electronics Specialist- BRIANNA Jimenez Physician- DARSHAN BURKETT MD Released Date Time- 11/12/09 1209 Jason Luz MD [facility] Final Result * SURGICAL PATHOLOGY REPORT (10/21/2009 4:55 PM EST) Only the most recent of2 resultswithin the time period is included. Surgical Pathology Report PATIENT NAME:JERMAINE HE Surgical Pathology Report Accession Number Collected Date/Time Received Date/Time [id number] 10/21/09 16:55 EST 10/21/09 16:55 EST Diagnosis [...] MD, PhD (Electronically signed by) Verified: 10/23/2009 [facility] Clinical Information Lesion on cheek Gross [...] performed and the findings corroborate the diagnosis. [facility] 10/21/2009 4:55 PM EST us Jermaine Aly MD PATHOLOGY ORDERABLES Final Result [facility] [address] [place] [address] * EK EKG REG GC (06/17/2009 10:02 PM EDT) Only the most recent of4 resultswithin the time period is included. Anatomical Region Laterality Modality Other 06/17/2009 10:0 2 PM EDT Narrative 06/18/2009 1:08 PM EDT Sinus rhythm. Normal ECG Electronics Specialist- SARTAHK FREEMAN MD Reading Physician- SARTHAK FREEMAN MD Released Date Time- 06/18/09 1308 Procedure Note Sarthak Freeman - 11/29/2009 Sinus rhythm. Normal ECG Electronics Specialist- SARTHAK FREEMAN MD Reading Physician- SARTHAK FREEMAN MD Released Date Time- 06/18/09 1308 Jennifer Mackey MD [facility] STAR CARD HISTORICAL F inal Result [...] Impression- Stable chest. No acute chest process. Electronics Specialist- ESTRELLA Jimenez Physician- DARSHAN WOO DO Released Date Time- 06/18/09 0520 Procedure Note Darshan Woo R - 11/29/2009 AP, upright, portable chest History- Acute chest pain. Comparison with 04/08/2009 exam. The heart and mediastinum remains stable. Clear lungs. No evidence of failure. Degenerative change of the right AC joint. Postsurgical resection of the distal left clavicle. Impression- Stable chest. No acute chest process. Electronics Specialist- ESTRELLA Jimenez PhysicianKg WOO DO Released Date Time- 06/18/0920 Jennifer Mackey MD [facility] HISTORICAL Fi nal Result * CC CARDIAC [...] area over the right femoral artery. 5 Tristanian hemostasis sheath was placed in the right femoral artery using a modified Seldinger technique. Selective coronary angiography of the right and left coronary arteries was performed using the standard technique. A 5 Tristanian angled pigtail catheter was used to perform [...] 3. Normal LV function. Plan- RX medically. Electronics Specialist- SHELLI Jimenez Physician- DEEPA SAUCEDO MD Released [...] area over the right femoral artery. 5 Tristanian hemostasis sheath was placed in the right femoral artery using a modified Seldinger technique. Selective coronary angiography of the right and left coronary arteries was performed using the standard technique. A 5 Tristanian angled pigtail catheter was used to perform [...] 3. Normal LV function. Plan- RX medically. Electronics Specialist- SHELLI HERBERT Reading Physician- DEEPA SAUCEDO MD Released Date Time- 12/17/08 1028 us Deepa Saucedo MD [facility] CARD [facility] ICAL Final Result * US GALL BLADDER [...] unremarkable. Impression- Fatty infiltration of the liver. Electronics Specialist- SURESH Jimenez Physician- QASIM NICOLAS MD Released Date Time- 11/23/08 1539 Procedure Note Qasim Nicolas - 11/28/2009 Right upper quadrant ultrasound, 11/23/2008. History- Mid upper abdominal pain. Findings- Fatty infiltration of the liver is present. No focal lesions. No biliary dilatation. The gallbladder and pancreatic head are unremarkable. Impression- Fatty infiltration of the liver. Electronics Specialist- SURESH Jimenez Physician- QASIM NICOLAS MD Released Date Time- 11/23/08 1539 us Willie Guevara MD [facility] HISTORICAL Fi nal Result * CT ABD/PELVIS BOWL TURNER GC (01/16/2008 8:32 AM EDT) Anatomical Region Laterality Modality Other 01/16/2008 8:3 2 AM EDT Narrative 01/16/2008 10:24 AM EDT [...] the lumbar spine. No acute abnormality demonstrated. Electronics Specialist- YOMAIRA Jimenez Radiologist- SEKOU DIMAS MD Released [...] the lumbar spine. No acute abnormality demonstrated. Electronics Specialist- YOMAIRA ROBERSON Reading Radiologist- SEKOU DIMAS MD Released Date Time- 01/16/081949 Willie Guevara MD [facility] HISTORICAL Fi nal Result * VA [...] this time. Antegrade symmetrical vertebral artery flow. Electronics Specialist- LORRI Jimenez Radiologist- RUDDY CHOU MD Released Date Time- 11/30/0744 Procedure Note Ruddy Chou - 11/28/2009 History- [...] this time. Antegrade symmetrical vertebral artery flow. Electronics Specialist- LORRI Lopez- RUDDY CHOU MD Released Date Time- 11/30/0744 Deepa Saucedo MD [facility] STAR CARD HISTOR ICAL Final Result [...] PAC's. 3. No arrhythmias. Jose Enrique Farmer [id number] Electronics Specialist- DORETHA BUITRAGO Reading Radiologist- DEEPA SAUCEDO MD Released Date Time- 11/28/07 1133 Procedure Note Deepa Saucedo - 11/28/2009 INDICATIONS- [...] PAC's. 3. No arrhythmias. Jose Enrique Farmer [id number] Electronics Specialist- DORETHA BUITRAGO Reading Radiologist- DEEPA SAUCEDO MD Released Date Time- 11/28/07 1133 Deepa Saucedo MD [facility] STAR CARD HISTOR ICAL Final Result * EK EKG REG (10/20/2005 4:25 PM EST) Anatomical Region Laterality Modality Other 10/20/2005 4:25 PM EST Narrative 10/21/2005 12:16 PM EST Sinus bradycardia. No significant change from earlier record. Borderline ECG. Ronaldo KWON M.D. Released Date Time- 10/21/05 1216 Procedure Note Macho Kwon - 11/26/2009 Sinus bradycardia. No significant change from earlier record. Borderline ECG. Ronaldo Jimenez RadiologistKg KWON M.D. Released Date Time- 10/21/05 1216 Evangelist Smith MD [facility] STAR CARD HISTORICAL Fi nal Result * FL MYELO INJ NOT C1-C2 (08/21/2005 12:00 AM EST) Anatomical Region Laterality Modality Other 08/21/2005 08/21/2005 Narrative 08/21/2005 12:00 AM EST VERIFIED [facility] Reason: LUMBAR STENOSIS/CT MYELOGRAMLUMBAR Dict.Staff: SIMEON STEVENS Verified By: JERMAINE MARTINO Azalea: 08/22/05 12:09 am Exams: DIAG-MYELO INJ (NOT C1-C2) LUMBAR MYELOGRAM AND POST-MYELOGRAPHIC CT SCAN: HISTORY: Lumbar stenosis and bilateral leg pain. Comparison is made with the MR study of 04/01/2005 from [facility]. After informed consent was obtained, an L5-S1 [...] the L2-3 and L3-4 levels as described. ROCKY:lkd end of result Procedure Note Unknown, U - 01/02/2010 VERIFIED [facility], [facility] Reason: LUMBAR STENOSIS/CT MYELOGRAMLUMBAR Dict.Staff: SIMEON STEVENS Verified By: JEMRAINE MARTINO Azalea: 08/22/05 12:09 am Exams: DIAG-MYELO INJ (NOT C1-C2) LUMBAR MYELOGRAM AND POST-MYELOGRAPHIC CT SCAN: HISTORY: Lumbar stenosis and bilateral leg pain. Comparison is made with the MR study of 04/01/2005 from [facility] . After informed consent was obtained, [...] the L2-3 and L3-4 levels as described. E.NEILS:lkd end of result us U Unknown IMG [facility] RAD HISTORICAL Final Result * FL MYELOGRAM L SPINE S&I (08/19/2005 12:00 AM EST) Anatomical Region Laterality Modality Other 08/19/2005 08/19/2005 Narrative 08/19/2005 12:00 AM EST VERIFIED [facility], 1928–1983 Reason: LUMBAR STENOSIS/CT MYELOGRAMLUMBAR Dict.Staff: SIMEON STEVENS Verified By: SIMEON CASTANEDA Az[place]a: 08/19/05 6:54 pm Exams: DIAG-MYELO LUMBAR SPINE S&I LUMBAR MYELOGRAM AND POST-MYELOGRAPHIC CT SCAN: HISTORY: Lumbar stenosis and bilateral leg pain. Comparison is made with the MR study of 04/01/2005 from [facility]. After informed consent was obtained, an L5-S1 [...] Procedure Note Unknown, U - 01/02/2010 VERIFIED [facility]MER[facility], 1928–1983 Reason: LUMBAR STENOSIS/CT MYELOGRAMLUMBAR Dict.Staff: SIMEON STEVENS Verified By: SIMEON CASTANEDA [place]a: 08/19/05 6:54 pm Exams: DIAG-MYELO LUMBAR SPINE S&I LUMBAR MYELOGRAM AND POST-MYELOGRAPHIC CT SCAN: HISTORY: Lumbar stenosis and bilateral leg pain. Comparison is made with the MR study of 04/01/2005 from [facility] . After informed consent was obtained, [...] the L2-3 and L3-4 levels as described. ThaniaNELENA:lkd end of result us U Unknown [facility]G [facility] RAD HISTORICAL Final Result * CT MRI MULTIPLANAR, 3D RECON (08/19/2005 12:00 AM EST) Anatomical Region Laterality Modality Other 08/19/2005 08/19/2005 Narrative 08/19/2005 12:00 AM EST VERIFIED FORMER[facility], 1926–1983 Reason: CT LUMBAR / POST MYELOGRAM Dict.Staff: SIMEON STEVENS Verified By: SIMEON STEVENS [place]: 08/21/05 8:57 am Exams: CT-L SPINE W/O CONTRAST CT-MULTI PLANAR, 3-D RECON SEE LUMBAR MYELOGRAM SAME DATE end of result Procedure Note Unknown, U - 01/02/2010 VERIFIED FORMERLY [facility], 1926–1983 Reason: CT LUMBAR / POST MYELOGRAM Dict.Staff: SIMEON STEVENS Verified By: SIMEON STEVENS [place]: 08/21/05 8:57 am Exams: CT-L SPINE W/O CONTRAST CT-MULTI PLANAR, 3-D RECON SEE LUMBAR MYELOGRAM SAME DATE end of result us U Unknown [facility] RAD HISTORICAL Final Result * CT L SPINE W/O CONTRAST (08/19/2005 12:00 AM EST) Anatomical Region Laterality Modality Other 08/19/2005 08/19/2005 Narrative 08/19/2005 12:00 AM EST VERIFIED FORMER[facility], 1926–1983 Reason: CT LUMBAR / POST MYELOGRAM Dict.Staff: SIMEON STEVENS Verified By: SIMEON STEVENS [place]: 08/21/05 8:57 am Exams: CT-L SPINE W/O CONTRAST CT-MULTI PLANAR, 3-D RECON SEE LUMBAR MYELOGRAM SAME DATE end of result Procedure Note Unknown, U - 01/02/2010 VERIFIED FORMER[facility], 1926–1983 Reason: CT LUMBAR / POST MYELOGRAM Dict.Staff: SIMEON STEVENS Verified By: SIMEON STEVENS [place]: 08/21/05 8:57 am Exams: CT-L SPINE W/O CONTRAST CT-MULTI PLANAR, 3-D RECON SEE LUMBAR MYELOGRAM SAME DATE end of result us U Unknown [facility] RAD HISTORICAL Final Result * FLUORO GUIDE NDL INJ SPINE/PARASPINE (06/01/2005 12:00 AM EDT) Only the most recent of2 resultswithin the time period is included. Anatomical Region Laterality Modality Other 06/01/2005 06/01/2005 Narrative 06/01/2005 12:00 AM EDT VERIFIED [facility] Reason: fermin Dict.Staff: DILLON CUNNINGHAM Verified By: JERMAINE MARTINO Az[place]a: 06/01/05 4:21 pm Exams: DIAG-FL GUIDE NDL INJ SPINE/PA FLUOROSCOPY WAS PROVIDED FOR THE ATTENDING PHYSICIAN. NO FILMS WERE OBTAINED AND A RADIOLOGIST WAS NOT IN ATTENDANCE. end of result Procedure Note Unknown, U - 01/02/2010 VERIFIED [facility] Reason: fermin Dict.Staff: DILLON CUNNINGHAM Verified By: JERMAINE MARTINO [place]: 06/01/05 4:21 pm Exams: DIAG-FL GUIDE NDL INJ SPINE/PA FLUOROSCOPY WAS PROVIDED FOR THE ATTENDING PHYSICIAN. NO FILMS WERE OBTAINED AND A RADIOLOGIST WAS NOT IN ATTENDANCE. end of result us U Unknown [facility] RAD HISTORICAL Final Result Visit Diagnoses Diagnosis [...] Essential hypertension, benign 10/01/2010 Coronary atherosclerosis of [place] coronary artery 10/01/2010 Precordial pain 10/01/2010 Other [...] Essential hypertension, benign 03/09/2011 Coronary atherosclerosis of [place] coronary artery 03/09/2011 Shortness of breath 03/09/2011 Precordial pain 03/09/2011 Pure hypercholesterolemia 03/09/2011 ASHD (arteriosclerotic heart disease) Coronary atherosclerosis of unspecified type of vessel, [place] or graft 03/09/2011 STIVEN (generalized anxiety disorder) Generalized anxiety disorder 03/17/2011 Low back pain Lumbago 03/17/2011 Depressive disorder, not elsewhere classified 03/17/2011 Acute sinusitis Acute sinusitis, unspecified 03/17/2011 Seasonal allergies Allergic rhinitis, cause unspecified 03/17/2011 Esophageal reflux 03/17/2011 Acute bronchitis 03/17/2011 ASHD (arteriosclerotic heart disease) Coronary atherosclerosis of unspecified type of vessel, [place] or graft 03/30/2011 Fatigue Other malaise and [...] electrocardiogram (ECG) (EKG) 10/21/2011 Coronary atherosclerosis of [place] coronary artery 10/21/2011 Essential hypertension, benign 10/21/2011 [...] Coronary atherosclerosis of unspecified type of vessel, [place] or graft 12/03/2011 CAD (coronary artery disease) Coronary atherosclerosis of unspecified type of vessel, [place] or graft 12/07/2011 Unspecified essential hypertension 12/07/2011 [...] Coronary atherosclerosis of unspecified type of vessel, [place] or graft 02/17/2012 ED (erectile dysfunction) Impotence [...] Coronary atherosclerosis of unspecified type of vessel, [place] or graft 02/17/2012 ED (erectile dysfunction) Impotence [...] Coronary atherosclerosis of unspecified type of vessel, [place] or graft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 breath 11/25/2022 Unspecified essential hypertension 11/25/2022 Coronary 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 artery of [place] heart without angina pectoris 11/25/2022 Bruit of right carotid artery 11/25/2022 Aortic root enlargement Aortic ectasia, unspecified site 11/25/2022 Chronic cough Cough 02/22/2023 Coronary 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 artery of [place] heart without angina pectoris 03/29/2023 Unspecified essential hypertension 03/29/2023 Sinobronchitis Unspecified sinusitis (chronic) 03/31/2023 Seasonal allergies Allergic rhinitis, cause unspecified 03/31/2023 Coronary artery disease involving [place] heart with other form of angina pectoris, [...] left breast 10/14/2023 Coronary 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 artery of [place] heart without angina pectoris 03/13/2024 Unspecified essential hypertension 03/13/2024 Hypertensive heart disease with heart failure (HCC) Unspecified hypertensive heart disease with heart failure 03/13/2024 Coronary 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 artery of [place] heart without angina pectoris 03/13/2024 Unspecified essential [...] sinusitis, unspecified 04/26/2024 Atherosclerotic heart disease of [place]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 04/26/2024 Anemia, unspecified type 04/27/2024 Bradycardia Other specified cardiac dysrhythmias 05/11/2024 Unspecified essential hypertension 06/19/2024 Coronary 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 artery of [place] heart without angina pectoris 06/19/2024 Hypertensive heart disease with heart failure (HCC) Unspecified hypertensive heart disease with heart failure 06/19/2024 Atherosclerosis of [place] coronary artery of [place] heart without angina pectoris 06/19/2024 Benign essential HTN Essential hypertension, benign 06/19/2024 Acute bacterial sinusitis Acute sinusitis, unspecified 08/08/2024 Acute cough 08/08/2024 Malaise and fatigue Other malaise and fatigue 08/08/2024 Anemia, unspecified type 08/08/2024 Bradycardia Other specified cardiac dysrhythmias 08/08/2024 Unspecified essential hypertension 08/10/2024 Coronary 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 artery of [place] heart without angina pectoris 08/10/2024 Hypertensive heart disease with heart failure (HCC) Unspecified hypertensive heart disease with heart failure 08/10/2024 Atherosclerosis of [place] coronary artery of [place] heart without angina pectoris 08/10/2024 Benign essential HTN Essential hypertension, benign 08/10/2024 SOB (shortness of breath) on exertion Shortness of breath 10/16/2024 Unspecified essential hypertension 10/16/2024 Coronary 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 artery of [place] heart without angina pectoris 10/16/2024 Hypertensive heart disease with heart failure (HCC) Unspecified hypertensive heart disease with heart failure 10/16/2024 Atherosclerosis of [place] coronary artery of [place] heart without angina pectoris 10/16/2024 Benign essential HTN Essential hypertension, benign 10/16/2024 Atherosclerotic heart disease of [place] coronary artery with other forms of angina [...] maintaining sleep 03/13/2025 Arm mass, right 03/22/2025 Insomnia, persistent Persistent disorder of initiating or maintaining sleep 05/22/2025 Insomnia, persistent Persistent disorder of initiating or maintaining sleep 05/24/2025 Flu vaccine need Need for prophylactic vaccination and inoculation against influenza 05/24/2025 Annual physical exam Routine general medical examination at a health care facility 05/24/2025 Peripheral neuropathy, idiopathic Unspecified hereditary and idiopathic peripheral neuropathy 05/24/2025 B12 deficiency Other B-complex deficiencies 05/24/2025 PUD (peptic ulcer disease) Peptic ulcer, unspecified site, unspecified as acute or chronic, without mention of hemorrhage, perforation, or obstruction 05/24/2025 Spinal enthesopathy, cervicothoracic region 05/24/2025 STIVEN (generalized anxiety disorder) Generalized anxiety disorder 05/24/2025 Vitamin D deficiency Unspecified vitamin D deficiency 05/24/2025 Atherosclerotic heart disease of [place]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 05/24/2025 Acute bacterial sinusitis Acute sinusitis, unspecified 05/24/2025 Nausea Nausea alone 05/28/2025 Spinal enthesopathy, cervicothoracic region 07/06/2025 Peripheral neuropathy, idiopathic Unspecified hereditary and idiopathic peripheral neuropathy 07/06/2025 SOB (shortness of breath) on exertion Shortness of breath 07/16/2025 Unspecified essential hypertension 07/16/2025 Coronary 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 artery of [place] heart without angina pectoris 07/16/2025 Hypertensive heart disease with heart failure (HCC) Unspecified hypertensive heart disease with heart failure 07/16/2025 Atherosclerotic heart disease of [place]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 07/16/2025 Benign essential HTN Essential hypertension, benign 07/16/2025 Atherosclerosis of [place] coronary artery of [place] heart without angina pectoris 07/16/2025 Left carotid bruit Other symptoms involving cardiovascular system 07/16/2025 Syncope Syncope and collapse 12/27/2015 Coronary 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 artery of [place] heart 12/27/2015 Orthostatic hypotension 12/27/2015 Hyponatremia Hyposmolality and/or hyponatremia 12/27/2015 Coronary 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 artery of [place] heart without angina pectoris 12/27/2015 SIADH (syndrome of inappropriate ADH production) Other disorders of neurohypophysis 12/27/2015 Vasovagal syncope Syncope and collapse 12/27/2015 Goals Goal Patient Goal Type Associated Problems Recent Progress Patient-Stated? Author Blood Pressure < 140/90 Blood Pressure 122/62(2024 9:22 AM EDT) No Kwadwo Ibrahim MD Maintain a healthy diet, exercise regularly and maintain an ideal body weight General No Estrella Tariq RMA Stay Tobacco Free Lifestyle No Estrella Tariq RMA Care Teams Panelboard Operator Relationship Specialty Start Date End Date Dillon Ibrahim APRN [address] [id number] PCP - General Nurse Practitioner 08/31/23 Zenaida Cruz Ud, MD [address] [place] [address] Internal Medicine-Nephrology 04/06/16
--- OUTSIDE RECORDS SUMMARY | 2025-09-07 10:58 | XMS_ITS | Encounter Summary ---
Author Organization Healthcare Address [address] [id number] Care Team Providers Care Customs Opener Verifier Packer Name Role Phone Christi Vasquez MD Primary Care Provider [phone] Emi Ledezma DEPENDENCY CASE MANAGER Unavailable Unavailab Catrina Qureshi DEPENDENCY CASE MANAGER Unavailable Unavail able Reason for Visit * Reason Comments Med Refill Encounter Details Date Type Department Care Team (Late st Contact Info) Description 07/17/2022 Refill [facility] [address] [place] [address] Christi Vasquez MD [address] [place] [address] Chronic pain syndrome Social History [...] documented as of this encounter Care Teams Customs Opener Verifier Packer Relationship Specialty Start Date End Date Christi Vasquez MD [address] [place] [address] PCP - General 01/31/21 10/28/23 Emi Ledezma LPN VALUE-BASED TRANSFORMATION PROGRAM None Licensed Practical Nurse 07/06/23 3 Catrina Valdovinos LPN [place] [address] None TCM Nurse 07/09/23 07/09/23 documented as of this encounter
--- OUTSIDE RECORDS SUMMARY | 2025-09-07 10:58 | XMS_ITS | Clinical Summary ---
Author Organization Healthcare Address [address] [place] [address] Care Team Providers Care Hemodialysis Rn Name Role Phone Unavailable Primary Care Provider [...] time each day. 06/01/2023 Active HYDROcodone-acet aminophen ([place]) 5-325 MG tablet 07/22/2023 Active HYDROcodone-acet aminophen [...] tabletIndication s:Benign essential HTN,Coronary artery disease involving [place] heart with other form of angina pectoris, unspecified vessel or lesion type Take 1 tablet (10 mg) by mouth every night. 90 tablet 3 07/22/2023 Active Active Problems Problem Noted Date Diagnosed Date Gynecomastia 09/23/2022 COPD exacerbation 09/23/2022 Chronic idiopathic constipation 09/09/2021 Allergic rhinitis 11/25/2020 Chronic pain 02/15/2019 Esophageal stricture 02/15/2019 Anxiety 12/02/2018 Psoriasis 08/01/2018 Tinnitus 08/01/2018 Benign essential HTN 06/14/2018 CAD (coronary artery disease) 06/14/2018 Gastric ulcer 06/14/2018 Resolved Problems Problem Noted Date Diagnosed Date Resolved Date Acute bronchitis 05/27/2021 06/10/2025 Immunizations Immunization Administration Dates Next Due Hep [...] How often do you attend chur or caodaism services? Never 07/09/2023 Do you belong to any clubs o r organizations such as spiritism groups, unions, fraternal or athletic groups, or [...] Recorded Patient Health Questionnaire-2 Score 1 01/21/2023 [facility] - Occupational [...] place to sleep or slept in a fci (including now)? No 07/09/2023 PHQ-2A Answer Date [...] Health Maintenance Due Date Last Done Comments [facility]-/Child/Adol SDOH Screenings 1945 [facility]- SDOH Screenings 12/05/1965 [facility]-Adult SDOH Screenings 12/05/1965 [facility]-Zoster Vaccines (1 of 2) 12/05/1997 [facility]-RSV Vaccine: 60+ Years or (1 - 1-dose 75+ series) 12/05/2022 [facility]-Depression Screening 01/22/2024 01/21/2023 [facility]-Medicare Annual Wellness (AWV) 07/22/2024 07/22/2023, 04/21/2023, 07/10/2021, Additional history exists [id number] Vaccine ( season) 2025 07/23/2022, 02/02/2022, 07/17/2021, Additional history exists [facility]-Influenza Vaccine (#1) 05/21/202506/01, [...] Discontinued FIT Discontinued FOBT Discontinued HPV Vaccines (No Doses Required) Completed Sigmoidoscopy Discontinued [facility]-HIB Vaccines Aged Out No [...] Benign essential HTN Coronary artery disease involving [place] coronary artery of [place] heart without angina pectoris COLONOSCOPY EXTERNAL RESULT [...] Adults <6.0% Children and Adolescents <7.5% Source: [place] [employer]. Standards of medical care in diabetes,2017. Diabetes Care.2017:40 (suppl 1):S1-S135. HbA1c assay performed by an ion-exchange chromatography method that is certified traceable to the DCCT. us Christi Vasquez MD LAB BLOOD ORDERABLES Final Res ult Performing Organization Address City/State/[facility] Co de Phone Number [facility] [address] [place] [address] * COLONOSCOPY EXTERNAL RESULT (08/08/2020) Anatomical Region Laterality Modality Endoscopy Narrative 08/08/2020 Ordered by an unspecified provider. us External Provider GI PROCEDURE ORDERABLES Final Result from Last 3 Months or Most Recently Relevant to Health Maintenance Insurance MEDICARE
== END 2025-09-06 23:59 | disposition home or self-care (01) ==
LOC: LAB.DROPOF 09-07 10:51
PROVIDERS: PCP Family Medicine; Visit Provider Family Medicine
DX: I25.10 Atherosclerotic heart disease of native coronary artery without angina pectoris (principal); E78.2 Mixed hyperlipidemia; Z12.5 Encounter for screening for malignant neoplasm of prostate
CPT/HCPCS: 80053; 80061; 85025; G0103